=== PATIENT | male | born 1980 | race African-American/Black ===

== ENCOUNTER 2016-04-19 15:17 | Emergency (ER) | payer OTHER ==
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
[2016-04-19 16:36] VITALS: BP 141/92
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
== END 2016-04-19 16:38 | disposition home or self-care (01) ==
LOC: ER 15:17
DX: S49.92XA Unspecified injury of left shoulder and upper arm, initial encounter (principal); M25.512 Pain in left shoulder; X58.XXXA Exposure to other specified factors, initial encounter; F17.210 Nicotine dependence, cigarettes, uncomplicated
CPT/HCPCS: 99283

== ENCOUNTER 2016-05-05 12:08 | Emergency (ER) | payer OTHER ==
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
[2016-05-05] MEDS ORDERED: LIDOCAINE 5% (700 MG) TRANSDERMAL ADH..PATCH TP ONE (13:30)
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
[2016-05-05 13:52] VITALS: BP 120/81
== END 2016-05-05 13:52 | disposition home or self-care (01) ==
LOC: ER 12:08
DX: S49.92XA Unspecified injury of left shoulder and upper arm, initial encounter (principal); G62.9 Polyneuropathy, unspecified; F17.200 Nicotine dependence, unspecified, uncomplicated; V09.3XXA Pedestrian injured in unspecified traffic accident, initial encounter; E10.9 Type 1 diabetes mellitus without complications
CPT/HCPCS: 99283

== ENCOUNTER 2016-06-26 16:16 | Inpatient (IN) | payer OTHER ==
[2016-06-26] MEDS ORDERED: PREDNISONE 20 MG TABLET PO ONE (17:45)
[2016-06-26] MEDS ORDERED: IPRATROPIUM/ALBUTEROL 0.5-2.5 MG/3 ML AMPUL NEB ONE (17:45)
[2016-06-26] MEDS ORDERED: NORMAL SALINE 1000 ML 1,000 ML IV ONE ×2 (17:50→17:52)
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
[2016-06-26 18:35] LABS: VENOUS BLOOD BASE EXCESS -5.5 mmol/L; VENOUS BLOOD HCO3 19.7 mmol/L (20-32); VENOUS BLOOD PCO2 37.6 mmHg (35-63); VENOUS BLOOD PH 7.34 (7.30-7.42)
[2016-06-26 18:37] LABS: ABSOLUTE LYMPHOCYTES (AUTO) 3.4 10^3/uL (0.5-4.7); ABSOLUTE MONOCYTES (AUTO) 0.4 10^3/uL (0.1-1.4); ABSOLUTE NEUT (AUTO) 4.7 10^3/uL (1.7-8.2); BASOPHILS % (AUTO) 0.2 % (0-2); EOSINOPHILS % (AUTO) 0.6 % (0-6); HEMATOCRIT 40.6 % (37.9-51.0); HEMOGLOBIN 13.1 g/dL (13.5-17.0); HGB HCT DIFFERENCE -1.3; LYMPHOCYTES % (AUTO) 39.9 % (13-45); MEAN CORPUSCULAR HEMOGLOBIN 31.1 pg (27.0-33.4); MEAN CORPUSCULAR HGB CONC 32.2 g/dL (32.0-36.0); MEAN CORPUSCULAR VOLUME 97 fl (80-97); MONOCYTES % (AUTO) 4.2 % (3-13); RED CELL DISTRIBUTION WIDTH 13.4 % (11.5-14.0); SEGMENTED NEUTROPHILS % (AUTO) 55.1 % (42-78); WHITE BLOOD COUNT 8.5 10^3/uL (4.0-10.5)
[2016-06-26 18:43] LABS: PROTHROMBIN TIME 11.7 SEC (11.4-15.4)
[2016-06-26 18:57] LABS: ALANINE AMINOTRANSFERASE 24 U/L (21-72); ALBUMIN 4.5 g/dL (3.5-5.0); ALKALINE PHOSPHATASE 125 U/L (38-126); ASPARTATE AMINO TRANSFERASE 29 U/L (17-59); BILIRUBIN,DIRECT 0.3 mg/dL (0.0-0.4); BLOOD UREA NITROGEN 22 mg/dL (7-20); CALCIUM 10.1 mg/dL (8.4-10.2); CREATININE RESULT 1.21 mg/dL (0.52-1.25); TOTAL PROTEIN 6.8 g/dL (6.3-8.2)
--- NOTE | 2016-06-26 18:57 | ER Document Report ---
ED General - General Chief Complaint: Asthma Exacerbation Stated Complaint: DIFFICULTY BREATHING Time seen by provider: 18:57 Mode of Arrival: Ambulatory Information source: Patient TRAVEL OUTSIDE OF THE [place] IN LAST 30 DAYS: No - HPI Patient complains to provider of: difficulty breathing Onset: Other - 2 weeks Onset/Duration: Gradual, Persistent, Worse Quality of pain: Achy Associated symptoms: Body/muscle aches, Nonproductive cough, Nausea, Shortness of breath Exacerbated by: Denies Relieved by: Denies Similar symptoms previously: Yes Recently seen / treated by doctor: No Notes: Patient is a 36-year-old male with history of asthma and diabetes, who presents to the emergency room complaining of difficulty breathing with nonproductive cough and chest tightness over the past 2 weeks, he denies any sick contacts, he does note his blood sugar was measured at high earlier today, he took Lantus 28 units in the morning and sliding scale NovoLog 12 units just prior to coming to the emergency room, he does admit to increased thirst and urination, denies nausea, vomiting or diarrhea - Related Data Allergies/Adverse Reactions: honey [Honey] Allergy (Verified 06/26/16 17:42) No Known Drug Allergies Allergy (Verified 06/26/16 17:42) Past Medical History - General Information source: Patient - Social History Smoking Status: Former Smoker Family History: CAD, CVA, DM, Hyperlipidemia, Hypertension, Malignancy Patient has suicidal ideation: No Patient has homicidal ideation: No - Past Medical History Cardiac Medical History: Denies: Hx Congestive Heart Failure, Hx Coronary Artery Disease, Hx DVT, Hx Heart Attack, Hx Hypercholesterolemia, Hx Hypertension, Hx Pulmonary Embolism Pulmonary Medical History: Reports: Hx Asthma Denies: Hx COPD Neurological Medical History: Denies: Hx Seizures Endocrine Medical History: Reports: Hx Diabetes Mellitus Type 1. Denies: Hx Diabetes Mellitus Type 2, Hx Hyperthyroidism, Hx Hypothyroidism Renal/ Medical History: Denies: Hx Peritoneal Dialysis GI Medical History: Denies: Hx Cirrhosis, Hx Gastroesophageal Reflux Disease, Hx Hepatitis Musculoskeltal Medical History: Denies Hx Arthritis, Reports Hx Musculoskeletal Trauma - Muscle strains and sprains Skin Medical History: Denies Hx Eczema, Denies Hx Psoriasis Psychiatric Medical History: Reports: Hx Anxiety, Hx Depression Infectious Medical History: Denies: Hx Hepatitis Past Surgical History: Reports: Hx Oral Surgery - Teeth, Hx Urinary Tract Surgery - fractured penis repair, Other - Surgery for fractured penis. Oral surgery. - Immunizations Immunizations up to date: Yes Hx Diphtheria, Pertussis, Tetanus Vaccination: Yes Review of Systems - Review of Systems Constitutional: No symptoms reported EENT: No symptoms reported Cardiovascular: No symptoms reported Respiratory: See HPI Gastrointestinal: No symptoms reported Genitourinary: No symptoms reported Male Genitourinary: No symptoms reported Musculoskeletal: No symptoms reported Skin: No symptoms reported Hematologic/Lymphatic: No symptoms reported Neurological/Psychological: No symptoms reported -: Yes All other systems reviewed and negative Physical Exam - Vital signs Vitals: Temp Pulse Resp BP Pulse Ox 97.8 F 102 H 20 106/63 99 06/26/16 16:21 06/26/16 16:21 06/26/16 16:21 06/26/16 16:21 06/26/16 16:21 Interpretation: Tachycardic - General General appearance: Alert In distress: Mild - HEENT Head: Normocephalic, Atraumatic Eyes: Normal Conjunctiva: Normal Extraocular movements intact: Yes Eyelashes: Normal Pupils: PERRL Mucous membranes: Dry Pharynx: Normal Neck: Normal - Respiratory Respiratory status: Tachypnea Chest status: Nontender Breath sounds: Normal Chest palpation: Normal - Cardiovascular Rhythm: Regular, Tachycardia Heart sounds: Normal auscultation Murmur: No - Abdominal Inspection: Normal Distension: No distension Bowel sounds: Normal Tenderness: Nontender Organomegaly: No organomegaly - Back Back: Normal, Nontender - Extremities General upper extremity: Normal inspection, Nontender, Normal color, Normal ROM , Normal temperature General lower extremity: Normal inspection, Nontender, Normal color, Normal ROM , Normal temperature, Normal weight bearing. No: Prabhu's sign - Neurological Neuro grossly intact: Yes Cognition: Normal Orientation: AAOx4 St[place]ker Coma Scale Eye Opening: Spontaneous Stryker Coma Scale Verbal: Oriented Stryker Coma Scale Motor: Obeys Commands Stryker Coma Scale Total: 15 Speech: Normal Motor strength normal: LUE, RUE, LLE, RLE Sensory: Normal - Psychological Associated symptoms: Normal affect, Normal mood - Skin Skin Temperature: Warm Skin Moisture: Dry Skin Color: Normal Course - Re-evaluation Re-evalutation: 06/26/16 23:57 Patient with signs and symptoms consistent with DKA, imaging also consistent with left lower lobe pneumonia, he was started on an insulin drip as well as antibiotics and will be admitted to the [facility] under the hospitalist service 06/27/16 02:37 Patient resting comfortably with stable vital signs, reports feeling much better , has been discussed with the hospitalist service for admission - Vital Signs Vital signs: Temp Pulse Resp BP Pulse Ox 98.5 F 102 H 18 117/80 97 06/27/16 02:00 06/26/16 16:21 06/27/16 01:30 06/27/16 01:30 06/27/16 01:30 - Laboratory Result Diagrams: 06/26/16 18:05 06/26/16 23:35 Laboratory results interpreted by me: 06/26/16 06/26/16 06/26/16 18:05 18:05 18:05 RBC 4.20 L Hgb 13.1 L VBG HCO3 19.7 L Sodium 125.8 L Potassium 6.6 H* Chloride 87 L Carbon Dioxide 19 L Anion Gap 20 H BUN 22 H Glucose 871 H* POC Glucose Urine Glucose (UA) Urine Ketones 06/26/16 06/26/16 06/26/16 18:20 21:40 23:35 RBC Hgb VBG HCO3 Sodium 135.1 L 136.1 L Potassium 5.2 H D Chloride Carbon Dioxide 16 L 14 L Anion Gap 21 H 22 H BUN 22 H Glucose 555 H* 401 H* POC Glucose Urine Glucose (UA) >=500 H Urine Ketones 20 H 06/27/16 06/27/16 00:35 01:23 RBC Hgb VBG HCO3 Sodium Potassium Chloride Carbon Dioxide Anion Gap BUN Glucose POC Glucose 256 H 209 H Urine Glucose (UA) Urine Ketones - Diagnostic Test Radiology reviewed: Image reviewed, Reports reviewed - EKG Interpretation by Me EKG shows normal: Sinus rhythm Rate: Normal Rhythm: NSR - Transfer of Care Care transferred to following provider: Dr. Emery Critical Care Note - Critical Care Note Total time excluding time spent on procedures (mins): 60 Comments: Patient with tachypnea, with signs and symptoms consistent with TKA, requiring admission to the IMCU Discharge - Discharge Clinical Impression: DKA (diabetic ketoacidoses) Qualifiers: Diabetes mellitus type: type 1 Diabetes mellitus complication detail: without coma Qualified Code(s): E10.10 - Type 1 diabetes mellitus with ketoacidosis without coma Pneumonia Qualifiers: Pneumonia type: due to unspecified organism Laterality: left Lung location: lower lobe of lung Qualified Code(s): J18.1 - Lobar pneumonia, unspecified organism Condition: Serious Disposition: ADMITTED INPATIENT Admitting Provider: Hospitalist Unit Admitted: [facility]
[2016-06-26 18:58] LABS: APPEARANCE,URINE CLEAR; BILIRUBIN,URINE NEGATIVE (NEGATIVE); GLUCOSE, URINE >=500 mg/dL (NEGATIVE); KETONES,URINE 20 mg/dL (NEGATIVE); LEUKOCYTE ESTERASE,URINE NEGATIVE (NEGATIVE); NITRITE,URINE NEGATIVE (NEGATIVE); PROTEIN,URINE NEGATIVE (NEGATIVE); URINE SPECIFIC GRAVITY 1.027; UROBILINOGEN,URINE NEGATIVE mg/dL (<2.0)
[2016-06-26 19:05] LABS: CARBON DIOXIDE 19 mmol/L (22-30); CHLORIDE 87 mmol/L (98-107); SODIUM 125.8 mmol/L (137-145)
[2016-06-26 19:37] LABS: ANION GAP 20 (5-19)
[2016-06-26 19:40] LABS: GLUCOSE 871 mg/dL (75-110); POTASSIUM 6.6 mmol/L (3.6-5.0)
[2016-06-26] MEDS ORDERED: DEXTROSE 50%-WATER 25 GM/50 ML DISP.SYRIN IV PRN ×2 (19:42)
[2016-06-26] MEDS ORDERED: NORMAL SALINE 100 ML with INSULIN REGULAR, HUMAN 100 UNIT IV PRN ×2 (19:42)
[2016-06-26] MEDS ORDERED: DEXTROSE 40% GEL 15 GM TUBE PO PRN ×2 (19:42)
[2016-06-26] MEDS ORDERED: GLUCAGON,HUMAN RECOMB 1 MG INJ IM PRN (19:42)
[2016-06-26] MEDS ORDERED: ONDANSETRON HCL INJ/PF 4 MG/2 ML SDV IV ONE (19:51)
[2016-06-26] MEDS ORDERED: INSULIN REG, HUMAN 100 UNIT/ML 3 ML VIAL (PYX) ONE (19:58)
[2016-06-26] MEDS ORDERED: METOCLOPRAMIDE HCL INJ/PF 10 MG/2 ML SDV IV ONE (20:55)
[2016-06-26 22:40] LABS: BLOOD UREA NITROGEN 22 mg/dL (7-20); CALCIUM 9.5 mg/dL (8.4-10.2); CREATININE RESULT 1.05 mg/dL (0.52-1.25)
[2016-06-26 22:50] LABS: CARBON DIOXIDE 16 mmol/L (22-30); CHLORIDE 98 mmol/L (98-107); SODIUM 135.1 mmol/L (137-145)
[2016-06-26 22:52] LABS: ANION GAP 21 (5-19); POTASSIUM 5.2 mmol/L (3.6-5.0)
[2016-06-26 22:54] LABS: GLUCOSE 555 mg/dL (75-110)
[2016-06-26] MEDS ORDERED: NORMAL SALINE 1000 ML 1,000 ML IV PRN (22:56)
[2016-06-27 00:12] LABS: BLOOD UREA NITROGEN 20 mg/dL (7-20); CALCIUM 9.6 mg/dL (8.4-10.2); CARBON DIOXIDE 14 mmol/L (22-30); CREATININE RESULT 1.01 mg/dL (0.52-1.25)
[2016-06-27 00:24] LABS: CHLORIDE 100 mmol/L (98-107); POTASSIUM 4.9 mmol/L (3.6-5.0); SODIUM 136.1 mmol/L (137-145)
[2016-06-27 00:28] LABS: ANION GAP 22 (5-19)
[2016-06-27 00:33] LABS: GLUCOSE 401 mg/dL (75-110)
[2016-06-27] MEDS ORDERED: LEVOFLOXACIN 750 MG/D5W RTU 150 ML IV ONE (01:51)
[2016-06-27] MEDS ORDERED: DEXTROSE 5%-NORMAL SALINE 1,000 ML IV PRN ×2 (02:08→03:44)
[2016-06-27 02:14] LABS: ADD ON TESTING BLD IN LAB ACKNOWLEDGE
[2016-06-27] MEDS ORDERED: DEXTROSE 50%-WATER 25 GM/50 ML DISP.SYRIN IV PRN ×2 (02:41)
[2016-06-27] MEDS ORDERED: NORMAL SALINE 100 ML with INSULIN REGULAR, HUMAN 100 UNIT IV PRN ×2 (02:41)
[2016-06-27] MEDS ORDERED: GLUCAGON,HUMAN RECOMB 1 MG INJ IM PRN ×2 (02:41→08:42)
[2016-06-27] MEDS ORDERED: DEXTROSE 40% GEL 15 GM TUBE PO PRN ×3 (02:41→08:42)
[2016-06-27] MEDS ORDERED: GUAIFENESIN SYRP 200 MG/10 ML UDC PO PRN (03:40)
[2016-06-27] MEDS ORDERED: IPRATROPIUM/ALBUTEROL 0.5-2.5 MG/3 ML AMPUL NEB PRN (03:40)
[2016-06-27] MEDS ORDERED: ACETAMINOPHEN 325 MG TABLET PO PRN (03:40)
[2016-06-27 03:46] LABS: ANION GAP 14 (5-19); BLOOD UREA NITROGEN 17 mg/dL (7-20); CALCIUM 9.1 mg/dL (8.4-10.2); CARBON DIOXIDE 22 mmol/L (22-30); CHLORIDE 105 mmol/L (98-107); CREATINE KINASE 292 U/L (55-170); CREATININE RESULT 0.87 mg/dL (0.52-1.25); GLUCOSE 222 mg/dL (75-110); POTASSIUM 4.5 mmol/L (3.6-5.0); SODIUM 141.1 mmol/L (137-145)
--- NOTE | 2016-06-27 03:57 | PDOC H&P ---
History of Present Illness Admission Date/PCP: 06/27/16 02:18 [place] Patient complains of: DIFFICULTY BREATHING, HIGH BLOOD SUGAR History of Present Illness: JOSE DANIEL CLINTON is a 36 year old -Eritre[place] male with underlying type I diabetes mellitus, asthma, tobacco dependency, although no smoking for the past who presents to the emergency room for evaluation of a 2 week history of difficulty breathing with an associated dry cough and chest tightness when his shortness of breath is at its worst. Dates he's been coughing so much his chest wall is sore. When he doesn't cough, he is having no chest pain. He's had no nausea vomiting, diarrhea or dysuria, fever or chills. No sick contacts. No hospital stay since early February of last year and no antibiotics since then. Hospitalized on our service basically overnight with discharge diagnoses including diabetic ketoacidosis, acute asthmatic bronchitis. History and physical and discharge summary have been reviewed. Blood sugar reading was noted to be "high" the morning of the fourth. Increased thirst and urine output. Denies any "sore spots" anywhere on his body. States he's been compliant with his medications. Patient has been discussed with emergency room physician who evaluated the patient. . Laboratory results are listed in [facility] [place] and are reviewed. X-ray summary results are listed below, with full report(s) reviewed. . EKG reviewed. And compared to a tracing from February 24 of last year. Social history/personal habits: . 4 children. Works at a local [employer] center. No tobacco use for one week. No alcohol or illicit drug use. Allergies/adverse reactions allergic only to honey. NKDA. Home medications Home medications initially autopopulated into [email or web address] may not accurately reflect patient's true medications, dosages, and/or frequencies. REVIEW OF SYSTEMS: Constitutional: No fever or chills. Eyes: No current vision complaints. ENT: No swallowing problems or complaints. No hearing problems or complaints. Pulmonary: See history and present illness. Cardiovascular: No current complaints, including chest pain. Gastrointestinal: No current complaints, including nausea or vomiting. Skin: No current complaints, including rashes. Hematologic: No unusual easy bruising or bleeding. Neurologic: No current complaints, including numbness or tingling. Musculoskeletal: No current complaints, including painful joints. Psychiatric: Mild Anxiety Endocrine: Polyuria and polydipsia Genitourinary: No current complaints, including dysuria. PHYSICAL EXAMINATION: 6 feet tall. 78.6 kg. BMI 23.5 kg/m. Blood pressure 110/85. Pulse 110 and regular. 100% saturation on room air. Respirations are 24 and unlabored. Temperature 98.5. Thin otherwise well-developed -Erit[place] male appearing approximate stated age. Pleasant awake alert and cooperative. Perhaps slightly fatigued. Appears to feel a bit under the weather, so to speak also. Mildly anxious, but no agitation. is present at his side; patient approves. Skin is warm and dry. No grossly obvious evidence of rash in areas of skin examined. No subcutaneous nodules palpated. ENT: Hearing grossly normal to normal conversation. Tongue midline on protrusion pink and slightly tacky. Eyes: No scleral icterus. Pupils equal and reactive to light at 4 mm. [place] conjunctivae. Neck is supple and nontender to gentle active range of motion and palpation. Midline trachea. No palpable thyroid nodule mass enlargement or tenderness. Lymphatic: No palpable cervical or clavicular nodes. Neck and lymphatic exams limited by patient body habitus. Psychiatric: Reasonable insight into acute and chronic medical issues. Oriented to time location and why here. Lungs: Auscultation reveals clear and equal breath sounds bilaterally. No use of accessory respiratory muscles. Occasional dry cough. Cardiovascular: Heart regular rate and rhythm, without gallop murmur or rub. No carotid or abdominal aortic bruits. No ankle or pedal edema. Faintly palpable dorsalis pedis pulses. Abdomen: soft, slightly, distended nontender with positive bowel sounds. Unable to adequately evaluate abdomen for masses or organomegaly due to distention. Extremities: Feet are warm and dry. No calf tenderness to compression. No grossly obvious visual evidence of calf swelling. Gentle manipulation of lower extremities fails to reveal any obvious evidence of injury or instability to knees hips or ankles. Neurologic: Moves upper extremities grossly normally. Patellar reflexes absent. Absent Babinski. Light touch is intact at feet. Dorsiflexion and plantarflexion of feet 5 / 5 and symmetric. Past Medical History Cardiac Medical History: Denies: Congestive Heart Failure, Coronary Artery Disease, DVT, Myocardial Infarction, Hyperlipidema, Hypertension, Pulmonary Embolism Pulmonary Medical History: Reports: Asthma Denies: Chronic Obstructive Pulmonary Disease (COPD), Sleep Apnea Neurological Medical History: Denies: Seizures Endocrine Medical History: Reports: Diabetes Mellitus Type 1 Denies: Diabetes Mellitus Type 2, Hyperthyroidism, Hypothyroidism GI Medical History: Denies: Cirrhosis, Gastroesophageal Reflux Disease, Hepatitis Musculoskeltal Medical History: Denies: Arthritis Skin Medical History: Denies: Eczema, Psoriasis Psychiatric Medical History: Reports: Depression Infectious Medical History: Denies: Clostridium Difficile, Hepatitis B, Hepatitis C, Methicillin- Resistant Staph Aureus Past Surgical History Past Surgical History: Reports: Other - Surgery for fractured penis. Oral surgery. Social History Information Source: Patient, Emergency Med Personnel, [facility] Records Lives with: Spouse/Significant other Smoking Status: Former Smoker Frequency of Alcohol Use: None Hx Recreational Drug Use: No Drugs: None Hx Prescription Drug Abuse: No - Advance Directive Resuscitation Status: Full Code Surrogate healthcare decision maker:: Family History Family History: CAD, CVA, DM, Hyperlipidemia, Hypertension, Malignancy Parental Family History Reviewed: Yes Children Family History Reviewed: Yes Sibling(s) Family History Reviewed.: Yes Medication/Allergy Home Medications: Insulin Glargine,Hum.rec.anlog [Lantus Insulin 100 Unit/mL] 28 units SUBCUT QAM 01/28/13 Hydrocodone Bit/Acetaminophen [Hydrocodon-Acetaminophen 5-325] 1 each PO ASDIR PRN #15 tablet 01/04/14 Penicillin V Potassium [Penicillin Vk 500 mg Tablet] 500 mg PO QID #40 tablet Insulin Aspart [Novolog Insulin (Aspart) 100 unit/mL] 0 unit SUBCUT AC 01/16/14 Clindamycin HCl [Cleocin HCl] 300 mg PO TID 7 Days 07/05/14 Oxycodone HCl/Acetaminophen [Percocet 5-325 mg Tablet] 1 - 2 tab PO Q4H PRN #25 tablet 10/24/14 Ondansetron [Zofran Odt 4 mg Tablet] 1 tab PO Q4H PRN #15 tab.rapdis 12/05/14 Prednisone [Deltasone 20 mg Tablet] 3 tab PO DAILY 3 Days 01/14/15 Albuterol Sulfate [Proair HFA Inhalation Aerosol 8.5 gm MDI] 1 puff IH Q4 PRN # 1 mdi 06/09/15 Budesonide/Formoterol Fumarate [Symbicort Hfa 80-4.5 Mcg Inhaler 6.9 gm] 2 puff IH QAM 06/27/16 Allergies/Adverse Reactions: honey [Honey] Allergy (Verified 06/27/16 08:49) No Known Drug Allergies Allergy (Verified 06/27/16 08:49) Physical Exam Vital Signs: Temp Pulse Resp BP Pulse Ox 98.5 F 102 H 14 122/70 99 06/27/16 02:00 06/26/16 16:21 06/27/16 02:30 06/27/16 02:30 06/27/16 02:30 Results Impressions: Chest X-Ray 06/26/16 00:00 IMPRESSION: PATCHY LEFT LOWER LOBE AIRSPACE DISEASE SUGGESTIVE OF EARLY PNEUMONIA. Assessment & Plan - Diagnosis (1) DKA, type 1 Qualifiers: Diabetes mellitus complication detail: without coma Qualified Code(s ): E10.10 - Type 1 diabetes mellitus with ketoacidosis without coma Is this a current diagnosis for this admission?: YesPlan: Patient will be admitted under DKA protocol. Insulin drip. Vigorous fluid hydration. Strict intake and output. Q 4 hours chemistry 7. Hourly Accu- Cheks. Addition of dextrose to intravenous fluid once serum glucose and/or Accu- Cheks 275 or less. Patient is full code. I have strongly encouraged patient to be careful getting out of bed , to avoid a fall with injury. Knee high SCDs for DVT prophylaxis, along with subcutaneous Lovenox. Impression and plans were discussed with patient and , who concur. Time spent in evaluation and management of patient: 63 minutes (2) LLL pneumonia Qualifiers: Pneumonia type: due to unspecified organism Qualified Code(s): J18.1 - Lobar pneumonia, unspecified organism Is this a current diagnosis for this admission?: YesPlan: Patient will be admitted under [pneumonia] protocol. Incentive spirometry twice a day. [PRN] DuoNeb's. Antibiotics will consist of Rocephin and intravenous Zithromax.. (3) Tobacco dependency Is this a current diagnosis for this admission?: YesPlan: . When necessary Nicotine patch. - Inpatient Certification Based on my medical assessment, after consideration of the patient's comorbidities, presenting symptoms, or acuity I expect that the services needed warrant INPATIENT care.: Yes I certify that my determination is in accordance with my understanding of Medicare's requirements for reasonable and necessary INPATIENT services [42 CFR 412.3e].: Yes Medical Necessity: Need Close Monitoring Due to Risk of Patient Decompensation, Need For Continuous Telemetry Monitoring, Need for Nebulizer Therapy and Monitoring of Response, Need for IV Antibiotics, Risk of Complication if Not Cared For in Hospital, Risk of Diagnosis Which Will Require Inpatient Eval/Care/ Monitoring Post Hospital Care: D/C or Transfer Summary
[2016-06-27 03:59] LABS: TROPONIN I < 0.012 ng/mL
[2016-06-27 07:43] LABS: ABSOLUTE BASOPHILS # (AUTO) 0.1 10^3/uL (0.0-0.2); ABSOLUTE LYMPHOCYTES (AUTO) 3.4 10^3/uL (0.5-4.7); ABSOLUTE MONOCYTES (AUTO) 0.5 10^3/uL (0.1-1.4); ABSOLUTE NEUT (AUTO) 7.1 10^3/uL (1.7-8.2); BASOPHILS % (AUTO) 0.5 % (0-2); EOSINOPHILS % (AUTO) 0.2 % (0-6); HEMATOCRIT 34.5 % (37.9-51.0); HEMOGLOBIN 11.8 g/dL (13.5-17.0); HGB HCT DIFFERENCE 0.9; LYMPHOCYTES % (AUTO) 30.6 % (13-45); MEAN CORPUSCULAR HEMOGLOBIN 31.1 pg (27.0-33.4); MONOCYTES % (AUTO) 4.4 % (3-13); RED BLOOD COUNT 3.78 10^6/uL (4.35-5.55); RED CELL DISTRIBUTION WIDTH 12.8 % (11.5-14.0); SEGMENTED NEUTROPHILS % (AUTO) 64.3 % (42-78); WHITE BLOOD COUNT 11.1 10^3/uL (4.0-10.5)
[2016-06-27 07:55] LABS: ANION GAP 8 (5-19); BLOOD UREA NITROGEN 15 mg/dL (7-20); CALCIUM 8.7 mg/dL (8.4-10.2); CARBON DIOXIDE 25 mmol/L (22-30); CHLORIDE 108 mmol/L (98-107); GLUCOSE 99 mg/dL (75-110); POTASSIUM 3.8 mmol/L (3.6-5.0); SODIUM 140.8 mmol/L (137-145)
[2016-06-27 08:01] LABS: MEAN CORPUSCULAR VOLUME 91 fl (80-97)
[2016-06-27] MEDS ORDERED: INSULIN REG, HUMAN 100 UNIT/ML 3 ML VIAL (PYX) SUBCUT PRN (08:19)
[2016-06-27] MEDS ORDERED: DEXTROSE 40% GEL 15 GM TUBE X 2 PO PRN (08:42)
[2016-06-27] MEDS ORDERED: DEXTROSE 50%-WATER SYRINGE 12.5 GM/25 ML DOSE IV PRN (08:42)
[2016-06-27] MEDS ORDERED: DEXTROSE 50%-WATER SYRINGE 25 GM/50 ML DOSE IV PRN (08:42)
[2016-06-27] MEDS: CEFTRIAXONE 1 GM/D5W RTU 50 ML IV SCH (09:22)
[2016-06-27] MEDS: ENOXAPARIN SODIUM INJ 40 MG/0.4 ML DISP.SYRIN SUBCUT SCH (09:23)
[2016-06-27] MEDS ORDERED: INSULIN GLARGINE,HUM.REC.ANLOG 300 UNIT/3 ML INSULN.PEN SUBCUT SCH (10:00)
[2016-06-27] MEDS: AZITHROMYCIN 500 MG in DEXTROSE 5%-WATER 250 ML IV SCH (10:46)
[2016-06-27] MEDS ORDERED: INSULIN LISPRO 100 UNIT/ML 3 ML VIAL ONE (13:35)
[2016-06-27] MEDS ORDERED: INSULIN LISPRO 100 UNIT/ML 3 ML VIAL SUBCUT PRN (13:44)
[2016-06-27] MEDS ORDERED: INSULIN LISPRO 100 UNIT/ML 3 ML VIAL SUBCUT ONE (14:00)
[2016-06-27] MEDS: NORMAL SALINE 1000 ML 1,000 ML IV PRN (20:36)
[2016-06-28 05:50] LABS: ANION GAP 12 (5-19); BLOOD UREA NITROGEN 13 mg/dL (7-20); CALCIUM 8.6 mg/dL (8.4-10.2); CARBON DIOXIDE 21 mmol/L (22-30); CHLORIDE 110 mmol/L (98-107); CREATININE RESULT 0.77 mg/dL (0.52-1.25); GLUCOSE 163 mg/dL (75-110); POTASSIUM 4.2 mmol/L (3.6-5.0)
[2016-06-28] MEDS: NORMAL SALINE 1000 ML 1,000 ML IV PRN (06:17)
[2016-06-28] MEDS: ENOXAPARIN SODIUM INJ 40 MG/0.4 ML DISP.SYRIN SUBCUT SCH (09:13)
[2016-06-28] MEDS ORDERED: INSULIN GLARGINE,HUM.REC.ANLOG 300 UNIT/3 ML INSULN.PEN SUBCUT SCH (10:00)
--- NOTE | 2016-06-28 11:55 | PDOC DISCHARGE SUMMARY ---
General - Admit/Disc Date/PCP Admission Date/Primary Care Provider: 06/27/16 03:41 Discharge Date: 06/28/16 - Discharge Diagnosis (1) DKA, type 1 Is this a current diagnosis for this admission?: Yes (2) LLL pneumonia Is this a current diagnosis for this admission?: Yes (3) Hyponatremia Is this a current diagnosis for this admission?: Yes (4) Asthma Is this a current diagnosis for this admission?: Yes - Additional Information Resuscitation Status: Full Code Discharge Diet: Diabetic - no concentrated sweets Discharge Activity: Activity As Tolerated, Balance Activity w/Rest Home Medications: Hydrocodone Bit/Acetaminophen [Hydrocodon-Acetaminophen 5-325] 1 each PO ASDIR PRN #15 tablet 01/04/14 Penicillin V Potassium [Penicillin Vk 500 mg Tablet] 500 mg PO QID #40 tablet Insulin Aspart [Novolog Insulin (Aspart) 100 unit/mL] 0 unit SUBCUT AC 01/16/14 Clindamycin HCl [Cleocin HCl] 300 mg PO TID 7 Days 07/05/14 Oxycodone HCl/Acetaminophen [Percocet 5-325 mg Tablet] 1 - 2 tab PO Q4H PRN #25 tablet 10/24/14 Ondansetron [Zofran Odt 4 mg Tablet] 1 tab PO Q4H PRN #15 tab.rapdis 12/05/14 Prednisone [Deltasone 20 mg Tablet] 3 tab PO DAILY 3 Days 01/14/15 Albuterol Sulfate [Proair HFA Inhalation Aerosol 8.5 gm MDI] 1 puff IH Q4 PRN # 1 mdi 06/09/15 Budesonide/Formoterol Fumarate [Symbicort HFA 80-4.5 mcg Inhaler 6.9 gm] 2 puff IH QAM 06/27/16 Guaifenesin [Robitussin Syrup 200 mg/10 ml Ud Cup] 200 mg PO Q4HP PRN udc 06/28 Insulin Glargine,Hum.rec.anlog [Lantus Insulin 100 Unit/mL] 30 unit SUBCUT DAILY insuln.pen 06/28/16 Levofloxacin [Levaquin 750 mg Tablet] 750 mg PO DAILY #10 tab 06/28/16 Additional Information: Measure blood sugar 3 times a day and record. Bring to next physician visit. Follow up final report on blood culture as outpatient with primary care physician. History of Present Illness Patient complains of: Shortness of breath with high blood sugar History of Present Illness: JOSE DANIEL CLINTON is a 36 year old male, insulin-dependent diabetes mellitus and asthma presents to the hospital with 2 week history of shortness of breath, cough and pleuritic chest pain. The patient presented to the emergency room with elevated blood sugar elevated anion gap. Patient was given intravenous insulin and insulin drip as well as intravenous fluids. Chest x-ray revealed left lower lobe infiltrate. Intravenous antibiotic was given. The patient was then referred for admission. For details please refer to history and physical examination performed by the admitting physician. Hospital Course Hospital Course: The patient was admitted to [facility]. The patient was continued on intravenous insulin and IV fluids. Blood sugars were monitored hourly and eventually the patient's blood sugar trended down and dextrose containing IV fluid was started. Patient presents initially with hyperkalemia that resolved. Serum chemistries were performed and eventually the patient's anion gap normalized. Broad-spectrum antibiotic was continued. Patient's symptomatology improved significantly. Diet was advanced and he tolerated it well. Patient was therefore placed on subcutaneous basal insulin with sliding scale coverage, and the intravenous drip was discontinued. The following morning the patient wanted to go home as he significantly improved. He wants to continue treatment on an outpatient basis. The rest of the hospital stays unremarkable. Physical Exam Vital Signs: Temp Pulse Resp BP Pulse Ox 97.9 F 71 14 140/85 H 99 06/28/16 07:32 06/28/16 08:00 06/28/16 08:00 06/28/16 07:32 06/28/16 08:00 Intake & Output 06/27/16 06/28/16 06/29/16 06:59 06:59 06:59 Intake Total 2670 Output Total 0 Balance 2670 Weight 79.9 kg General appearance: PRESENT: no acute distress, cooperative Head exam: PRESENT: normocephalic Eye exam: PRESENT: EOMI Mouth exam: PRESENT: moist, neck supple Neck exam: ABSENT: JVD Respiratory exam: PRESENT: clear to auscultation selena. ABSENT: rhonchi, wheezes GI/Abdominal exam: PRESENT: normal bowel sounds, soft. ABSENT: distended, tenderness Extremities exam: ABSENT: pedal edema Neurological exam: PRESENT: alert, awake, oriented to person, oriented to place , oriented to time, oriented to situation Skin exam: PRESENT: dry, warm. ABSENT: cyanosis Results Laboratory Results: 06/27/16 07:35 06/28/16 04:25 06/28/16 04:25 Sodium 143.0 Potassium 4.2 Chloride 110 H Carbon Dioxide 21 L Anion Gap 12 BUN 13 Creatinine 0.77 Est GFR ( Amer) > 60 Est GFR (Non-Af Amer) > 60 Glucose 163 H Calcium 8.6 Impressions: Chest X-Ray 06/26/16 00:00 IMPRESSION: PATCHY LEFT LOWER LOBE AIRSPACE DISEASE SUGGESTIVE OF EARLY PNEUMONIA. Qualifiers PATEINT BEING DISCHARGED WITH ANY OF THE FOLLOWING DIAGNOSIS?: No Plan Discharge Plan: Follow-up with primary care physician in one week. Time Spent: Less than 30 Minutes
[2016-06-28] MEDS: AZITHROMYCIN 500 MG in DEXTROSE 5%-WATER 250 ML IV SCH (12:08)
[2016-06-28] MEDS: CEFTRIAXONE 1 GM/D5W RTU 50 ML IV SCH (12:08)
[2016-06-28 12:10] VITALS: BP 135/78
[2016-06-28] MEDS ORDERED: INSULIN LISPRO 100 UNIT/ML 3 ML VIAL SUBCUT ONE (12:45)
--- NOTE | 2016-06-28 15:44 | EKG REPORT ---
SEVERITY:- ABNORMAL ECG - SINUS RHYTHM CONSIDER LEFT VENTRICULAR HYPERTROPHY : Confirmed by: Tracee Churchill MD 28-Jun-2016 15:43:14
== END 2016-06-28 12:45 | disposition home or self-care (01) | DRG 637 ==
LOC: ER 16:16 → UNDOADMIN 06-27 02:18 → EH 06-27 02:18 → 3N 06-27 12:03
PROVIDERS: ADMIT Family Medicine; ATTEND Family Medicine
PROC: 3E0F73Z Introduction of Anti-inflammatory into Respiratory Tract, Via Natural or Artificial Opening (ICD-10-PCS; principal; 2016-06-27)
DX: E10.10 Type 1 diabetes mellitus with ketoacidosis without coma (principal); J18.1 Lobar pneumonia, unspecified organism; E87.1 Hypo-osmolality and hyponatremia; J45.909 Unspecified asthma, uncomplicated; E87.5 Hyperkalemia; F41.9 Anxiety disorder, unspecified; F32.9 Major depressive disorder, single episode, unspecified; Z79.4 Long term (current) use of insulin; Z91.018 Allergy to other foods; Z79.899 Other long term (current) drug therapy; Z87.891 Personal history of nicotine dependence; Z82.3 Family history of stroke; Z83.3 Family history of diabetes mellitus; Z80.9 Family history of malignant neoplasm, unspecified; Z82.49 Family history of ischemic heart disease and other diseases of the circulatory system
CPT/HCPCS: 36415; 71010; 80048; 80053; 81001; 82550; 82553; 82803; 82962; 83605; 83735; 84484; 85025; 85610; 87040; 87086; 87804; 93005; 93010; 94799; 96361; 96374; 96375; 99291; J0456; J0696; J1650; J1815; J1956; J2405; J2765; J3490; J7030; J7060; J7512; J7620

== ENCOUNTER 2016-09-09 18:45 | Emergency (ER) | payer OTHER ==
[2016-09-09 18:51] VITALS: BP 157/103
[2016-09-09] MEDS ORDERED: OXYCODONE HCL IR 5 MG TABLET PO ONE (19:25)
--- NOTE | 2016-09-09 19:27 | ER Document Report ---
HPI - HPI Patient complains to provider of: puncture wound Onset: Other - 3 days Onset/Duration: Persistent Quality of pain: Achy Pain Level: 5 Context: Patient states that he accidentally screwed a screw into his left thumb 3 days ago. Patient states that the fingernail was lifted up but he cleansed the wound and pushed the nail back in place and applied a skin glue adhesive over the top of the nail. Patient complains of continued left thumb pain. Patient denies any fever. Patient does complain of some swelling. Patient is diabetic , states his blood sugars have been running normally. Associated Symptoms: Other - Puncture wound to left thumb Exacerbated by: Movement Relieved by: Denies Similar symptoms previously: No Recently seen / treated by doctor: No - ROS ROS below otherwise negative: Yes Systems Reviewed and Negative: Yes All other systems reviewed and negative - CONSTITUTIONAL Constitutional: DENIES: Fever, Chills - REPRODUCTIVE Reproductive: DENIES: : - MUSCULOSKELETAL Musculoskeletal: REPORTS: Extremity pain, Swelling - DERM Skin Problems: Puncture Wound Past Medical History - General Information source: Patient - Social History Smoking Status: Current Every Day Smoker Frequency of alcohol use: None Drug Abuse: None Occupation: [employer] Lives with: Family Family History: CAD, CVA, DM, Hyperlipidemia, Hypertension, Malignancy - Past Medical History Cardiac Medical History: Denies: Hx Congestive Heart Failure, Hx Coronary Artery Disease, Hx DVT, Hx Heart Attack, Hx Hypercholesterolemia, Hx Hypertension, Hx Pulmonary Embolism Pulmonary Medical History: Reports: Hx Asthma Denies: Hx COPD, Hx Sleep Apnea Neurological Medical History: Denies: Hx Seizures Endocrine Medical History: Reports: Hx Diabetes Mellitus Type 1. Denies: Hx Diabetes Mellitus Type 2, Hx Hyperthyroidism, Hx Hypothyroidism Renal/ Medical History: Denies: Hx Peritoneal Dialysis GI Medical History: Denies: Hx Cirrhosis, Hx Gastroesophageal Reflux Disease, Hx Hepatitis Musculoskeltal Medical History: Denies Hx Arthritis, Reports Hx Musculoskeletal Trauma - Muscle strains and sprains Skin Medical History: Denies Hx Eczema, Denies Hx Psoriasis Psychiatric Medical History: Reports: Hx Anxiety, Hx Depression Infectious Medical History: Denies: Hx C-Diff, Hx Hepatitis, Hx MRSA Past Surgical History: Reports: Hx Oral Surgery - Teeth, Hx Urinary Tract Surgery - fractured penis repair, Other - Surgery for fractured penis. Oral surgery. - Immunizations Immunizations up to date: Yes Hx Diphtheria, Pertussis, Tetanus Vaccination: Yes Vertical Provider Document - CONSTITUTIONAL Agree With Documented VS: Yes Exam Limitations: No Limitations General Appearance: WD/WN, No Apparent Distress - INFECTION CONTROL TRAVEL OUTSIDE OF THE [place] IN LAST 30 DAYS: No - HEENT HEENT: Atraumatic, Normocephalic - NECK Neck: Normal Inspection - RESPIRATORY Respiratory: No Respiratory Distress O2 Sat by Pulse Oximetry: 100 - CARDIOVASCULAR Pulses: Normal: Radial - MUSCULOSKELETAL/EXTREMETIES Musculoskeletal/Extremeties: MAEW, Tender - left thumb tenderness along radial aspect of finger, mild swelling to distal thumb, no erythema - NEURO Level of Consciousness: Awake, Alert, Appropriate Motor/Sensory: No Motor Deficit - DERM Integumentary: Warm, Dry Notes: PW to left thumb involving nail Course - Re-evaluation Re-evalutation: 09/09/16 20:15 The patient has been informed that they may have pre-hypertension or hypertension based on a blood pressure reading in the emergency department. I recommend that patient call the primary care provider listed on their discharge instructions or a physician of their choice by this week to arrange follow-up for further evaluation of possible pre-hypertension her hypertension. Consulted with Dr. Jang regarding patient management, advises treating patient with Bactrim as well as Keflex and agrees with plan for orthopedic follow-up - Vital Signs Vital signs: Temp Pulse Resp BP Pulse Ox 98.3 F 100 22 H 157/103 H 100 09/09/16 18:48 09/09/16 18:48 09/09/16 18:48 09/09/16 18:48 09/09/16 18:48 - Diagnostic Test Radiology reviewed: Reports reviewed Discharge - Discharge Clinical Impression: Elevated blood pressure reading Puncture wound of thumb Qualifiers: Encounter type: initial encounter Laterality: left Qualified Code(s): S61.032A - Puncture wound without foreign body of left thumb without damage to nail, initial encounter Condition: Stable Disposition: HOME, SELF-CARE Instructions: Puncture Wound ([facility]), Trimethoprim-Sulfa ([facility]), Cephalexin ([facility]) , Oral Narcotic Medication ([facility]) Additional Instructions: Return immediately for any new or worsening symptoms Followup with your primary care provider, call tomorrow to make a followup appointment Follow-up with orthopedic hand specialist, call tomorrow for an appointment Your blood pressure was elevated today, recheck with your primary doctor to have this reevaluated this week. Prescriptions: Cephalexin Monohydrate [Keflex 500 mg Capsule] 500 mg PO Q6H 5 Days Oxycodone HCl/Acetaminophen [Percocet 5-325 mg Tablet] 1 tab PO ASDIR PRN #15 tablet PRN Reason: Sulfamethoxazole/Trimethoprim [Bactrim Ds Tablet] 1 each PO BID #20 tablet Forms: Elevated Blood Pressure, Return to Work Referrals: ZHAO RICHMOND DO [ACTIVE STAFF] - Follow up tomorrow
--- NOTE | 2016-09-09 20:01 | RADIOLOGY REPORT (SQ) ---
EXAM DESCRIPTION: FINGER LEFT COMPLETED DATE/TIME: 09/09/2016 7:53 pm REASON FOR STUDY: screw thru nail 3 days ago, pain/swelling COMPARISON: None. NUMBER OF VIEWS: Three views. TECHNIQUE: AP, lateral, and oblique images acquired of the left thumb LIMITATIONS: None. FINDINGS: MINERALIZATION: Normal. BONES: No acute fracture or dislocation. No worrisome bone lesions. SOFT TISSUES: Left thumb soft tissue swelling along the palmar aspect at the level of the distal phal anx. No soft tissue gas. No radiopaque foreign body. OTHER: No other significant finding. IMPRESSION: Soft tissue swelling without retained radiopaque foreign body or soft tissue gas. No ag gressive bony demineralization at the thumb distal phalanx worrisome for osteomyelitis COMMENT: SITE OF TRAUMA/COMPLAINT MARKED/STAMP COMPLETED: Yes TECHNICAL DOCUMENTATION: JOB ID: [id number] [employer]- All Rights Reserved
[2016-09-09] MEDS ORDERED: CEPHALEXIN 500 MG CAPSULE PO ONE (20:14)
[2016-09-09] MEDS ORDERED: SULFAMETHOXAZOLE/TRIMETHOPRIM 800-160 MG TABLET PO ONE (20:14)
== END 2016-09-09 21:02 | disposition home or self-care (01) ==
LOC: ER 18:45
DX: S61.132A Puncture wound without foreign body of left thumb with damage to nail, initial encounter (principal); W20.8XXA Other cause of strike by thrown, projected or falling object, initial encounter; R03.0 Elevated blood-pressure reading, without diagnosis of hypertension; J45.909 Unspecified asthma, uncomplicated; E10.9 Type 1 diabetes mellitus without complications; F17.200 Nicotine dependence, unspecified, uncomplicated
CPT/HCPCS: 99283

== ENCOUNTER 2016-09-12 11:23 | Emergency (ER) | payer OTHER ==
[2016-09-12] MEDS ORDERED: PIPERACILLIN/TAZOBACTAM 4.5 GM VIAL IV ONE (12:24)
[2016-09-12] MEDS ORDERED: OXYCODONE-ACETAMINOPHEN 5-325 MG TABLET PO ONE (12:25)
--- NOTE | 2016-09-12 12:27 | ER Document Report ---
ED Hand/Wrist Injury <KELLEY ALVARENGA - Last Filed: 09/12/16 13:49> - General TRAVEL OUTSIDE OF THE [place] IN LAST 30 DAYS: No <RACHEL MATTA - Last Filed: 09/12/16 21:19> - General Chief Complaint: Thumb Injury Stated Complaint: FINGER INJURY Time Seen by Provider: 09/12/16 12:00 Notes: 36-year-old male who returns emergency department complaining of left thumb pain and worsening swelling. Patient had injured his left thumb with a screw puncture wound on September 06. Patient was evaluated in the emergency department on September 09, initiated on Keflex and Bactrim. Patient states that his pain and swelling has increased in severity and location. Patient states initially was around his nail bed that he had pain and swelling but now has pain on the fat pad of the flexor part of his thumb and has pain radiating down the extensor tendon of the left thumb. Patient admits to chills and subjective fevers. States he has been taking his antibiotics as prescribed, using ice as instructed with minimal relief in his swelling. Patient had followed up with his primary care provider since [facility] he states that he is to wait for referral and he has not had a designated appointment yet. (RACHEL MATTA) - Related Data Allergies/Adverse Reactions: honey [Honey] Allergy (Verified 09/12/16 11:30) No Known Drug Allergies Allergy (Verified 09/12/16 11:30) Past Medical History - Social History Smoking Status: Unknown if Ever Smoked Family History: CAD, CVA, DM, Hyperlipidemia, Hypertension, Malignancy Patient has suicidal ideation: No Patient has homicidal ideation: No - Past Medical History Cardiac Medical History: Denies: Hx Congestive Heart Failure, Hx Coronary Artery Disease, Hx DVT, Hx Heart Attack, Hx Hypercholesterolemia, Hx Hypertension, Hx Pulmonary Embolism Pulmonary Medical History: Reports: Hx Asthma Denies: Hx COPD, Hx Sleep Apnea Neurological Medical History: Denies: Hx Seizures Endocrine Medical History: Reports: Hx Diabetes Mellitus Type 1. Denies: Hx Diabetes Mellitus Type 2, Hx Hyperthyroidism, Hx Hypothyroidism Renal/ Medical History: Denies: Hx Peritoneal Dialysis GI Medical History: Denies: Hx Cirrhosis, Hx Gastroesophageal Reflux Disease, Hx Hepatitis Musculoskeltal Medical History: Denies Hx Arthritis, Reports Hx Musculoskeletal Trauma - Muscle strains and sprains Skin Medical History: Denies Hx Eczema, Denies Hx Psoriasis Psychiatric Medical History: Reports: Hx Anxiety, Hx Depression Infectious Medical History: Denies: Hx C-Diff, Hx Hepatitis, Hx MRSA Past Surgical History: Reports: Hx Oral Surgery - Teeth, Hx Urinary Tract Surgery - fractured penis repair, Other - Surgery for fractured penis. Oral surgery. - Immunizations Immunizations up to date: Yes Hx Diphtheria, Pertussis, Tetanus Vaccination: Yes <RACHEL MATTA - Last Filed: 09/12/16 21:19> Review of Systems - Review of Systems Constitutional: See HPI Cardiovascular: No symptoms reported Respiratory: No symptoms reported Musculoskeletal: See HPI Skin: See HPI -: Yes All other systems reviewed and negative <RACHEL MATTA - Last Filed: 09/12/16 21:19> Physical Exam - General General appearance: Appears well, Alert In distress: None - Respiratory Respiratory status: No respiratory distress Chest status: Nontender Breath sounds: Normal Chest palpation: Normal - Cardiovascular Rhythm: Regular Heart sounds: Normal auscultation Murmur: No Pulses: Normal: Radial Normal capillary refill: Yes - Extremities Wrist: Normal, Nontender. No: Deformity, Limited ROM Hand: Tender, Nail injury - site of previous puncture wound that has been sealed by glue, Swelling - around the nail with white discoloration, swelling of the fat pad of the flexor surface of the thumb. tense and tender to touch, Other - erythema, tenderness and pain with motion along the extensor tendon of the left thumb. No: Dislocation, Laceration, Tendon deficit - Neurological Neuro grossly intact: Yes Cognition: Normal Orientation: AAOx4 Pam Coma Scale Eye Opening: Spontaneous Pam Coma Scale Verbal: Oriented Pam Coma Scale Motor: Obeys Commands Tyro Coma Scale Total: 15 - Skin Skin irregularity: Tender indurated area Location of irregularity: Extremities - left thumb Irregularity with: Swelling, Tenderness, Warmth, Induration <RACHEL MATTA - Last Filed: 09/12/16 21:19> - Vital signs Vitals: Temp Pulse Resp BP Pulse Ox 98.0 F 130 H 18 147/100 H 99 09/12/16 11:31 09/12/16 11:31 09/12/16 11:31 09/12/16 11:31 09/12/16 11:31 Course - Laboratory Result Diagrams: 09/12/16 12:44 09/12/16 12:44 <KELLEY ALVARENGA - Last Filed: 09/12/16 13:49> - Laboratory Result Diagrams: 09/12/16 12:44 09/12/16 12:44 - Diagnostic Test Radiology reviewed: Image reviewed, Reports reviewed - Consults Dr. Reddy Time consulted: 12:26 <RACHEL MATTA - Last Filed: 09/12/16 21:19> - Re-evaluation Re-evalutation: 09/12/16 13:49 I have seen and examined the patient. This is a 36-year-old man that had a puncture to the left thumbnail 2 days prior and he applied to the puncture wound at that time. He did come in to the ER for evaluation and was placed on prophylactic antibiotics. His tetanus is up-to-date. He presents with increased pain and swelling of the left thumb. On exam, he does have significant swelling of the distal end of the thumb both around the nail as well as on the flexor surface of the distal thumb. He has erythema extending up the extensor surface of the THUMB with tenderness over the extensor tendons. The revealed poorly controlled diabetes. The concern for this patient is both in extensor synovitis as well as a [place]. I have recommended IV antibiotics and orthopedic consultation. (KELLEY ALVARENGA) 09/12/16 12:26 patient is a 36 year old male is hemodynamic stable, no acute distress and afebrile. Patient is previously been evaluated in this emergency department but failing outpatient p.o. antibiotic management alone. History and physical exam concerning for extensor tenosynovitis as well as felon/paronychia. Based on patient's return visit, I have consulted Dr. Rodas. He has recommended IV antibiotics and referral to [facility] for evaluation for tenosynovitis for possible hospital admission. IV access has been established and Zosyn initiated. 09/12/16 14:[address] Maureen frank director of retail operations has recommended the patient can be discharged and to follow up with him in his office upon discharge. I have sent him images of the left thumb and he feels that it is a paronychia. Patient was kept in the department due to his elevated blood glucose. He states he usually responds well to 15 units of insulin. 09/12/16 15:40 Patients sugar came down to 450's. Patient to receive another 15 units. Will d/ c so he can follow up with Dr. Reddy 09/12/16 18:59 Called patient at home. He was able to follow up with Dr. Reddy. He states he drained the paronychia and was able to send him home. Patient with home abx, pain meds and to follow up with PCP this week or next. (RACHEL MATTA) - Vital Signs Vital signs: Temp Pulse Resp BP Pulse Ox 98.1 F 135 H 18 129/72 H 100 09/12/16 15:47 09/12/16 15:47 09/12/16 14:39 09/12/16 15:47 09/12/16 15:47 - Laboratory Laboratory results interpreted by me: 09/12/16 09/12/16 12:44 12:44 WBC 11.2 H RBC 4.19 L Hgb 13.0 L Sodium 130.9 L Potassium 5.7 H Chloride 95 L Carbon Dioxide 21 L Glucose 565 H* Direct Bilirubin 0.6 H ALT 14 L Alkaline Phosphatase 142 H - Consults Dr. Reddy Reason for consultation: 09/12/16 12:26 evaluation for possible tenosynovitis, trey possible admission (RACHEL MATTA) Discharge <KELLEY ALVARENGA - Last Filed: 09/12/16 13:49> <RACHEL MATTA - Last Filed: 09/12/16 21:19> - Discharge Clinical Impression: Trey, Robertochia Puncture wound of thumb Qualifiers: Encounter type: initial encounter Laterality: left Qualified Code(s): S61.032A - Puncture wound without foreign body of left thumb without damage to nail, initial encounter Condition: Good Disposition: HOME, SELF-CARE Instructions: Trey (Fingertip Abscess) ([facility]), Paronychia ([facility]) Additional Instructions: Please follow up with Dr. Reddy at his office after leaving the ER Forms: Elevated Blood Pressure Referrals: HEMAL HANEY NP [Primary Care Provider] - Follow up as needed WONG HERRING MD [ACTIVE STAFF] - 09/12/16 (Please go to their office once you are discharged)
--- NOTE | 2016-09-12 13:13 | RADIOLOGY REPORT (SQ) ---
EXAM DESCRIPTION: FINGER LEFT COMPLETED DATE/TIME: 09/12/2016 12:55 pm REASON FOR STUDY: left thumb puncture wound 09/06 with pain, swelling COMPARISON: 09/09/2016 NUMBER OF VIEWS: Three views. TECHNIQUE: AP, lateral, and oblique images acquired of the left thumb. LIMITATIONS: None. FINDINGS: MINERALIZATION: Normal. BONES: No acute fracture or dislocation. No worrisome bone lesions. SOFT TISSUES: There is soft tissue swelling. No foreign body. OTHER: No other significant finding. IMPRESSION: Soft tissue swelling with no identifiable foreign body and no osseous abnormality. COMMENT: SITE OF TRAUMA/COMPLAINT MARKED/STAMP COMPLETED: Yes TECHNICAL DOCUMENTATION: JOB ID: [id number] [employer]- All Rights Reserved
[2016-09-12 13:16] LABS: ABSOLUTE EOSINOPHILS # (AUTO) 0.1 10^3/uL (0.0-0.6); ABSOLUTE LYMPHOCYTES (AUTO) 2.1 10^3/uL (0.5-4.7); ABSOLUTE MONOCYTES (AUTO) 0.8 10^3/uL (0.1-1.4); ABSOLUTE NEUT (AUTO) 8.2 10^3/uL (1.7-8.2); BASOPHILS % (AUTO) 0.4 % (0-2); EOSINOPHILS % (AUTO) 0.7 % (0-6); HEMATOCRIT 40.5 % (37.9-51.0); HGB HCT DIFFERENCE -1.5; LYMPHOCYTES % (AUTO) 18.6 % (13-45); MEAN CORPUSCULAR HGB CONC 32.1 g/dL (32.0-36.0); MEAN CORPUSCULAR VOLUME 97 fl (80-97); MONOCYTES % (AUTO) 6.9 % (3-13); RED BLOOD COUNT 4.19 10^6/uL (4.35-5.55); SEGMENTED NEUTROPHILS % (AUTO) 73.4 % (42-78); WHITE BLOOD COUNT 11.2 10^3/uL (4.0-10.5)
[2016-09-12 13:30] LABS: ALANINE AMINOTRANSFERASE 14 U/L (21-72); ALBUMIN 3.8 g/dL (3.5-5.0); ALKALINE PHOSPHATASE 142 U/L (38-126); ANION GAP 15 (5-19); ASPARTATE AMINO TRANSFERASE 20 U/L (17-59); BILIRUBIN,DIRECT 0.6 mg/dL (0.0-0.4); BILIRUBIN,TOTAL 1.1 mg/dL (0.2-1.3); BLOOD UREA NITROGEN 16 mg/dL (7-20); CARBON DIOXIDE 21 mmol/L (22-30); CHLORIDE 95 mmol/L (98-107); CREATININE RESULT 0.93 mg/dL (0.52-1.25); POTASSIUM 5.7 mmol/L (3.6-5.0); SODIUM 130.9 mmol/L (137-145); TOTAL PROTEIN 6.8 g/dL (6.3-8.2)
[2016-09-12 13:46] LABS: GLUCOSE 565 mg/dL (75-110)
[2016-09-12] MEDS ORDERED: INSULIN REG, HUMAN 100 UNIT/ML 3 ML VIAL (PYX) SUBCUT ONE ×2 (14:09→15:36)
[2016-09-12 15:55] VITALS: BP 129/72
== END 2016-09-12 15:54 | disposition home or self-care (01) ==
LOC: ER 11:23
DX: S61.032A Puncture wound without foreign body of left thumb without damage to nail, initial encounter (principal); L03.012 Cellulitis of left finger; X58.XXXA Exposure to other specified factors, initial encounter
CPT/HCPCS: 99283; 96365; 36415; 87040; 82962; 85025; 87077; 80053; 87186; 73140; J1815; J2543

== ENCOUNTER 2016-09-18 15:36 | Emergency (ER) | payer OTHER ==
[2016-09-18] MEDS ORDERED: OXYCODONE-ACETAMINOPHEN 5-325 MG TABLET PO ONE ×2 (16:55→18:28)
--- NOTE | 2016-09-18 16:58 | ER Document Report ---
ED Medical Screen (RME) - General Chief Complaint: Thumb Injury Stated Complaint: THUMB PAIN Time Seen by Provider: 09/18/16 16:29 Notes: Patient is a 36-year-old male, past medical history diabetes, presents with 2 days of increasing left thumb injury and swelling. He had surgery by Dr. Brambila 2 weeks ago after a metal mail injury with improvement of his symptoms and was placed on an antibiotic, which may have been in the nasal lid after he received IV vancomycin. The symptoms initially improved, but returned over the past 2 days. No new injuries. PE: swelling and of left distal thumb with purulent discharge from surgical wound I have greeted and performed a rapid initial assessment of this patient. A comprehensive ED assessment and evaluation of the patient, analysis of test results and completion of the medical decision making process will be conducted by additional ED providers. TRAVEL OUTSIDE OF THE [place] IN LAST 30 DAYS: No - Related Data Allergies/Adverse Reactions: honey [Honey] Allergy (Verified 09/18/16 16:13) No Known Drug Allergies Allergy (Verified 09/18/16 16:13) Past Medical History - Past Medical History Cardiac Medical History: Denies: Hx Congestive Heart Failure, Hx Coronary Artery Disease, Hx DVT, Hx Heart Attack, Hx Hypercholesterolemia, Hx Hypertension, Hx Pulmonary Embolism Pulmonary Medical History: Reports: Hx Asthma Denies: Hx COPD, Hx Sleep Apnea Neurological Medical History: Denies: Hx Seizures Endocrine Medical History: Reports: Hx Diabetes Mellitus Type 1. Denies: Hx Diabetes Mellitus Type 2, Hx Hyperthyroidism, Hx Hypothyroidism Renal/ Medical History: Denies: Hx Peritoneal Dialysis GI Medical History: Denies: Hx Cirrhosis, Hx Gastroesophageal Reflux Disease, Hx Hepatitis Musculoskeltal Medical History: Denies Hx Arthritis, Reports Hx Musculoskeletal Trauma - Muscle strains and sprains Skin Medical History: Denies Hx Eczema, Denies Hx Psoriasis Psychiatric Medical History: Reports: Hx Anxiety, Hx Depression Infectious Medical History: Denies: Hx C-Diff, Hx Hepatitis, Hx MRSA Past Surgical History: Reports: Hx Oral Surgery - Teeth, Hx Urinary Tract Surgery - fractured penis repair, Other - Surgery for fractured penis. Oral surgery. - Immunizations Immunizations up to date: Yes Hx Diphtheria, Pertussis, Tetanus Vaccination: Yes
--- NOTE | 2016-09-18 18:01 | RADIOLOGY REPORT (SQ) ---
EXAM DESCRIPTION: FINGER LEFT COMPLETED DATE/TIME: 09/18/2016 5:49 pm REASON FOR STUDY: left thumb finger COMPARISON: None. NUMBER OF VIEWS: Three views. TECHNIQUE: AP, lateral, and oblique images acquired of the left thumb. LIMITATIONS: None. FINDINGS: MINERALIZATION: Normal. BONES: On the straight AP view of the thumb there is a faintly defined lucent line crosses the distal phalanx there is marked. This is suggestive of a nondisplaced fracture. However, this is not seen on the other 2 images. SOFT TISSUES: There appears to be a laceration. There is soft tissue swelling. OTHER: No other significant finding. IMPRESSION: Soft tissue swelling. A nondisplaced transverse fracture of the distal phalanx cannot e ntirely be ruled out. See discussion above. COMMENT: SITE OF TRAUMA/COMPLAINT MARKED/STAMP COMPLETED: Yes TECHNICAL DOCUMENTATION: JOB ID: [id number] [employer]- All Rights Reserved
[2016-09-18] MEDS ORDERED: MORPHINE SULFATE 10 MG/ML INJ IM ONE (18:29)
[2016-09-18] MEDS ORDERED: CLINDAMYCIN HCL 150 MG CAPSULE PO ONE ×2 (18:33→18:36)
--- NOTE | 2016-09-18 18:40 | ER Document Report ---
ED General - General Chief Complaint: Thumb Injury Stated Complaint: THUMB PAIN Time Seen by Provider: 09/18/16 16:29 Mode of Arrival: Ambulatory Information source: Patient TRAVEL OUTSIDE OF THE [place] IN LAST 30 DAYS: No - HPI Patient complains to provider of: left thumb swelling with drainage Onset: Just prior to arrival Onset/Duration: Waxing and waning Quality of pain: Achy, Fullness, Pressure Severity: Moderate Pain Level: 3 Similar symptoms previously: Yes Recently seen / treated by doctor: Yes Notes: Is a 36-year-old male who presents to the emergency room complaining of pain with swelling and drainage to the left thumb, he was seen in this emergency room approximately 2 weeks ago when he had an injury to the thumb, he accidentally drove a screw through it, he was further seen by orthopedics shortly thereafter and he developed an infection, he was placed on antibiotics, which include Bactrim and Keflex, he states his thumb was actually getting better and then this evening he noticed some purulent drainage from it, he denies any fevers, he denies any new injury, states he has a follow-up with orthopedics later this week - Related Data Allergies/Adverse Reactions: honey [Honey] Allergy (Verified 09/18/16 16:13) No Known Drug Allergies Allergy (Verified 09/18/16 16:13) Past Medical History - General Information source: Patient - Social History Smoking Status: Unknown if Ever Smoked Family History: CAD, CVA, DM, Hyperlipidemia, Hypertension, Malignancy Patient has suicidal ideation: No Patient has homicidal ideation: No - Past Medical History Cardiac Medical History: Denies: Hx Congestive Heart Failure, Hx Coronary Artery Disease, Hx DVT, Hx Heart Attack, Hx Hypercholesterolemia, Hx Hypertension, Hx Pulmonary Embolism Pulmonary Medical History: Reports: Hx Asthma Denies: Hx COPD, Hx Sleep Apnea Neurological Medical History: Denies: Hx Seizures Endocrine Medical History: Reports: Hx Diabetes Mellitus Type 1. Denies: Hx Diabetes Mellitus Type 2, Hx Hyperthyroidism, Hx Hypothyroidism Renal/ Medical History: Denies: Hx Peritoneal Dialysis GI Medical History: Denies: Hx Cirrhosis, Hx Gastroesophageal Reflux Disease, Hx Hepatitis Musculoskeltal Medical History: Denies Hx Arthritis, Reports Hx Musculoskeletal Trauma - Muscle strains and sprains Skin Medical History: Denies Hx Eczema, Denies Hx Psoriasis Psychiatric Medical History: Reports: Hx Anxiety, Hx Depression Infectious Medical History: Denies: Hx C-Diff, Hx Hepatitis, Hx MRSA Past Surgical History: Reports: Hx Oral Surgery - Teeth, Hx Urinary Tract Surgery - fractured penis repair, Other - Surgery for fractured penis. Oral surgery. - Immunizations Immunizations up to date: Yes Hx Diphtheria, Pertussis, Tetanus Vaccination: Yes Review of Systems - Review of Systems Constitutional: No symptoms reported EENT: No symptoms reported Cardiovascular: No symptoms reported Respiratory: No symptoms reported Gastrointestinal: No symptoms reported Genitourinary: No symptoms reported Male Genitourinary: No symptoms reported Musculoskeletal: See HPI Skin: See HPI Hematologic/Lymphatic: No symptoms reported Neurological/Psychological: No symptoms reported -: Yes All other systems reviewed and negative Physical Exam - Vital signs Vitals: Temp Pulse Resp BP Pulse Ox 98 F 61 12 152/99 H 97 09/18/16 19:49 09/18/16 19:49 09/18/16 19:49 09/18/16 19:49 09/18/16 19:49 - Notes Notes: - General General appearance: Appears well, Alert In distress: None - HEENT Head: Normocephalic, Atraumatic Eyes: Normal Conjunctiva: Normal Extraocular movements intact: Yes Eyelashes: Normal Pupils: PERRL - Respiratory Respiratory status: No respiratory distress - Cardiovascular Rhythm: Regular - Abdominal Inspection: Normal - Back Back: Normal - Extremities General upper extremity: Patient's left thumb is swollen, with slight erythema, open wound on the lateral surface, with serous drainage, it is tender to palpate General lower extremity: Normal inspection - Neurological Neuro grossly intact: Yes Orientation: AAOx4 [place] Coma Scale Eye Opening: Spontaneous Pam Coma Scale Verbal: Oriented Holden Coma Scale Motor: Obeys Commands Pam Coma Scale Total: 15 - Psychological Associated symptoms: Normal affect, Normal mood - Skin Skin Temperature: Warm Skin Moisture: Dry Skin Color: Normal Course - Re-evaluation Re-evalutation: 09/18/16 21:57 Patient with open wound to the left thumb, this is been an ongoing issue for the past 2 weeks, he was previously on Bactrim and Keflex, he will be started on clindamycin today, states he has been of pain medication at home and a follow -up with orthopedics later this week, patient was advised to keep that appointment or return if any additional concerns, patient was afebrile with stable vital signs, no signs of sepsis, patient acknowledges understanding and agreement with this plan - Vital Signs Vital signs: Temp Pulse Resp BP Pulse Ox 98 F 61 12 152/99 H 97 09/18/16 19:49 09/18/16 19:49 09/18/16 19:49 09/18/16 19:49 09/18/16 19:49 - Diagnostic Test Radiology reviewed: Image reviewed, Reports reviewed Discharge - Discharge Clinical Impression: Wound infection, posttraumatic Condition: Stable Disposition: HOME, SELF-CARE Instructions: Wound Infection ([facility]), Dressing Instructions for Open Wounds ([facility] ) Additional Instructions: Follow up with your primary care provider and orthopedic surgeon in one to 2 days. Return to the emergency room immediately if symptoms worsen or any additional concerns. Prescriptions: Clindamycin HCl [Cleocin 150 mg Capsule] 450 mg PO Q6 10 Days
[2016-09-18 19:51] VITALS: BP 152/99
== END 2016-09-18 19:52 | disposition home or self-care (01) ==
LOC: ER 15:36
DX: S61.032D Puncture wound without foreign body of left thumb without damage to nail, subsequent encounter (principal); L08.9 Local infection of the skin and subcutaneous tissue, unspecified; W22.8XXD Striking against or struck by other objects, subsequent encounter
CPT/HCPCS: 99283; 96372; 73140; J2270

== ENCOUNTER 2016-10-02 19:09 | Emergency (ER) | payer OTHER ==
[2016-10-02] MEDS ORDERED: CEFAZOLIN INJ 1 GM VIAL IV ONE (19:55)
[2016-10-02] MEDS ORDERED: MORPHINE SULFATE 10 MG/ML INJ IV ONE (19:55)
--- NOTE | 2016-10-02 20:01 | ER Document Report ---
ED Medical Screen (RME) - General Chief Complaint: Thumb Injury Stated Complaint: THUMB PAIN Time Seen by Provider: 10/02/16 19:55 Mode of Arrival: Ambulatory Information source: Patient, [facility] Records TRAVEL OUTSIDE OF THE [place] IN LAST 30 DAYS: No - HPI Onset: Other Onset/Duration: Gradual, Worse Associated Symptoms: None Exacerbated by: Denies Relieved by: Denies Notes: 10/02/16 19:58 Patient is a 36-year-old male who was seen here approximately 1 month ago for a left thumb injury which occurred after driving a screw through the nail of his left thumb. Patient has had several emergency department visits for this and is also been seen by orthopedics. Patient was initially started on Bactrim and then switched to clindamycin. Patient reported that he did have an I&D done by orthopedics last week. Patient thought he was doing better until yesterday when he developed increased left thumb pain. Patient states that he is still taking clindamycin. Patient denies any new injury. Patient states it was too late in the day to follow-up with orthopedics. - Related Data Allergies/Adverse Reactions: honey [Honey] Allergy (Verified 10/02/16 19:27) No Known Drug Allergies Allergy (Verified 10/02/16 19:27) Past Medical History - General Information source: Patient, [facility] Records - Past Medical History Cardiac Medical History: Denies: Hx Congestive Heart Failure, Hx Coronary Artery Disease, Hx DVT, Hx Heart Attack, Hx Hypercholesterolemia, Hx Hypertension, Hx Pulmonary Embolism Pulmonary Medical History: Reports: Hx Asthma Denies: Hx COPD, Hx Sleep Apnea Neurological Medical History: Denies: Hx Seizures Endocrine Medical History: Reports: Hx Diabetes Mellitus Type 1. Denies: Hx Diabetes Mellitus Type 2, Hx Hyperthyroidism, Hx Hypothyroidism Renal/ Medical History: Denies: Hx Peritoneal Dialysis GI Medical History: Denies: Hx Cirrhosis, Hx Gastroesophageal Reflux Disease, Hx Hepatitis Musculoskeltal Medical History: Denies Hx Arthritis, Reports Hx Musculoskeletal Trauma - Muscle strains and sprains Skin Medical History: Denies Hx Eczema, Denies Hx Psoriasis Psychiatric Medical History: Reports: Hx Anxiety, Hx Depression Infectious Medical History: Denies: Hx C-Diff, Hx Hepatitis, Hx MRSA Past Surgical History: Reports: Hx Oral Surgery - Teeth, Hx Urinary Tract Surgery - fractured penis repair, Other - Surgery for fractured penis. Oral surgery. - Immunizations Immunizations up to date: Yes Hx Diphtheria, Pertussis, Tetanus Vaccination: Yes Review of Systems - Review of Systems Musculoskeletal: Other - Thumb pain -: Yes All other systems reviewed and negative Physical Exam - Vital signs Vitals: Temp Pulse Resp BP Pulse Ox 98.9 F 110 H 18 126/81 H 98 10/02/16 19:27 10/02/16 19:27 10/02/16 19:27 10/02/16 19:27 10/02/16 19:27 Interpretation: Normal - Respiratory Respiratory status: No respiratory distress Chest status: Nontender Breath sounds: Normal Chest palpation: Normal - Cardiovascular Rhythm: Regular Heart sounds: Normal auscultation Murmur: No - Extremities General upper extremity: Other - Left thumb with moderate erythema, there is drainage coming from the nail bed. There is no obvious felon. There is no evidence of lymphangitis. Course - Re-evaluation Re-evalutation: 10/02/16 20:01 Patient states he will be able to follow-up with Dr. Landeros of orthopedics tomorrow. Will cover him with a dose of IV Ancef tonight and add Keflex to his clindamycin regimen. - Vital Signs Vital signs: Temp Pulse Resp BP Pulse Ox 98.9 F 110 H 18 126/81 H 98 10/02/16 19:27 10/02/16 19:27 10/02/16 19:27 10/02/16 19:27 10/02/16 19:27 Doctor's Discharge - Discharge Clinical Impression: Paronychia Condition: Good Disposition: HOME, SELF-CARE Instructions: Paronychia ([facility]) Additional Instructions: Continue on your clindamycin. Keflex added. It is very important that you follow-up with orthopedics, Dr. Landeros, tomorrow morning. Return to the emergency department if worse or for any other problems. Prescriptions: Cephalexin Monohydrate [Keflex 500 mg Capsule] 1,000 mg PO BID #28 capsule Oxycodone HCl/Acetaminophen [Percocet 5-325 mg Tablet] 1 - 2 tab PO Q4H PRN #15 tablet PRN Reason: Referrals: ETHAN LANDEROS MD [ACTIVE STAFF] - Follow up as needed
[2016-10-02 23:30] VITALS: BP 144/97
== END 2016-10-02 23:30 | disposition home or self-care (01) ==
LOC: ER 19:09
DX: L03.012 Cellulitis of left finger (principal); E10.9 Type 1 diabetes mellitus without complications
CPT/HCPCS: 99283; 96374; 96375; J0690; J2270

== ENCOUNTER 2017-01-19 04:26 | Emergency (ER) | payer OTHER ==
[2017-01-19] MEDS ORDERED: DEXTROSE 5%-1/2 NORMAL SALINE 1,000 ML IV ONE (04:41)
[2017-01-19] MEDS ORDERED: DEXTROSE 50%-WATER 25 GM/50 ML DISP.SYRIN IV ONE (05:35)
[2017-01-19 05:43] LABS: ABSOLUTE EOSINOPHILS # (AUTO) 0.1 10^3/uL (0.0-0.6); ABSOLUTE MONOCYTES (AUTO) 0.5 10^3/uL (0.1-1.4); ABSOLUTE NEUT (AUTO) 4.1 10^3/uL (1.7-8.2); BASOPHILS % (AUTO) 0.3 % (0-2); HEMATOCRIT 36.9 % (37.9-51.0); HEMOGLOBIN 12.5 g/dL (13.5-17.0); HGB HCT DIFFERENCE 0.6; LYMPHOCYTES % (AUTO) 29.6 % (13-45); MEAN CORPUSCULAR HEMOGLOBIN 31.7 pg (27.0-33.4); MEAN CORPUSCULAR HGB CONC 33.8 g/dL (32.0-36.0); MEAN CORPUSCULAR VOLUME 94 fl (80-97); MONOCYTES % (AUTO) 6.8 % (3-13); RED BLOOD COUNT 3.93 10^6/uL (4.35-5.55); RED CELL DISTRIBUTION WIDTH 13.3 % (11.5-14.0); SEGMENTED NEUTROPHILS % (AUTO) 61.3 % (42-78); WHITE BLOOD COUNT 6.7 10^3/uL (4.0-10.5)
[2017-01-19 05:51] LABS: ANION GAP 14 (5-19); BLOOD UREA NITROGEN 6 mg/dL (7-20); CALCIUM 9.2 mg/dL (8.4-10.2); CARBON DIOXIDE 29 mmol/L (22-30); CHLORIDE 101 mmol/L (98-107); GLUCOSE 58 mg/dL (75-110); POTASSIUM 3.4 mmol/L (3.6-5.0); SODIUM 144.4 mmol/L (137-145)
--- NOTE | 2017-01-19 05:54 | ER Document Report ---
ED General - General Chief Complaint: Low Blood Sugar Stated Complaint: BLOOD SUGAR PROBLEMS Time Seen by Provider: 01/19/17 05:53 Mode of Arrival: Medic Information source: Patient, Friend, Emergency Med Personnel, [facility] Records TRAVEL OUTSIDE OF THE [place] IN LAST 30 DAYS: No - HPI Patient complains to provider of: hypoglycemia Onset: This morning Onset/Duration: Gradual Quality of pain: No pain Exacerbated by: Denies Relieved by: Denies Similar symptoms previously: Yes Recently seen / treated by doctor: Yes Notes: Patient is a 36-year-old female with history of type 1 diabetes with fairly appropriate glycemic control. Patient states yesterday his glucometer read high so he covered himself with the total amount of about 50 units of regular insulin because a glucometer Reading high after giving insulin. This morning, he woke up and was not surprisingly, hypoglycemic with a blood sugar of 13. EMS was called he was given IV D50 as well as p.o. intake. Now his blood sugars are normal. He reports feeling fatigued denies any other complaints or problems. He states he has not been recently ill and typically maintains fairly good glycemic control. - Related Data Allergies/Adverse Reactions: honey [Honey] Allergy (Verified 10/02/16 19:27) No Known Drug Allergies Allergy (Verified 10/02/16 19:27) Past Medical History - General Information source: Patient, Emergency Med Personnel, [facility] Records - Social History Smoking Status: Never Smoker Family History: CAD, CVA, DM, Hyperlipidemia, Hypertension, Malignancy - Past Medical History Cardiac Medical History: Denies: Hx Congestive Heart Failure, Hx Coronary Artery Disease, Hx DVT, Hx Heart Attack, Hx Hypercholesterolemia, Hx Hypertension, Hx Pulmonary Embolism Pulmonary Medical History: Reports: Hx Asthma Denies: Hx COPD, Hx Sleep Apnea Neurological Medical History: Denies: Hx Seizures Endocrine Medical History: Reports: Hx Diabetes Mellitus Type 1. Denies: Hx Diabetes Mellitus Type 2, Hx Hyperthyroidism, Hx Hypothyroidism Renal/ Medical History: Denies: Hx Peritoneal Dialysis GI Medical History: Denies: Hx Cirrhosis, Hx Gastroesophageal Reflux Disease, Hx Hepatitis Musculoskeltal Medical History: Denies Hx Arthritis, Reports Hx Musculoskeletal Trauma - Muscle strains and sprains Skin Medical History: Denies Hx Eczema, Denies Hx Psoriasis Psychiatric Medical History: Reports: Hx Anxiety, Hx Depression Infectious Medical History: Denies: Hx C-Diff, Hx Hepatitis, Hx MRSA Past Surgical History: Reports: Hx Oral Surgery - Teeth, Hx Urinary Tract Surgery - fractured penis repair, Other - Surgery for fractured penis. Oral surgery. - Immunizations Immunizations up to date: Yes Hx Diphtheria, Pertussis, Tetanus Vaccination: Yes Review of Systems - Review of Systems Constitutional: Other - Low blood sugars -: Yes All other systems reviewed and negative Physical Exam - Vital signs Vitals: Pulse Ox 100 01/19/17 04:33 Interpretation: Normal - General General appearance: Appears well, Alert - HEENT Head: Normocephalic, Atraumatic Eyes: Normal Pupils: PERRL - Respiratory Respiratory status: No respiratory distress Chest status: Nontender Breath sounds: Normal Chest palpation: Normal - Cardiovascular Rhythm: Regular Heart sounds: Normal auscultation Murmur: No - Abdominal Inspection: Normal Distension: No distension Bowel sounds: Normal Tenderness: Nontender Organomegaly: No organomegaly - Back Back: Normal, Nontender - Extremities General upper extremity: Normal inspection, Nontender, Normal color, Normal ROM , Normal temperature General lower extremity: Normal inspection, Nontender, Normal color, Normal ROM , Normal temperature, Normal weight bearing. No: Prabhu's sign - Neurological Neuro grossly intact: Yes Cognition: Normal Orientation: AAOx4 [place] Coma Scale Eye Opening: Spontaneous [place] Coma Scale Verbal: Oriented Pam Coma Scale Motor: Obeys Commands Pam Coma Scale Total: 15 Speech: Normal Motor strength normal: LUE, RUE, LLE, RLE Sensory: Normal - Psychological Associated symptoms: Normal affect, Normal mood - Skin Skin Temperature: Warm Skin Moisture: Dry Skin Color: Normal Course - Re-evaluation Re-evalutation: 01/19/17 07:28 Patient has tolerated p.o. intake without difficulty. Most recent fingerstick was 106. Will discharge patient home. I have cautioned him to not use excess insulin as it is better to be slightly hyperglycemic and hypoglycemic. He will follow-up with his primary care doctor next week. - Vital Signs Vital signs: Temp Pulse Resp BP Pulse Ox 20 134/82 H 99 01/19/17 07:01 01/19/17 07:01 01/19/17 07:01 - Laboratory Result Diagrams: 01/19/17 05:29 01/19/17 05:29 Laboratory results interpreted by me: 01/19/17 01/19/17 01/19/17 04:35 05:15 05:29 RBC 3.93 L Hgb 12.5 L Hct 36.9 L Potassium BUN Glucose POC Glucose 55 L 66 L 01/19/17 05:29 RBC Hgb Hct Potassium 3.4 L BUN 6 L Glucose 58 L POC Glucose Discharge - Discharge Clinical Impression: Diabetes mellitus type 1, uncomplicated Condition: Good Disposition: HOME, SELF-CARE Instructions: Control of Diabetes During Illness ([facility]), Diabetes ([facility]) Additional Instructions: Check your blood sugar frequently. Do not use excess insulin so as not to drop your blood sugar too low. Return to the emergency department if worse or for any other problems.
[2017-01-19 07:55] VITALS: BP 135/78
== END 2017-01-19 07:55 | disposition home or self-care (01) ==
LOC: ER 04:26
DX: E10.65 Type 1 diabetes mellitus with hyperglycemia (principal); Z79.4 Long term (current) use of insulin
CPT/HCPCS: 36415; 80048; 82962; 85025; 96360; 96361; 99285

== ENCOUNTER 2017-04-22 09:27 | Emergency (ER) | payer OTHER ==
--- NOTE | 2017-04-22 09:57 | ER Document Report ---
HPI - HPI Pain Level: 4 Notes: Patient is a 36-year-old male with a history of type 1 insulin-dependent diabetes who presents to the ED complaining of left ear pain that began this morning while he was at work. Patient states that he was using a pressure hose with a pressure hose broke and blew air towards his ear. Patient states that he has had pain since then as well as noticing scant blood. Patient states that he can still hear out of the ear otherwise. He denies any recent illness. He denies any drug allergies. Denies any smoking or IV drug use. Denies any headache, fever, neck pain, URI, tinnitus, sore throat, chest pain, palpitations , syncope, cough, shortness of breath, wheeze, dyspnea, abdominal pain, nausea/ vomiting/diarrhea, urinary retention, dysuria, hematuria, or rash. - ROS Systems Reviewed and Negative: Yes All other systems reviewed and negative - REPRODUCTIVE Reproductive: DENIES: : Past Medical History - Social History Smoking Status: Never Smoker Family History: CAD, CVA, DM, Hyperlipidemia, Hypertension, Malignancy - Past Medical History Cardiac Medical History: Denies: Hx Congestive Heart Failure, Hx Coronary Artery Disease, Hx DVT, Hx Heart Attack, Hx Hypercholesterolemia, Hx Hypertension, Hx Pulmonary Embolism Pulmonary Medical History: Reports: Hx Asthma Denies: Hx COPD, Hx Sleep Apnea Neurological Medical History: Denies: Hx Seizures Endocrine Medical History: Reports: Hx Diabetes Mellitus Type 1. Denies: Hx Diabetes Mellitus Type 2, Hx Hyperthyroidism, Hx Hypothyroidism Renal/ Medical History: Denies: Hx Peritoneal Dialysis GI Medical History: Denies: Hx Cirrhosis, Hx Gastroesophageal Reflux Disease, Hx Hepatitis Musculoskeltal Medical History: Denies Hx Arthritis, Reports Hx Musculoskeletal Trauma - Muscle strains and sprains Skin Medical History: Denies Hx Eczema, Denies Hx Psoriasis Psychiatric Medical History: Reports: Hx Anxiety, Hx Depression Infectious Medical History: Denies: Hx C-Diff, Hx Hepatitis, Hx MRSA Past Surgical History: Reports: Hx Oral Surgery - Teeth, Hx Urinary Tract Surgery - fractured penis repair, Other - Surgery for fractured penis. Oral surgery. - Immunizations Immunizations up to date: Yes Hx Diphtheria, Pertussis, Tetanus Vaccination: Yes Vertical Provider Document - CONSTITUTIONAL Agree With Documented VS: Yes Notes: PHYSICAL EXAMINATION: GENERAL: Well-appearing, well-nourished and in no acute distress. A&Ox4. HEAD: Atraumatic, normocephalic. EYES: Pupils equal round and reactive to light, extraocular movements intact, sclera anicteric, conjunctiva are normal. ENT: Lt EAC there is a small abrasin with scant bleeding noted. + mild swelling. TM's intact b/l without erythema, fluid, or perforation. Nares patent and without discharge. oropharynx clear without exudates. No tonsilar hypertrophy or erythema. Moist mucous membranes. No sinus tenderness. NECK: Normal range of motion, supple without lymphadenopathy. No rigidity/ meningismus. LUNGS: Breath sounds clear to auscultation bilaterally and equal. No wheezes rales or rhonchi. HEART: Regular rate and rhythm without murmurs, rubs, gallops. Extremities: No cyanosis, clubbing, or edema b/l. Peripheral pulses 2+. Capillary refill less than 3 seconds. NEUROLOGICAL: Cranial nerves grossly intact. Normal speech, normal gait. Normal sensory, motor exams PSYCH: Normal mood, normal affect. SKIN: Warm, Dry, normal turgor, no rashes or lesions noted. - INFECTION CONTROL TRAVEL OUTSIDE OF THE [place] IN LAST 30 DAYS: No - RESPIRATORY O2 Sat by Pulse Oximetry: 99 Course - Re-evaluation Re-evalutation: 04/22/17 10:01 Patient is an afebrile, well-hydrated, 36-year-old male who presents to the ED with an abrasion to his left EAC. Vitals are stable. PE is otherwise unremarkable. No labs or imaging warranted at this time based on H&P. Low suspicion for any perforation, mastoiditis, fracture, sepsis, meningitis, or other systemic emergent condition at this time. Patient to monitor symptoms closely and seek medical attention with any acute changes. I will send him home with a prescription for Ciprodex. Conservative measures otherwise for symptoms. Recheck with your PCM in 3-5 days. Consider consult with ENT. Return to the ED with any worsening/concerning symptoms otherwise as reviewed discharge. Patient is in agreement. - Vital Signs Vital signs: Temp Pulse Resp BP Pulse Ox 98.9 F 92 15 136/86 H 99 04/22/17 09:33 04/22/17 09:33 04/22/17 09:33 04/22/17 09:33 04/22/17 09:33 Discharge - Discharge Clinical Impression: Earache, left Condition: Stable Disposition: HOME, SELF-CARE Additional Instructions: Keep the skin clean Wash with soap and water Tylenol/ibuprofen if needed Take medication as directed Monitor for any worsening symptoms Recheck with your PCM in 3-5 days Consider consult with ENT for ongoing/worsening symptoms Return to the ED with any worsening symptoms and/or development of fever, headache, chest pain, palpitations, syncope, shortness of breath, trouble breathing, abdominal pain, n/v/d, abscess, purulent discharge, red streaks, worsening swelling, or other worsening symptoms that are concerning to you. Prescriptions: Ciprofloxacin HCl/Dexameth [Ciprodex Otic Suspension 7.5 ml Bottle] 4 drop OT BID #1 bottle Forms: Elevated Blood Pressure, Return to Work Referrals: LIZ FLOWER DO [ASSOCIATE] - Follow up as needed
[2017-04-22 10:35] VITALS: BP 126/88
== END 2017-04-22 10:32 | disposition home or self-care (01) ==
LOC: ER 09:27
DX: S00.412A Abrasion of left ear, initial encounter (principal); H92.02 Otalgia, left ear; X58.XXXA Exposure to other specified factors, initial encounter; Y93.89 Activity, other specified; Y99.0 Civilian activity done for income or pay; E10.9 Type 1 diabetes mellitus without complications; J45.909 Unspecified asthma, uncomplicated
CPT/HCPCS: 99282

== ENCOUNTER 2017-04-22 20:43 | Emergency (ER) | payer OTHER ==
[2017-04-22] MEDS ORDERED: LIDOCAINE 2% VISCOUS SOLN 20 ML UDCUP PO ONE (22:28)
--- NOTE | 2017-04-22 22:38 | ER Document Report ---
ED ENT - General Chief Complaint: L ear pain Stated Complaint: LEFT EAR PAIN Time Seen by Provider: 04/22/17 21:28 Mode of Arrival: Ambulatory Information source: Patient Notes: 36-year-old male presented to ED for complaint of left ear pain that began this morning while at work. Patient states she is also been off balance since his ear started hurting. He states he was seen in the emergency room this morning but his ear is continuing to hurt. TRAVEL OUTSIDE OF THE [place] IN LAST 30 DAYS: No - HPI Patient complains to provider of: Ear problem, Nose problem Onset: This morning Onset/Duration: Persistent Quality of pain: Achy, Other - Throbbing Severity: Severe Pain Level: 5 Context: Injury - States he was injured at work when a pressure hose broke and blue area into his ear Location of pain: Ears Associated symptoms: Ear pain Similar symptoms previously: Yes Recently seen / treated by doctor: Yes - Related Data Allergies/Adverse Reactions: honey [Honey] Allergy (Verified 04/22/17 09:30) No Known Drug Allergies Allergy (Verified 04/22/17 09:30) Past Medical History - General Information source: Patient - Social History Smoking Status: Current Every Day Smoker Cigarette use (# per day): Yes - Half pack a day Chew tobacco use (# tins/day): No Smoking Education Provided: Yes - 4 minutes Frequency of alcohol use: Occasional Drug Abuse: None 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 Lives with: Alone - Along with his children Family History: CAD, CVA, DM, Hyperlipidemia, Hypertension, Malignancy Patient has suicidal ideation: No Patient has homicidal ideation: No - Past Medical History Cardiac Medical History: Reports: None Pulmonary Medical History: Reports: Hx Asthma, Hx Pneumonia EENT Medical History: Reports: None Neurological Medical History: Reports: Hx Migraine Endocrine Medical History: Reports: Hx Diabetes Mellitus Type 1 Renal/ Medical History: Reports: Other - Fractured penis with surgery Malignancy Medical History: Reports None GI Medical History: Reports: None Musculoskeltal Medical History: Reports Hx Musculoskeletal Trauma - Muscle strains and sprains Skin Medical History: Reports None Psychiatric Medical History: Reports: Hx Anxiety, Hx Depression Traumatic Medical History: Reports: None Infectious Medical History: Reports: None Past Surgical History: Reports: Hx Oral Surgery - Teeth, Hx Urinary Tract Surgery - fractured penis repair, Other - Immunizations Immunizations up to date: Yes Hx Diphtheria, Pertussis, Tetanus Vaccination: Yes Review of Systems - Review of Systems Constitutional: No symptoms reported EENT: Ear pain, Nose congestion, Nose discharge, Sinus discharge Cardiovascular: No symptoms reported Respiratory: No symptoms reported Gastrointestinal: No symptoms reported Genitourinary: No symptoms reported Male Genitourinary: No symptoms reported Musculoskeletal: No symptoms reported Skin: No symptoms reported Hematologic/Lymphatic: No symptoms reported Neurological/Psychological: No symptoms reported -: Yes All other systems reviewed and negative Physical Exam - Vital signs Vitals: Temp Pulse Resp BP Pulse Ox 98.8 F 81 18 139/96 H 99 04/22/17 20:56 04/22/17 20:56 04/22/17 20:56 04/22/17 20:56 04/22/17 20:56 Interpretation: Normal - General General appearance: Appears well, Alert - HEENT Head: Normocephalic, Atraumatic Eyes: Normal Pupils: PERRL Ears: Normal External canal: Erythema, Swollen Tympanic membrane: Normal Sinus: Normal Nasal: Purulent discharge, Swelling Mouth/Lips: Normal Mucous membranes: Normal Pharynx: Post nasal drainage Neck: Normal - Respiratory Respiratory status: No respiratory distress Chest status: Nontender Breath sounds: Normal Chest palpation: Normal - Cardiovascular Rhythm: Regular Heart sounds: Normal auscultation Murmur: No - Abdominal Inspection: Normal Distension: No distension Bowel sounds: Normal Tenderness: Nontender Organomegaly: No organomegaly - Back Back: Normal, Nontender - Extremities General upper extremity: Normal inspection, Nontender, Normal color, Normal ROM , Normal temperature General lower extremity: Normal inspection, Nontender, Normal color, Normal ROM , Normal temperature, Normal weight bearing. No: Prabhu's sign - Neurological Neuro grossly intact: Yes Cognition: Normal Orientation: AAOx4 Pam Coma Scale Eye Opening: Spontaneous [place] Coma Scale Verbal: Oriented [place] Coma Scale Motor: Obeys Commands [place] Coma Scale Total: 15 Speech: Normal Motor strength normal: LUE, RUE, LLE, RLE Sensory: Normal - Psychological Associated symptoms: Normal affect, Normal mood - Skin Skin Temperature: Warm Skin Moisture: Dry Skin Color: Normal Course - Re-evaluation Re-evalutation: 04/23/17 02:14 Patient was treated with viscous lidocaine for his ear pain. He states the viscous lidocaine helped his pain which also helped with his feeling like he was off balance. Patient's assessment also consistent with an upper respiratory infection. Patient instructed to follow-up with his primary doctor if his ear does not improve over the next couple days and get a referral to ears nose and throat. - Vital Signs Vital signs: Temp Pulse Resp BP Pulse Ox 98.4 F 92 16 149/85 H 99 04/22/17 23:11 04/22/17 23:11 04/22/17 23:11 04/22/17 23:11 04/22/17 23:11 Discharge - Discharge Clinical Impression: Earache, left URI (upper respiratory infection) Qualifiers: URI type: unspecified URI Qualified Code(s): J06.9 - Acute upper respiratory infection, unspecified Condition: Stable Disposition: HOME, SELF-CARE Instructions: Family Physicians / Practices Additional Instructions: UPPER RESPIRATORY ILLNESS: You have a viral infection of the respiratory passages -- a "cold." This common infection causes nasal congestion, drainage, and often sore throat and cough. It is highly contagious. The disease usually lasts about 10 to 14 days. There is no "cure" for the viral infection -- it must run its course. If there is a complication, such as bacterial infection in the nose, sinuses, middle ear, or bronchial tubes, antibiotics may be required. The antibiotics won't affect the virus. Drink plenty of fluids. A humidifier may help. An expectorant medication or decongestant may make you more comfortable. Use acetaminophen or ibuprofen for fever or aches. See the doctor if fever persists over two days, if there is any significant worsening of your symptoms, or if you simply fail to improve as expected. DECONGESTANT MEDICATION: A decongestant medicine has been prescribed. Often this medicine is combined in the same tablet with an antihistamine or expectorant. This type of medicine is helpful in treating a bad cold or sinus condition, as well as in treatment of the nasal congestion of hay fever. It is not of much benefit for lung infections. Decongestant medicines are related to stimulants. They can cause an increase in blood pressure and heart rate. Persons with heart disease and high blood pressure should not take decongestants without discussing this with the physician. If you develop palpitations, chest pain, headache, or tremors, stop the medicine and consult your physician. You will treated this morning with eardrops for your ear pain. After you have instilled your ear drops each day you can put a small amount of viscous lidocaine in your ear for the pain. He will need to follow-up with your primary doctor concerning your ear pain if it continues. You can use Tylenol if you need p.o. medicine for your ear. USE OF ACETAMINOPHEN (Tylenol): Acetaminophen may be taken for pain relief or fever control. It's much safer than aspirin, offering a wider range of "safe" dosages. It is safe during . Some brand names are Tylenol, Panadol, Datril, Anacin 3, Tempra, and Liquiprin. Acetaminophen can be repeated every four hours. The following are maximum recommended dosages: >89 pounds or adults 650 mg to 900 mg Acetaminophen can be repeated every four hours. Maximum dose not to exceed 4000 mg a day. SMOKING: If you smoke, you should stop smoking. The tar and chemicals in cigarette smoke are harmful. Smoking has been shown to cause: emphysema chronic bronchitis lung cancer mouth and throat cancer stomach and pancreas cancer premature aging defects In addition, smoking increases ear and lung infections in children of smokers. FOLLOW-UP CARE: If you have been referred to a physician for follow-up care, call the physician s office for an appointment as you were instructed or within the next two days. If you experience worsening or a significant change in your symptoms, notify the physician immediately or return to the Emergency Department at any time for re-evaluation. Forms: Elevated Blood Pressure, Smoking Cessation Education, Return to Work
[2017-04-22 23:12] VITALS: BP 149/85
== END 2017-04-22 23:10 | disposition home or self-care (01) ==
LOC: ER 20:43
DX: J06.9 Acute upper respiratory infection, unspecified (principal); H92.02 Otalgia, left ear; X58.XXXA Exposure to other specified factors, initial encounter; F17.210 Nicotine dependence, cigarettes, uncomplicated
CPT/HCPCS: 99406; 99283; J3490

== ENCOUNTER 2017-09-23 12:52 | Emergency (ER) | payer OTHER ==
--- NOTE | 2017-09-23 13:50 | ER Document Report ---
ED Medical Screen (RME) - General Chief Complaint: Syncope Stated Complaint: FALL/HEAD INJURY Time Seen by Provider: 09/23/17 13:44 Mode of Arrival: Wheelchair Information source: Patient Notes: 37 yr old male diabetic presents with complaints of syncopal episode last night striking his head. Patient notes he was syncopized for approximately a few hours. When he awoke EMS had arrived and given him glucose, states since then he has been feeling off nauseous vomited 3 times I have greeted and performed a rapid initial assessment of this patient. A comprehensive ED assessment and evaluation of the patient, analysis of test results and completion of the medical decision making process will be conducted by additional ED providers. PHYSICAL EXAMINATION: GENERAL: Well-appearing, well-nourished and in no acute distress. HEAD: Atraumatic, normocephalic. EYES: Pupils equal round extraocular movements intact, conjunctiva are normal. ENT: Nares patent NECK: Normal range of motion LUNGS: No respiratory distress Musculoskeletal: Normal range of motion NEUROLOGICAL: Normal speech, normal gait. PSYCH: Normal mood, normal affect. SKIN: Warm, Dry, normal turgor, no rashes or lesions noted. TRAVEL OUTSIDE OF THE [place] IN LAST 30 DAYS: No - Related Data Allergies/Adverse Reactions: honey [Honey] Allergy (Verified 04/22/17 09:30) No Known Drug Allergies Allergy (Verified 04/22/17 09:30) Past Medical History - Past Medical History Cardiac Medical History: Denies: Hx Congestive Heart Failure, Hx Coronary Artery Disease, Hx DVT, Hx Heart Attack, Hx Hypercholesterolemia, Hx Hypertension, Hx Pulmonary Embolism Pulmonary Medical History: Reports: Hx Asthma, Hx Pneumonia Denies: Hx COPD, Hx Sleep Apnea Neurological Medical History: Reports: Hx Migraine. Denies: Hx Seizures Endocrine Medical History: Reports: Hx Diabetes Mellitus Type 1. Denies: Hx Diabetes Mellitus Type 2, Hx Hyperthyroidism, Hx Hypothyroidism Renal/ Medical History: Denies: Hx Peritoneal Dialysis GI Medical History: Denies: Hx Cirrhosis, Hx Gastroesophageal Reflux Disease, Hx Hepatitis Musculoskeltal Medical History: Denies Hx Arthritis, Reports Hx Musculoskeletal Trauma - Muscle strains and sprains Skin Medical History: Denies Hx Eczema, Denies Hx Psoriasis Psychiatric Medical History: Reports: Hx Anxiety, Hx Depression Infectious Medical History: Denies: Hx C-Diff, Hx Hepatitis, Hx MRSA Past Surgical History: Reports: Hx Oral Surgery - Teeth, Hx Urinary Tract Surgery - fractured penis repair, Other - Immunizations Immunizations up to date: Yes Hx Diphtheria, Pertussis, Tetanus Vaccination: Yes Physical Exam - Vital signs Vitals: Temp Pulse Resp BP Pulse Ox 99.0 F 108 H 22 H 126/81 H 99 09/23/17 13:01 09/23/17 13:01 09/23/17 13:01 09/23/17 13:01 09/23/17 13:01 Course - Vital Signs Vital signs: Temp Pulse Resp BP Pulse Ox 99.0 F 108 H 22 H 126/81 H 99 09/23/17 13:01 09/23/17 13:01 09/23/17 13:01 09/23/17 13:01 09/23/17 13:01
[2017-09-23 14:24] LABS: ABSOLUTE BASOPHILS # (AUTO) 0.1 10^3/uL (0.0-0.2); ABSOLUTE EOSINOPHILS # (AUTO) 0.1 10^3/uL (0.0-0.6); ABSOLUTE LYMPHOCYTES (AUTO) 2.9 10^3/uL (0.5-4.7); ABSOLUTE MONOCYTES (AUTO) 0.9 10^3/uL (0.1-1.4); ABSOLUTE NEUT (AUTO) 6.6 10^3/uL (1.7-8.2); BASOPHILS % (AUTO) 1.3 % (0-2); EOSINOPHILS % (AUTO) 0.8 % (0-6); HEMATOCRIT 40.4 % (37.9-51.0); HEMOGLOBIN 13.4 g/dL (13.5-17.0); LYMPHOCYTES % (AUTO) 27.2 % (13-45); MEAN CORPUSCULAR HEMOGLOBIN 31.4 pg (27.0-33.4); MEAN CORPUSCULAR HGB CONC 33.1 g/dL (32.0-36.0); MEAN CORPUSCULAR VOLUME 95 fl (80-97); MONOCYTES % (AUTO) 8.2 % (3-13); PLATELET COUNT 267 10^3/uL (150-450); RED BLOOD COUNT 4.26 10^6/uL (4.35-5.55); RED CELL DISTRIBUTION WIDTH 13.8 % (11.5-14.0); SEGMENTED NEUTROPHILS % (AUTO) 62.5 % (42-78); TOTAL CELLS COUNTED % (AUTO) 100 %; WHITE BLOOD COUNT 10.6 10^3/uL (4.0-10.5)
[2017-09-23] MEDS ORDERED: NORMAL SALINE 1000 ML 1,000 ML IV ONE (14:33)
[2017-09-23] MEDS ORDERED: METOCLOPRAMIDE HCL INJ/PF 10 MG/2 ML SDV IV ONE (14:33)
--- NOTE | 2017-09-23 14:35 | ER Document Report ---
ED General - General Mode of Arrival: Wheelchair Information source: Patient TRAVEL OUTSIDE OF THE [place] IN LAST 30 DAYS: No <MIRANDA RAND - Last Filed: 09/23/17 16:36> <LIZ RICHARDSON - Last Filed: 09/23/17 17:43> - General Chief Complaint: Syncope Stated Complaint: FALL/HEAD INJURY Time Seen by Provider: 09/23/17 13:44 Notes: 37-year-old male presenting today with complaints of a low BGL which began yesterday. Patient is a type 1 insulin-dependent diabetic. Patient states that he has been having nausea and vomiting so he has not been eating which likely has caused his blood sugar to drop. Patient complains of a slight headache. (MIRANDA RAND) - Related Data Allergies/Adverse Reactions: honey [Honey] Allergy (Verified 04/22/17 09:30) No Known Drug Allergies Allergy (Verified 04/22/17 09:30) Past Medical History - General Information source: Patient - Social History Smoking Status: Never Smoker Cigarette use (# per day): No Chew tobacco use (# tins/day): No Frequency of alcohol use: None Drug Abuse: None Lives with: Family Family History: Reviewed & Not Pertinent, CAD, CVA, DM, Hyperlipidemia, Hypertension, Malignancy Patient has suicidal ideation: No Patient has homicidal ideation: No Pulmonary Medical History: Reports: Hx Asthma, Hx Pneumonia Neurological Medical History: Reports: Hx Migraine Endocrine Medical History: Reports: Hx Diabetes Mellitus Type 1 Musculoskeltal Medical History: Reports Hx Musculoskeletal Trauma - Muscle strains and sprains Psychiatric Medical History: Reports: Hx Anxiety, Hx Depression Past Surgical History: Reports: Hx Oral Surgery - Teeth, Hx Urinary Tract Surgery - fractured penis repair, Other - Immunizations Immunizations up to date: Yes Hx Diphtheria, Pertussis, Tetanus Vaccination: Yes <MIRANDA RAND - Last Filed: 09/23/17 16:36> Review of Systems - Review of Systems Constitutional: No symptoms reported EENT: No symptoms reported Cardiovascular: No symptoms reported Respiratory: No symptoms reported Gastrointestinal: See HPI, Nausea, Vomiting Genitourinary: No symptoms reported Male Genitourinary: No symptoms reported Musculoskeletal: No symptoms reported Skin: No symptoms reported Hematologic/Lymphatic: No symptoms reported Neurological/Psychological: See HPI, Headaches -: Yes All other systems reviewed and negative <MIRANDA RAND - Last Filed: 09/23/17 16:36> Physical Exam <MIRANDA RAND - Last Filed: 09/23/17 16:36> <LIZ RICHARDSON Emre - Last Filed: 09/23/17 17:43> - Vital signs Vitals: Temp Pulse Resp BP Pulse Ox 99.0 F 108 H 22 H 126/81 H 99 09/23/17 13:01 09/23/17 13:01 09/23/17 13:01 09/23/17 13:01 09/23/17 13:01 - Notes Notes: Physical Exam: General: Alert, appears well. HEENT: Normocephalic. Atraumatic. PERRL. Extraocular movements intact. Oropharynx clear. Neck: Supple. Non-tender. Respiratory: No respiratory distress. Clear and equal breath sounds bilaterally. Cardiovascular: Regular rate and rhythm. Abdominal: Normal Inspection. Non-tender. No distension. Normal Bowel Sounds. Back: Non-tender. No deformity or step off. Extremities: Moves all four extremities. Upper extremities: Normal inspection. Normal ROM. Lower extremities: Normal inspection. No edema. Normal ROM. Neurological: Normal cognition. AAOx4. Normal speech. Psychological: Normal affect. Normal Mood. Skin: Warm. Dry. Normal color. (MIRANDA RAND) Course - Laboratory Result Diagrams: 09/23/17 14:00 09/23/17 14:00 <MIRANDA RAND - Last Filed: 09/23/17 16:36> - Laboratory Result Diagrams: 09/23/17 14:00 09/23/17 14:00 - EKG Interpretation by Nc EKG shows normal: Sinus rhythm Rate: Normal Rhythm: NSR - Nonspecific ST-T wave abnormalities <LIZ RICHARDSON Emre - Last Filed: 09/23/17 17:43> - Re-evaluation Re-evalutation: 09/23/17 17:38 Patient well-appearing no vomitus in the emergency permit labs within normal limits are nonsignificant. Patient states he is feeling better. Will provide antinausea medications and work excuse the patient can rest. No signs of DKA at this time. CT shows minor occipital scalp hematoma otherwise no acute findings. (LIZ RICHARDSON) - Vital Signs Vital signs: Temp Pulse Resp BP Pulse Ox 99.0 F 108 H 14 121/85 98 09/23/17 13:01 09/23/17 13:01 09/23/17 16:03 09/23/17 16:03 09/23/17 16:03 - Laboratory Laboratory results interpreted by me: 09/23/17 09/23/17 09/23/17 14:00 14:00 14:06 WBC 10.6 H RBC 4.26 L Hgb 13.4 L Glucose 186 H POC Glucose 191 H AST 61 H ALT 18 L Discharge <MIRANDA RAND - Last Filed: 09/23/17 16:36> <LIZ RICHARDSON - Last Filed: 09/23/17 17:43> - Discharge Clinical Impression: Syncope and collapse Scalp hematoma Qualifiers: Encounter type: initial encounter Qualified Code(s): S00.03XA - Contusion of scalp, initial encounter Condition: Good Disposition: HOME, SELF-CARE Instructions: Syncopal Episode ([facility]) Additional Instructions: Patient returned the emergency department if symptoms are worsening regular showing no signs of improvement. Prescriptions: Metoclopramide HCl [Reglan 10 mg Tablet] 1 tab PO ASDIR PRN #25 tablet PRN Reason: Forms: Return to Work Referrals: [facility] [NO LOCAL MD] - Follow up as needed Scribe Attestation: 09/23/17 16:36 I personally performed the services described in the documentation, reviewed and edited the documentation which was dictated to the scribe in my presence, and it accurately records my words and actions. (MIRANDA RAND) Scribe Documentation - Scribe Written by Lisae:: Gregoria Kaminski, 09/23/2017 [id number] acting as scribe for :: Gene <MIRANDA RAND - Last Filed: 09/23/17 16:36>
[2017-09-23 14:42] LABS: ALANINE AMINOTRANSFERASE 18 U/L (21-72); ALBUMIN 4.4 g/dL (3.5-5.0); ALKALINE PHOSPHATASE 86 U/L (38-126); ANION GAP 12 (5-19); ASPARTATE AMINO TRANSFERASE 61 U/L (17-59); BILIRUBIN,DIRECT 0.3 mg/dL (0.0-0.4); BILIRUBIN,TOTAL 0.7 mg/dL (0.2-1.3); BLOOD UREA NITROGEN 14 mg/dL (7-20); CALCIUM 9.6 mg/dL (8.4-10.2); CARBON DIOXIDE 25 mmol/L (22-30); CHLORIDE 106 mmol/L (98-107); GLUCOSE 186 mg/dL (75-110); POTASSIUM 4.4 mmol/L (3.6-5.0); SODIUM 142.8 mmol/L (137-145); TOTAL PROTEIN 7.2 g/dL (6.3-8.2)
--- NOTE | 2017-09-23 17:28 | RADIOLOGY REPORT (SQ) ---
EXAM DESCRIPTION: CT HEAD WITHOUT COMPLETED DATE/TIME: 09/23/2017 3:29 pm REASON FOR STUDY: head injury syncope COMPARISON: 12/04/2014 TECHNIQUE: Axial images acquired through the brain without intravenous contrast. Images reviewed wi th bone, brain and subdural windows. Additional sagittal and coronal reconstructions were generated. Images stored on PACS. All CT scanners at this facility use dose modulation, iterative reconstruction, and/or weight based d osing when appropriate to reduce radiation dose to as low as reasonably achievable (ALARA). [facility]: Dose Right [facility]: CareDose [facility]: Dose Right [facility]: Teradose 4D [facility]: Smart [employer] RADIATION DOSE: CT Rad equipment meets quality standard of care and radiation dose reduction techniq ues were employed. CTDIvol: 53.2 mGy. DLP: 991 mGy-cm. mGy. LIMITATIONS: None. FINDINGS: VENTRICLES: Normal size and contour. CEREBRUM: No masses. No hemorrhage. No midline shift. No evidence for acute infarction. Normal gra y/white matter differentiation. No areas of low density in the white matter. CEREBELLUM: No masses. No hemorrhage. No alteration of density. No evidence for acute infarction. EXTRAAXIAL SPACES: No fluid collections. No masses. ORBITS AND GLOBE: No intra- or extraconal masses. Normal contour of globe without masses. CALVARIUM: No fracture. PARANASAL SINUSES: Mild mucoperiosteal thickening in the right maxillary sinus. SOFT TISSUES: Occipital scalp hematoma. OTHER: No other significant finding. IMPRESSION: Occipital scalp hematoma with no acute intracranial imaging findings. Mild right maxill nicole sinus disease. EVIDENCE OF ACUTE STROKE: NO. COMMENT: Quality ID # [id number]: Final reports with documentation of one or more dose reduction techniques (e.g., Automated exposure control, adjustment of the mA and/or kV according to patient size, use of iterative reconstruction technique) TECHNICAL DOCUMENTATION: JOB ID: [id number] [employer]- All Rights Reserved Reading location - IP/workstation name: [email or web address]
[2017-09-23 18:09] VITALS: BP 121/76
--- NOTE | 2017-09-24 06:17 | EKG REPORT ---
SEVERITY:- BORDERLINE ECG - SINUS RHYTHM BORDERLINE T ABNORMALITIES, DIFFUSE LEADS : Confirmed by: Shamar Greene MD 24-Sep-2017 06:17:02
== END 2017-09-23 18:20 | disposition home or self-care (01) ==
LOC: ER 12:52
DX: R55 Syncope and collapse (principal); S00.03XA Contusion of scalp, initial encounter; R51 Headache; W19.XXXA Unspecified fall, initial encounter; Y93.89 Activity, other specified; Y92.009 Unspecified place in unspecified non-institutional (private) residence as the place of occurrence of the external cause; E10.9 Type 1 diabetes mellitus without complications; R11.2 Nausea with vomiting, unspecified; Z91.018 Allergy to other foods; J45.909 Unspecified asthma, uncomplicated
CPT/HCPCS: 93005; 99284; 96361; 96374; 36415; 82962; 83735; 85025; 80053; 84484; 70450; 93010; J2765; J7030

== ENCOUNTER 2017-10-03 12:28 | Emergency (ER) | payer OTHER ==
[2017-10-03] MEDS ORDERED: ONDANSETRON 4 MG TAB.RAPDIS PO ONE (13:27)
--- NOTE | 2017-10-03 13:30 | ER Document Report ---
ED Medical Screen (RME) - General Chief Complaint: High Blood Sugar Stated Complaint: POSSIBLE BLOOD SUGAR ISSUES Time Seen by Provider: 10/03/17 13:22 Mode of Arrival: Ambulatory Information source: Patient TRAVEL OUTSIDE OF THE [place] IN LAST 30 DAYS: No - HPI Notes: 10/03/17 13:28 I have greeted and performed a rapid initial assessment of this patient. A comprehensive ED assessment and evaluation of the patient, analysis of test results and completion of the medical decision making process will be conducted by additional ED providers. 37-year-old male presents to the emergency department with complaints of hyperglycemia. Patient states that he is a diabetic. He takes insulin. Patient states that he checked his blood sugar this morning and found it to be elevated. His glucometer was reading high. Patient states that he took 20 units of insulin at 730 and then waited an hour. He repeated his blood sugar and the glucometer continue to rate high. He then took another 20 units of insulin at 830. Patient had associated nausea, vomiting, lightheadedness. Patient has had 4 episodes of emesis. Patient still not feeling well. PHYSICAL EXAMINATION: GENERAL: Well-appearing, well-nourished and in no acute distress. HEAD: Atraumatic, normocephalic. EYES: Pupils equal round extraocular movements intact, conjunctiva are normal. ENT: Nares patent NECK: Normal range of motion LUNGS: No respiratory distress Musculoskeletal: Normal range of motion NEUROLOGICAL: Normal speech, normal gait. PSYCH: Normal mood, normal affect. SKIN: Warm, Dry, normal turgor, no rashes or lesions noted. - Related Data Allergies/Adverse Reactions: honey [Honey] Allergy (Verified 04/22/17 09:30) No Known Drug Allergies Allergy (Verified 04/22/17 09:30) Past Medical History - Social History Chew tobacco use (# tins/day): No Frequency of alcohol use: None Drug Abuse: None - Past Medical History Cardiac Medical History: Denies: Hx Congestive Heart Failure, Hx Coronary Artery Disease, Hx DVT, Hx Heart Attack, Hx Hypercholesterolemia, Hx Hypertension, Hx Pulmonary Embolism Pulmonary Medical History: Reports: Hx Asthma, Hx Pneumonia Denies: Hx COPD, Hx Sleep Apnea Neurological Medical History: Reports: Hx Migraine. Denies: Hx Seizures Endocrine Medical History: Reports: Hx Diabetes Mellitus Type 1. Denies: Hx Diabetes Mellitus Type 2, Hx Hyperthyroidism, Hx Hypothyroidism Renal/ Medical History: Denies: Hx Peritoneal Dialysis GI Medical History: Denies: Hx Cirrhosis, Hx Gastroesophageal Reflux Disease, Hx Hepatitis Musculoskeltal Medical History: Denies Hx Arthritis, Reports Hx Musculoskeletal Trauma - Muscle strains and sprains Skin Medical History: Denies Hx Eczema, Denies Hx Psoriasis Psychiatric Medical History: Reports: Hx Anxiety, Hx Depression Infectious Medical History: Denies: Hx C-Diff, Hx Hepatitis, Hx MRSA Past Surgical History: Reports: Hx Oral Surgery - Teeth, Hx Urinary Tract Surgery - fractured penis repair, Other - Immunizations Immunizations up to date: Yes Hx Diphtheria, Pertussis, Tetanus Vaccination: Yes Physical Exam - Vital signs Vitals: Temp Pulse Resp BP Pulse Ox 97.9 F 88 16 131/88 H 97 10/03/17 12:36 10/03/17 12:36 10/03/17 12:36 10/03/17 12:36 10/03/17 12:36 Course - Vital Signs Vital signs: Temp Pulse Resp BP Pulse Ox 97.9 F 88 16 131/88 H 97 10/03/17 12:36 10/03/17 12:36 10/03/17 12:36 10/03/17 12:36 10/03/17 12:36 - Laboratory Laboratory results interpreted by me: 10/03/17 12:34 POC Glucose 59 L
--- NOTE | 2017-10-03 13:59 | RADIOLOGY REPORT (SQ) ---
EXAM DESCRIPTION: ACUTE ABDOMEN SERIES COMPLETED DATE/TIME: 10/03/2017 1:46 pm REASON FOR STUDY: abdominal pain COMPARISON: None. NUMBER OF VIEWS: Three views. TECHNIQUE: Frontal chest, supine abdomen and upright/decubitus abdomen radiographic images acquired. LIMITATIONS: None. FINDINGS: CHEST: Lungs clear of infiltrates. FREE AIR: None. No abnormal gas collections. BOWEL GAS PATTERN: Nonobstructive pattern. No dilated loops or air fluid levels. CALCIFICATIONS: Calcific densities are identified in the pelvis which have the appearance of seminal vesicle calcifications. Focal calcific density in the right pelvis is most consistent with phlebolit hs. HARDWARE: None in the abdomen. SOFT TISSUES: No gross mass or suggestion of organomegaly. BONES: No acute fracture. No worrisome bone lesions. OTHER: No other significant finding. IMPRESSION: NO RADIOGRAPHIC EVIDENCE FOR ACUTE ABDOMINAL DISEASE. TECHNICAL DOCUMENTATION: JOB ID: [id number] [employer]- All Rights Reserved Reading location - IP/workstation name: [email or web address]
[2017-10-03 14:29] LABS: ABSOLUTE LYMPHOCYTES (AUTO) 2.2 10^3/uL (0.5-4.7); ABSOLUTE MONOCYTES (AUTO) 0.3 10^3/uL (0.1-1.4); ABSOLUTE NEUT (AUTO) 5.6 10^3/uL (1.7-8.2); BASOPHILS % (AUTO) 0.3 % (0-2); EOSINOPHILS % (AUTO) 0.2 % (0-6); HEMATOCRIT 41.2 % (37.9-51.0); HEMOGLOBIN 13.8 g/dL (13.5-17.0); LYMPHOCYTES % (AUTO) 27.4 % (13-45); MEAN CORPUSCULAR HEMOGLOBIN 31.3 pg (27.0-33.4); MEAN CORPUSCULAR HGB CONC 33.5 g/dL (32.0-36.0); MEAN CORPUSCULAR VOLUME 93 fl (80-97); MONOCYTES % (AUTO) 3.4 % (3-13); PLATELET COUNT 306 10^3/uL (150-450); RED BLOOD COUNT 4.43 10^6/uL (4.35-5.55); RED CELL DISTRIBUTION WIDTH 13.4 % (11.5-14.0); SEGMENTED NEUTROPHILS % (AUTO) 68.7 % (42-78); TOTAL CELLS COUNTED % (AUTO) 100 %; WHITE BLOOD COUNT 8.1 10^3/uL (4.0-10.5)
[2017-10-03 14:38] LABS: APPEARANCE,URINE CLEAR; BILIRUBIN,URINE NEGATIVE (NEGATIVE); COLOR,URINE YELLOW; GLUCOSE, URINE NEGATIVE (NEGATIVE); KETONES,URINE NEGATIVE (NEGATIVE); LEUKOCYTE ESTERASE,URINE NEGATIVE (NEGATIVE); NITRITE,URINE NEGATIVE (NEGATIVE); PROTEIN,URINE NEGATIVE (NEGATIVE); URINE SPECIFIC GRAVITY 1.016; UROBILINOGEN,URINE NEGATIVE mg/dL (<2.0)
[2017-10-03 14:50] LABS: ALANINE AMINOTRANSFERASE 23 U/L (21-72); ALBUMIN 4.6 g/dL (3.5-5.0); ALKALINE PHOSPHATASE 95 U/L (38-126); ANION GAP 12 (5-19); ASPARTATE AMINO TRANSFERASE 51 U/L (17-59); BILIRUBIN,DIRECT 0.3 mg/dL (0.0-0.4); BILIRUBIN,TOTAL 0.6 mg/dL (0.2-1.3); BLOOD UREA NITROGEN 12 mg/dL (7-20); CALCIUM 9.9 mg/dL (8.4-10.2); CARBON DIOXIDE 31 mmol/L (22-30); CHLORIDE 102 mmol/L (98-107); GLUCOSE 46 mg/dL (75-110); LIPASE 32.6 U/L (23-300); POTASSIUM 4.7 mmol/L (3.6-5.0)
--- NOTE | 2017-10-03 16:42 | ER Document Report ---
ED General - General Chief Complaint: High Blood Sugar Stated Complaint: POSSIBLE BLOOD SUGAR ISSUES Time Seen by Provider: 10/03/17 13:22 Mode of Arrival: Ambulatory TRAVEL OUTSIDE OF THE [place] IN LAST 30 DAYS: No - HPI Patient complains to provider of: Elevated blood sugars Notes: Patient presents tonight with elevated blood sugars nausea vomiting abdominal pain and elevated blood pressure. Patient is woke up this morning check his sugar stayed read high. Patient states he took 20 units of Humalog at 730 tonight 20 units at 830. Patient later decided come to the ER for further evaluation. Does have a history of DKA in the past. Patient otherwise states compliance with medications. Upon my evaluation patient Accu-Chek actually showed hypoglycemia. Patient was given a small meal supplement drink. Patient resting comfortably no signs of any obvious distress. Denies any changes to his medications. Patient denies fever chills nausea vomiting diarrhea - Related Data Allergies/Adverse Reactions: honey [Honey] Allergy (Verified 04/22/17 09:30) No Known Drug Allergies Allergy (Verified 04/22/17 09:30) Past Medical History - General Information source: Patient - Social History Smoking Status: Never Smoker Chew tobacco use (# tins/day): No Frequency of alcohol use: None Drug Abuse: None Family History: Reviewed & Not Pertinent, CAD, CVA, DM, Hyperlipidemia, Hypertension, Malignancy Patient has suicidal ideation: No Patient has homicidal ideation: No - Past Medical History Cardiac Medical History: Denies: Hx Congestive Heart Failure, Hx Coronary Artery Disease, Hx DVT, Hx Heart Attack, Hx Hypercholesterolemia, Hx Hypertension, Hx Pulmonary Embolism Pulmonary Medical History: Reports: Hx Asthma, Hx Pneumonia Denies: Hx COPD, Hx Sleep Apnea Neurological Medical History: Reports: Hx Migraine. Denies: Hx Seizures Endocrine Medical History: Reports: Hx Diabetes Mellitus Type 1. Denies: Hx Diabetes Mellitus Type 2, Hx Hyperthyroidism, Hx Hypothyroidism Renal/ Medical History: Denies: Hx Peritoneal Dialysis GI Medical History: Denies: Hx Cirrhosis, Hx Gastroesophageal Reflux Disease, Hx Hepatitis Musculoskeletal Medical History: Denies Hx Arthritis, Reports Hx Musculoskeletal Trauma - Muscle strains and sprains Skin Medical History: Denies Hx Eczema, Denies Hx Psoriasis Psychiatric Medical History: Reports: Hx Anxiety, Hx Depression Infectious Medical History: Denies: Hx C-Diff, Hx Hepatitis, Hx MRSA Past Surgical History: Reports: Hx Oral Surgery - Teeth, Hx Urinary Tract Surgery - fractured penis repair, Other - Immunizations Immunizations up to date: Yes Hx Diphtheria, Pertussis, Tetanus Vaccination: Yes Review of Systems - Review of Systems Constitutional: Other - Elevated blood sugars EENT: No symptoms reported Cardiovascular: No symptoms reported Respiratory: No symptoms reported Gastrointestinal: Diarrhea, Nausea, Vomiting Genitourinary: No symptoms reported Male Genitourinary: No symptoms reported Musculoskeletal: No symptoms reported Skin: No symptoms reported Hematologic/Lymphatic: No symptoms reported Neurological/Psychological: No symptoms reported -: Yes All other systems reviewed and negative Physical Exam - Vital signs Vitals: Temp Pulse Resp BP Pulse Ox 97.9 F 88 16 131/88 H 97 10/03/17 12:36 10/03/17 12:36 10/03/17 12:36 10/03/17 12:36 10/03/17 12:36 Interpretation: Normal - General General appearance: Appears well, Alert - HEENT Head: Normocephalic, Atraumatic Eyes: Normal Pupils: PERRL - Respiratory Respiratory status: No respiratory distress Chest status: Nontender Breath sounds: Normal Chest palpation: Normal - Cardiovascular Rhythm: Regular Heart sounds: Normal auscultation Murmur: No - Abdominal Inspection: Normal Distension: No distension Bowel sounds: Normal Tenderness: Nontender Organomegaly: No organomegaly - Back Back: Normal, Nontender - Extremities General upper extremity: Normal inspection, Nontender, Normal color, Normal ROM , Normal temperature General lower extremity: Normal inspection, Nontender, Normal color, Normal ROM , Normal temperature, Normal weight bearing. No: Prabhu's sign - Neurological Neuro grossly intact: Yes Cognition: Normal Orientation: AAOx4 Pam Coma Scale Eye Opening: Spontaneous Pam Coma Scale Verbal: Oriented Rowan Coma Scale Motor: Obeys Commands Pam Coma Scale Total: 15 Speech: Normal Motor strength normal: LUE, RUE, LLE, RLE Sensory: Normal - Psychological Associated symptoms: Normal affect, Normal mood - Skin Skin Temperature: Warm Skin Moisture: Dry Skin Color: Normal Course - Re-evaluation Re-evalutation: 10/03/17 23:06 Laboratory studies showed hyperglycemia patient was given a small meal multiple checks showed normal blood sugar. Patient otherwise has normal laboratory values and showing no signs of DKA or other worrisome etiologies. Patient able tolerate p.o. Patient will be discharged home follow-up primary care physician. - Vital Signs Vital signs: Temp Pulse Resp BP Pulse Ox 98.3 F 85 16 128/82 H 98 10/03/17 16:56 10/03/17 16:56 10/03/17 16:56 10/03/17 16:56 10/03/17 16:56 - Laboratory Result Diagrams: 10/03/17 13:45 10/03/17 13:45 Laboratory results interpreted by me: 10/03/17 10/03/17 10/03/17 12:34 13:45 15:32 Carbon Dioxide 31 H Glucose 46 L POC Glucose 59 L 127 H 10/03/17 16:48 Carbon Dioxide Glucose POC Glucose 189 H Discharge - Discharge Clinical Impression: Abnormal blood sugar Condition: Good Disposition: HOME, SELF-CARE Instructions: Diabetes ([facility]) Additional Instructions: At this time your blood glucose is normal your laboratory studies shows no signs of DKA or any other skin pathology. Would recommend using the Zofran provided for any nausea that she may have. Continue your medications as prescribed at home. Follow-up with your primary care physician next 3-5 days return to ER for any concerns. Prescriptions: Ondansetron [Zofran Odt] 4 mg PO Q6 PRN #30 tab.rapdis PRN Reason: For Nausea/Vomiting Forms: Return to Work
[2017-10-03 16:57] VITALS: BP 128/82
== END 2017-10-03 16:56 | disposition home or self-care (01) ==
LOC: ER 12:28
DX: E10.65 Type 1 diabetes mellitus with hyperglycemia (principal); R11.2 Nausea with vomiting, unspecified; R10.9 Unspecified abdominal pain
CPT/HCPCS: 99285; 36415; 82962; 83690; 85025; 80053; 81001; 74022; S0119

== ENCOUNTER 2018-02-05 15:09 | Observation (INO) | payer OTHER ==
[2018-02-05] MEDS ORDERED: ASPIRIN 81 MG TABLET, CHEWABLE PO ONE (15:20)
[2018-02-05] MEDS ORDERED: METOCLOPRAMIDE HCL ORAL SOLN 10 MG/10 ML UDCUP PO ONE ×2 (15:37→15:40)
[2018-02-05] MEDS ORDERED: MAG HYDROX/AL HYDROX/SIMETH SUSP 30 ML UDCUP PO ONE ×2 (15:37→15:40)
[2018-02-05] MEDS ORDERED: LIDOCAINE 2% VISCOUS SOLN 20 ML UDCUP PO ONE ×2 (15:37→15:40)
[2018-02-05] MEDS ORDERED: FAMOTIDINE INJ/PF 20 MG/2 ML SDV IV ONE (15:41)
--- NOTE | 2018-02-05 15:42 | ER Document Report ---
ED General - General Chief Complaint: Chest Pain Stated Complaint: CHEST PAIN Time Seen by Provider: 02/05/18 15:31 Mode of Arrival: Ambulatory Information source: Patient Notes: 37-year-old male with a history of type 1 diabetes presents emergency department with complaints of epigastric abdominal pain that is been present since Saturday. Patient states that every time he goes to eat he begins having pain in the epigastric area. He denies any radiation of the pain. He states that food worsens the pain. Today he ate a [place] sahu and the pain began. He says he's been unable to consume foods since Saturday. Has been able to drink fluids. Tylenol has been helping with the pain up until today. Patient states that he has had episodes of pancreatitis in the past. He states that this was a result of alcohol. Denies recent alcohol usage. He denies a history of gallstones. Denies having a cholecystectomy. Denies nausea, vomiting, diarrhea , constipation. TRAVEL OUTSIDE OF THE [place] IN LAST 30 DAYS: No - HPI Onset: Other - 3 days Quality of pain: Achy, Stabbing, Throbbing Severity: Mild Associated symptoms: None, Nausea Exacerbated by: Food Relieved by: Other - tyelnol Similar symptoms previously: No Recently seen / treated by doctor: No - Related Data Allergies/Adverse Reactions: honey [Honey] Allergy (Verified 02/05/18 15:10) No Known Drug Allergies Allergy (Verified 02/05/18 15:10) Past Medical History - General Information source: Patient - Social History Smoking Status: Never Smoker Family History: Reviewed & Not Pertinent, CAD, CVA, DM, Hyperlipidemia, Hypertension, Malignancy - Past Medical History Cardiac Medical History: Denies: Hx Congestive Heart Failure, Hx Coronary Artery Disease, Hx DVT, Hx Heart Attack, Hx Hypercholesterolemia, Hx Hypertension, Hx Pulmonary Embolism Pulmonary Medical History: Reports: Hx Asthma, Hx Pneumonia Denies: Hx COPD, Hx Sleep Apnea Neurological Medical History: Reports: Hx Migraine. Denies: Hx Seizures Endocrine Medical History: Reports: Hx Diabetes Mellitus Type 1. Denies: Hx Diabetes Mellitus Type 2, Hx Hyperthyroidism, Hx Hypothyroidism Renal/ Medical History: Denies: Hx Peritoneal Dialysis GI Medical History: Denies: Hx Cirrhosis, Hx Gastroesophageal Reflux Disease, Hx Hepatitis Musculoskeletal Medical History: Denies Hx Arthritis, Reports Hx Musculoskeletal Trauma - Muscle strains and sprains Skin Medical History: Denies Hx Eczema, Denies Hx Psoriasis Psychiatric Medical History: Reports: Hx Anxiety, Hx Depression Infectious Medical History: Denies: Hx C-Diff, Hx Hepatitis, Hx MRSA Past Surgical History: Reports: Hx Oral Surgery - Teeth, Hx Urinary Tract Surgery - fractured penis repair, Other - Immunizations Immunizations up to date: Yes Hx Diphtheria, Pertussis, Tetanus Vaccination: Yes Review of Systems - Review of Systems Constitutional: No symptoms reported EENT: No symptoms reported Cardiovascular: No symptoms reported Respiratory: No symptoms reported Gastrointestinal: Abdominal pain Genitourinary: No symptoms reported Male Genitourinary: No symptoms reported Musculoskeletal: No symptoms reported Skin: No symptoms reported Hematologic/Lymphatic: No symptoms reported Neurological/Psychological: No symptoms reported -: Yes All other systems reviewed and negative Physical Exam - Vital signs Vitals: Temp Pulse Resp BP Pulse Ox 98.7 F 93 21 H 130/99 H 100 02/05/18 15:25 02/05/18 15:25 02/05/18 15:25 02/05/18 15:25 02/05/18 15:25 - Notes Notes: PHYSICAL EXAMINATION: GENERAL: Well-appearing, well-nourished and in no acute distress. HEAD: Atraumatic, normocephalic. EYES: Pupils equal round and reactive to light, extraocular movements intact, sclera anicteric, conjunctiva are normal. ENT: Nares patent, oropharynx clear without exudates. Moist mucous membranes. NECK: Normal range of motion, supple without lymphadenopathy LUNGS: Breath sounds clear to auscultation bilaterally and equal. No wheezes rales or rhonchi. HEART: Regular rate and rhythm without murmurs ABDOMEN: Soft, tenderness to palpation in the epigastric area. No rebound or guarding. No right upper quadrant tenderness to palpation. Normal active bowel sounds. Musculoskeletal: Normal range of motion, no pitting or edema. No cyanosis. NEUROLOGICAL: Cranial nerves grossly intact. Normal speech, normal gait. Normal sensory, motor exams PSYCH: Normal mood, normal affect. SKIN: Warm, Dry, normal turgor, no rashes or lesions noted. Course - Re-evaluation Re-evalutation: 02/05/18 20:00 Patient given pepcid and GI cocktail as his epigastric abdominal pain was reproducible with palpation and the history was suggestive for gastritis. GI cocktail, pepcid and aspirin given in the ED. Patient says the GI cocktail relieved his pain. Glucose elevated. Given fluids and insulin. CKMB, CK are elevated. Troponin is normal. No STEMI on EKG. T wave inversion and ST depression noted. This is a change from prior EKG. CXR does not show an acute process. I contacted the hospitalist for admission. 02/05/18 20:04 EKG: Ventricular rate 99, OR interval 132, QRS duration 70, QTc 411, T wave inversion in leads V4, V5, V6. ST depression in the inferior leads. No ST segment elevation. 02/05/18 23:43 - Vital Signs Vital signs: Temp Pulse Resp BP Pulse Ox 98.7 F 93 12 116/76 100 02/05/18 15:25 02/05/18 15:25 02/05/18 22:01 02/05/18 22:01 02/05/18 22:01 - Laboratory Result Diagrams: 02/05/18 15:35 02/05/18 15:35 Laboratory results interpreted by me: 02/05/18 02/05/18 02/05/18 15:35 15:35 18:39 Sodium 136.7 L Chloride 97 L Creatinine 1.30 H Glucose 390 H POC Glucose 324 H Calcium 11.7 H AST 82 H Alkaline Phosphatase 137 H Creatine Kinase 878 H CK-MB (CK-2) 6.24 H Urine Glucose (UA) Urine Ketones Ur Leukocyte Esterase 02/05/18 19:37 Sodium Chloride Creatinine Glucose POC Glucose Calcium AST Alkaline Phosphatase Creatine Kinase CK-MB (CK-2) Urine Glucose (UA) >=500 H Urine Ketones 20 H Ur Leukocyte Esterase TRACE H Discharge - Discharge Clinical Impression: Epigastric pain, Elevated CK-MB level Condition: Stable Disposition: ADMITTED OBSERVATION Admitting Provider: Hospitalist Unit Admitted: Telemetry
[2018-02-05 15:48] LABS: ABSOLUTE BASOPHILS # (AUTO) 0.1 10^3/uL (0.0-0.2); ABSOLUTE LYMPHOCYTES (AUTO) 4.1 10^3/uL (0.5-4.7); ABSOLUTE MONOCYTES (AUTO) 0.7 10^3/uL (0.1-1.4); ABSOLUTE NEUT (AUTO) 4.7 10^3/uL (1.7-8.2); BASOPHILS % (AUTO) 0.6 % (0-2); EOSINOPHILS % (AUTO) 0.3 % (0-6); HEMATOCRIT 42.7 % (37.9-51.0); HEMOGLOBIN 14.5 g/dL (13.5-17.0); LYMPHOCYTES % (AUTO) 42.6 % (13-45); MEAN CORPUSCULAR HEMOGLOBIN 31.3 pg (27.0-33.4); MEAN CORPUSCULAR VOLUME 92 fl (80-97); MONOCYTES % (AUTO) 7.6 % (3-13); PLATELET COUNT 282 10^3/uL (150-450); RED BLOOD COUNT 4.62 10^6/uL (4.35-5.55); RED CELL DISTRIBUTION WIDTH 13.3 % (11.5-14.0); SEGMENTED NEUTROPHILS % (AUTO) 48.9 % (42-78); TOTAL CELLS COUNTED % (AUTO) 100 %; WHITE BLOOD COUNT 9.7 10^3/uL (4.0-10.5)
[2018-02-05 16:11] LABS: ALANINE AMINOTRANSFERASE 22 U/L (21-72); ALBUMIN 4.3 g/dL (3.5-5.0); ALKALINE PHOSPHATASE 137 U/L (38-126); ANION GAP 17 (5-19); ASPARTATE AMINO TRANSFERASE 82 U/L (17-59); BILIRUBIN,DIRECT 0.1 mg/dL (0.0-0.4); BLOOD UREA NITROGEN 19 mg/dL (7-20); CALCIUM 11.7 mg/dL (8.4-10.2); CARBON DIOXIDE 23 mmol/L (22-30); CHLORIDE 97 mmol/L (98-107); CREATINE KINASE 878 U/L (55-170); GLUCOSE 390 mg/dL (75-110); LIPASE 41.7 U/L (23-300); POTASSIUM 4.3 mmol/L (3.6-5.0); SODIUM 136.7 mmol/L (137-145); TOTAL PROTEIN 7.6 g/dL (6.3-8.2)
--- NOTE | 2018-02-05 16:12 | RADIOLOGY REPORT (SQ) ---
EXAM DESCRIPTION: CHEST SINGLE VIEW COMPLETED DATE/TIME: 02/05/2018 3:56 pm REASON FOR STUDY: cp COMPARISON: 06/26/2016 EXAM PARAMETERS: NUMBER OF VIEWS: One view. TECHNIQUE: Single frontal radiographic view of the chest acquired. RADIATION DOSE: NA LIMITATIONS: None. FINDINGS: LUNGS AND PLEURA: No opacities, masses or pneumothorax. No pleural effusion. MEDIASTINUM AND HILAR STRUCTURES: No masses. Contour normal. HEART AND VASCULAR STRUCTURES: Heart normal in size. Normal vasculature. BONES: No acute findings. HARDWARE: None in the chest. OTHER: No other significant finding. IMPRESSION: NO ACUTE RADIOGRAPHIC FINDING IN THE CHEST. TECHNICAL DOCUMENTATION: JOB ID: [id number] [employer]- All Rights Reserved Reading location - IP/workstation name: [email or web address]
[2018-02-05 16:25] LABS: CREATINE KINASE MB 6.24 ng/mL (<4.55)
[2018-02-05 16:27] LABS: TROPONIN I < 0.012 ng/mL
[2018-02-05] MEDS ORDERED: NORMAL SALINE 1000 ML 1,000 ML IV ONE ×2 (17:55→19:39)
[2018-02-05] MEDS ORDERED: INSULIN REG, HUMAN 100 UNIT/ML 3 ML VIAL (PYX) IV ONE ×2 (18:01→18:42)
[2018-02-05] MEDS ORDERED: HYDROMORPHONE HCL INJ/PF 2 MG/ML AMPULE IV ONE (20:14)
[2018-02-05] MEDS ORDERED: DEXTROSE 50%-WATER 25 GM/50 ML DISP.SYRIN IV PRN ×4 (20:51→23:23)
[2018-02-05] MEDS ORDERED: PROMETHAZINE HCL INJ 25 MG/1 ML VIAL IV PRN (20:51)
[2018-02-05] MEDS ORDERED: NORMAL SALINE 1000 ML 1,000 ML IV PRN (20:51)
[2018-02-05] MEDS ORDERED: MAG HYDROX/AL HYDROX/SIMETH SUSP 30 ML UDCUP PO PRN (20:51)
[2018-02-05] MEDS ORDERED: DEXTROSE 40% GEL 15 GM TUBE PO PRN ×4 (20:51→23:23)
[2018-02-05] MEDS ORDERED: GLUCAGON,HUMAN RECOMB 1 MG INJ SUBCUT PRN (20:51)
[2018-02-05] MEDS ORDERED: ACETAMINOPHEN 325 MG TABLET PO PRN (20:51)
[2018-02-05] MEDS ORDERED: PROMETHAZINE HCL 25 MG TABLET PO PRN (20:51)
[2018-02-05] MEDS ORDERED: TEMAZEPAM 7.5 MG CAPSULE PO PRN (20:51)
[2018-02-05] MEDS ORDERED: NITROGLYCERIN 0.4 MG/TAB 25 TAB/BOTTLE SL PRN (21:01)
--- NOTE | 2018-02-05 21:14 | RADIOLOGY REPORT (SQ) ---
EXAM DESCRIPTION: US ABDOMEN LIMITED COMPLETED DATE/TME: 02/05/2018 00:00 CLINICAL HISTORY: 37 years, Male, r/o cholecystitis Findings: Liver is mildly diffusely echogenic and enlarged consistent with fatty infiltration. Right kidney measures 11.6 cm. No significant biliary dilatation with CBD measuring 3 mm. Gallbladder demonstrates mild sludge without small bowel calculi. No significant wall thickening or pericholecystic fluid. No significant right hydronephrosis. No right upper quadrant ascites. Pancreas is unremarkable in visualized portions. IMPRESSION: Mild gallbladder sludge. No significant gallbladder calculi or evidence for cholecystitis. No significant biliary dilatation. Fatty liver.
[2018-02-05] MEDS ORDERED: PANTOPRAZOLE SODIUM 40 MG VIAL IV ONE (21:30)
[2018-02-05 22:46] LABS: APPEARANCE,URINE CLEAR; BILIRUBIN,URINE NEGATIVE (NEGATIVE); COLOR,URINE YELLOW; GLUCOSE, URINE >=500 mg/dL (NEGATIVE); KETONES,URINE 20 mg/dL (NEGATIVE); LEUKOCYTE ESTERASE,URINE TRACE (NEGATIVE); NITRITE,URINE NEGATIVE (NEGATIVE); PROTEIN,URINE NEGATIVE (NEGATIVE); UROBILINOGEN,URINE NEGATIVE mg/dL (<2.0)
[2018-02-05] MEDS ORDERED: GLUCAGON,HUMAN RECOMB 1 MG INJ IM PRN (23:23)
[2018-02-05] MEDS ORDERED: INSULIN LISPRO 100 UNIT/ML 3 ML VIAL SUBCUT PRN (23:23)
--- NOTE | 2018-02-05 23:23 | PDOC H&P ---
History of Present Illness Admission Date/PCP: 02/05/18 20:05 DC Patient complains of: Epigastric pain History of Present Illness: JOSE DANIEL CLINTON is a 37 year old male with medical history remarkable for diabetes mellitus type 1 comes to the emergency department is feeling sick since last Saturday. Tells me on Saturday he woke up in the morning and his blood sugar was reading high, by lunch he was feeling that he is stomach was hurting so he stopped eating and he started drinking Powerade. On Saturday he had blood sugar was 45 mg/dL and again he was just drinking powerade, he took Tylenol and the pain improved. Today the pain was severe that he decided to come to the emergency department. He describes the pain as epigastric pressure and sharp in nature, no radiated, worsening after he swallows, pain was going up to 10/10 in intensity after he swallowed Yakut fries today. Even just getting up from the bed triggers the pain. Has had episodes of nausea and nonbloody vomiting. Symptoms are associated with mild shortness of breath. Denies dizziness, lightheadedness, sweating, diarrhea, his urine has been darker. In the emergency department given aspirin, 2 L of normal saline, IV famotidine, Maalox, Reglan, total of 50 units of insulin regular. Pain partially improved with all this medication, when I went to see him he was a still with severe tenderness to palpation and with pain 6-7/10 intensity. As per his CK-MB was elevated at 6.24, EKG with diffuse T wave inversions and mild ST depressions in inferior leads, different from prior EKG on September this year, was a concern that this can be cardiac in nature and emergency ED requested admission. Chest x-ray negative. Lipase normal. Past Medical History Cardiac Medical History: Reports: Other - Heart murmur Pulmonary Medical History: Reports: Asthma, Pneumonia Neurological Medical History: Reports: Migraine Endocrine Medical History: Reports: Diabetes Mellitus Type 1 GI Medical History: Reports: Other - History of pancreatitis Psychiatric Medical History: Reports: Depression Past Surgical History Past Surgical History: Reports: None, Other Social History Smoking Status: Current Every Day Smoker - Half pack per day Last Time Smoked: Last Saturday Frequency of Alcohol Use: None Hx Recreational Drug Use: No Drugs: None Hx Prescription Drug Abuse: No Past Social History Note: Lives with his father Family History Family History: Reviewed & Not Pertinent, CAD, CVA, DM, Hyperlipidemia, Hypertension, Malignancy Family History: Mother alive 62 years old with diabetes mellitus type 2, father alive 63 years old with no medical condition Parental Family History Reviewed: Yes - As above Children Family History Reviewed: NA Sibling(s) Family History Reviewed.: NA Medication/Allergy Home Medications: Insulin Aspart [Novolog Insulin (Aspart) 100 unit/mL] 0 unit SUBCUT AC 01/16/14 Insulin Glargine,Hum.rec.anlog [Lantus Insulin 100 Unit/mL] 30 unit SUBCUT DAILY insuln.pen 06/28/16 Allergies/Adverse Reactions: honey [Honey] Allergy (Verified 02/05/18 15:10) No Known Drug Allergies Allergy (Verified 02/05/18 15:10) Review of Systems Review of Systems: As outlined in the HPI, all others negative Physical Exam Vital Signs: Temp Pulse Resp BP Pulse Ox 98.7 F 93 12 116/76 100 02/05/18 15:25 02/05/18 15:25 02/05/18 22:01 02/05/18 22:01 02/05/18 22:01 Additional comments: General appearance: Well-developed, well-nourished, alert and cooperative, and appears to be in acute distress secondary to epigastric pain Head: Normocephalic Eyes: PEERL, EOMI, vision is grossly intact. Ears: External auditory canal and tympanic membranes clear, hearing grossly intact. Nose: No nasal discharge. Throat: Oral cavity and pharynx normal. No inflammation, swelling, exudate or lesions. Neck: Neck supple, nontender without lymphadenopathy, masses or thyromegaly. Cardiac: Normal S1 and S2. No S3, S4 or murmurs. Rhythm is regular. There is no peripheral edema, cyanosis or pallor. Extremities are warm and well perfused. Capillary refill is less than 2 seconds. No carotid bruits. Lungs: Clear to auscultation and percussion without rales, rhonchi, wheezing or diminished breath sounds. Not using accessory muscles. Abdomen: Positive bowel sounds. Soft. Nondistended. Diffused tenderness to palpation more intense in the epigastric area with guarding in the epigastric area, no hepatosplenomegaly Extremities: No significant deformity or joint abnormality. No edema. Peripheral pulses intact. No varicosities. Neurological: Cranial nerves II through XII grossly intact. Strength and sensation symmetric and intact throughout. Reflexes 2+ throughout. Skin: Skin normal color, texture and turgor with no lesions or eruptions, warm and dry. Psychiatric: The mental examination revealed the patient was oriented to person , place, and time. The patient was able to demonstrate good judgment on recent , without hallucinations, abnormal affect or abnormal behaviors. Results Laboratory Results: 02/05/18 02/05/18 02/05/18 15:35 15:35 15:35 WBC 9.7 RBC 4.62 Hgb 14.5 Hct 42.7 MCV 92 MCH 31.3 RDW 13.3 Plt Count 282 Seg Neutrophils % 48.9 Lymphocytes % 42.6 Monocytes % 7.6 Eosinophils % 0.3 Basophils % 0.6 Absolute Neutrophils 4.7 Absolute Lymphocytes 4.1 Absolute Monocytes 0.7 Absolute Eosinophils 0.0 Absolute Basophils 0.1 Sodium 136.7 L Potassium 4.3 Chloride 97 L Carbon Dioxide 23 Anion Gap 17 BUN 19 Creatinine 1.30 H Est GFR ( Amer) > 60 Est GFR (Non-Af Amer) > 60 Glucose 390 H POC Glucose Calcium 11.7 H Total Bilirubin 1.0 Direct Bilirubin 0.1 AST 82 H ALT 22 Creatine Kinase 878 H CK-MB (CK-2) 6.24 H Troponin I < 0.012 Total Protein 7.6 Albumin 4.3 Lipase 41.7 Urine Color Urine Appearance Urine pH Ur Specific Henderson Urine Protein Urine Glucose (UA) Urine Ketones Urine Blood Urine Nitrite Urine Bilirubin Urine Urobilinogen Ur Leukocyte Esterase Urine WBC (Auto) Urine RBC (Auto) U Hyaline Cast (Auto) Urine Mucus (Auto) Urine Ascorbic Acid 02/05/18 02/05/18 02/05/18 18:39 19:15 19:37 WBC RBC Hgb Hct MCV MCH RDW Plt Count Seg Neutrophils % Lymphocytes % Monocytes % Eosinophils % Basophils % Absolute Neutrophils Absolute Lymphocytes Absolute Monocytes Absolute Eosinophils Absolute Basophils Sodium Potassium Chloride Carbon Dioxide Anion Gap BUN Creatinine Est GFR ( Amer) Est GFR (Non-Af Amer) Glucose POC Glucose 324 H Calcium Total Bilirubin Direct Bilirubin AST ALT Creatine Kinase CK-MB (CK-2) Troponin I < 0.012 Total Protein Albumin Lipase Urine Color YELLOW Urine Appearance CLEAR Urine pH 5.0 Ur Specific Henderson 1.030 Urine Protein NEGATIVE Urine Glucose (UA) >=500 H Urine Ketones 20 H Urine Blood NEGATIVE Urine Nitrite NEGATIVE Urine Bilirubin NEGATIVE Urine Urobilinogen NEGATIVE Ur Leukocyte Esterase TRACE H Urine WBC (Auto) 17 Urine RBC (Auto) 5 U Hyaline Cast (Auto) 8 Urine Mucus (Auto) RARE Urine Ascorbic Acid NEGATIVE EKG Comments: Sinus rhythm with diffuse T wave inversions and mild ST depressions in inferior leads. Impressions: Abdomen Ultrasound 02/05/18 00:00 IMPRESSION: Mild gallbladder sludge. No significant gallbladder calculi or evidence for cholecystitis. No significant biliary dilatation. Fatty liver. Chest X-Ray 02/05/18 15:20 IMPRESSION: NO ACUTE RADIOGRAPHIC FINDING IN THE CHEST. Assessment & Plan - Diagnosis (1) Epigastric pain Is this a current diagnosis for this admission?: Yes Plan: Patient has 3 days of worsening epigastric pain, he relates this with swallowing. I asked for a stat right upper quadrant ultrasound in the emergency department which came back negative for acute cholecystitis, will rule out this possibility. We will do 3 cardiac enzymes, so far at the time of this dictation 2 came back negative, EKG with mild ST depressions in inferior leads, if the third 1- he probably will need a stress test as his last one was more than 5 years ago. Aspirin 324 mg given. Another differential could be just gastritis with severe reflux disease. IV famotidine with Maalox and Reglan given in the ED Lipase normal Chest x-ray negative (2) Diabetes mellitus type 1 Qualifiers: Diabetes mellitus complication status: without complication Qualified Code( s): E10.9 - Type 1 diabetes mellitus without complications Is this a current diagnosis for this admission?: Yes Plan: Accu-Cheks every 3 hours with resuming his insulin NovoLog sliding scale and Lantus 30 units in the morning. Hypoglycemia protocol. Initial glucose 390 in the ED. (3) Asthma Is this a current diagnosis for this admission?: Yes Plan: No current acute respiratory symptomatology, continue home inhalers. (4) Elevated CK Is this a current diagnosis for this admission?: Yes Plan: CK 878, patient has chronically elevated this value. (5) Hypercalcemia Is this a current diagnosis for this admission?: Yes Plan: Calcium 11.7, unclear etiology. We will repeat BMP in the morning after hydration otherwise we will have to request iPTH. - Time Time Spent: 50 to 70 Minutes
[2018-02-06] MEDS: ENOXAPARIN SODIUM INJ 40 MG/0.4 ML DISP.SYRIN SUBCUT SCH ×2 (00:20→09:09)
[2018-02-06] MEDS: MORPHINE SULFATE 10 MG/ML INJ IV PRN ×2 (00:38→08:38)
[2018-02-06 01:58] LABS: CREATINE KINASE MB 4.87 ng/mL (<4.55)
[2018-02-06 01:59] LABS: TROPONIN I < 0.012 ng/mL
[2018-02-06 08:05] LABS: ABSOLUTE EOSINOPHILS # (AUTO) 0.2 10^3/uL (0.0-0.6); ABSOLUTE MONOCYTES (AUTO) 0.5 10^3/uL (0.1-1.4); ABSOLUTE NEUT (AUTO) 2.4 10^3/uL (1.7-8.2); BASOPHILS % (AUTO) 0.4 % (0-2); EOSINOPHILS % (AUTO) 2.5 % (0-6); HEMATOCRIT 39.4 % (37.9-51.0); HEMOGLOBIN 12.9 g/dL (13.5-17.0); LYMPHOCYTES % (AUTO) 48.8 % (13-45); MEAN CORPUSCULAR HEMOGLOBIN 30.9 pg (27.0-33.4); MEAN CORPUSCULAR HGB CONC 32.8 g/dL (32.0-36.0); MEAN CORPUSCULAR VOLUME 94 fl (80-97); PLATELET COUNT 230 10^3/uL (150-450); RED BLOOD COUNT 4.19 10^6/uL (4.35-5.55); RED CELL DISTRIBUTION WIDTH 13.3 % (11.5-14.0); SEGMENTED NEUTROPHILS % (AUTO) 39.3 % (42-78); TOTAL CELLS COUNTED % (AUTO) 100 %; WHITE BLOOD COUNT 6.1 10^3/uL (4.0-10.5)
[2018-02-06 08:13] LABS: INTERNATIONAL RATION (INR) 0.97; PROTHROMBIN TIME 13.4 SEC (11.4-15.4)
[2018-02-06 08:14] LABS: PARTIAL THROMBOPLASTIN TIME 29.1 SEC (23.5-35.8)
[2018-02-06 08:23] LABS: ALANINE AMINOTRANSFERASE 21 U/L (21-72); ALBUMIN 3.2 g/dL (3.5-5.0); ALKALINE PHOSPHATASE 98 U/L (38-126); ANION GAP 15 (5-19); ASPARTATE AMINO TRANSFERASE 39 U/L (17-59); BILIRUBIN,DIRECT 0.1 mg/dL (0.0-0.4); BILIRUBIN,TOTAL 0.9 mg/dL (0.2-1.3); BLOOD UREA NITROGEN 17 mg/dL (7-20); CALCIUM 9.2 mg/dL (8.4-10.2); CARBON DIOXIDE 22 mmol/L (22-30); CHLORIDE 103 mmol/L (98-107); CREATINE KINASE 592 U/L (55-170); GLUCOSE 304 mg/dL (75-110); POTASSIUM 4.4 mmol/L (3.6-5.0); SODIUM 139.8 mmol/L (137-145); TOTAL PROTEIN 5.7 g/dL (6.3-8.2)
[2018-02-06 08:33] LABS: CREATINE KINASE MB 3.07 ng/mL (<4.55)
[2018-02-06 08:36] LABS: TROPONIN I < 0.012 ng/mL
[2018-02-06] MEDS ORDERED: INSULIN GLARGINE,HUM.REC.ANLOG 300 UNIT/3 ML INSULN.PEN SUBCUT SCH (10:00)
[2018-02-06 14:08] LABS: CREATINE KINASE MB 3.17 ng/mL (<4.55); TROPONIN I 0.029 ng/mL
[2018-02-06 17:39] VITALS: BP 113/74
--- NOTE | 2018-02-06 21:47 | PDOC DISCHARGE SUMMARY ---
General - Admit/Disc Date/PCP Admission Date/Primary Care Provider: 02/05/18 20:05 [facility] Discharge Date: 02/06/18 - Discharge Diagnosis (1) Epigastric pain Is this a current diagnosis for this admission?: Yes Summary: The patient was still complaining of mostly epigastric pain. Ultrasound study was unremarkable. His lipase was normal. At this point gastroesophageal reflux is the primary issue. I have placed him on Protonix and provided a prescription as an outpatient. He does need to follow-up with gastroenterology for further investigation. Serial troponins were negative and I do not believe this has any cardiac etiology. (2) Diabetes mellitus type 1 Is this a current diagnosis for this admission?: Yes Summary: The patient will discharge on his Levemir. I also provided a prescription for NovoLog and typed out a sliding scale for the patient to follow with meals and at bedtime. (3) Odynophagia Is this a current diagnosis for this admission?: Yes Summary: The patient was placed on Protonix 40 mg daily. He was also referred to gastroenterology as an outpatient and needs to follow-up with his primary care physician as well. - Additional Information Resuscitation Status: Full Code Discharge Diet: As Tolerated, Diabetic Discharge Activity: Activity As Tolerated Prescriptions: Insulin Aspart [Novolog Insulin (Aspart) 100 unit/mL] 2 - 12 unit SUBCUT ACHS # 3 ml Pantoprazole Sodium [Protonix] 40 mg PO DAILY #30 tablet. Home Medications: Insulin Glargine,Hum.rec.anlog [Lantus Insulin 100 Unit/mL] 30 unit SUBCUT DAILY insuln.pen 06/28/16 Insulin Aspart [Novolog Insulin (Aspart) 100 unit/mL] 2 - 12 unit SUBCUT ACHS # 3 ml 02/06/18 Pantoprazole Sodium [Protonix] 40 mg PO DAILY #30 tablet. 02/06/18 History of Present Illness Patient complains of: Epigastric pain History of Present Illness: JOSE DANIEL CLINTON is a 37 year old male who presented to the emergency department yesterday. He was feeling sick since Saturday. Of note his glucose was quite high. Unfortunately he stopped eating to compensate. He then suffered low blood glucose. He was drinking Powerade for hydration and electrolytes. He was having significant epigastric pain and presented to the emergency department for evaluation. He also reports that the pain is present when swallowing. Hospital Course Hospital Course: The patient had unremarkable hospital course. His cardiac workup was negative and this was a relief for the patient. His pain was somewhat improved. He understands that taking the Protonix should help. In addition I have discharged him on the combination of his long-acting insulin as well as a short acting sliding scale. I did type out a sliding scale for the patient. He needs to follow this at meals and at bedtime. Physical Exam Vital Signs: Temp Pulse Resp BP Pulse Ox 98.5 F 68 16 113/74 100 02/06/18 17:36 02/06/18 17:36 02/06/18 17:36 02/06/18 17:36 02/06/18 17:36 Intake & Output 02/05/18 02/06/18 02/07/18 06:59 06:59 06:59 Intake Total 1999 1266 Balance 1999 1266 Weight 78.2 kg General appearance: PRESENT: no acute distress, cooperative, thin, well- developed Eye exam: PRESENT: conjunctiva pink, EOMI. ABSENT: scleral icterus Ear exam: PRESENT: normal external ear exam Neck exam: PRESENT: full ROM. ABSENT: carotid bruit, JVD, lymphadenopathy Respiratory exam: PRESENT: clear to auscultation selena, symmetrical, unlabored. ABSENT: prolonged expiratory phas, rales, rhonchi, wheezes Cardiovascular exam: PRESENT: RRR, +S1, +S2 GI/Abdominal exam: PRESENT: normal bowel sounds, soft, tenderness - Still slightly tender in the epigastrium.. ABSENT: distended, firm, guarding Extremities exam: ABSENT: calf tenderness, pedal edema Musculoskeletal exam: PRESENT: ambulatory, normal inspection Neurological exam: PRESENT: alert, awake, oriented to person, oriented to place , oriented to time, oriented to situation, CN II-XII grossly intact Psychiatric exam: PRESENT: appropriate affect, normal mood. ABSENT: agitated, anxious Results Laboratory Results: 02/06/18 07:30 02/06/18 07:30 02/06/18 02/06/18 07:30 07:30 WBC 6.1 RBC 4.19 L Hgb 12.9 L Hct 39.4 MCV 94 MCH 30.9 MCHC 32.8 RDW 13.3 Plt Count 230 Seg Neutrophils % 39.3 L Lymphocytes % 48.8 H Monocytes % 9.0 Eosinophils % 2.5 Basophils % 0.4 Absolute Neutrophils 2.4 Absolute Lymphocytes 3.0 Absolute Monocytes 0.5 Absolute Eosinophils 0.2 Absolute Basophils 0.0 Sodium 139.8 Potassium 4.4 Chloride 103 Carbon Dioxide 22 Anion Gap 15 BUN 17 Creatinine 1.14 Est GFR ( Amer) > 60 Est GFR (Non-Af Amer) > 60 Glucose 304 H Calcium 9.2 Magnesium 1.3 L Total Bilirubin 0.9 AST 39 ALT 21 Alkaline Phosphatase 98 Total Protein 5.7 L Albumin 3.2 L 02/06/18 02/06/18 02/06/18 01:26 01:26 07:30 Creatine Kinase 699 H CK-MB (CK-2) 4.87 H 3.07 Troponin I < 0.012 < 0.012 02/06/18 02/06/18 02/06/18 07:30 13:11 13:11 Creatine Kinase 592 H 538 H CK-MB (CK-2) 3.17 Troponin I 0.029 Impressions: Abdomen Ultrasound 02/05/18 00:00 IMPRESSION: Mild gallbladder sludge. No significant gallbladder calculi or evidence for cholecystitis. No significant biliary dilatation. Fatty liver. Chest X-Ray 02/05/18 15:20 IMPRESSION: NO ACUTE RADIOGRAPHIC FINDING IN THE CHEST. Qualifiers - * PATIENT BEING DISCHARGED WITH ANY OF THE FOLLOWING DIAGNOSIS: No Plan Discharge Plan: As noted above the patient was discharged on Protonix as well as Levemir and Humalog. He will need to see gastroenterology as an outpatient. He will advance his diet as tolerated. Time Spent: Greater than 30 Minutes
--- NOTE | 2018-02-07 10:47 | EKG REPORT ---
SEVERITY:- ABNORMAL ECG - SINUS RHYTHM CONSIDER ANTEROSEPTAL INFARCT ABNORMAL T, CONSIDER ISCHEMIA, DIFFUSE LEADS : Confirmed by: Bart Cary 07-Feb-2018 10:46:05
== END 2018-02-06 19:39 | disposition home or self-care (01) ==
LOC: ER 15:09 → EH 20:05 → 5 23:23
PROVIDERS: ADMIT Internal Medicine; ATTEND Internal Medicine
DX: R10.13 Epigastric pain (principal); E10.9 Type 1 diabetes mellitus without complications; R13.10 Dysphagia, unspecified; J45.909 Unspecified asthma, uncomplicated; R06.02 Shortness of breath; E83.52 Hypercalcemia; R74.8 Abnormal levels of other serum enzymes; R11.0 Nausea; F17.210 Nicotine dependence, cigarettes, uncomplicated; Z87.19 Personal history of other diseases of the digestive system; Z82.49 Family history of ischemic heart disease and other diseases of the circulatory system
CPT/HCPCS: 93005; 99285; 96361; 96374; 96375; 36415 ×2; 82553 ×2; 82962 ×2; 82550 ×2; 83690; 83735; 85025 ×2; 85610; 85730; 80076; 80048; 80053; 81001; 84484 ×2; 83036; 71045; 76705; 93010; J3490; J2270; J1650; J1170; J1815; J7030 ×2; S0028; G0378

== ENCOUNTER 2018-02-07 09:35 | Inpatient (IN) | payer OTHER ==
--- NOTE | 2018-02-07 10:01 | ER Document Report ---
ED Medical Screen (RME) - General Chief Complaint: Nausea/Vomiting Stated Complaint: NAUSEA/VOMITING Time Seen by Provider: 02/07/18 09:49 Notes: 37-year-old female to the emergency department for evaluation of abdominal pain. Noticed the pain coming on yesterday. Mostly in the epigastric and right upper quadrant area. Some nausea but no vomiting. No fever. No other symptoms at this time. I have greeted and performed a rapid initial assessment of this patient. A comprehensive ED assessment and evaluation of the patient, analysis of test results and completion of the medical decision making process will be conducted by additional ED providers. TRAVEL OUTSIDE OF THE [place] IN LAST 30 DAYS: No - Related Data Allergies/Adverse Reactions: honey [Honey] Allergy (Verified 02/05/18 15:10) No Known Drug Allergies Allergy (Verified 02/05/18 15:10) Past Medical History - Past Medical History Cardiac Medical History: Denies: Hx Congestive Heart Failure, Hx Coronary Artery Disease, Hx DVT, Hx Heart Attack, Hx Hypercholesterolemia, Hx Hypertension, Hx Pulmonary Embolism Pulmonary Medical History: Reports: Hx Asthma, Hx Pneumonia Denies: Hx COPD, Hx Sleep Apnea Neurological Medical History: Reports: Hx Migraine. Denies: Hx Seizures Endocrine Medical History: Reports: Hx Diabetes Mellitus Type 1. Denies: Hx Diabetes Mellitus Type 2, Hx Hyperthyroidism, Hx Hypothyroidism Renal/ Medical History: Denies: Hx Peritoneal Dialysis GI Medical History: Denies: Hx Cirrhosis, Hx Gastroesophageal Reflux Disease, Hx Hepatitis Musculoskeltal Medical History: Denies Hx Arthritis, Reports Hx Musculoskeletal Trauma - Muscle strains and sprains Skin Medical History: Denies Hx Eczema, Denies Hx Psoriasis Psychiatric Medical History: Reports: Hx Anxiety, Hx Depression Infectious Medical History: Denies: Hx C-Diff, Hx Hepatitis, Hx MRSA Past Surgical History: Reports: Hx Oral Surgery - Teeth, Hx Urinary Tract Surgery - fractured penis repair, Other - Immunizations Immunizations up to date: Yes Hx Diphtheria, Pertussis, Tetanus Vaccination: Yes Review of Systems - Review of Systems Notes: Review of systems positive for the following: Abdominal pain, right upper quadrant pain, cough Physical Exam - Vital signs Vitals: Temp Pulse Resp BP Pulse Ox 98.5 F 108 H 20 124/64 100 02/07/18 09:52 02/07/18 09:52 02/07/18 09:52 02/07/18 09:52 02/07/18 09:52 Interpretation: Tachycardic. No: Hypoxic - Respiratory Respiratory status: No respiratory distress Chest status: Nontender Breath sounds: Normal Chest palpation: Normal - Cardiovascular Rhythm: Tachycardia Heart sounds: Normal auscultation Murmur: No - Abdominal Inspection: Normal Distension: No distension Bowel sounds: Normal Tenderness: Tender - Right upper quadrant tenderness Organomegaly: No organomegaly Course - Vital Signs Vital signs: Temp Pulse Resp BP Pulse Ox 98.5 F 108 H 20 124/64 100 02/07/18 09:52 02/07/18 09:52 02/07/18 09:52 02/07/18 09:52 02/07/18 09:52 Doctor's Discharge - Discharge Referrals: [facility] - Follow up as needed
--- NOTE | 2018-02-07 10:17 | ER Document Report ---
ED GI/ - General Chief Complaint: Nausea/Vomiting Stated Complaint: NAUSEA/VOMITING Time Seen by Provider: 02/07/18 09:49 Mode of Arrival: Medic Information source: Patient Notes: Patient is a 37-year-old male who presents with chief complaint of nausea and vomiting. Patient reports he was discharged from this hospital yesterday for same complaint. Patient reports that he was discharged last night, states he has not taken any insulin since he was discharged as he has not eaten. Patient reports continuous vomiting every time he sits up. Patient denies any diarrhea. Reports fevers through the night. Patient also reporting pain in the epigastrium and chest area. Patient reports this pain is nonradiating. TRAVEL OUTSIDE OF THE [place] IN LAST 30 DAYS: No - Related Data Allergies/Adverse Reactions: honey [Honey] Allergy (Verified 02/05/18 15:10) No Known Drug Allergies Allergy (Verified 02/05/18 15:10) Past Medical History - General Information source: Patient - Social History Smoking Status: Current Some Day Smoker Frequency of alcohol use: None Drug Abuse: None Family History: Reviewed & Not Pertinent, CAD, CVA, DM, Hyperlipidemia, Hypertension, Malignancy - Past Medical History Cardiac Medical History: Denies: Hx Congestive Heart Failure, Hx Coronary Artery Disease, Hx DVT, Hx Heart Attack, Hx Hypercholesterolemia, Hx Hypertension, Hx Pulmonary Embolism Pulmonary Medical History: Reports: Hx Asthma, Hx Pneumonia Denies: Hx COPD, Hx Sleep Apnea Neurological Medical History: Reports: Hx Migraine. Denies: Hx Seizures Endocrine Medical History: Reports: Hx Diabetes Mellitus Type 1. Denies: Hx Diabetes Mellitus Type 2, Hx Hyperthyroidism, Hx Hypothyroidism Renal/ Medical History: Denies: Hx Peritoneal Dialysis GI Medical History: Denies: Hx Cirrhosis, Hx Gastroesophageal Reflux Disease, Hx Hepatitis Musculoskeletal Medical History: Denies Hx Arthritis, Reports Hx Musculoskeletal Trauma - Muscle strains and sprains Skin Medical History: Denies Hx Eczema, Denies Hx Psoriasis Psychiatric Medical History: Reports: Hx Anxiety, Hx Depression Infectious Medical History: Denies: Hx C-Diff, Hx Hepatitis, Hx MRSA Past Surgical History: Reports: Hx Oral Surgery - Teeth, Hx Urinary Tract Surgery - fractured penis repair, Other - Immunizations Immunizations up to date: Yes Hx Diphtheria, Pertussis, Tetanus Vaccination: Yes Hx Pneumococcal Vaccination: 03/25/16 Review of Systems - Review of Systems Constitutional: Malaise Gastrointestinal: Abdominal pain, Nausea, Vomiting Physical Exam - Vital signs Vitals: Temp Pulse Resp BP Pulse Ox 98.5 F 108 H 20 124/64 100 02/07/18 09:52 02/07/18 09:52 02/07/18 09:52 02/07/18 09:52 02/07/18 09:52 - Notes Notes: PHYSICAL EXAMINATION: GENERAL: Ill-appearing, well-nourished and in no acute distress. HEAD: Atraumatic, normocephalic. EYES: Pupils equal round and reactive to light, extraocular movements intact, sclera anicteric, conjunctiva are normal. ENT: Nares patent, oropharynx clear without exudates. Moist mucous membranes. NECK: Normal range of motion, supple without lymphadenopathy LUNGS: Breath sounds clear to auscultation bilaterally and equal. No wheezes rales or rhonchi. HEART: Regular rate and rhythm without murmurs ABDOMEN: Soft, nondistended abdomen. No guarding, no rebound. No masses appreciated. Musculoskeletal: Normal range of motion, no pitting or edema. No cyanosis. NEUROLOGICAL: Cranial nerves grossly intact. Normal speech. Normal sensory, motor exams PSYCH: Uncooperative. SKIN: Warm, Dry, normal turgor, no rashes or lesions noted. Course - Re-evaluation Re-evalutation: Multiple attempts to obtain IV access and blood work by multiple staff members caused a delay in obtaining initial labs on this patient. Patient has been medicated several times for the epigastric pain. Ultimately Dilaudid worked better for him than morphine. Over the course of patient's stay in the emergency department he did develop a change in his rhythm to increased peaked T waves. Repeat EKG was done however no ischemic changes were noted. Once blood work was finally obtained it was evident the patient was in diabetic ketoacidosis. Additional IV fluids and IV insulin were ordered, see orders. Multiple re-evaluations were made on this patient due to patient's condition and electrolyte derangement. Hospitalist was consulted and patient was accepted for admission to the ICU. - Vital Signs Vital signs: Temp Pulse Resp BP Pulse Ox 98.1 F 134 H 25 H 138/78 H 100 02/07/18 16:55 02/07/18 16:55 02/07/18 16:55 02/07/18 16:55 02/07/18 16:55 - Laboratory Result Diagrams: 02/07/18 12:19 02/07/18 12:19 Laboratory results interpreted by me: 02/07/18 02/07/18 02/07/18 11:40 12:19 12:19 WBC 18.5 H D RBC 4.30 L Hgb 13.2 L MCV 98 H D MCHC 31.4 L Seg Neutrophils % 91.5 H Lymphocytes % 6.0 L Monocytes % 2.5 L Absolute Neutrophils 17.0 H VBG pH VBG pCO2 VBG HCO3 Potassium 7.1 H* Carbon Dioxide 7 L* Anion Gap 33 H BUN 24 H Creatinine 1.68 H Est GFR ( Amer) 55 L Est GFR (Non-Af Amer) 46 L Glucose 589 H* Lactic Acid Calcium 10.4 H Direct Bilirubin 0.5 H Alkaline Phosphatase 151 H Creatine Kinase 566 H Urine Glucose (UA) >=500 H Urine Ketones 80 H 02/07/18 02/07/18 13:18 13:18 WBC RBC Hgb MCV MCHC Seg Neutrophils % Lymphocytes % Monocytes % Absolute Neutrophils VBG pH 7.07 L* VBG pCO2 24.5 L VBG HCO3 6.9 L Potassium Carbon Dioxide Anion Gap BUN Creatinine Est GFR ( Amer) Est GFR (Non-Af Amer) Glucose Lactic Acid 3.0 H Calcium Direct Bilirubin Alkaline Phosphatase Creatine Kinase Urine Glucose (UA) Urine Ketones Critical Care Note - Critical Care Note Total time excluding time spent on procedures (mins): 40 Discharge - Discharge Clinical Impression: Hyperkalemia DKA (diabetic ketoacidoses) Qualifiers: Diabetes mellitus type: type 1 Diabetes mellitus complication detail: without coma Qualified Code(s): E10.10 - Type 1 diabetes mellitus with ketoacidosis without coma Vomiting Qualifiers: Vomiting type: unspecified Vomiting Intractability: unspecified Nausea presence : unspecified Qualified Code(s): R11.10 - Vomiting, unspecified Abdominal pain Qualifiers: Abdominal location: epigastric Qualified Code(s): R10.13 - Epigastric pain Leukocytosis Qualifiers: Leukocytosis type: unspecified Qualified Code(s): D72.829 - Elevated white blood cell count, unspecified Condition: Stable Disposition: ADMITTED INPATIENT Admitting Provider: Hospitalist Unit Admitted: ICU
[2018-02-07] MEDS ORDERED: MORPHINE SULFATE 10 MG/ML INJ IV ONE (10:19)
[2018-02-07] MEDS ORDERED: ONDANSETRON HCL INJ/PF 4 MG/2 ML SDV IV ONE (10:19)
--- NOTE | 2018-02-07 10:47 | EKG REPORT ---
SEVERITY:- ABNORMAL ECG - SINUS TACHYCARDIA PROBABLE LEFT ATRIAL ABNORMALITY CONSIDER ANTEROSEPTAL INFARCT : Confirmed by: Bart Cary 07-Feb-2018 10:45:59
[2018-02-07] MEDS ORDERED: NORMAL SALINE 1000 ML 1,000 ML IV ONE ×2 (11:14→13:36)
[2018-02-07 12:01] LABS: APPEARANCE,URINE CLEAR; BILIRUBIN,URINE NEGATIVE (NEGATIVE); COLOR,URINE COLORLESS; GLUCOSE, URINE >=500 mg/dL (NEGATIVE); KETONES,URINE 80 mg/dL (NEGATIVE); LEUKOCYTE ESTERASE,URINE NEGATIVE (NEGATIVE); NITRITE,URINE NEGATIVE (NEGATIVE); PROTEIN,URINE NEGATIVE (NEGATIVE); URINE SPECIFIC GRAVITY 1.017; UROBILINOGEN,URINE NEGATIVE mg/dL (<2.0)
--- NOTE | 2018-02-07 12:16 | RADIOLOGY REPORT (SQ) ---
EXAM DESCRIPTION: CHEST SINGLE VIEW COMPLETED DATE/TIME: 02/07/2018 12:06 pm REASON FOR STUDY: chest pain COMPARISON: 02/05/2018 EXAM PARAMETERS: NUMBER OF VIEWS: One view. TECHNIQUE: Single frontal radiographic view of the chest acquired. RADIATION DOSE: NA LIMITATIONS: None. FINDINGS: LUNGS AND PLEURA: No opacities, masses or pneumothorax. No pleural effusion. MEDIASTINUM AND HILAR STRUCTURES: No masses. Contour normal. HEART AND VASCULAR STRUCTURES: Heart normal in size. Normal vasculature. BONES: No acute findings. HARDWARE: None in the chest. OTHER: No other significant finding. IMPRESSION: NO ACUTE RADIOGRAPHIC FINDING IN THE CHEST. TECHNICAL DOCUMENTATION: JOB ID: [id number] [employer]- All Rights Reserved Reading location - IP/workstation name: [email or web address]
[2018-02-07] MEDS ORDERED: HYDROMORPHONE HCL INJ/PF 2 MG/ML AMPULE IV ONE (12:32)
[2018-02-07 12:45] LABS: ABSOLUTE LYMPHOCYTES (AUTO) 1.1 10^3/uL (0.5-4.7); ABSOLUTE MONOCYTES (AUTO) 0.5 10^3/uL (0.1-1.4); HEMATOCRIT 42.2 % (37.9-51.0); HEMOGLOBIN 13.2 g/dL (13.5-17.0); MEAN CORPUSCULAR HEMOGLOBIN 30.8 pg (27.0-33.4); MEAN CORPUSCULAR HGB CONC 31.4 g/dL (32.0-36.0); MONOCYTES % (AUTO) 2.5 % (3-13); PLATELET COUNT 266 10^3/uL (150-450); RED CELL DISTRIBUTION WIDTH 13.7 % (11.5-14.0); SEGMENTED NEUTROPHILS % (AUTO) 91.5 % (42-78); TOTAL CELLS COUNTED % (AUTO) 100 %
[2018-02-07 13:06] LABS: ALANINE AMINOTRANSFERASE 27 U/L (21-72); ALBUMIN 4.6 g/dL (3.5-5.0); ALKALINE PHOSPHATASE 151 U/L (38-126); ASPARTATE AMINO TRANSFERASE 45 U/L (17-59); BILIRUBIN,DIRECT 0.5 mg/dL (0.0-0.4); BILIRUBIN,TOTAL 0.7 mg/dL (0.2-1.3); BLOOD UREA NITROGEN 24 mg/dL (7-20); CALCIUM 10.4 mg/dL (8.4-10.2); CREATINE KINASE 566 U/L (55-170); TOTAL PROTEIN 7.6 g/dL (6.3-8.2)
[2018-02-07 13:07] LABS: WHITE BLOOD COUNT 18.5 10^3/uL (4.0-10.5)
[2018-02-07 13:09] LABS: MEAN CORPUSCULAR VOLUME 98 fl (80-97)
[2018-02-07 13:11] LABS: CHLORIDE 99 mmol/L (98-107); SODIUM 139.1 mmol/L (137-145)
[2018-02-07 13:14] LABS: CREATINE KINASE MB 3.81 ng/mL (<4.55)
[2018-02-07 13:17] LABS: GLUCOSE 589 mg/dL (75-110)
[2018-02-07 13:18] LABS: ANION GAP 33 (5-19); CARBON DIOXIDE 7 mmol/L (22-30); POTASSIUM 7.1 mmol/L (3.6-5.0); TROPONIN I < 0.012 ng/mL
[2018-02-07] MEDS ORDERED: INSULIN REG, HUMAN 100 UNIT/ML 3 ML VIAL (PYX) IV ONE ×2 (13:36→13:47)
[2018-02-07] MEDS ORDERED: CALCIUM GLUCONATE 1000 MG/10 ML INJ IV ONE (13:36)
[2018-02-07 13:44] LABS: VENOUS BLOOD BASE EXCESS -21.8 mmol/L; VENOUS BLOOD HCO3 6.9 mmol/L (20-32); VENOUS BLOOD PCO2 24.5 mmHg (35-63)
[2018-02-07 13:45] LABS: VENOUS BLOOD PH 7.07 (7.30-7.42)
[2018-02-07] MEDS ORDERED: DEXTROSE 40% GEL 15 GM TUBE PO PRN ×2 (13:47)
[2018-02-07] MEDS ORDERED: DEXTROSE 50%-WATER 25 GM/50 ML DISP.SYRIN IV PRN ×2 (13:47)
[2018-02-07] MEDS ORDERED: GLUCAGON,HUMAN RECOMB 1 MG INJ IM PRN (13:47)
[2018-02-07] MEDS ORDERED: NORMAL SALINE 1000 ML 1,000 ML IV PRN ×2 (15:54→19:15)
[2018-02-07] MEDS ORDERED: NORMAL SALINE 100 ML with INSULIN REGULAR, HUMAN 100 UNIT IV PRN ×2 (15:54)
[2018-02-07] MEDS ORDERED: ONDANSETRON HCL INJ/PF 4 MG/2 ML SDV IV PRN (16:00)
[2018-02-07] MEDS ORDERED: IPRATROPIUM/ALBUTEROL 0.5-2.5 MG/3 ML AMPUL NEB PRN (16:00)
[2018-02-07] MEDS ORDERED: ACETAMINOPHEN 325 MG SUPP.RECT PR PRN (16:14)
[2018-02-07] MEDS ORDERED: LORAZEPAM INJ 2 MG/1 ML VIAL IV PRN (16:14)
[2018-02-07] MEDS ORDERED: DEXTROSE 5%-WATER 1000 ML 1,000 ML with SODIUM BICARBONATE 50 MEQ IV PRN ×2 (16:22)
--- NOTE | 2018-02-07 16:37 | RADIOLOGY REPORT (SQ) ---
EXAM DESCRIPTION: CHEST SINGLE VIEW COMPLETED DATE/TIME: 02/07/2018 4:30 pm REASON FOR STUDY: central line placement COMPARISON: 02/07/2018 NUMBER OF VIEWS: One view. TECHNIQUE: Single frontal radiographic view of the chest acquired. LIMITATIONS: None. FINDINGS: Central venous access catheter placed via left subclavian approach. Catheter tip at cavo -atrial junction. No pneumothorax. Radiographic appearance of the chest otherwise stable. IMPRESSION: CENTRAL VENOUS ACCESS CATHETER IN APPROPRIATE LOCATION. NO PNEUMOTHORAX. NEW CENTRAL L INE. TECHNICAL DOCUMENTATION: JOB ID: [id number] [employer]- All Rights Reserved Reading location - IP/workstation name: [email or web address]
--- NOTE | 2018-02-07 18:25 | Progress Note ---
Provider Note Provider Note: Procedure note: Placement of non-tunneled central venous catheter The patient will require significant intravenous medications and fluid resuscitation. He has extremely poor peripheral vasculature. I explained to the patient that the most effective and efficient means of administering his treatment as well as drawing blood will be to place a central line. After explaining the risks and benefits and allowing the patient to ask any questions consent was obtained for the procedure. The left subclavian area was prepped with chlorhexidine. Then a sterile drape was placed over the patient. Using sterile technique I injected lidocaine into the skin and deeper tissues under this clavicle. After several minutes I used the long needle to access the subclavian vein. The wire was passed easily. I then used a #11 blade scalpel to make an incision in the skin and the dilator was placed over the wire. The patient did have some discomfort as the dilator passed under the clavicle. I then removed the dilator and placed the triple-lumen catheter over the guidewire. I advanced the catheter while maintaining a firm clinical science consultant on the guidewire. Once the catheter was fully inserted to remove the guidewire. All 3 of the lines kiara back blood easily and flushed without difficulty. I then sutured the catheter in place. Placed the bio disc over the skin and secured it with a and OpSite dressing. The patient did have some discomfort with the dilator. Less so when passing the catheter. He tolerated the procedure quite well. Post procedure chest x-ray shows appropriate position of the central line. Nursing has receded to use it without any difficulty.
--- NOTE | 2018-02-07 18:47 | PDOC H&P ---
History of Present Illness Admission Date/PCP: 02/07/18 13:53 Patient complains of: Significant weakness with altered mental status. History of Present Illness: JOSE DANIEL CLINTON is a 37 year old male The patient is a noncompliant 37-year-old who was just in the emergency department yesterday for hyperglycemia. Evidently he did not follow any of the direction provided by the emergency room physician. He was feeling very poorly again today and was brought to the emergency department. The patient was found to be in diabetic ketoacidosis with a pH of 7.1 and bicarb of 7. He had hyperkalemia, serum glucose over 500 as well as elevated lactic acid. The patient does have a history of noncompliant behavior. Past Medical History Past Medical History: Somewhat limited information due to the patient's altered mental state. Information also gathered from old records. Cardiac Medical History: Denies: Congestive Heart Failure, Coronary Artery Disease, DVT, Myocardial Infarction, Hyperlipidema, Hypertension, Pulmonary Embolism Pulmonary Medical History: Reports: Asthma, Pneumonia Denies: Chronic Obstructive Pulmonary Disease (COPD), Sleep Apnea Neurological Medical History: Reports: Migraine Denies: Seizures Endocrine Medical History: Reports: Diabetes Mellitus Type 1 Denies: Diabetes Mellitus Type 2, Hyperthyroidism, Hypothyroidism GI Medical History: Denies: Cirrhosis, Gastroesophageal Reflux Disease, Hepatitis Musculoskeltal Medical History: Denies: Arthritis Skin Medical History: Denies: Eczema, Psoriasis Psychiatric Medical History: Reports: Depression Infectious Medical History: Denies: Clostridium Difficile, Methicillin-Resistant Staph Aureus Past Surgical History Past Surgical History: Reports: Other - Oral surgery as well as urinary tract surgery (fractured penis repair) Social History Information Source: [facility] Records Lives with: Other - The patient is single with 2 children. Living status unable to be obtained. Smoking Status: Current Some Day Smoker Cigarettes Packs Per Day: 0.5 Frequency of Alcohol Use: Social Hx Recreational Drug Use: No Drugs: None Hx Prescription Drug Abuse: No - Advance Directive Resuscitation Status: Full Code Family History Family History: CAD, CVA, DM, Hyperlipidemia, Hypertension, Malignancy Parental Family History Reviewed: Yes - Mother has diabetes mellitus type 2. Father is well Children Family History Reviewed: Yes - Noncontributory Sibling(s) Family History Reviewed.: Unknown Medication/Allergy Home Medications: Insulin Aspart [Novolog Flexpen] 0 unit SUBCUT .SLIDING SCALE 11/16/18 Insulin Glargine,Hum.rec.anlog [Lantus Insulin Inj 300 Unit/3 ml Pen] 38 unit SUBCUT QHS 02/07/18 Propranolol HCl [Inderal 10 mg Tablet] 20 mg PO Q12HP PRN 02/07/18 Venlafaxine HCl [Effexor 75 mg Tablet] 150 mg PO DAILY 02/07/18 Allergies/Adverse Reactions: honey [Honey] Allergy (Verified 02/05/18 15:10) No Known Drug Allergies Allergy (Verified 02/05/18 15:10) Review of Systems ROS unobtainable: Due to mental status - Due to altered mental state from diabetic ketoacidosis a full review of systems was not able to be obtained. Information from the emergency department and general observation revealed the following Nose, Mouth, and Throat: PRESENT: other - Halitosis Cardiovascular: PRESENT: palpitations Respiratory: PRESENT: dyspnea Gastrointestinal: PRESENT: nausea, vomiting Neurological: PRESENT: abnormal speech Physical Exam Vital Signs: Temp Pulse Resp BP Pulse Ox 98.1 F 134 H 25 H 138/78 H 100 02/07/18 16:55 02/07/18 16:55 02/07/18 16:55 02/07/18 16:55 02/07/18 16:55 Intake & Output 02/06/18 02/07/18 02/08/18 06:59 06:59 06:59 Intake Total 1000 Balance 1000 Weight 76.2 kg General appearance: PRESENT: disheveled, severe distress, thin, well-developed Head exam: PRESENT: atraumatic, normocephalic Eye exam: PRESENT: conjunctiva pale. ABSENT: scleral icterus Ear exam: PRESENT: normal external ear exam Mouth exam: PRESENT: dry mucosa, tongue midline Neck exam: ABSENT: carotid bruit, JVD, lymphadenopathy Respiratory exam: PRESENT: tachypnea. ABSENT: crackles, rhonchi, wheezes Cardiovascular exam: PRESENT: tachycardia Pulses: PRESENT: normal radial pulses, normal dorsalis pedis pul GI/Abdominal exam: PRESENT: normal bowel sounds, soft. ABSENT: mass, tenderness Gentrourinary exam: PRESENT: indwelling catheter Extremities exam: ABSENT: calf tenderness, joint swelling, pedal edema Neurological exam: PRESENT: altered - Lethargic Psychiatric exam: ABSENT: agitated, anxious Skin exam: PRESENT: dry, intact, warm. ABSENT: cyanosis, rash Results Laboratory Results: 02/07/18 17:05 Phosphorus 6.6 H 02/07/18 17:05 Creatine Kinase 448 H Impressions: Chest X-Ray 02/07/18 15:41 IMPRESSION: CENTRAL VENOUS ACCESS CATHETER IN APPROPRIATE LOCATION. NO PNEUMOTHORAX. NEW CENTRAL LINE. Assessment & Plan - Diagnosis (1) DKA (diabetic ketoacidoses) Qualifiers: Diabetes mellitus type: type 1 Diabetes mellitus complication detail: without coma Qualified Code(s): E10.10 - Type 1 diabetes mellitus with ketoacidosis without coma Is this a current diagnosis for this admission?: Yes Plan: 02/07/2018-the patient was admitted to the intensive care unit. A central line was placed for appropriate access. He was given 2 L of fluid bolus and then normal saline at 200 mL/h. I ordered bicarbonate as well as the pH was 7.1 and his serum bicarb was 7.. 50 mEq in 1 L to run at 100 mL an hour (while infusing saline will be decreased to 100 mL an hour). The patient is on a continuous insulin infusion per the protocol. Aggressive use of Accu-Cheks and laboratory studies have also been ordered. In addition the patient has a Smith catheter. We will be monitoring his intake and output very closely. (2) Hyperkalemia Is this a current diagnosis for this admission?: Yes Plan: His serum potassium was markedly elevated. Aggressive fluid resuscitation should dilute the potassium out. We will follow closely. The ICU electrolyte replacement protocol is in place. (3) Leukocytosis Qualifiers: Leukocytosis type: unspecified Qualified Code(s): D72.829 - Elevated white blood cell count, unspecified Is this a current diagnosis for this admission?: Yes Plan: Patient has an elevated white blood cell count with left shift. I believe it is the stress of his acidosis. Blood cultures were obtained as well as a urine culture. No antibiotics at this time. (4) Depression Qualifiers: Depression Type: unspecified Qualified Code(s): F32.9 - Major depressive disorder, single episode, unspecified Is this a current diagnosis for this admission?: Yes Plan: Was unable to discover specifics about his depression. I am going to continue his venlafaxine 150 mg daily with sips of water to avoid serotonin syndrome. (5) Tachycardia Is this a current diagnosis for this admission?: Yes Plan: Volume resuscitation should ease his tachycardia. The patient also has history of being on propranolol. I have ordered 10 mg every 6 hours with parameters to hold for low systolic pressure and bradycardia. We will adjust his regimen based on his clinical findings. - Time Time Spent: Greater than 70 Minutes Medications reviewed and adjusted accordingly: Yes - Inpatient Certification Based on my medical assessment, after consideration of the patient's comorbidities, presenting symptoms, or acuity I expect that the services needed warrant INPATIENT care.: Yes I certify that my determination is in accordance with my understanding of Medicare's requirements for reasonable and necessary INPATIENT services [42 CFR 412.3e].: Yes Medical Necessity: Need Close Monitoring Due to Risk of Patient Decompensation, Need For IV Fluids, Need For Continuous Telemetry Monitoring, Need for Pain Control, Risk of Complication if Not Cared For in Hospital
[2018-02-07 18:50] LABS: ARTERIAL BLOOD BASE EXCESS -17.5 mmol/L; ARTERIAL BLOOD H2CO3 0.48 mmol/L (1.05-1.35); ARTERIAL BLOOD O2 SATURATION 97.9 % (94-98); ARTERIAL BLOOD PH 7.26 (7.35-7.45); ARTERIAL BLOOD PO2 118.7 mmHg (80-100); ARTERIAL BLOOD TOTAL CO2 7.5 mmol/L (23-27)
[2018-02-07 19:00] LABS: ARTERIAL BLOOD FIO2 ROOM AIR
[2018-02-07 19:12] LABS: BLOOD UREA NITROGEN 26 mg/dL (7-20); CALCIUM 9.6 mg/dL (8.4-10.2); GLUCOSE 331 mg/dL (75-110)
[2018-02-07 19:18] LABS: CHLORIDE 109 mmol/L (98-107); SODIUM 145.1 mmol/L (137-145)
[2018-02-07 19:33] LABS: APPEARANCE,URINE SLIGHTLY-CLOUDY; BILIRUBIN,URINE NEGATIVE (NEGATIVE); COLOR,URINE STRAW; GLUCOSE, URINE >=500 mg/dL (NEGATIVE); KETONES,URINE 80 mg/dL (NEGATIVE); LEUKOCYTE ESTERASE,URINE NEGATIVE (NEGATIVE); NITRITE,URINE NEGATIVE (NEGATIVE); PROTEIN,URINE NEGATIVE (NEGATIVE); URINE SPECIFIC GRAVITY 1.016; UROBILINOGEN,URINE NEGATIVE mg/dL (<2.0)
[2018-02-07 19:53] LABS: CARBON DIOXIDE 6 mmol/L (22-30); POTASSIUM 5.4 mmol/L (3.6-5.0)
[2018-02-07 21:16] LABS: ANION GAP 30 (5-19)
[2018-02-07] MEDS ORDERED: PANTOPRAZOLE SODIUM 40 MG VIAL IV SCH (22:00)
[2018-02-07] MEDS ORDERED: DEXTROSE 5%-1/2 NORMAL SALINE 1,000 ML IV PRN (22:29)
[2018-02-07] MEDS: HEPARIN SOD (PORCINE) 5,000 UNIT/ML 1 ML SYRINGE SUBCUT SCH (22:41)
[2018-02-07 22:49] LABS: ANION GAP 18 (5-19); BLOOD UREA NITROGEN 25 mg/dL (7-20); CALCIUM 9.4 mg/dL (8.4-10.2); CARBON DIOXIDE 15 mmol/L (22-30); CHLORIDE 113 mmol/L (98-107); CREATINE KINASE 420 U/L (55-170); GLUCOSE 162 mg/dL (75-110); POTASSIUM 4.5 mmol/L (3.6-5.0); SODIUM 145.8 mmol/L (137-145)
[2018-02-07 23:03] LABS: PHOSPHORUS 1.7 mg/dL (2.5-4.5)
--- NOTE | 2018-02-08 00:18 | EKG REPORT ---
SEVERITY:- ABNORMAL ECG - SINUS TACHYCARDIA PROBABLE LEFT ATRIAL ABNORMALITY PROBABLE LEFT VENTRICULAR HYPERTROPHY ANTERIOR Q WAVES, POSSIBLY DUE TO LVH : Confirmed by: Bart Cary 08-Feb-2018 00:18:07
[2018-02-08] MEDS: PROPRANOLOL HCL 10 MG TABLET PO SCH ×2 (00:31→06:32)
[2018-02-08 02:45] LABS: ANION GAP 10 (5-19); BLOOD UREA NITROGEN 24 mg/dL (7-20); CALCIUM 9.2 mg/dL (8.4-10.2); CARBON DIOXIDE 22 mmol/L (22-30); CHLORIDE 113 mmol/L (98-107); GLUCOSE 109 mg/dL (75-110); PHOSPHORUS 1.7 mg/dL (2.5-4.5); POTASSIUM 4.1 mmol/L (3.6-5.0); SODIUM 145.3 mmol/L (137-145)
[2018-02-08] MEDS ORDERED: INSULIN GLARGINE,HUM.REC.ANLOG 300 UNIT/3 ML INSULN.PEN SUBCUT ONE (03:30)
[2018-02-08] MEDS ORDERED: INSULIN GLARGINE,HUM.REC.ANLOG 1,000 UNIT/10 ML UNIT SUBCUT ONE (04:33)
[2018-02-08] MEDS: NORMAL SALINE 1000 ML 1,000 ML IV PRN ×2 (04:36→15:09)
[2018-02-08] MEDS: HYDROMORPHONE HCL INJ/PF 2 MG/ML AMPULE IV PRN ×3 (06:08→23:16)
[2018-02-08 06:11] LABS: ABSOLUTE LYMPHOCYTES (AUTO) 2.2 10^3/uL (0.5-4.7); BASOPHILS % (AUTO) 0.3 % (0-2); HEMATOCRIT 35.2 % (37.9-51.0); HEMOGLOBIN 11.6 g/dL (13.5-17.0); LYMPHOCYTES % (AUTO) 13.4 % (13-45); MEAN CORPUSCULAR HEMOGLOBIN 30.5 pg (27.0-33.4); MONOCYTES % (AUTO) 6.3 % (3-13); PLATELET COUNT 222 10^3/uL (150-450); RED BLOOD COUNT 3.81 10^6/uL (4.35-5.55); RED CELL DISTRIBUTION WIDTH 13.2 % (11.5-14.0); TOTAL CELLS COUNTED % (AUTO) 100 %; WHITE BLOOD COUNT 16.3 10^3/uL (4.0-10.5)
[2018-02-08 06:13] LABS: MEAN CORPUSCULAR VOLUME 93 fl (80-97)
--- NOTE | 2018-02-08 06:17 | RADIOLOGY REPORT (SQ) ---
EXAM DESCRIPTION: X-ray single view chest. CLINICAL HISTORY: 37 years Male, dyspnea COMPARISON: 02/07/2018 TECHNIQUE: Single portable view of the chest performed on 02/08/2018 at 6:02 AM FINDINGS: The lungs are well expanded and are clear. There is no evidence of a pneumothorax. The cardiac silhouette is normal in size and configuration. The mediastinal contours are normal. No acute osseous abnormality is identified. No focal soft tissue abnormalities are seen. Lines and tubes: The left subclavian central venous catheter is stable in position. There are overlying quality assurance monitor body leads. IMPRESSION: 1. No acute intrathoracic disease or significant change since the prior study. 2. Stable left subclavian central venous catheter.
[2018-02-08 06:25] LABS: ANION GAP 13 (5-19); BLOOD UREA NITROGEN 21 mg/dL (7-20); CARBON DIOXIDE 19 mmol/L (22-30); CHLORIDE 111 mmol/L (98-107); GLUCOSE 239 mg/dL (75-110); POTASSIUM 4.6 mmol/L (3.6-5.0); SODIUM 142.7 mmol/L (137-145)
[2018-02-08] MEDS: INSULIN LISPRO 100 UNIT/ML 3 ML VIAL SUBCUT PRN ×3 (06:30→18:54)
[2018-02-08 06:31] LABS: ARTERIAL BLOOD H2CO3 1.09 mmol/L (1.05-1.35); ARTERIAL BLOOD PCO2 36.2 mmHg (35-45); ARTERIAL BLOOD PH 7.34 (7.35-7.45)
[2018-02-08 06:32] LABS: ARTERIAL BLOOD BASE EXCESS -6.2 mmol/L; ARTERIAL BLOOD FIO2 ROOM AIR; ARTERIAL BLOOD HCO3 18.9 mmol/L (20-24); ARTERIAL BLOOD O2 SATURATION 96.1 % (94-98); ARTERIAL BLOOD PO2 86.5 mmHg (80-100)
[2018-02-08] MEDS: HEPARIN SOD (PORCINE) 5,000 UNIT/ML 1 ML SYRINGE SUBCUT SCH ×3 (06:32→21:03)
[2018-02-08] MEDS ORDERED: ONDANSETRON 4 MG TAB.RAPDIS PO PRN (08:26)
--- NOTE | 2018-02-08 08:43 | PDOC PROGRESS REPORT ---
Subjective Progress Note for:: 02/08/18 Subjective:: The patient presented yesterday in acute diabetic ketoacidosis with a pH of 7.1. He was lethargic. He was unable to fully communicate. After aggressive fluids and partial correction of his acidosis the patient is more alert and awake today. Patient is more alert this morning. He awakens easily. He was able to tell me that when he was discharged from the emergency department on he did not take his insulin because he did not eat and did not want to experience hypoglycemia. Reason For Visit: DKA Physical Exam Vital Signs: Temp Pulse Resp BP Pulse Ox 99.1 F 86 11 L 112/74 95 02/08/18 08:00 02/08/18 08:00 02/08/18 08:00 02/08/18 08:00 02/08/18 08:00 Intake & Output 02/07/18 02/08/18 02/09/18 06:59 06:59 06:59 Intake Total 1100 Output Total 1470 50 Balance -370 -50 Weight 72.7 kg General appearance: PRESENT: no acute distress, cooperative, thin, well- developed Head exam: PRESENT: atraumatic, normocephalic Eye exam: PRESENT: conjunctiva pink, EOMI. ABSENT: scleral icterus - Dirty sclera but not icteric Ear exam: PRESENT: normal external ear exam Mouth exam: PRESENT: dry mucosa, tongue midline Neck exam: PRESENT: full ROM, tenderness. ABSENT: carotid bruit, JVD, lymphadenopathy Respiratory exam: PRESENT: clear to auscultation selena, symmetrical, unlabored. ABSENT: crackles, rales, wheezes Cardiovascular exam: PRESENT: RRR, +S1, +S2 Pulses: PRESENT: normal radial pulses GI/Abdominal exam: PRESENT: normal bowel sounds, soft. ABSENT: ascites, guarding, rebound, tenderness Gentrourinary exam: PRESENT: indwelling catheter Extremities exam: ABSENT: calf tenderness, pedal edema Musculoskeletal exam: PRESENT: normal inspection Neurological exam: PRESENT: alert, awake, oriented to person, oriented to place , oriented to situation, CN II-XII grossly intact Psychiatric exam: PRESENT: flat affect Focused psych exam: ABSENT: restlessness Skin exam: PRESENT: normal color. ABSENT: abrasion, rash Results Laboratory Results: 02/08/18 05:50 02/08/18 05:50 02/07/18 02/07/18 02/07/18 16:00 17:05 18:00 WBC RBC Hgb Hct MCV MCH MCHC RDW Plt Count Seg Neutrophils % Lymphocytes % Monocytes % Eosinophils % Basophils % Absolute Neutrophils Absolute Lymphocytes Absolute Monocytes Absolute Eosinophils Absolute Basophils Carbonic Acid HCO3/H2CO3 Ratio ABG pH ABG pCO2 ABG pO2 ABG HCO3 ABG O2 Saturation ABG Base Excess FiO2 Sodium Potassium Chloride Carbon Dioxide Anion Gap BUN Creatinine Est GFR ( Amer) Est GFR (Non-Af Amer) Glucose Lactic Acid Cancelled Calcium Phosphorus 6.6 H Magnesium Urine Color STRAW Urine Appearance SLIGHTLY-CLOUDY Urine pH 5.0 Ur Specific [place] 1.016 Urine Protein NEGATIVE Urine Glucose (UA) >=500 H Urine Ketones 80 H Urine Blood MODERATE H Urine Nitrite NEGATIVE Ur Leukocyte Esterase NEGATIVE Urine WBC (Auto) 1 Urine RBC (Auto) 5 02/07/18 02/07/18 02/07/18 18:00 18:00 18:00 WBC RBC Hgb Hct MCV MCH MCHC RDW Plt Count Seg Neutrophils % Lymphocytes % Monocytes % Eosinophils % Basophils % Absolute Neutrophils Absolute Lymphocytes Absolute Monocytes Absolute Eosinophils Absolute Basophils Carbonic Acid 0.48 L HCO3/H2CO3 Ratio 14:1 ABG pH 7.26 L ABG pCO2 16.0 L* ABG pO2 118.7 H ABG HCO3 7.0 L ABG O2 Saturation 97.9 ABG Base Excess -17.5 FiO2 ROOM AIR Sodium 145.1 H Potassium 5.4 H D Chloride 109 H Carbon Dioxide 6 L* Anion Gap 30 H BUN 26 H Creatinine 1.45 H Est GFR ( Amer) > 60 Est GFR (Non-Af Amer) 54 L Glucose 331 H Lactic Acid 1.5 Calcium 9.6 Phosphorus Magnesium Urine Color Urine Appearance Urine pH Ur Specific [place] Urine Protein Urine Glucose (UA) Urine Ketones Urine Blood Urine Nitrite Ur Leukocyte Esterase Urine WBC (Auto) Urine RBC (Auto) 02/07/18 02/07/18 02/08/18 22:10 22:10 02:15 WBC RBC Hgb Hct MCV MCH MCHC RDW Plt Count Seg Neutrophils % Lymphocytes % Monocytes % Eosinophils % Basophils % Absolute Neutrophils Absolute Lymphocytes Absolute Monocytes Absolute Eosinophils Absolute Basophils Carbonic Acid HCO3/H2CO3 Ratio ABG pH ABG pCO2 ABG pO2 ABG HCO3 ABG O2 Saturation ABG Base Excess FiO2 Sodium 145.8 H 145.3 H Potassium 4.5 4.1 Chloride 113 H 113 H Carbon Dioxide 15 L 22 Anion Gap 18 10 BUN 25 H 24 H Creatinine 1.36 H 1.07 Est GFR ( Amer) > 60 > 60 Est GFR (Non-Af Amer) 58 L > 60 Glucose 162 H 109 Lactic Acid 0.8 Calcium 9.4 9.2 Phosphorus 1.7 L D 1.7 L Magnesium Urine Color Urine Appearance Urine pH Ur Specific [place] Urine Protein Urine Glucose (UA) Urine Ketones Urine Blood Urine Nitrite Ur Leukocyte Esterase Urine WBC (Auto) Urine RBC (Auto) 02/08/18 02/08/18 02/08/18 05:50 05:50 06:18 WBC 16.3 H RBC 3.81 L Hgb 11.6 L Hct 35.2 L MCV 93 D MCH 30.5 MCHC 33.0 RDW 13.2 Plt Count 222 Seg Neutrophils % 80.0 H Lymphocytes % 13.4 Monocytes % 6.3 Eosinophils % 0.0 Basophils % 0.3 Absolute Neutrophils 13.0 H Absolute Lymphocytes 2.2 Absolute Monocytes 1.0 Absolute Eosinophils 0.0 Absolute Basophils 0.0 Carbonic Acid 1.09 HCO3/H2CO3 Ratio 17:1 ABG pH 7.34 L ABG pCO2 36.2 ABG pO2 86.5 ABG HCO3 18.9 L ABG O2 Saturation 96.1 ABG Base Excess -6.2 FiO2 ROOM AIR Sodium 142.7 Potassium 4.6 Chloride 111 H Carbon Dioxide 19 L Anion Gap 13 BUN 21 H Creatinine 1.11 Est GFR ( Amer) > 60 Est GFR (Non-Af Amer) > 60 Glucose 239 H Lactic Acid Calcium 9.0 Phosphorus Magnesium 1.9 Urine Color Urine Appearance Urine pH Ur Specific [place] Urine Protein Urine Glucose (UA) Urine Ketones Urine Blood Urine Nitrite Ur Leukocyte Esterase Urine WBC (Auto) Urine RBC (Auto) 02/07/18 02/07/18 17:05 22:10 Creatine Kinase 448 H 420 H Impressions: Chest X-Ray 02/08/18 06:00 IMPRESSION: 1. No acute intrathoracic disease or significant change since the prior study. 2. Stable left subclavian central venous catheter. Assessment & Plan - Diagnosis (1) DKA (diabetic ketoacidoses) Qualifiers: Diabetes mellitus type: type 1 Diabetes mellitus complication detail: without coma Qualified Code(s): E10.10 - Type 1 diabetes mellitus with ketoacidosis without coma Is this a current diagnosis for this admission?: Yes Plan: 02/07/2018-the patient was admitted to the intensive care unit. A central line was placed for appropriate access. He was given 2 L of fluid bolus and then normal saline at 200 mL/h. I ordered bicarbonate as well as the pH was 7.1 and his serum bicarb was 7.. 50 mEq in 1 L to run at 100 mL an hour (while infusing saline will be decreased to 100 mL an hour). The patient is on a continuous insulin infusion per the protocol. Aggressive use of Accu-Cheks and laboratory studies have also been ordered. In addition the patient has a Smith catheter. We will be monitoring his intake and output very closely. 02/08/2018 the patient was on a continuous insulin infusion per protocol last night. The infusion has been discontinued. His last 5 fingersticks of all been under 200 with the exception of a single fingerstick of 226. We have started sliding scale with a daily Lantus dose. His pH is up to 7.36 with a PCO2 of 34 and his serum bicarb is 19. The bicarbonate infusion has been discontinued and he is starting a diabetic diet this morning. (2) Hyperkalemia Is this a current diagnosis for this admission?: Yes Plan: His serum potassium was markedly elevated. Aggressive fluid resuscitation should dilute the potassium out. We will follow closely. The ICU electrolyte replacement protocol is in place. 02/08/2018-with the aggressive hydration his potassium is now normal at 4.6. (3) Leukocytosis Qualifiers: Leukocytosis type: unspecified Qualified Code(s): D72.829 - Elevated white blood cell count, unspecified Is this a current diagnosis for this admission?: Yes Plan: Patient has an elevated white blood cell count with left shift. I believe it is the stress of his acidosis. Blood cultures were obtained as well as a urine culture. No antibiotics at this time. 02/08/2018-the white blood cell count is down to 16.3 from 18.5. This is likely a stress reaction as there is no evidence of infection. (4) Depression Qualifiers: Depression Type: unspecified Qualified Code(s): F32.9 - Major depressive disorder, single episode, unspecified Is this a current diagnosis for this admission?: Yes Plan: Was unable to discover specifics about his depression. I am going to continue his venlafaxine 150 mg daily with sips of water to avoid serotonin syndrome. 02/08/2018-I will switch his venlafaxine to the extended release 150 mg daily to give more continuous coverage throughout the day. (5) Tachycardia Is this a current diagnosis for this admission?: Yes Plan: Volume resuscitation should ease his tachycardia. The patient also has history of being on propranolol. I have ordered 10 mg every 6 hours with parameters to hold for low systolic pressure and bradycardia. We will adjust his regimen based on his clinical findings. 02/08/2018-his tachycardia has improved. I will change his propranolol from 10 mg every 6 hours to 20 mg every 12 hours. We will continue to monitor patient on telemetry. 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 Reviewing records from previous admissions this is consistent and likely related to his chronic disease since his MCV is normal at 93. His renal function is also normal with a GFR greater than 60. - Time Time Spent with patient: 35 or more minutes Medications reviewed and adjusted accordingly: Yes Anticipated discharge: Home Within: within 48 hours
[2018-02-08] MEDS ORDERED: VENLAFAXINE HCL 75 MG TABLET PO SCH (10:00)
[2018-02-08] MEDS: PROPRANOLOL HCL 20 MG TABLET PO SCH ×2 (11:32→21:01)
[2018-02-08] MEDS: LANSOPRAZOLE 15 MG TAB.RAP.DR PO SCH (11:32)
[2018-02-08] MEDS: VENLAFAXINE HCL 75 MG CAP.SR.24H PO SCH (11:32)
[2018-02-09] MEDS: NORMAL SALINE 1000 ML 1,000 ML IV PRN (03:28)
[2018-02-09] MEDS: HEPARIN SOD (PORCINE) 5,000 UNIT/ML 1 ML SYRINGE SUBCUT SCH (05:22)
[2018-02-09] MEDS: LANSOPRAZOLE 15 MG TAB.RAP.DR PO SCH (05:23)
[2018-02-09 06:34] LABS: ABSOLUTE BASOPHILS # (AUTO) 0.1 10^3/uL (0.0-0.2); ABSOLUTE EOSINOPHILS # (AUTO) 0.1 10^3/uL (0.0-0.6); ABSOLUTE LYMPHOCYTES (AUTO) 3.8 10^3/uL (0.5-4.7); ABSOLUTE MONOCYTES (AUTO) 0.7 10^3/uL (0.1-1.4); ABSOLUTE NEUT (AUTO) 4.7 10^3/uL (1.7-8.2); BASOPHILS % (AUTO) 0.6 % (0-2); EOSINOPHILS % (AUTO) 0.9 % (0-6); HEMATOCRIT 34.2 % (37.9-51.0); HEMOGLOBIN 11.5 g/dL (13.5-17.0); LYMPHOCYTES % (AUTO) 40.7 % (13-45); MEAN CORPUSCULAR HEMOGLOBIN 31.2 pg (27.0-33.4); MEAN CORPUSCULAR HGB CONC 33.6 g/dL (32.0-36.0); MEAN CORPUSCULAR VOLUME 93 fl (80-97); MONOCYTES % (AUTO) 7.3 % (3-13); PLATELET COUNT 204 10^3/uL (150-450); RED BLOOD COUNT 3.68 10^6/uL (4.35-5.55); RED CELL DISTRIBUTION WIDTH 13.4 % (11.5-14.0); SEGMENTED NEUTROPHILS % (AUTO) 50.5 % (42-78); TOTAL CELLS COUNTED % (AUTO) 100 %; WHITE BLOOD COUNT 9.3 10^3/uL (4.0-10.5)
[2018-02-09 07:08] LABS: ANION GAP 5 (5-19); BLOOD UREA NITROGEN 15 mg/dL (7-20); CALCIUM 8.9 mg/dL (8.4-10.2); CARBON DIOXIDE 28 mmol/L (22-30); CHLORIDE 110 mmol/L (98-107); GLUCOSE 197 mg/dL (75-110); POTASSIUM 4.4 mmol/L (3.6-5.0); SODIUM 142.9 mmol/L (137-145)
[2018-02-09] MEDS: HYDROMORPHONE HCL INJ/PF 2 MG/ML AMPULE IV PRN (07:50)
[2018-02-09] MEDS: INSULIN LISPRO 100 UNIT/ML 3 ML VIAL SUBCUT PRN (08:06)
[2018-02-09] MEDS: VENLAFAXINE HCL 75 MG CAP.SR.24H PO SCH ×2 (10:36→10:41)
[2018-02-09] MEDS: PROPRANOLOL HCL 20 MG TABLET PO SCH ×2 (10:36→10:42)
--- NOTE | 2018-02-09 10:43 | PDOC DISCHARGE SUMMARY ---
General - Admit/Disc Date/PCP Admission Date/Primary Care Provider: 02/07/18 13:53 Discharge Date: 02/09/18 - Discharge Diagnosis (1) DKA (diabetic ketoacidoses) Is this a current diagnosis for this admission?: Yes Summary: The patient was in the emergency department on the . He had been having nausea and vomiting. He discharged home but stated that he was nauseous , did not eat and so he did not take his Lantus insulin. By the next day he was feeling worse. He presented in severe diabetic ketoacidosis without coma. Because of poor peripheral veins placed a central line. He received aggressive fluid resuscitation as well as intravenous sodium bicarbonate. His hyperkalemia improved. His elevated white cell count normalized without antibiotics. He was tapered off of the continuous insulin infusion after about 12 hours. He was taking Lantus 38 units at night prior to this admission. With a controlled carbohydrate diet he did not require as much. He has been on 25-26 units of Lantus with sliding scale coverage. He still has some abdominal discomfort. I explained that this was likely from the nausea and vomiting. It should go away in several days. He has been tolerating his oral diet. He is going to go home after lunch. The patient stated that he had no short acting insulin however his home medication regimen included NovoLog. He states that his Lantus was in a vial but again review of his home medication list showed a Lantus pen. Clearly there is noncompliance. His hemoglobin A1c was 10.6. He will be discharged with new prescriptions for a Lantus pen. A suggested he take 28 units at bedtime. I also gave him a prescription for a Humalog Paul KwikPen as I expect his as needed doses to be fairly small since we are only utilizing sliding scale. In fact documented the sliding scale on his prescription. I also documented in the treatment plan. He follows up his primary care at the [facility] and I asked that he have a follow-up appointment within the next 2 weeks. I also directed him to write down all of his glucoses and bring that information to his primary care visit. (2) Hyperkalemia Is this a current diagnosis for this admission?: Yes Summary: With aggressive hydration his serum potassium normalized. (3) Leukocytosis Is this a current diagnosis for this admission?: Yes Summary: With hydration and correction of the acidosis his white blood cell count normalized. He did not require antibiotics. There was no evidence of infection. (4) Depression Is this a current diagnosis for this admission?: Yes Summary: I continued his venlafaxine 150 mg daily. I did give him a prescription for the extended release formulation to take once a day. His dose is 150 mg. (5) Tachycardia Is this a current diagnosis for this admission?: Yes Summary: The tachycardia was due to his acute illness with acidosis. He is on propranolol 20 mg twice daily. He has had a myocardial infarction in the past and is likely for coronary disease and hypertension. He will stay on the same dose as it seems to be controlling both. (6) Anemia, chronic disease Is this a current diagnosis for this admission?: Yes Summary: The patient hemoglobin was only 13 on admission. He was hemoconcentrated. With aggressive hydration he settled at approximately 11.5. This is likely his baseline. Will defer to his primary care provider for any further management. (7) Anemia associated with type 1 diabetes mellitus Is this a current diagnosis for this admission?: Yes - Additional Information Resuscitation Status: Full Code Discharge Diet: Diabetic Discharge Activity: Activity As Tolerated, Slowly Increase Activity Prescriptions: Insulin Glargine,Hum.rec.anlog [Lantus Insulin Inj 300 Unit/3 ml Pen] 28 unit SUBCUT QHS #1 pen Insulin Lispro [Humalog Insulin (Lispro) 100 unit/mL] 0 - 12 unit SUBCUT ACHS # 1 ml Propranolol HCl [Inderal 20 mg Tablet] 20 mg PO Q12 30 Days #60 tablet Venlafaxine HCl ER [Effexor Xr 75 mg Cap.sr] 150 mg PO DAILY 30 Days #30 cap.sr.24h Home Medications: Insulin Glargine,Hum.rec.anlog [Lantus Insulin Inj 300 Unit/3 ml Pen] 28 unit SUBCUT QHS #1 pen 02/09/18 Insulin Lispro [Humalog Insulin (Lispro) 100 unit/mL] 0 - 12 unit SUBCUT ACHS # 1 ml 02/09/18 Propranolol HCl [Inderal 20 mg Tablet] 20 mg PO Q12 30 Days #60 tablet 02/09/18 Venlafaxine HCl ER [Effexor Xr 75 mg Cap.sr] 150 mg PO DAILY 30 Days #30 cap.sr.24h 11/18/18 History of Present Illness Patient complains of: Significant nausea, vomiting and loss of appetite. He was extremely weak and deteriorated from his condition on the prior day when seen in the emergency department. History of Present Illness: JOSE DANIEL CLINTON is a 37 year old male The patient is a noncompliant 37-year-old who was just in the emergency department yesterday for hyperglycemia. Evidently he did not follow any of the direction provided by the emergency room physician. He was feeling very poorly again today and was brought to the emergency department. The patient was found to be in diabetic ketoacidosis with a pH of 7.1 and bicarb of 7. He had hyperkalemia, serum glucose over 500 as well as elevated lactic acid. The patient does have a history of noncompliant behavior. When I asked him why he did not take his insulin he reported that he was not eating due to poor appetite and he wanted to avoid hypoglycemia. He certainly does have some insight into his disease. Hospital Course Hospital Course: The patient was placed in the intensive care unit. I placed a central line and he was given aggressive fluid resuscitation. He required intravenous bicarbonate to help with his acidosis. Within 12 hours on the continuous insulin infusion his numbers were reasonably controlled. The infusion was discontinued and his Lantus as well as a sliding scale were instituted. By the second day his appetite had returned. He was certainly feeling much better. He was transitioned to the third floor. With Lantus 25 units and sliding scale his sugars remained under 200. His fluid requirements went down substantially after the first day. His anemia was stable. I continued his venlafaxine and propranolol as well. He has been tolerating his medications and he will be discharged with the prescriptions noted above as well as the sliding scale with specific direction. Physical Exam Vital Signs: Temp Pulse Resp BP Pulse Ox 98.6 F 77 16 126/87 H 100 02/09/18 09:36 02/09/18 09:36 02/09/18 09:36 02/09/18 09:36 02/09/18 09:36 Intake & Output 02/08/18 02/09/18 02/10/18 06:59 06:59 06:59 Intake Total 1100 2324 Output Total 1470 570 Balance -370 1754 Weight 72.7 kg 86.9 kg General appearance: PRESENT: no acute distress, cooperative, thin, well- developed Head exam: PRESENT: atraumatic, normocephalic Eye exam: PRESENT: conjunctiva pale, EOMI, other. ABSENT: scleral icterus - Dirty sclera but no renee icterus Ear exam: PRESENT: normal external ear exam Mouth exam: PRESENT: moist Neck exam: PRESENT: full ROM. ABSENT: carotid bruit, JVD, lymphadenopathy Respiratory exam: PRESENT: clear to auscultation selena, symmetrical, unlabored. ABSENT: accessory muscle use, prolonged expiratory phas, rales, rhonchi, wheezes Cardiovascular exam: PRESENT: RRR, +S1, +S2, systolic murmur GI/Abdominal exam: PRESENT: normal bowel sounds, soft. ABSENT: distended, guarding, mass, tenderness Musculoskeletal exam: PRESENT: normal inspection Neurological exam: PRESENT: alert, awake, oriented to person, oriented to place , oriented to situation, CN II-XII grossly intact Psychiatric exam: PRESENT: flat affect, normal mood. ABSENT: anxious Focused psych exam: ABSENT: restlessness Skin exam: PRESENT: other - Central line left upper chest Results Laboratory Results: 02/09/18 05:20 02/09/18 05:20 02/09/18 02/09/18 05:20 05:20 WBC 9.3 RBC 3.68 L Hgb 11.5 L Hct 34.2 L MCV 93 MCH 31.2 MCHC 33.6 RDW 13.4 Plt Count 204 Seg Neutrophils % 50.5 Lymphocytes % 40.7 Monocytes % 7.3 Eosinophils % 0.9 Basophils % 0.6 Absolute Neutrophils 4.7 Absolute Lymphocytes 3.8 Absolute Monocytes 0.7 Absolute Eosinophils 0.1 Absolute Basophils 0.1 Sodium 142.9 Potassium 4.4 Chloride 110 H Carbon Dioxide 28 Anion Gap 5 BUN 15 Creatinine 0.85 Est GFR ( Amer) > 60 Est GFR (Non-Af Amer) > 60 Glucose 197 H Calcium 8.9 Magnesium 2.0 02/07/18 02/07/18 02/08/18 17:05 22:10 05:50 Creatine Kinase 448 H 420 H 362 H Impressions: Chest X-Ray 02/08/18 06:00 IMPRESSION: 1. No acute intrathoracic disease or significant change since the prior study. 2. Stable left subclavian central venous catheter. Qualifiers - * PATIENT BEING DISCHARGED WITH ANY OF THE FOLLOWING DIAGNOSIS: No Plan Discharge Plan: The patient will discharge to home. Treatment plan as noted above. Follow-up with primary care within 2 weeks. Time Spent: Greater than 30 Minutes
[2018-02-09 11:22] VITALS: BP 119/83
== END 2018-02-09 11:45 | disposition home or self-care (01) | DRG 639 ==
LOC: ER 09:35 → UNDOADMIN 13:53 → EH 13:53 → ICU 15:07 → 3W 02-09 02:59
PROVIDERS: ADMIT Hospitalist; ATTEND Hospitalist
PROC: 02HV33Z Insertion of Infusion Device into Superior Vena Cava, Percutaneous Approach (ICD-10-PCS; principal; 2018-02-07)
DX: E10.10 Type 1 diabetes mellitus with ketoacidosis without coma (principal); E87.5 Hyperkalemia; D63.8 Anemia in other chronic diseases classified elsewhere; R00.0 Tachycardia, unspecified; D72.829 Elevated white blood cell count, unspecified; J45.909 Unspecified asthma, uncomplicated; F41.8 Other specified anxiety disorders; G43.909 Migraine, unspecified, not intractable, without status migrainosus; F17.210 Nicotine dependence, cigarettes, uncomplicated; Z79.4 Long term (current) use of insulin; Z91.14 Patient's other noncompliance with medication regimen
CPT/HCPCS: 36415; 71045; 80048; 80053; 81001; 82550; 82553; 82803; 82962; 83036; 83605; 83690; 83735; 84100; 84484; 85025; 93005; 93010; 96361; 96374; 96375; 99285; C1751; J0610; J1170; J1642; J1644; J1815; J2270; J2405; J3490; J7030; J7060; S0164

== ENCOUNTER 2018-03-26 13:33 | Inpatient (IN) | payer OTHER ==
[2018-03-26] MEDS ORDERED: NORMAL SALINE 1000 ML 1,000 ML IV ONE ×2 (14:40→16:59)
[2018-03-26] MEDS ORDERED: ONDANSETRON HCL INJ/PF 4 MG/2 ML SDV IV ONE (14:41)
--- NOTE | 2018-03-26 14:47 | ER Document Report ---
ED Blood Sugar Problem - General Chief Complaint: High Blood Sugar Stated Complaint: BLOOD SUGAR ISSUES Time Seen by Provider: 03/26/18 14:37 Mode of Arrival: Stretcher Information source: Patient TRAVEL OUTSIDE OF THE [place] IN LAST 30 DAYS: No - HPI Patient complains to provider of: High blood sugar Onset: This morning Onset/Duration: Gradual, Worse Quality of pain: Achy Severity: Moderate Pain Level: 3 Insulin taken: No Associated symptoms: Increased thirst, Frequent urination, Nausea, Vomiting Similar symptoms previously: Yes Recently seen / treated by doctor: No Notes: Patient is a 37-year-old male with a history of diabetes who is insulin- dependent, brought to the emergency room by [facility] department from halfway secondary to increased blood sugar with increased thirst, urination and nausea vomiting, patient has a history of diabetic ketoacidosis in the past, he states that he was taken into custody this morning prior to having the chance to take his insulin, he is generally on a sliding scale with no oral diabetes medications, he takes Lantus and Humalog, he reports some epigastric pain radiating up into his chest - Related Data Allergies/Adverse Reactions: honey [Honey] Allergy (Verified 02/05/18 15:10) No Known Drug Allergies Allergy (Verified 02/05/18 15:10) Past Medical History - General Information source: Patient - Social History Smoking Status: Unknown if Ever Smoked Family History: CAD, CVA, DM, Hyperlipidemia, Hypertension, Malignancy Patient has suicidal ideation: No Patient has homicidal ideation: No - Past Medical History Cardiac Medical History: Denies: Hx Congestive Heart Failure, Hx Coronary Artery Disease, Hx DVT, Hx Heart Attack, Hx Hypercholesterolemia, Hx Hypertension, Hx Pulmonary Embolism Pulmonary Medical History: Reports: Hx Asthma, Hx Pneumonia Denies: Hx COPD, Hx Sleep Apnea Neurological Medical History: Reports: Hx Migraine. Denies: Hx Seizures Endocrine Medical History: Reports: Hx Diabetes Mellitus Type 1. Denies: Hx Diabetes Mellitus Type 2, Hx Hyperthyroidism, Hx Hypothyroidism Renal/ Medical History: Denies: Hx Peritoneal Dialysis GI Medical History: Denies: Hx Cirrhosis, Hx Gastroesophageal Reflux Disease, Hx Hepatitis Musculoskeletal Medical History: Denies Hx Arthritis, Reports Hx Musculoskeletal Trauma - Muscle strains and sprains Skin Medical History: Denies Hx Eczema, Denies Hx Psoriasis Psychiatric Medical History: Reports: Hx Anxiety, Hx Depression Infectious Medical History: Denies: Hx C-Diff, Hx Hepatitis, Hx MRSA Past Surgical History: Reports: Hx Oral Surgery - Teeth, Hx Urinary Tract Surgery - fractured penis repair, Other - Oral surgery as well as urinary tract surgery (fractured penis repair) - Immunizations Immunizations up to date: Yes Hx Diphtheria, Pertussis, Tetanus Vaccination: Yes Hx Pneumococcal Vaccination: 03/25/16 Review of Systems - Review of Systems Constitutional: No symptoms reported EENT: No symptoms reported Cardiovascular: Chest pain Respiratory: No symptoms reported Gastrointestinal: See HPI Genitourinary: No symptoms reported Male Genitourinary: No symptoms reported Musculoskeletal: No symptoms reported Skin: No symptoms reported Hematologic/Lymphatic: No symptoms reported Neurological/Psychological: No symptoms reported -: Yes All other systems reviewed and negative Physical Exam - Vital signs Vitals: Temp Pulse Resp BP 98.4 F 114 H 24 H 149/85 H 03/26/18 13:42 03/26/18 13:42 03/26/18 13:42 03/26/18 13:42 Interpretation: Hypertensive, Tachycardic, Tachypneic - General General appearance: Alert In distress: None Notes: Appears older than stated age, actively vomiting - HEENT Head: Normocephalic, Atraumatic Eyes: Normal Pupils: PERRL Mucous membranes: Dry - Respiratory Respiratory status: Tachypnea Chest status: Nontender Breath sounds: Normal Chest palpation: Normal - Cardiovascular Rhythm: Regular, Tachycardia Heart sounds: Normal auscultation Murmur: No - Abdominal Inspection: Normal Distension: No distension Bowel sounds: Normal Tenderness: Tender - Epigastric Organomegaly: No organomegaly - Back Back: Normal, Nontender - Extremities General upper extremity: Normal inspection, Nontender, Normal color, Normal ROM, Normal temperature General lower extremity: Normal inspection, Nontender, Normal color, Normal ROM, Normal temperature, Normal weight bearing. No: Prabhu's sign - Neurological Neuro grossly intact: Yes Cognition: Normal Orientation: AAOx4 Pam Coma Scale Eye Opening: Spontaneous Pam Coma Scale Verbal: Oriented Pam Coma Scale Motor: Obeys Commands Comfort Coma Scale Total: 15 Speech: Normal Motor strength normal: LUE, RUE, LLE, RLE Sensory: Normal - Psychological Associated symptoms: Normal affect, Normal mood - Skin Skin Temperature: Warm Skin Moisture: Dry Skin Color: Normal Course - Re-evaluation Re-evalutation: 03/26/18 17:07 Laboratory findings consistent with diabetic ketoacidosis, patient will be provided with additional IV fluids, and insulin drip and admission to the ICU, discussed with hospitalist service, Dr. Gay who agrees to admit for further evaluation and treatment - Vital Signs Vital signs: Temp Pulse Resp BP Pulse Ox 98.4 F 114 H 19 144/88 H 99 03/26/18 13:42 03/26/18 13:42 03/26/18 20:01 03/26/18 20:00 03/26/18 20:00 - Laboratory Result Diagrams: 03/26/18 15:20 03/26/18 21:15 Laboratory results interpreted by me: 03/26/18 03/26/18 03/26/18 14:00 15:20 15:20 RBC 4.32 L Hgb 13.2 L MCV 98 H MCHC 31.4 L VBG pH 7.17 L* VBG pCO2 32.7 L VBG HCO3 11.7 L Potassium Carbon Dioxide Anion Gap Creatinine Glucose Lactic Acid Alkaline Phosphatase Urine Glucose (UA) >=500 H Urine Ketones 80 H 03/26/18 03/26/18 15:20 16:15 RBC Hgb MCV MCHC VBG pH VBG pCO2 VBG HCO3 Potassium 6.1 H* Carbon Dioxide 8 L* Anion Gap 29 H Creatinine 1.27 H Glucose 610 H* Lactic Acid 2.3 H Alkaline Phosphatase 137 H Urine Glucose (UA) Urine Ketones - EKG Interpretation by [facility] EKG shows normal: Sinus rhythm Rate: Tachycardia Critical Care Note - Critical Care Note Total time excluding time spent on procedures (mins): 60 Comments: Patient tachycardic, slightly tachypnea, actively vomiting, labs consistent with diabetic ketoacidosis, requiring IV insulin drip and on admission to the ICU Discharge - Discharge Clinical Impression: DKA (diabetic ketoacidoses) Qualifiers: Diabetes mellitus type: type 1 Diabetes mellitus complication detail: without coma Qualified Code(s): E10.10 - Type 1 diabetes mellitus with ketoacidosis without coma Vomiting Qualifiers: Vomiting type: unspecified Vomiting Intractability: non-intractable Nausea presence: with nausea Qualified Code(s): R11.2 - Nausea with vomiting, unspecified Condition: Serious Disposition: ADMITTED INPATIENT Admitting Provider: Hospitalist Unit Admitted: ICU
[2018-03-26 15:48] LABS: ABSOLUTE MONOCYTES (AUTO) 0.4 10^3/uL (0.1-1.4); ABSOLUTE NEUT (AUTO) 7.6 10^3/uL (1.7-8.2); BASOPHILS % (AUTO) 0.2 % (0-2); HEMATOCRIT 42.1 % (37.9-51.0); HEMOGLOBIN 13.2 g/dL (13.5-17.0); LYMPHOCYTES % (AUTO) 20.1 % (13-45); MEAN CORPUSCULAR HEMOGLOBIN 30.6 pg (27.0-33.4); MEAN CORPUSCULAR HGB CONC 31.4 g/dL (32.0-36.0); MEAN CORPUSCULAR VOLUME 98 fl (80-97); PLATELET COUNT 247 10^3/uL (150-450); RED BLOOD COUNT 4.32 10^6/uL (4.35-5.55); SEGMENTED NEUTROPHILS % (AUTO) 75.7 % (42-78); TOTAL CELLS COUNTED % (AUTO) 100 %; WHITE BLOOD COUNT 10.1 10^3/uL (4.0-10.5)
[2018-03-26 15:49] LABS: APPEARANCE,URINE CLEAR; BILIRUBIN,URINE NEGATIVE (NEGATIVE); COLOR,URINE COLORLESS; GLUCOSE, URINE >=500 mg/dL (NEGATIVE); KETONES,URINE 80 mg/dL (NEGATIVE); LEUKOCYTE ESTERASE,URINE NEGATIVE (NEGATIVE); NITRITE,URINE NEGATIVE (NEGATIVE); PROTEIN,URINE NEGATIVE (NEGATIVE); URINE SPECIFIC GRAVITY 1.022; UROBILINOGEN,URINE NEGATIVE mg/dL (<2.0)
[2018-03-26 16:53] LABS: ALANINE AMINOTRANSFERASE 23 U/L (21-72); ALBUMIN 4.7 g/dL (3.5-5.0); ALKALINE PHOSPHATASE 137 U/L (38-126); ASPARTATE AMINO TRANSFERASE 40 U/L (17-59); BILIRUBIN,DIRECT 0.4 mg/dL (0.0-0.4); BILIRUBIN,TOTAL 1.1 mg/dL (0.2-1.3); BLOOD UREA NITROGEN 17 mg/dL (7-20); CALCIUM 9.6 mg/dL (8.4-10.2); CHLORIDE 101 mmol/L (98-107); LIPASE 41.9 U/L (23-300); SODIUM 137.6 mmol/L (137-145); TOTAL PROTEIN 7.4 g/dL (6.3-8.2)
[2018-03-26] MEDS ORDERED: METOCLOPRAMIDE HCL INJ/PF 10 MG/2 ML SDV IV ONE (16:59)
[2018-03-26 17:01] LABS: ANION GAP 29 (5-19); GLUCOSE 610 mg/dL (75-110); POTASSIUM 6.1 mmol/L (3.6-5.0)
[2018-03-26] MEDS ORDERED: DEXTROSE 40% GEL 15 GM TUBE PO PRN ×2 (17:01)
[2018-03-26] MEDS ORDERED: NORMAL SALINE 100 ML with INSULIN REGULAR, HUMAN 100 UNIT IV PRN ×4 (17:01→22:44)
[2018-03-26] MEDS ORDERED: GLUCAGON,HUMAN RECOMB 1 MG INJ IM PRN (17:01)
[2018-03-26] MEDS ORDERED: DEXTROSE 50%-WATER 25 GM/50 ML DISP.SYRIN IV PRN ×2 (17:01)
[2018-03-26 17:02] LABS: CARBON DIOXIDE 8 mmol/L (22-30)
[2018-03-26 17:20] LABS: VENOUS BLOOD BASE EXCESS -15.7 mmol/L; VENOUS BLOOD HCO3 11.7 mmol/L (20-32); VENOUS BLOOD PCO2 32.7 mmHg (35-63)
[2018-03-26 17:22] LABS: VENOUS BLOOD PH 7.17 (7.30-7.42)
[2018-03-26] MEDS ORDERED: INSULIN REG, HUMAN 100 UNIT/ML 3 ML VIAL (PYX) ONE ×2 (17:22→17:29)
--- NOTE | 2018-03-26 17:25 | EKG REPORT ---
SEVERITY:- ABNORMAL ECG - SINUS TACHYCARDIA PROBABLE LEFT ATRIAL ABNORMALITY PROBABLE LEFT VENTRICULAR HYPERTROPHY ANTERIOR Q WAVES, POSSIBLY DUE TO LVH : Confirmed by: Tracee Churchill MD 26-Mar-2018 17:23:56
[2018-03-26] MEDS ORDERED: NORMAL SALINE 1000 ML 1,000 ML IV PRN (18:09)
[2018-03-26] MEDS ORDERED: ONDANSETRON HCL INJ/PF 4 MG/2 ML SDV IV PRN (18:13)
[2018-03-26] MEDS ORDERED: PROMETHAZINE HCL INJ 25 MG/1 ML VIAL IV PRN (18:13)
[2018-03-26] MEDS ORDERED: ACETAMINOPHEN 650 MG SUPP.RECT PR PRN (18:13)
[2018-03-26] MEDS ORDERED: ACETAMINOPHEN 325 MG TABLET PO PRN (18:13)
--- NOTE | 2018-03-26 18:36 | PDOC H&P ---
History of Present Illness Admission Date/PCP: 03/26/18 17:19 Patient complains of: Diabetic ketoacidosis History of Present Illness: JOSE DANIEL CLINTON is a 37 year old male was evidently arrested today and did not take his morning insulin. He was brought to the hospital for acute illness and was found to be in diabetic ketoacidosis. He was unable to give any history due to his altered mental state. Past Medical History Cardiac Medical History: Reports: Hypertension Denies: Congestive Heart Failure, Coronary Artery Disease, DVT, Myocardial Infarction, Hyperlipidema, Pulmonary Embolism Pulmonary Medical History: Reports: Asthma, Pneumonia Denies: Chronic Obstructive Pulmonary Disease (COPD), Sleep Apnea Neurological Medical History: Reports: Migraine Denies: Seizures Endocrine Medical History: Reports: Diabetes Mellitus Type 1 Denies: Diabetes Mellitus Type 2, Hyperthyroidism, Hypothyroidism GI Medical History: Denies: Cirrhosis, Gastroesophageal Reflux Disease, Hepatitis Musculoskeltal Medical History: Denies: Arthritis Skin Medical History: Denies: Eczema, Psoriasis Psychiatric Medical History: Reports: Depression Infectious Medical History: Denies: Clostridium Difficile, Methicillin-Resistant Staph Aureus Past Surgical History Past Surgical History: Reports: Other - Oral surgery as well as urinary tract surgery (fractured penis repair) Social History Information Source: [facility] Records Lives with: Other - Currently under arrest Smoking Status: Unknown if Ever Smoked Frequency of Alcohol Use: Social Hx Recreational Drug Use: No Drugs: None Hx Prescription Drug Abuse: No - Advance Directive Resuscitation Status: Full Code Surrogate healthcare decision maker:: Patient unable to answer questions. Consistent with his previous admission he will be a full code. Family History Family History: CAD, CVA, DM, Hyperlipidemia, Hypertension, Malignancy Parental Family History Reviewed: Yes Children Family History Reviewed: Yes Sibling(s) Family History Reviewed.: Yes Medication/Allergy Home Medications: Propranolol HCl [Inderal 20 mg Tablet] 20 mg PO Q12 30 Days #60 tablet 02/09/18 Insulin Glargine,Hum.rec.anlog [Lantus Insulin Inj 300 Unit/3 ml Pen] 28 unit SQ QHS 03/26/18 Insulin Lispro [Humalog Insulin (Lispro) 100 unit/mL] 0 unit SQ .SLIDING SCALE 03/26/18 Venlafaxine HCl [Venlafaxine HCl ER] 150 mg PO DAILY 03/26/18 Allergies/Adverse Reactions: honey [Honey] Allergy (Verified 02/05/18 15:10) No Known Drug Allergies Allergy (Verified 02/05/18 15:10) Review of Systems ROS unobtainable: Due to mental status Physical Exam Vital Signs: Temp Pulse Resp BP Pulse Ox 98.4 F 114 H 24 H 149/85 H 03/26/18 13:42 03/26/18 13:42 03/26/18 13:42 03/26/18 13:42 Intake & Output 03/25/18 03/26/18 03/27/18 06:59 06:59 06:59 Intake Total 1000 Balance 1000 Weight 70.307 kg General appearance: PRESENT: severe distress, thin, well-developed Head exam: PRESENT: normocephalic Eye exam: PRESENT: other - Unable to assess Ear exam: PRESENT: normal external ear exam Mouth exam: PRESENT: other - Unable to assess Teeth exam: PRESENT: other - Unable to assess Throat exam: PRESENT: other - Unable to assess Neck exam: ABSENT: carotid bruit, lymphadenopathy Respiratory exam: PRESENT: clear to auscultation selena, tachypnea. ABSENT: rales, rhonchi, wheezes Cardiovascular exam: PRESENT: tachycardia Pulses: PRESENT: normal radial pulses, normal dorsalis pedis pul GI/Abdominal exam: PRESENT: normal bowel sounds, soft. ABSENT: tenderness Rectal exam: PRESENT: deferred Extremities exam: ABSENT: joint swelling, pedal edema Musculoskeletal exam: PRESENT: normal inspection Neurological exam: PRESENT: altered - Unable to engage patient during this e ncounter Psychiatric exam: PRESENT: appropriate affect - Affect reflects his current critical illness Focused psych exam: ABSENT: restlessness Skin exam: PRESENT: dry, warm Results Laboratory Results: 03/26/18 15:20 03/26/18 16:15 03/26/18 03/26/18 03/26/18 14:00 15:20 15:20 WBC 10.1 RBC 4.32 L Hgb 13.2 L Hct 42.1 MCV 98 H MCH 30.6 MCHC 31.4 L RDW 14.0 Plt Count 247 Seg Neutrophils % 75.7 Lymphocytes % 20.1 Monocytes % 4.0 Eosinophils % 0.0 Basophils % 0.2 Absolute Neutrophils 7.6 Absolute Lymphocytes 2.0 Absolute Monocytes 0.4 Absolute Eosinophils 0.0 Absolute Basophils 0.0 VBG pH VBG pCO2 VBG HCO3 VBG Base Excess Sodium Cancelled Potassium Cancelled Chloride Cancelled Carbon Dioxide Cancelled Anion Gap Cancelled BUN Cancelled Creatinine Cancelled Est GFR ( Amer) Cancelled Est GFR (Non-Af Amer) Cancelled Glucose Cancelled Lactic Acid Calcium Cancelled Total Bilirubin Cancelled AST Cancelled ALT Cancelled Alkaline Phosphatase Cancelled Total Protein Cancelled Albumin Cancelled Lipase Cancelled Urine Color COLORLESS Urine Appearance CLEAR Urine pH 5.0 Ur Specific [place] 1.022 Urine Protein NEGATIVE Urine Glucose (UA) >=500 H Urine Ketones 80 H Urine Blood NEGATIVE Urine Nitrite NEGATIVE Ur Leukocyte Esterase NEGATIVE Urine WBC (Auto) 4 Urine RBC (Auto) 1 03/26/18 03/26/18 03/26/18 15:20 15:20 16:15 WBC RBC Hgb Hct MCV MCH MCHC RDW Plt Count Seg Neutrophils % Lymphocytes % Monocytes % Eosinophils % Basophils % Absolute Neutrophils Absolute Lymphocytes Absolute Monocytes Absolute Eosinophils Absolute Basophils VBG pH 7.17 L* VBG pCO2 32.7 L VBG HCO3 11.7 L VBG Base Excess -15.7 Sodium 137.6 Potassium 6.1 H* Chloride 101 Carbon Dioxide 8 L* Anion Gap 29 H BUN 17 Creatinine 1.27 H Est GFR ( Amer) > 60 Est GFR (Non-Af Amer) > 60 Glucose 610 H* Lactic Acid 2.3 H Calcium 9.6 Total Bilirubin 1.1 AST 40 ALT 23 Alkaline Phosphatase 137 H Total Protein 7.4 Albumin 4.7 Lipase 41.9 Urine Color Urine Appearance Urine pH Ur Specific [place] Urine Protein Urine Glucose (UA) Urine Ketones Urine Blood Urine Nitrite Ur Leukocyte Esterase Urine WBC (Auto) Urine RBC (Auto) Assessment & Plan - Diagnosis (1) DKA (diabetic ketoacidoses) Qualifiers: Diabetes mellitus type: type 1 Diabetes mellitus complication detail: without coma Qualified Code(s): E10.10 - Type 1 diabetes mellitus with ketoacidosis without coma Is this a current diagnosis for this admission?: Yes Plan: Interaction with the patient was very limited. I have started him on the continuous insulin infusion protocol. We will check laboratory studies every 4 hours. Insulin will be adjusted based on his hourly fingerstick checks. We will continue to correct his acidosis. - Time Time Spent: 30 to 50 Minutes Medications reviewed and adjusted accordingly: Yes - Inpatient Certification Based on my medical assessment, after consideration of the patient's comorbidities, presenting symptoms, or acuity I expect that the services needed warrant INPATIENT care.: Yes I certify that my determination is in accordance with my understanding of Medicare's requirements for reasonable and necessary INPATIENT services [42 CFR 412.3e].: Yes Medical Necessity: Need Close Monitoring Due to Risk of Patient Decompensation, Need For IV Fluids, Risk of Complication if Not Cared For in Hospital Post Hospital Care: D/C Tuber Operator Documentation - Plan Summary Plan Summary: There was meaningful interaction with the patient. Most of the information is gathered from old records. I did care for the patient during his last hospitalization. The patient will be on the continuous insulin infusion protocol. We will continue aggressive fluid hydration. More comprehensive examination once the patient improves and is able to participate in the encounter.
[2018-03-26 19:53] LABS: APPEARANCE,URINE CLEAR; BILIRUBIN,URINE NEGATIVE (NEGATIVE); COLOR,URINE COLORLESS; GLUCOSE, URINE >=500 mg/dL (NEGATIVE); KETONES,URINE 80 mg/dL (NEGATIVE); LEUKOCYTE ESTERASE,URINE NEGATIVE (NEGATIVE); NITRITE,URINE NEGATIVE (NEGATIVE); PROTEIN,URINE NEGATIVE (NEGATIVE); URINE SPECIFIC GRAVITY 1.018; UROBILINOGEN,URINE NEGATIVE mg/dL (<2.0)
[2018-03-26] MEDS ORDERED: LORAZEPAM INJ 2 MG/1 ML VIAL IV PRN (20:05)
[2018-03-26] MEDS ORDERED: MORPHINE SULFATE 10 MG/ML INJ IV PRN (20:05)
[2018-03-26 20:07] LABS: URINE AMPHETAMINES SCREEN UNCONFIRMED POSITIVE; URINE BARBITURATES SCREEN NEGATIVE; URINE BENZODIAZEPINES SCREEN NEGATIVE; URINE COCAINE SCREEN NEGATIVE; URINE MARIJUANA (THC) SCREEN NEGATIVE; URINE METHADONE SCREEN NEGATIVE; URINE PHENCYCLIDINE SCREEN NEGATIVE
[2018-03-26 21:35] LABS: BLOOD UREA NITROGEN 15 mg/dL (7-20); CALCIUM 9.4 mg/dL (8.4-10.2); GLUCOSE 355 mg/dL (75-110); POTASSIUM 5.8 mmol/L (3.6-5.0)
[2018-03-26 21:41] LABS: CHLORIDE 109 mmol/L (98-107); SODIUM 142.2 mmol/L (137-145)
[2018-03-26 21:42] LABS: ANION GAP 25 (5-19)
[2018-03-26 22:00] LABS: CARBON DIOXIDE 8 mmol/L (22-30)
[2018-03-26] MEDS: HEPARIN SOD (PORCINE) 5,000 UNIT/ML 1 ML SYRINGE SUBCUT SCH (22:37)
[2018-03-26] MEDS: PROPRANOLOL HCL 20 MG TABLET PO SCH (22:37)
[2018-03-26] MEDS: PANTOPRAZOLE SODIUM 40 MG VIAL IV SCH (22:37)
[2018-03-26] MEDS: DEXTROSE 5%-1/2 NORMAL SALINE 1,000 ML IV PRN (23:36)
[2018-03-27 00:40] LABS: ARTERIAL BLOOD BASE EXCESS -10.5 mmol/L; ARTERIAL BLOOD FIO2 ROOM AIR; ARTERIAL BLOOD H2CO3 0.88 mmol/L (1.05-1.35); ARTERIAL BLOOD HCO3 14.4 mmol/L (20-24); ARTERIAL BLOOD O2 SATURATION 96.8 % (94-98); ARTERIAL BLOOD PCO2 29.3 mmHg (35-45); ARTERIAL BLOOD PH 7.31 (7.35-7.45); ARTERIAL BLOOD PO2 95.2 mmHg (80-100); ARTERIAL BLOOD TOTAL CO2 15.3 mmol/L (23-27)
[2018-03-27 02:22] LABS: ABSOLUTE BASOPHILS # (AUTO) 0.1 10^3/uL (0.0-0.2); ABSOLUTE LYMPHOCYTES (AUTO) 2.8 10^3/uL (0.5-4.7); ABSOLUTE MONOCYTES (AUTO) 1.4 10^3/uL (0.1-1.4); ABSOLUTE NEUT (AUTO) 10.4 10^3/uL (1.7-8.2); BASOPHILS % (AUTO) 0.7 % (0-2); HEMATOCRIT 38.2 % (37.9-51.0); HEMOGLOBIN 12.6 g/dL (13.5-17.0); LYMPHOCYTES % (AUTO) 19.3 % (13-45); MEAN CORPUSCULAR HEMOGLOBIN 30.6 pg (27.0-33.4); MEAN CORPUSCULAR HGB CONC 33.1 g/dL (32.0-36.0); MONOCYTES % (AUTO) 9.4 % (3-13); PLATELET COUNT 257 10^3/uL (150-450); RED BLOOD COUNT 4.13 10^6/uL (4.35-5.55); RED CELL DISTRIBUTION WIDTH 13.5 % (11.5-14.0); SEGMENTED NEUTROPHILS % (AUTO) 70.6 % (42-78); TOTAL CELLS COUNTED % (AUTO) 100 %; WHITE BLOOD COUNT 14.7 10^3/uL (4.0-10.5)
[2018-03-27 02:25] LABS: MEAN CORPUSCULAR VOLUME 93 fl (80-97)
[2018-03-27 02:36] LABS: ANION GAP 13 (5-19); BLOOD UREA NITROGEN 19 mg/dL (7-20); CALCIUM 9.1 mg/dL (8.4-10.2); CARBON DIOXIDE 17 mmol/L (22-30); CHLORIDE 114 mmol/L (98-107); GLUCOSE 113 mg/dL (75-110); POTASSIUM 4.9 mmol/L (3.6-5.0); SODIUM 143.6 mmol/L (137-145)
[2018-03-27] MEDS: DEXTROSE 5%-1/2 NORMAL SALINE 1,000 ML IV PRN ×2 (04:35→21:51)
[2018-03-27] MEDS: HEPARIN SOD (PORCINE) 5,000 UNIT/ML 1 ML SYRINGE SUBCUT SCH ×3 (05:30→22:35)
[2018-03-27 07:57] LABS: ANION GAP 11 (5-19); BLOOD UREA NITROGEN 17 mg/dL (7-20); CALCIUM 8.4 mg/dL (8.4-10.2); CARBON DIOXIDE 16 mmol/L (22-30); CHLORIDE 111 mmol/L (98-107); GLUCOSE 238 mg/dL (75-110); POTASSIUM 4.8 mmol/L (3.6-5.0); SODIUM 138.2 mmol/L (137-145)
[2018-03-27] MEDS: MORPHINE SULFATE 10 MG/ML INJ IV PRN ×4 (09:51→19:07)
[2018-03-27] MEDS: PROPRANOLOL HCL 20 MG TABLET PO SCH ×2 (09:51→22:35)
[2018-03-27] MEDS: PANTOPRAZOLE SODIUM 40 MG VIAL IV SCH ×2 (09:51→22:35)
[2018-03-27] MEDS ORDERED: INSULIN LISPRO 100 UNIT/ML 3 ML VIAL SUBCUT ONE (10:30)
[2018-03-27] MEDS: INSULIN LISPRO 100 UNIT/ML 3 ML VIAL SUBCUT PRN ×3 (14:15→22:34)
[2018-03-27 14:54] LABS: ANION GAP 12 (5-19); BLOOD UREA NITROGEN 17 mg/dL (7-20); CALCIUM 8.9 mg/dL (8.4-10.2); CARBON DIOXIDE 16 mmol/L (22-30); CHLORIDE 106 mmol/L (98-107); GLUCOSE 327 mg/dL (75-110); POTASSIUM 4.8 mmol/L (3.6-5.0); SODIUM 133.6 mmol/L (137-145)
[2018-03-27] MEDS ORDERED: INSULIN REG, HUMAN 100 UNIT/ML 3 ML VIAL (PYX) SUBCUT ONE (16:00)
[2018-03-27] MEDS: INSULIN GLARGINE,HUM.REC.ANLOG 300 UNIT/3 ML INSULN.PEN SUBCUT SCH (19:08)
--- NOTE | 2018-03-27 19:28 | PDOC PROGRESS REPORT ---
Subjective Progress Note for:: 03/27/18 Subjective:: Still feeling poorly. Still with nausea. Somewhat better than yesterday. Reason For Visit: DKA (DIABETIC KETOACIDOSIS) VOMITING Physical Exam Vital Signs: Temp Pulse Resp BP Pulse Ox 98.4 F 96 18 119/74 100 03/27/18 15:51 03/27/18 15:51 03/27/18 15:51 03/27/18 15:51 03/27/18 15:51 Intake & Output 03/26/18 03/27/18 03/28/18 06:59 06:59 06:59 Intake Total 3304 991 Output Total 0 Balance 3304 991 Weight 69.3 kg General appearance: PRESENT: mild distress, thin Respiratory exam: PRESENT: clear to auscultation selena, symmetrical, unlabored. ABSENT: rales, rhonchi, wheezes Cardiovascular exam: PRESENT: RRR, +S1, +S2, systolic murmur - 2/6 GI/Abdominal exam: PRESENT: normal bowel sounds, soft. ABSENT: distended, tenderness Neurological exam: PRESENT: awake, oriented to person, oriented to place, oriented to time, oriented to situation, CN II-XII grossly intact Psychiatric exam: PRESENT: flat affect. ABSENT: agitated, anxious Results Laboratory Results: 03/27/18 02:06 03/27/18 13:50 03/26/18 03/26/18 03/26/18 19:34 21:15 21:15 WBC RBC Hgb Hct MCV MCH MCHC RDW Plt Count Seg Neutrophils % Lymphocytes % Monocytes % Eosinophils % Basophils % Absolute Neutrophils Absolute Lymphocytes Absolute Monocytes Absolute Eosinophils Absolute Basophils Carbonic Acid HCO3/H2CO3 Ratio ABG pH ABG pCO2 ABG pO2 ABG HCO3 ABG O2 Saturation ABG Base Excess FiO2 Sodium 142.2 Potassium 5.8 H Chloride 109 H Carbon Dioxide 8 L* Anion Gap 25 H BUN 15 Creatinine 1.39 H Est GFR ( Amer) > 60 Est GFR (Non-Af Amer) 57 L Glucose 355 H Lactic Acid 1.7 Calcium 9.4 Magnesium Urine Color COLORLESS Urine Appearance CLEAR Urine pH 5.0 Ur Specific [place] 1.018 Urine Protein NEGATIVE Urine Glucose (UA) >=500 H Urine Ketones 80 H Urine Blood NEGATIVE Urine Nitrite NEGATIVE Ur Leukocyte Esterase NEGATIVE Urine WBC (Auto) 3 Urine RBC (Auto) 1 03/27/18 03/27/1803/27/19 00:30 02:06 02:06 WBC 14.7 H RBC 4.13 L Hgb 12.6 L Hct 38.2 MCV 93 D MCH 30.6 MCHC 33.1 RDW 13.5 Plt Count 257 Seg Neutrophils % 70.6 Lymphocytes % 19.3 Monocytes % 9.4 Eosinophils % 0.0 Basophils % 0.7 Absolute Neutrophils 10.4 H Absolute Lymphocytes 2.8 Absolute Monocytes 1.4 Absolute Eosinophils 0.0 Absolute Basophils 0.1 Carbonic Acid 0.88 L HCO3/H2CO3 Ratio 16:1 ABG pH 7.31 L ABG pCO2 29.3 L ABG pO2 95.2 ABG HCO3 14.4 L ABG O2 Saturation 96.8 ABG Base Excess -10.5 FiO2 ROOM AIR Sodium 143.6 Potassium 4.9 Chloride 114 H Carbon Dioxide 17 L Anion Gap 13 BUN 19 Creatinine 1.28 H Est GFR ( Amer) > 60 Est GFR (Non-Af Amer) > 60 Glucose 113 H Lactic Acid Calcium 9.1 Magnesium 2.5 H Urine Color Urine Appearance Urine pH Ur Specific [place] Urine Protein Urine Glucose (UA) Urine Ketones Urine Blood Urine Nitrite Ur Leukocyte Esterase Urine WBC (Auto) Urine RBC (Auto) 03/27/18 03/27/18 07:29 13:50 WBC RBC Hgb Hct MCV MCH MCHC RDW Plt Count Seg Neutrophils % Lymphocytes % Monocytes % Eosinophils % Basophils % Absolute Neutrophils Absolute Lymphocytes Absolute Monocytes Absolute Eosinophils Absolute Basophils Carbonic Acid HCO3/H2CO3 Ratio ABG pH ABG pCO2 ABG pO2 ABG HCO3 ABG O2 Saturation ABG Base Excess FiO2 Sodium 138.2 133.6 L Potassium 4.8 4.8 Chloride 111 H 106 Carbon Dioxide 16 L 16 L Anion Gap 11 12 BUN 17 17 Creatinine 1.12 1.19 Est GFR ( Amer) > 60 > 60 Est GFR (Non-Af Amer) > 60 > 60 Glucose 238 H 327 H Lactic Acid Calcium 8.4 8.9 Magnesium Urine Color Urine Appearance Urine pH Ur Specific [place] Urine Protein Urine Glucose (UA) Urine Ketones Urine Blood Urine Nitrite Ur Leukocyte Esterase Urine WBC (Auto) Urine RBC (Auto) Assessment & Plan - Diagnosis (1) DKA (diabetic ketoacidoses) Qualifiers: Diabetes mellitus type: type 1 Diabetes mellitus complication detail: without coma Qualified Code(s): E10.10 - Type 1 diabetes mellitus with ketoacidosis without coma Is this a current diagnosis for this admission?: Yes Plan: Anion gap resolved. Glucoses under better control. I will be transitioning to his long-acting insulin. He will likely benefit from twice daily dosing. If a sugars are stable he will be released tomorrow. He is currently under guard as he is going to be incarcerated. - Time Time Spent with patient: Less than 15 minutes Medications reviewed and adjusted accordingly: Yes Anticipated discharge: Other
[2018-03-27] MEDS ORDERED: INSULIN GLARGINE,HUM.REC.ANLOG 300 UNIT/3 ML INSULN.PEN SUBCUT SCH (22:00)
[2018-03-28] MEDS: HEPARIN SOD (PORCINE) 5,000 UNIT/ML 1 ML SYRINGE SUBCUT SCH (05:23)
[2018-03-28] MEDS: DEXTROSE 5%-1/2 NORMAL SALINE 1,000 ML IV PRN (05:28)
[2018-03-28 06:10] LABS: HEMATOCRIT 35.4 % (37.9-51.0); MEAN CORPUSCULAR HEMOGLOBIN 31.3 pg (27.0-33.4); MEAN CORPUSCULAR HGB CONC 33.8 g/dL (32.0-36.0); MEAN CORPUSCULAR VOLUME 93 fl (80-97); PLATELET COUNT 223 10^3/uL (150-450); RED BLOOD COUNT 3.82 10^6/uL (4.35-5.55); RED CELL DISTRIBUTION WIDTH 13.5 % (11.5-14.0); WHITE BLOOD COUNT 8.1 10^3/uL (4.0-10.5)
[2018-03-28 06:33] LABS: ANION GAP 8 (5-19); BLOOD UREA NITROGEN 13 mg/dL (7-20); CALCIUM 8.8 mg/dL (8.4-10.2); CARBON DIOXIDE 20 mmol/L (22-30); CHLORIDE 106 mmol/L (98-107); GLUCOSE 242 mg/dL (75-110); SODIUM 134.2 mmol/L (137-145)
[2018-03-28] MEDS: INSULIN LISPRO 100 UNIT/ML 3 ML VIAL SUBCUT PRN ×2 (08:05→11:43)
[2018-03-28] MEDS: PANTOPRAZOLE SODIUM 40 MG VIAL IV SCH (11:43)
[2018-03-28] MEDS: PROPRANOLOL HCL 20 MG TABLET PO SCH (11:44)
[2018-03-28] MEDS: INSULIN GLARGINE,HUM.REC.ANLOG 300 UNIT/3 ML INSULN.PEN SUBCUT SCH (12:06)
[2018-03-28 12:36] VITALS: BP 116/78
== END 2018-03-28 13:08 | DRG 639 ==
LOC: ER 13:33 → EH 17:19 → 3S 21:28
PROVIDERS: ADMIT Hospitalist; ATTEND Hospitalist
DX: E10.10 Type 1 diabetes mellitus with ketoacidosis without coma (principal); T38.3X6A Underdosing of insulin and oral hypoglycemic [antidiabetic] drugs, initial encounter; I10 Essential (primary) hypertension; Z79.4 Long term (current) use of insulin; Z91.138 Patient's unintentional underdosing of medication regimen for other reason; Y92.143 Cell of prison as the place of occurrence of the external cause; Z82.49 Family history of ischemic heart disease and other diseases of the circulatory system; Z83.3 Family history of diabetes mellitus
CPT/HCPCS: 36415; 80048; 80053; 80307; 81001; 82803; 82962; 83605; 83690; 83735; 85025; 85027; 93005; 93010; 96361; 96374; 96375; 99291; J1644; J1815; J2060; J2270; J2405; J2765; J3490; J7030; S0164

== ENCOUNTER 2018-05-04 17:50 | Emergency (ER) | payer OTHER ==
[2018-05-04] MEDS ORDERED: NORMAL SALINE 1000 ML 1,000 ML IV ONE (18:54)
[2018-05-04] MEDS ORDERED: KETOROLAC TROMETHAMINE INJ/PF 30 MG/1 ML SDV IV ONE (18:54)
[2018-05-04 20:39] LABS: ABSOLUTE BASOPHILS # (AUTO) 0.1 10^3/uL (0.0-0.2); ABSOLUTE LYMPHOCYTES (AUTO) 2.2 10^3/uL (0.5-4.7); ABSOLUTE MONOCYTES (AUTO) 0.8 10^3/uL (0.1-1.4); ABSOLUTE NEUT (AUTO) 9.7 10^3/uL (1.7-8.2); BASOPHILS % (AUTO) 0.6 % (0-2); EOSINOPHILS % (AUTO) 0.2 % (0-6); HEMATOCRIT 33.8 % (37.9-51.0); HEMOGLOBIN 11.4 g/dL (13.5-17.0); LYMPHOCYTES % (AUTO) 17.3 % (13-45); MEAN CORPUSCULAR HEMOGLOBIN 31.4 pg (27.0-33.4); MEAN CORPUSCULAR HGB CONC 33.6 g/dL (32.0-36.0); MEAN CORPUSCULAR VOLUME 94 fl (80-97); MONOCYTES % (AUTO) 6.4 % (3-13); PLATELET COUNT 224 10^3/uL (150-450); RED BLOOD COUNT 3.61 10^6/uL (4.35-5.55); RED CELL DISTRIBUTION WIDTH 14.3 % (11.5-14.0); SEGMENTED NEUTROPHILS % (AUTO) 75.5 % (42-78); TOTAL CELLS COUNTED % (AUTO) 100 %; WHITE BLOOD COUNT 12.9 10^3/uL (4.0-10.5)
[2018-05-04 20:47] LABS: ANION GAP 12 (5-19); BLOOD UREA NITROGEN 12 mg/dL (7-20); CALCIUM 8.7 mg/dL (8.4-10.2); CARBON DIOXIDE 21 mmol/L (22-30); CHLORIDE 102 mmol/L (98-107); GLUCOSE 306 mg/dL (75-110); POTASSIUM 4.6 mmol/L (3.6-5.0); SODIUM 135.4 mmol/L (137-145)
[2018-05-04] MEDS ORDERED: PENICILLIN V POTASSIUM 500 MG TABLET PO ONE (20:49)
--- NOTE | 2018-05-04 20:49 | ER Document Report ---
ED General - General Chief Complaint: Sore Throat Stated Complaint: COUGH, THROAT PAIN Time Seen by Provider: 05/04/18 18:47 TRAVEL OUTSIDE OF THE [place] IN LAST 30 DAYS: No - HPI Notes: Patient presents to the emergency department for evaluation of sore throat. Onset was last night. He is having some pain and difficulty with swallowing. He has felt chilled but no renee fevers. He is concerned because he is a type I diabetic. He states because he did not eat today he did not take any of his insulin. He has not checked his blood sugar today. - Related Data Allergies/Adverse Reactions: honey [Honey] Allergy (Verified 02/05/18 15:10) No Known Drug Allergies Allergy (Verified 02/05/18 15:10) Past Medical History - General Information source: Patient - Social History Smoking Status: Current Every Day Smoker Family History: CAD, CVA, DM, Hyperlipidemia, Hypertension, Malignancy Patient has suicidal ideation: No Patient has homicidal ideation: No - Past Medical History Cardiac Medical History: Denies: Hx Congestive Heart Failure, Hx Coronary Artery Disease, Hx DVT, Hx Heart Attack, Hx Hypercholesterolemia, Hx Hypertension, Hx Pulmonary Embolism Pulmonary Medical History: Reports: Hx Asthma, Hx Pneumonia Denies: Hx COPD, Hx Sleep Apnea Neurological Medical History: Reports: Hx Migraine. Denies: Hx Seizures Endocrine Medical History: Reports: Hx Diabetes Mellitus Type 1. Denies: Hx Diabetes Mellitus Type 2, Hx Hyperthyroidism, Hx Hypothyroidism Renal/ Medical History: Denies: Hx Peritoneal Dialysis GI Medical History: Denies: Hx Cirrhosis, Hx Gastroesophageal Reflux Disease, Hx Hepatitis Musculoskeletal Medical History: Denies Hx Arthritis, Reports Hx Musculoskeletal Trauma - Muscle strains and sprains Skin Medical History: Denies Hx Eczema, Denies Hx Psoriasis Psychiatric Medical History: Reports: Hx Anxiety, Hx Depression Infectious Medical History: Denies: Hx C-Diff, Hx Hepatitis, Hx MRSA Past Surgical History: Reports: Hx Oral Surgery - Teeth, Hx Urinary Tract Surgery - fractured penis repair, Other - Oral surgery as well as urinary tract surgery (fractured penis repair) - Immunizations Immunizations up to date: Yes Hx Diphtheria, Pertussis, Tetanus Vaccination: Yes Hx Pneumococcal Vaccination: 03/25/16 Review of Systems - Review of Systems Constitutional: Chills EENT: See HPI Cardiovascular: No symptoms reported Respiratory: No symptoms reported Gastrointestinal: No symptoms reported Musculoskeletal: No symptoms reported Skin: No symptoms reported Hematologic/Lymphatic: Enlarged lymph nodes Neurological/Psychological: No symptoms reported Physical Exam - Vital signs Vitals: Temp Pulse Resp BP Pulse Ox 98.3 F 103 H 16 147/92 H 100 05/04/18 18:00 05/04/18 18:00 05/04/18 18:00 05/04/18 18:00 05/04/18 18:00 Notes: Mildly hypertensive and tachycardic, otherwise unremarkable - Notes Notes: Patient is awake and alert, no acute distress. Head is normocephalic and atraumatic. Pupils are equal round reactive to light. Posterior pharynx shows enlarged tonsils with exudate, erythema noted. Neck is supple. He does have anterior cervical adenopathy which is tender to palpation. Heart is regular rate and rhythm, lungs are clear to auscultation bilaterally. Abdomen soft nontender with normoactive bowel sounds. His skin is warm and dry. Course - Re-evaluation Re-evalutation: 05/04/18 20:52 Patient was reevaluated and is feeling slightly improved. He is markedly hyperglycemic. He was counseled on the fact that he should always at least take his baseline insulin. He does have test strips at home. I offered him insulin coverage here in the ED and he declined, states he will take his insulin at home. He was given his first dose of penicillin for his streptococcal pharyngitis. He is advised to take this until it is gone. Ibuprofen as needed at home for pain and fever. He should follow-up with his primary care physician next week, return to the ED with worsening or new concerning symptoms. - Vital Signs Vital signs: Temp Pulse Resp BP Pulse Ox 98.3 F 103 H 16 147/92 H 100 05/04/18 18:00 05/04/18 18:00 05/04/18 18:00 05/04/18 18:00 05/04/18 18:00 - Laboratory Result Diagrams: 05/04/18 20:24 05/04/18 20:24 Laboratory results interpreted by me: 05/04/18 05/04/18 20:24 20:24 WBC 12.9 H RBC 3.61 L Hgb 11.4 L Hct 33.8 L RDW 14.3 H Absolute Neutrophils 9.7 H Sodium 135.4 L Carbon Dioxide 21 L Glucose 306 H Discharge - Discharge Clinical Impression: Streptococcal pharyngitis, Hyperglycemia due to type 1 diabetes mellitus Condition: Good Disposition: HOME, SELF-CARE Instructions: Penicillin V K ([facility]), Strep Throat ([facility]) Additional Instructions: Take your insulin at home as discussed. Take all of the antibiotic as prescribed until gone. Follow-up with your doctor next week. Return to the emergency department with worsening or new concerning symptoms.
[2018-05-04 21:27] VITALS: BP 132/78
== END 2018-05-04 21:25 | disposition home or self-care (01) ==
LOC: ER 17:50
DX: J02.0 Streptococcal pharyngitis (principal); E10.65 Type 1 diabetes mellitus with hyperglycemia; R13.10 Dysphagia, unspecified; R68.83 Chills (without fever); J45.909 Unspecified asthma, uncomplicated; F17.200 Nicotine dependence, unspecified, uncomplicated; Z91.018 Allergy to other foods
CPT/HCPCS: 99283; 96374; 36415; 87880; 85025; 80048; J1885; J7030

== ENCOUNTER 2018-05-31 17:58 | Inpatient (IN) | payer OTHER ==
[2018-05-31] MEDS ORDERED: NORMAL SALINE 1000 ML 1,000 ML IV ONE (19:29)
--- NOTE | 2018-05-31 19:29 | ER Document Report ---
ED Medical Screen (RME) - General Chief Complaint: Leg Pain Stated Complaint: LEG CRAMPS Time Seen by Provider: 05/31/18 18:53 Mode of Arrival: Wheelchair Information source: Patient Notes: 38-year-old male with type 1 diabetes presents with complaint of leg cramping. Patient states this began today. He states he has been compliant with his Humalog and Lantus. Accu-Chek here is 347. I have greeted and performed a rapid initial assessment of this patient. A comprehensive ED assessment and evaluation of the patient, analysis of test results and completion of medical decision making process we will be contacted by additional ED providers. PHYSICAL EXAMINATION: Vital signs reviewed-hypotensive, afebrile GENERAL: Ill-appearing LUNGS: No respiratory distress Musculoskeletal: Normal range of motion NEUROLOGICAL: Normal speech, normal gait. PSYCH: Normal mood, normal affect. SKIN: Warm, Dry, normal turgor, no rashes or lesions noted. TRAVEL OUTSIDE OF THE [place] IN LAST 30 DAYS: No - HPI Onset: Just prior to arrival Onset/Duration: Gradual Quality of pain: Cramping Severity: Moderate Associated Symptoms: Nausea Exacerbated by: Denies Relieved by: Denies Similar symptoms previously: Yes Recently seen / treated by doctor: Yes - Related Data Smoking: Cigarettes Frequency of alcohol use: None Drug Abuse: None Allergies/Adverse Reactions: honey [Honey] Allergy (Verified 02/05/18 15:10) No Known Drug Allergies Allergy (Verified 02/05/18 15:10) Past Medical History - Social History Chew tobacco use (# tins/day): No Frequency of alcohol use: None Drug Abuse: None - Past Medical History Cardiac Medical History: Denies: Hx Congestive Heart Failure, Hx Coronary Artery Disease, Hx DVT, Hx Heart Attack, Hx Hypercholesterolemia, Hx Hypertension, Hx Pulmonary Embolism Pulmonary Medical History: Reports: Hx Asthma, Hx Pneumonia Denies: Hx COPD, Hx Sleep Apnea Neurological Medical History: Reports: Hx Migraine. Denies: Hx Seizures Endocrine Medical History: Reports: Hx Diabetes Mellitus Type 1. Denies: Hx Diabetes Mellitus Type 2, Hx Hyperthyroidism, Hx Hypothyroidism Renal/ Medical History: Denies: Hx Peritoneal Dialysis GI Medical History: Denies: Hx Cirrhosis, Hx Gastroesophageal Reflux Disease, Hx Hepatitis Musculoskeltal Medical History: Denies Hx Arthritis, Reports Hx Musculoskeletal Trauma - Muscle strains and sprains Skin Medical History: Denies Hx Eczema, Denies Hx Psoriasis Psychiatric Medical History: Reports: Hx Anxiety, Hx Depression Infectious Medical History: Denies: Hx C-Diff, Hx Hepatitis, Hx MRSA Past Surgical History: Reports: Hx Oral Surgery - Teeth, Hx Urinary Tract Surgery - fractured penis repair, Other - Oral surgery as well as urinary tract surgery (fractured penis repair) - Immunizations Immunizations up to date: Yes Hx Diphtheria, Pertussis, Tetanus Vaccination: Yes Physical Exam - Vital signs Vitals: Pulse Resp BP Pulse Ox 89 16 94/53 L 100 05/31/18 18:08 05/31/18 18:08 05/31/18 18:08 05/31/18 18:08 Course - Vital Signs Vital signs: Temp Pulse Resp BP Pulse Ox 89 16 94/53 L 100 05/31/18 18:08 05/31/18 18:08 05/31/18 18:08 05/31/18 18:08
[2018-05-31 20:32] LABS: ABSOLUTE BASOPHILS # (AUTO) 0.1 10^3/uL (0.0-0.2); ABSOLUTE LYMPHOCYTES (AUTO) 2.2 10^3/uL (0.5-4.7); ABSOLUTE MONOCYTES (AUTO) 0.3 10^3/uL (0.1-1.4); ABSOLUTE NEUT (AUTO) 4.6 10^3/uL (1.7-8.2); BASOPHILS % (AUTO) 0.8 % (0-2); EOSINOPHILS % (AUTO) 0.1 % (0-6); HEMATOCRIT 40.1 % (37.9-51.0); HEMOGLOBIN 13.5 g/dL (13.5-17.0); LYMPHOCYTES % (AUTO) 30.6 % (13-45); MEAN CORPUSCULAR HEMOGLOBIN 32.1 pg (27.0-33.4); MEAN CORPUSCULAR HGB CONC 33.7 g/dL (32.0-36.0); MEAN CORPUSCULAR VOLUME 96 fl (80-97); MONOCYTES % (AUTO) 4.3 % (3-13); PLATELET COUNT 331 10^3/uL (150-450); RED CELL DISTRIBUTION WIDTH 13.9 % (11.5-14.0); SEGMENTED NEUTROPHILS % (AUTO) 64.2 % (42-78); TOTAL CELLS COUNTED % (AUTO) 100 %; WHITE BLOOD COUNT 7.2 10^3/uL (4.0-10.5)
[2018-05-31 20:33] LABS: VENOUS BLOOD BASE EXCESS -13.4 mmol/L; VENOUS BLOOD PCO2 43.7 mmHg (35-63)
[2018-05-31 20:36] LABS: VENOUS BLOOD PH 7.15 (7.30-7.42)
[2018-05-31] MEDS ORDERED: RINGERS SOLUTION,LACTATED 1,000 ML IV ONE ×2 (20:40→20:57)
[2018-05-31 20:51] LABS: ALANINE AMINOTRANSFERASE 34 U/L (21-72); ALBUMIN 4.6 g/dL (3.5-5.0); ALKALINE PHOSPHATASE 166 U/L (38-126); ASPARTATE AMINO TRANSFERASE 60 U/L (17-59); BILIRUBIN,DIRECT 0.3 mg/dL (0.0-0.4); BILIRUBIN,TOTAL 0.6 mg/dL (0.2-1.3); BLOOD UREA NITROGEN 28 mg/dL (7-20); CALCIUM 9.5 mg/dL (8.4-10.2); CARBON DIOXIDE 13 mmol/L (22-30); CHLORIDE 97 mmol/L (98-107); SODIUM 130.9 mmol/L (137-145); TOTAL PROTEIN 7.5 g/dL (6.3-8.2)
[2018-05-31 20:53] LABS: POTASSIUM 6.1 mmol/L (3.6-5.0)
[2018-05-31] MEDS ORDERED: INSULIN REG, HUMAN 100 UNIT/ML 3 ML VIAL (PYX) IV ONE (20:56)
[2018-05-31] MEDS ORDERED: ONDANSETRON HCL INJ/PF 4 MG/2 ML SDV IV ONE (20:57)
[2018-05-31 20:58] LABS: ANION GAP 21 (5-19); GLUCOSE 421 mg/dL (75-110)
--- NOTE | 2018-05-31 20:58 | ER Document Report ---
ED General - General Chief Complaint: Leg Pain Stated Complaint: LEG CRAMPS Time Seen by Provider: 05/31/18 18:53 Mode of Arrival: Wheelchair Cannot obtain history due to: Altered mental status Notes: Patient is a 38-year-old male with a past medical history of insulin-dependent diabetes, frequent hospitalizations for medication noncompliance with diabetic ketoacidosis who presents today by EMS complaining of leg spasms and hyperglycemia. At the time of my evaluation history is somewhat limited as the patient is somewhat lethargic, states that his blood sugars been running high "for a while" and complains of diffuse, spasming pain to his bilateral legs particularly in the calves. Describes this is a severe, cramping, intermittent discomfort. Nothing improves or worsens that pain. States his symptoms feel similar to when he has had diabetic ketoacidosis in the past. States that he follows at the [facility] for his medical care. States that he is been continue to check his blood sugars at home and they have been North of 300. States he has been taking his insulin as prescribed. Denies fever, cough, headache, neck pain or abdominal pain. TRAVEL OUTSIDE OF THE [place] IN LAST 30 DAYS: No - Related Data Allergies/Adverse Reactions: honey [Honey] Allergy (Verified 02/05/18 15:10) No Known Drug Allergies Allergy (Verified 02/05/18 15:10) Past Medical History - General Information source: Patient - Social History Smoking Status: Current Every Day Smoker Chew tobacco use (# tins/day): No Frequency of alcohol use: None Drug Abuse: None Family History: CAD, CVA, DM, Hyperlipidemia, Hypertension, Malignancy Patient has suicidal ideation: No Patient has homicidal ideation: No - Past Medical History Cardiac Medical History: Denies: Hx Congestive Heart Failure, Hx Coronary Artery Disease, Hx DVT, Hx Heart Attack, Hx Hypercholesterolemia, Hx Hypertension, Hx Pulmonary Embolism Pulmonary Medical History: Reports: Hx Asthma, Hx Pneumonia Denies: Hx COPD, Hx Sleep Apnea Neurological Medical History: Reports: Hx Migraine. Denies: Hx Seizures Endocrine Medical History: Reports: Hx Diabetes Mellitus Type 1. Denies: Hx Diabetes Mellitus Type 2, Hx Hyperthyroidism, Hx Hypothyroidism Renal/ Medical History: Denies: Hx Peritoneal Dialysis GI Medical History: Denies: Hx Cirrhosis, Hx Gastroesophageal Reflux Disease, Hx Hepatitis Musculoskeletal Medical History: Denies Hx Arthritis, Reports Hx Musculoskeletal Trauma - Muscle strains and sprains Skin Medical History: Denies Hx Eczema, Denies Hx Psoriasis Psychiatric Medical History: Reports: Hx Anxiety, Hx Depression Infectious Medical History: Denies: Hx C-Diff, Hx Hepatitis, Hx MRSA Past Surgical History: Reports: Hx Oral Surgery - Teeth, Hx Urinary Tract Surgery - fractured penis repair, Other - Oral surgery as well as urinary tract surgery (fractured penis repair) - Immunizations Immunizations up to date: Yes Hx Diphtheria, Pertussis, Tetanus Vaccination: Yes Hx Pneumococcal Vaccination: 03/25/16 Review of Systems - Review of Systems Notes: Constitutional: Negative for fever. HENT: Negative for sore throat. Eyes: Negative for visual changes. Cardiovascular: Negative for chest pain. Respiratory: Negative for shortness of breath. Gastrointestinal: Positive for nausea Genitourinary: Negative for dysuria. Musculoskeletal: Positive for bilateral leg pain Skin: Negative for rash. Neurological: Negative for headaches, weakness or numbness. 10 point ROS negative except as marked above and in HPI. Physical Exam - Vital signs Vitals: Pulse Resp BP Pulse Ox 89 16 94/53 L 100 05/31/18 18:08 05/31/18 18:08 05/31/18 18:08 05/31/18 18:08 Interpretation: Hypotensive Notes: PHYSICAL EXAMINATION: GENERAL: Appears unwell, somewhat lethargic but in no acute distress HEAD: Atraumatic, normocephalic. EYES: Pupils equal round and reactive to light, extraocular movements intact, sclera anicteric, conjunctiva are normal. ENT: nares patent, oropharynx clear without exudates. Dry mucous membranes. NECK: Normal range of motion, supple without lymphadenopathy LUNGS: Breath sounds clear to auscultation bilaterally and equal. No wheezes rales or rhonchi. HEART: Regular tachycardia without murmurs ABDOMEN: Soft, nontender, normoactive bowel sounds. No guarding, no rebound. No masses appreciated. EXTREMITIES: Normal range of motion, no pitting or edema. No cyanosis. NEUROLOGICAL: No focal neurological deficits. Moves all extremities spontaneously and on command. PSYCH: Moderately lethargic otherwise oriented x3 SKIN: Warm, Dry, normal turgor, no rashes or lesions noted. Course - Re-evaluation Re-evalutation: 05/31/18 20:59 Documentation is delayed as I been at this patient's bedside continuously since I got the chart. The patient was initially brought in by EMS for leg cramps, found to be hypoglycemic and hypotensive. For unclear reasons the patient was initially placed on the psychiatric side of the emergency department, off monitor and this did delay the time in which it took me to get to see the patient. Immediately upon getting the chart I did go immediately evaluate the patient particular given that I have been reported the patient had a venous blood gas showing metabolic acidemia. Laboratories are consistent with acute diabetic ketoacidosis, hyperkalemia although likely false in the setting of acidosis with hyperglycemia. Patient is received 1 L of normal saline prior to my assessment. 2 L of lactated Ringer's has been ordered. The patient is also been started on insulin infusion at 0.14 units/kg/h non-titrated. No bolus. The patient is somewhat lethargic but does respond appropriate all questions. He is complaining of leg spasming. The remainder of his physical examination is notable only for Kussmaul's respirations, tachycardia and appearing very dehydrated. Patient has a history of noncompliance, frequently hospitalized for diabetic ketoacidosis multiple times in the past 12-month period. The patient is critically ill, will be reassessed at regular intervals. 05/31/18 21:25 Patient's hypotension has improved with fluid resuscitation. Most recent blood pressure 143 on 96. Remains with a heart rate in the upper 90s currently 96 bpm. The patient is mentating better than when I first assessed him as his blood pressure has improved. He has been transferred into the main side room of the emergency department. An insulin infusion has been started. Will continue to monitor closely. 05/31/18 21:49 Patient has been reassessed on multiple intervals. Continues to mentate well. Pressures remain within acceptable ranges, currently 135/82. I have discussed this case with Dr. Samaniego, has accepted the patient to the intensive care unit. - Vital Signs Vital signs: Temp Pulse Resp BP Pulse Ox 97.8 F 89 19 121/79 100 05/31/18 21:20 05/31/18 18:08 05/31/18 22:15 05/31/18 22:15 05/31/18 22:15 - Laboratory Result Diagrams: 05/31/18 20:20 05/31/18 20:20 Laboratory results interpreted by me: 05/31/18 05/31/18 05/31/18 19:16 19:22 20:20 RBC 4.20 L VBG pH VBG HCO3 Sodium Potassium Chloride Carbon Dioxide Anion Gap BUN Creatinine Est GFR ( Amer) Est GFR (Non-Af Amer) Glucose POC Glucose 347 H AST Alkaline Phosphatase Urine Glucose (UA) >=500 H Urine Ketones 80 H Urine Blood SMALL H 05/31/18 05/31/18 05/31/18 20:20 20:20 22:24 RBC VBG pH 7.15 L* VBG HCO3 15.0 L Sodium 130.9 L Potassium 6.1 H* Chloride 97 L Carbon Dioxide 13 L Anion Gap 21 H BUN 28 H Creatinine 1.60 H Est GFR ( Amer) 58 L Est GFR (Non-Af Amer) 48 L Glucose 421 H* POC Glucose 326 H AST 60 H Alkaline Phosphatase 166 H Urine Glucose (UA) Urine Ketones Urine Blood - EKG Interpretation by Me Additional EKG results interpreted by me: 05/31/18 21:50 Sinus rhythm, rate 98. No ST elevations or depressions. QTC is 430. Critical Care Note - Critical Care Note Total time excluding time spent on procedures (mins): 45 Comments: Critical care time spent obtaining history from patient or surrogate, discussions with consultants, development of treatment plan with patient or surrogate, evaluation of patient's response to treatment, examination of patient, ordering and performing treatments and interventions, ordering and review of laboratory studies, re-evaluation of patient's condition, and review of old charts Discharge - Discharge Clinical Impression: Hyperkalemia, Acute kidney injury DKA (diabetic ketoacidoses) Qualifiers: Diabetes mellitus type: type 1 Diabetes mellitus complication detail: without coma Qualified Code(s): E10.10 - Type 1 diabetes mellitus with ketoacidosis without coma DKA, type 1 Qualifiers: Diabetes mellitus complication detail: without coma Qualified Code(s): E10.10 - Type 1 diabetes mellitus with ketoacidosis without coma Leg muscle spasm Qualifiers: Laterality: bilateral Qualified Code(s): M62.838 - Other muscle spasm Hypotension Qualifiers: Hypotension type: unspecified hypotension type Qualified Code(s): I95.9 - Hypotension, unspecified Condition: Critical Disposition: ADMITTED INPATIENT Admitting Provider: Hospitalist Unit Admitted: ICU
[2018-05-31] MEDS ORDERED: INSULIN REG, HUMAN 100 UNIT/ML 3 ML VIAL (PYX) ONE (21:18)
[2018-05-31 21:31] LABS: APPEARANCE,URINE CLEAR; BILIRUBIN,URINE NEGATIVE (NEGATIVE); COLOR,URINE STRAW; GLUCOSE, URINE >=500 mg/dL (NEGATIVE); KETONES,URINE 80 mg/dL (NEGATIVE); LEUKOCYTE ESTERASE,URINE NEGATIVE (NEGATIVE); NITRITE,URINE NEGATIVE (NEGATIVE); PROTEIN,URINE NEGATIVE (NEGATIVE); URINE SPECIFIC GRAVITY 1.023; UROBILINOGEN,URINE NEGATIVE mg/dL (<2.0)
[2018-05-31] MEDS ORDERED: MAGNESIUM HYDROXIDE SUSP 30 ML UDCUP PO PRN (21:59)
[2018-05-31] MEDS ORDERED: ONDANSETRON 4 MG TAB.RAPDIS PO PRN (21:59)
[2018-05-31] MEDS ORDERED: ONDANSETRON HCL INJ/PF 4 MG/2 ML SDV IV PRN (21:59)
[2018-05-31] MEDS ORDERED: MAG HYDROX/AL HYDROX/SIMETH SUSP 30 ML UDCUP PO PRN (21:59)
[2018-05-31] MEDS ORDERED: NORMAL SALINE 100 ML with INSULIN REGULAR, HUMAN 100 UNIT IV PRN ×2 (22:11)
[2018-05-31] MEDS ORDERED: DEXTROSE 50%-WATER 25 GM/50 ML DISP.SYRIN IV PRN ×2 (22:11)
[2018-05-31] MEDS ORDERED: GLUCAGON,HUMAN RECOMB 1 MG INJ IM PRN (22:11)
[2018-05-31] MEDS ORDERED: DEXTROSE 40% GEL 15 GM TUBE PO PRN ×2 (22:11)
[2018-05-31] MEDS ORDERED: ACETAMINOPHEN 325 MG TABLET PO PRN (22:11)
[2018-05-31] MEDS ORDERED: DEXTROSE 5%-WATER 1000 ML 1,000 ML with SODIUM BICARBONATE 150 MEQ IV PRN ×2 (22:12)
--- NOTE | 2018-05-31 22:19 | EKG REPORT ---
SEVERITY:- NORMAL ECG - SINUS RHYTHM : Confirmed by: Tracee Churchill MD 31-May-2018 22:17:46
[2018-05-31] MEDS ORDERED: METOCLOPRAMIDE HCL 10 MG TABLET PO ONE (23:30)
[2018-05-31] MEDS ORDERED: FAMOTIDINE 20 MG TABLET PO ONE (23:30)
[2018-05-31] MEDS ORDERED: SUCRALFATE SUSP 1 GM/10 ML UDCUP PO ONE (23:30)
[2018-05-31] MEDS ORDERED: SUCRALFATE 1 GM TABLET ONE (23:43)
[2018-05-31] MEDS ORDERED: SODIUM BICARBONATE 8.4% INJ 50 MEQ/50 ML DISP.SYRIN ONE (23:44)
--- NOTE | 2018-05-31 23:48 | PDOC H&P ---
History of Present Illness Admission Date/PCP: 05/31/2018 Patient complains of: Leg cramps History of Present Illness: JOSE DANIEL CLINTON is a 38 year old male who presented to the emergency room with acute onset of leg cramps. He reports sudden onset of severe leg cramps beginning a few hours prior to his admission. The cramps involve the calves and feet of both lower extremities. The pain was severe cramping without radiation and was exacerbated by weightbearing and movement. The cramps are also associated with mild generalized malaise, weakness and fatigue as well as subjective chills without fever. He admits having had prior similar episodes on numerous occasions when his diabetes has been out of control. He had not identified any other aggravating or ameliorating factors for his leg cramps. In the emergency room he was found to have mild hypotension, mild tachycardia, hyp erkalemia, hyponatremia, hyperglycemia with ketosis and acidosis and was subsequently admitted to the hospital for treatment of his acute diabetic ketoacidosis. Past Medical History Cardiac Medical History: Denies: Congestive Heart Failure, Coronary Artery Disease, DVT, Myocardial Infarction, Hyperlipidema, Hypertension, Pulmonary Embolism Pulmonary Medical History: Reports: Asthma, Pneumonia Denies: Chronic Obstructive Pulmonary Disease (COPD), Sleep Apnea EENT Medical History: Denies: Cataracts, Eyes - Corrective lenses Neurological Medical History: Reports: Migraine Denies: Hemorrhagic CVA, Ischemic CVA, Seizures Endocrine Medical History: Reports: Diabetes Mellitus Type 1 Denies: Diabetes Mellitus Type 2, Hyperthyroidism, Hypothyroidism, Obesity Renal/ Medical History: Denies: Chronic Kidney Disease, Nephrolithiasis Malignancy Medical History: Reports: None GI Medical History: Denies: Cirrhosis, Gastroesophageal Reflux Disease, Hepatitis Musculoskeltal Medical History: Denies: Arthritis, Gout Skin Medical History: Denies: Eczema, Psoriasis Psychiatric Medical History: Reports: Depression, Tobacco Dependency Denies: Alcohol Dependency, Substance Abuse Traumatic Medical History: Reports: None Hematology: Denies: Anemia, Bleeding Tendencies Infectious Medical History: Reports: None Past Surgical History Past Surgical History: Reports: Other - Oral surgery as well as urinary tract surgery (fractured penis repair) Social History Information Source: Patient Lives with: Homeless Smoking Status: Current Every Day Smoker Frequency of Alcohol Use: Social Hx Recreational Drug Use: No Drugs: None Hx Prescription Drug Abuse: No - Advance Directive Resuscitation Status: Full Code Surrogate healthcare decision maker:: None declared Family History Family History: CAD, CVA, DM, Hyperlipidemia, Hypertension, Malignancy Parental Family History Reviewed: Yes Children Family History Reviewed: No Sibling(s) Family History Reviewed.: Yes Medication/Allergy Home Medications: Propranolol HCl [Inderal 20 mg Tablet] 20 mg PO Q12 30 Days #60 tablet 02/09/18 Venlafaxine HCl [Venlafaxine HCl ER] 150 mg PO DAILY 03/26/18 Insulin Glargine,Hum.rec.anlog [Lantus Insulin 100 Unit/mL] 20 unit SUBCUT BID 30 Days #1 insuln.pen 03/28/18 Insulin Lispro [Humalog Insulin (Lispro) 100 unit/mL] 0 - 12 unit SUBCUT ACHSP PRN 30 Days #1 unit 03/28/18 Penicillin V Potassium [Penicillin Vk 500 mg Tablet] 500 mg PO BID #20 tablet 05/04/18 Allergies/Adverse Reactions: honey [Honey] Allergy (Verified 02/05/18 15:10) No Known Drug Allergies Allergy (Verified 02/05/18 15:10) Review of Systems Constitutional: PRESENT: chills, fatigue, weakness, other - Malaise. ABSENT: anorexia, fever(s) Eyes: ABSENT: visual disturbances, other - Eye pain Ears: ABSENT: hearing changes, other - Ear pain Nose, Mouth, and Throat: ABSENT: mouth pain, sore throat Cardiovascular: ABSENT: chest pain, dyspnea on exertion, palpitations Respiratory: ABSENT: cough, dyspnea Gastrointestinal: ABSENT: abdominal pain, constipation, diarrhea, nausea, vomiti ng Genitourinary: ABSENT: dysuria, hematuria Musculoskeletal: PRESENT: as per HPI, other - Muscle cramping in the bilateral lower extremities. ABSENT: back pain, deformity, joint swelling, muscle weakness Integumentary: ABSENT: pruritus, rash Neurological: ABSENT: confusion, convulsions, focal weakness, memory loss Endocrine: ABSENT: cold intolerance, heat intolerance Hematologic/Lymphatic: ABSENT: easy bleeding, easy bruising Physical Exam Vital Signs: Temp Pulse Resp BP Pulse Ox 89 16 94/53 L 100 05/31/18 18:08 05/31/18 18:08 05/31/18 18:08 05/31/18 18:08 Intake & Output 05/29/18 05/30/18 05/31/18 23:59 23:59 23:59 Weight 77.111 kg General appearance: PRESENT: no acute distress, cooperative Head exam: PRESENT: atraumatic, normocephalic Eye exam: PRESENT: conjunctiva pink. ABSENT: scleral icterus Ear exam: PRESENT: normal external ear exam. ABSENT: bleeding, drainage Mouth exam: PRESENT: dry mucosa, neck supple Neck exam: ABSENT: thyromegaly, tracheal deviation Respiratory exam: PRESENT: clear to auscultation selena, symmetrical, unlabored Cardiovascular exam: PRESENT: RRR. ABSENT: clicks, gallop, rubs Pulses: PRESENT: normal radial pulses, normal dorsalis pedis pul Vascular exam: PRESENT: normal capillary refill. ABSENT: pallor GI/Abdominal exam: PRESENT: normal bowel sounds, soft. ABSENT: tenderness Rectal exam: PRESENT: deferred Extremities exam: PRESENT: tenderness - Bilateral feet and lower extremities mildly tender to palpation of muscular masses. ABSENT: joint swelling, pedal edema Musculoskeletal exam: ABSENT: deformity, dislocation Neurological exam: PRESENT: alert, oriented to person, oriented to place, oriented to time, oriented to situation, CN II-XII grossly intact. ABSENT: motor sensory deficit - [id number] Psychiatric exam: PRESENT: appropriate affect, normal mood Skin exam: PRESENT: dry, intact, warm. ABSENT: jaundice, rash, urticaria Results Laboratory Results: 05/31/18 20:20 05/31/18 20:20 05/31/18 05/31/18 05/31/18 19:16 20:20 20:20 WBC 7.2 RBC 4.20 L Hgb 13.5 Hct 40.1 MCV 96 MCH 32.1 MCHC 33.7 RDW 13.9 Plt Count 331 Seg Neutrophils % 64.2 Lymphocytes % 30.6 Monocytes % 4.3 Eosinophils % 0.1 Basophils % 0.8 Absolute Neutrophils 4.6 Absolute Lymphocytes 2.2 Absolute Monocytes 0.3 Absolute Eosinophils 0.0 Absolute Basophils 0.1 VBG pH VBG pCO2 VBG HCO3 VBG Base Excess Sodium 130.9 L Potassium 6.1 H* Chloride 97 L Carbon Dioxide 13 L Anion Gap 21 H BUN 28 H Creatinine 1.60 H Est GFR ( Amer) 58 L Est GFR (Non-Af Amer) 48 L Glucose 421 H* Calcium 9.5 Total Bilirubin 0.6 AST 60 H ALT 34 Alkaline Phosphatase 166 H Total Protein 7.5 Albumin 4.6 Urine Color STRAW Urine Appearance CLEAR Urine pH 5.0 Ur Specific [place] 1.023 Urine Protein NEGATIVE Urine Glucose (UA) >=500 H Urine Ketones 80 H Urine Blood SMALL H Urine Nitrite NEGATIVE Ur Leukocyte Esterase NEGATIVE Urine WBC (Auto) 2 Urine RBC (Auto) 1 05/31/18 20:20 WBC RBC Hgb Hct MCV MCH MCHC RDW Plt Count Seg Neutrophils % Lymphocytes % Monocytes % Eosinophils % Basophils % Absolute Neutrophils Absolute Lymphocytes Absolute Monocytes Absolute Eosinophils Absolute Basophils VBG pH 7.15 L* VBG pCO2 43.7 VBG HCO3 15.0 L VBG Base Excess -13.4 Sodium Potassium Chloride Carbon Dioxide Anion Gap BUN Creatinine Est GFR ( Amer) Est GFR (Non-Af Amer) Glucose Calcium Total Bilirubin AST ALT Alkaline Phosphatase Total Protein Albumin Urine Color Urine Appearance Urine pH Ur Specific [place] Urine Protein Urine Glucose (UA) Urine Ketones Urine Blood Urine Nitrite Ur Leukocyte Esterase Urine WBC (Auto) Urine RBC (Auto) Assessment & Plan - Diagnosis (1) DKA, type 1 Qualifiers: Diabetes mellitus complication detail: without coma Qualified Code(s): E10.10 - Type 1 diabetes mellitus with ketoacidosis without coma Is this a current diagnosis for this admission?: Yes Plan: Patient's DKA will be treated with an insulin infusion as well as a bicarbonate infusion with high volume IV fluids for hydration. His blood sugars will be followed on an hourly basis and his electrolytes will be followed every 4 hours until his anion gap is closed and his bicarbonate is back to the acceptable range. Venous blood gases will be obtained every 4 hours on a serial basis as an ongoing portion of patient's evaluation for acidosis. (2) Hyperkalemia Is this a current diagnosis for this admission?: Yes Plan: Patient's potassium will be monitored closely every 4 hours with adjustments made as required. Initially treatment with an insulin infusion is expected to result in a normal or slightly low potassium level. (3) Leg muscle spasm Qualifiers: Laterality: bilateral Qualified Code(s): M62.838 - Other muscle spasm Is this a current diagnosis for this admission?: Yes Plan: Patient's leg cramps will be treated with Nubain 10 mg IV every 3 hours as needed. (4) Tobacco dependency Is this a current diagnosis for this admission?: Yes Plan: Patient is advised to discontinue smoking smoking cessation is counseled briefly and a nicotine patch is available for his use if he desires. - Time Time Spent: 30 to 50 Minutes Critical Time spent with patient: Less than 15 minutes Smoking Cessation Education: 3 to 10 minutes Medications reviewed and adjusted accordingly: Yes Anticipated discharge: Home - Inpatient Certification Based on my medical assessment, after consideration of the patient's comorbidities, presenting symptoms, or acuity I expect that the services needed warrant INPATIENT care.: Yes I certify that my determination is in accordance with my understanding of Medicare's requirements for reasonable and necessary INPATIENT services [42 CFR 412.3e].: Yes Medical Necessity: Need Close Monitoring Due to Risk of Patient Decompensation, Need For IV Fluids, Need For Continuous Telemetry Monitoring, Need for Pain Control, Risk of Complication if Not Cared For in Hospital
[2018-05-31] MEDS ORDERED: NALBUPHINE HCL INJ 10 MG/1 ML AMPULE IV PRN (23:49)
[2018-05-31] MEDS ORDERED: NICOTINE 21 MG/24 HR PATCH.TD24 TD PRN (23:49)
[2018-06-01] MEDS: RINGERS SOLUTION,LACTATED 1,000 ML IV PRN ×4 (00:01→14:51)
[2018-06-01 03:24] LABS: VENOUS BLOOD BASE EXCESS -2.8 mmol/L; VENOUS BLOOD HCO3 22.9 mmol/L (20-32); VENOUS BLOOD PCO2 43.5 mmHg (35-63); VENOUS BLOOD PH 7.34 (7.30-7.42)
[2018-06-01 04:09] LABS: ANION GAP 10 (5-19); BLOOD UREA NITROGEN 20 mg/dL (7-20); CALCIUM 8.4 mg/dL (8.4-10.2); CARBON DIOXIDE 21 mmol/L (22-30); CHLORIDE 105 mmol/L (98-107); GLUCOSE 93 mg/dL (75-110); SODIUM 135.6 mmol/L (137-145)
[2018-06-01 04:17] LABS: POTASSIUM 3.7 mmol/L (3.6-5.0)
[2018-06-01 08:29] LABS: VENOUS BLOOD BASE EXCESS -4.1 mmol/L; VENOUS BLOOD HCO3 20.7 mmol/L (20-32); VENOUS BLOOD PCO2 37.1 mmHg (35-63); VENOUS BLOOD PH 7.37 (7.30-7.42)
[2018-06-01 08:32] LABS: ABSOLUTE EOSINOPHILS # (AUTO) 0.2 10^3/uL (0.0-0.6); ABSOLUTE LYMPHOCYTES (AUTO) 3.7 10^3/uL (0.5-4.7); ABSOLUTE MONOCYTES (AUTO) 0.4 10^3/uL (0.1-1.4); ABSOLUTE NEUT (AUTO) 3.1 10^3/uL (1.7-8.2); BASOPHILS % (AUTO) 0.3 % (0-2); EOSINOPHILS % (AUTO) 2.3 % (0-6); HEMATOCRIT 31.8 % (37.9-51.0); LYMPHOCYTES % (AUTO) 49.9 % (13-45); MEAN CORPUSCULAR HEMOGLOBIN 31.5 pg (27.0-33.4); MEAN CORPUSCULAR HGB CONC 34.4 g/dL (32.0-36.0); MONOCYTES % (AUTO) 5.3 % (3-13); PLATELET COUNT 274 10^3/uL (150-450); RED BLOOD COUNT 3.47 10^6/uL (4.35-5.55); RED CELL DISTRIBUTION WIDTH 14.2 % (11.5-14.0); SEGMENTED NEUTROPHILS % (AUTO) 42.2 % (42-78); TOTAL CELLS COUNTED % (AUTO) 100 %; WHITE BLOOD COUNT 7.5 10^3/uL (4.0-10.5)
[2018-06-01 08:33] LABS: HEMOGLOBIN 10.9 g/dL (13.5-17.0); MEAN CORPUSCULAR VOLUME 92 fl (80-97)
[2018-06-01 08:53] LABS: ALANINE AMINOTRANSFERASE 32 U/L (21-72); ALKALINE PHOSPHATASE 113 U/L (38-126); ANION GAP 11 (5-19); ASPARTATE AMINO TRANSFERASE 43 U/L (17-59); BILIRUBIN,DIRECT 0.1 mg/dL (0.0-0.4); BILIRUBIN,TOTAL 0.7 mg/dL (0.2-1.3); BLOOD UREA NITROGEN 17 mg/dL (7-20); CALCIUM 8.3 mg/dL (8.4-10.2); CARBON DIOXIDE 21 mmol/L (22-30); CHLORIDE 103 mmol/L (98-107); GLUCOSE 139 mg/dL (75-110); TOTAL PROTEIN 5.5 g/dL (6.3-8.2)
[2018-06-01] MEDS: SUCRALFATE SUSP 1 GM/10 ML UDCUP PO SCH ×2 (09:19→11:47)
[2018-06-01] MEDS: METOCLOPRAMIDE HCL 10 MG TABLET PO SCH ×4 (09:44→22:42)
[2018-06-01] MEDS: DOCUSATE SODIUM 100 MG CAPSULE PO SCH ×2 (09:44→17:55)
[2018-06-01] MEDS: ENOXAPARIN SODIUM INJ 40 MG/0.4 ML DISP.SYRIN SUBCUT SCH (09:45)
[2018-06-01] MEDS: INSULIN GLARGINE,HUM.REC.ANLOG 300 UNIT/3 ML INSULN.PEN SUBCUT SCH ×2 (09:45→17:57)
[2018-06-01] MEDS: FAMOTIDINE 20 MG TABLET PO SCH ×2 (09:45→22:42)
[2018-06-01] MEDS: INSULIN REG, HUMAN 100 UNIT/ML 3 ML VIAL (PYX) SUBCUT PRN (11:48)
--- NOTE | 2018-06-01 16:36 | PDOC PROGRESS REPORT ---
Subjective Progress Note for:: 06/01/18 Subjective:: The patient feels somewhat better today. He is known to this provider as I took care of him several weeks ago. Reason For Visit: DIABETIC KETOACIDOSIS Physical Exam Vital Signs: Temp Pulse Resp BP Pulse Ox 97.8 F 93 18 128/75 H 98 06/01/18 11:16 06/01/18 11:16 06/01/18 11:16 06/01/18 11:16 06/01/18 11:16 Intake & Output 05/31/18 06/01/18 06/02/18 05:59 06:59 06:59 Intake Total 1000 Balance 1000 Weight General appearance: PRESENT: no acute distress, cooperative, thin Head exam: PRESENT: normocephalic Ear exam: PRESENT: normal external ear exam Mouth exam: PRESENT: moist, tongue midline Respiratory exam: PRESENT: clear to auscultation selena, symmetrical, unlabored. ABSENT: accessory muscle use, rales, rhonchi, wheezes Cardiovascular exam: PRESENT: RRR, +S1, +S2 GI/Abdominal exam: PRESENT: normal bowel sounds, soft. ABSENT: distended, tenderness Rectal exam: PRESENT: deferred Gentrourinary exam: ABSENT: indwelling catheter Extremities exam: ABSENT: pedal edema Musculoskeletal exam: PRESENT: ambulatory Neurological exam: PRESENT: alert, awake, oriented to person, oriented to place, oriented to time, oriented to situation, CN II-XII grossly intact Psychiatric exam: PRESENT: flat affect. ABSENT: agitated, anxious Focused psych exam: ABSENT: delusional, restlessness Results Laboratory Results: 06/01/18 08:07 06/01/18 08:07 05/31/18 05/31/18 05/31/18 19:16 20:20 20:20 WBC 7.2 RBC 4.20 L Hgb 13.5 Hct 40.1 MCV 96 MCH 32.1 MCHC 33.7 RDW 13.9 Plt Count 331 Seg Neutrophils % 64.2 Lymphocytes % 30.6 Monocytes % 4.3 Eosinophils % 0.1 Basophils % 0.8 Absolute Neutrophils 4.6 Absolute Lymphocytes 2.2 Absolute Monocytes 0.3 Absolute Eosinophils 0.0 Absolute Basophils 0.1 VBG pH VBG pCO2 VBG HCO3 VBG Base Excess Sodium 130.9 L Potassium 6.1 H* Chloride 97 L Carbon Dioxide 13 L Anion Gap 21 H BUN 28 H Creatinine 1.60 H Est GFR ( Amer) 58 L Est GFR (Non-Af Amer) 48 L Glucose 421 H* Calcium 9.5 Magnesium Total Bilirubin 0.6 AST 60 H ALT 34 Alkaline Phosphatase 166 H Total Protein 7.5 Albumin 4.6 Urine Color STRAW Urine Appearance CLEAR Urine pH 5.0 Ur Specific [place] 1.023 Urine Protein NEGATIVE Urine Glucose (UA) >=500 H Urine Ketones 80 H Urine Blood SMALL H Urine Nitrite NEGATIVE Ur Leukocyte Esterase NEGATIVE Urine WBC (Auto) 2 Urine RBC (Auto) 1 05/31/18 06/01/18 06/01/18 20:20 03:10 03:10 WBC RBC Hgb Hct MCV MCH MCHC RDW Plt Count Seg Neutrophils % Lymphocytes % Monocytes % Eosinophils % Basophils % Absolute Neutrophils Absolute Lymphocytes Absolute Monocytes Absolute Eosinophils Absolute Basophils VBG pH 7.15 L* 7.34 VBG pCO2 43.7 43.5 VBG HCO3 15.0 L 22.9 VBG Base Excess -13.4 -2.8 Sodium Cancelled Potassium Cancelled Chloride Cancelled Carbon Dioxide Cancelled Anion Gap Cancelled BUN Cancelled Creatinine Cancelled Est GFR ( Amer) Cancelled Est GFR (Non-Af Amer) Cancelled Glucose Cancelled Calcium Cancelled Magnesium Total Bilirubin AST ALT Alkaline Phosphatase Total Protein Albumin Urine Color Urine Appearance Urine pH Ur Specific [place] Urine Protein Urine Glucose (UA) Urine Ketones Urine Blood Urine Nitrite Ur Leukocyte Esterase Urine WBC (Auto) Urine RBC (Auto) 06/01/18 06/01/18 06/01/18 03:51 08:07 08:07 WBC 7.5 RBC 3.47 L Hgb 10.9 L D Hct 31.8 L MCV 92 D MCH 31.5 MCHC 34.4 RDW 14.2 H Plt Count 274 Seg Neutrophils % 42.2 Lymphocytes % 49.9 H Monocytes % 5.3 Eosinophils % 2.3 Basophils % 0.3 Absolute Neutrophils 3.1 Absolute Lymphocytes 3.7 Absolute Monocytes 0.4 Absolute Eosinophils 0.2 Absolute Basophils 0.0 VBG pH VBG pCO2 VBG HCO3 VBG Base Excess Sodium 135.6 L 135.0 L Potassium 3.7 D 4.0 Chloride 105 103 Carbon Dioxide 21 L 21 L Anion Gap 10 11 BUN 20 17 Creatinine 0.95 0.87 Est GFR ( Amer) > 60 > 60 Est GFR (Non-Af Amer) > 60 > 60 Glucose 93 139 H Calcium 8.4 8.3 L Magnesium 2.0 Total Bilirubin 0.7 AST 43 ALT 32 Alkaline Phosphatase 113 Total Protein 5.5 L Albumin 3.0 L Urine Color Urine Appearance Urine pH Ur Specific [place] Urine Protein Urine Glucose (UA) Urine Ketones Urine Blood Urine Nitrite Ur Leukocyte Esterase Urine WBC (Auto) Urine RBC (Auto) 06/01/18 08:07 WBC RBC Hgb Hct MCV MCH MCHC RDW Plt Count Seg Neutrophils % Lymphocytes % Monocytes % Eosinophils % Basophils % Absolute Neutrophils Absolute Lymphocytes Absolute Monocytes Absolute Eosinophils Absolute Basophils VBG pH 7.37 VBG pCO2 37.1 VBG HCO3 20.7 VBG Base Excess -4.1 Sodium Potassium Chloride Carbon Dioxide Anion Gap BUN Creatinine Est GFR ( Amer) Est GFR (Non-Af Amer) Glucose Calcium Magnesium Total Bilirubin AST ALT Alkaline Phosphatase Total Protein Albumin Urine Color Urine Appearance Urine pH Ur Specific [place] Urine Protein Urine Glucose (UA) Urine Ketones Urine Blood Urine Nitrite Ur Leukocyte Esterase Urine WBC (Auto) Urine RBC (Auto) Assessment & Plan - Diagnosis (1) DKA (diabetic ketoacidoses) Qualifiers: Diabetes mellitus type: type 1 Diabetes mellitus complication detail: without coma Qualified Code(s): E10.10 - Type 1 diabetes mellitus with ketoacidosis without coma Is this a current diagnosis for this admission?: Yes Plan: The patient is off of the insulin drip. We will restart his Lantus and sliding scale. He will be started on a consistent carbohydrate diet as well. As per his usual hospital course he will likely be ready for discharge tomorrow. (2) Anemia, chronic disease Is this a current diagnosis for this admission?: Yes Plan: He was most likely hemoconcentrated on arrival and with aggressive fluid hydration his hemoglobin is 10. This is chronic for this patient. (3) Vomiting Qualifiers: Vomiting type: unspecified Vomiting Intractability: non-intractable Nausea presence: with nausea Qualified Code(s): R11.2 - Nausea with vomiting, unspecified Is this a current diagnosis for this admission?: Yes Plan: He has Carafate to help soothe the esophagus from the vomiting. At the last admission we also talked about possible reflux disease. - Time Time Spent with patient: 15-24 minutes Medications reviewed and adjusted accordingly: Yes Anticipated discharge: Home Within: within 48 hours - Plan Summary Plan Summary: Start diet. Likely home tomorrow.
[2018-06-01] MEDS: SUCRALFATE 1 GM TABLET PO SCH ×2 (17:55→22:42)
[2018-06-01] MEDS: NORMAL SALINE 1000 ML 1,000 ML IV PRN (19:08)
[2018-06-02 04:37] VITALS: BP 122/77
[2018-06-02] MEDS: NORMAL SALINE 1000 ML 1,000 ML IV PRN (04:45)
[2018-06-02 04:58] LABS: HEMATOCRIT 33.1 % (37.9-51.0); HEMOGLOBIN 11.2 g/dL (13.5-17.0); MEAN CORPUSCULAR HEMOGLOBIN 31.2 pg (27.0-33.4); MEAN CORPUSCULAR HGB CONC 33.9 g/dL (32.0-36.0); MEAN CORPUSCULAR VOLUME 92 fl (80-97); PLATELET COUNT 243 10^3/uL (150-450); RED BLOOD COUNT 3.59 10^6/uL (4.35-5.55); RED CELL DISTRIBUTION WIDTH 14.3 % (11.5-14.0); WHITE BLOOD COUNT 6.1 10^3/uL (4.0-10.5)
[2018-06-02 05:56] LABS: ALBUMIN 2.7 g/dL (3.5-5.0); ANION GAP 7 (5-19); BLOOD UREA NITROGEN 12 mg/dL (7-20); CALCIUM 8.5 mg/dL (8.4-10.2); CARBON DIOXIDE 25 mmol/L (22-30); CHLORIDE 107 mmol/L (98-107); GLUCOSE 74 mg/dL (75-110); POTASSIUM 3.3 mmol/L (3.6-5.0)
[2018-06-02] MEDS: SUCRALFATE 1 GM TABLET PO SCH ×2 (09:34→12:32)
[2018-06-02] MEDS: METOCLOPRAMIDE HCL 10 MG TABLET PO SCH ×2 (09:34→12:32)
[2018-06-02] MEDS: FAMOTIDINE 20 MG TABLET PO SCH (09:34)
[2018-06-02] MEDS: ENOXAPARIN SODIUM INJ 40 MG/0.4 ML DISP.SYRIN SUBCUT SCH (09:35)
[2018-06-02] MEDS: DOCUSATE SODIUM 100 MG CAPSULE PO SCH (09:35)
[2018-06-02] MEDS: INSULIN GLARGINE,HUM.REC.ANLOG 300 UNIT/3 ML INSULN.PEN SUBCUT SCH (09:35)
[2018-06-02] MEDS: INSULIN REG, HUMAN 100 UNIT/ML 3 ML VIAL (PYX) SUBCUT PRN (12:32)
[2018-06-02] MEDS ORDERED: POTASSIUM CHLORIDE 10 MEQ CAPSULE.ER PO ONE ×2 (13:28→13:30)
--- NOTE | 2018-06-02 14:47 | PDOC DISCHARGE SUMMARY ---
General - Admit/Disc Date/PCP Admission Date/Primary Care Provider: 05/31/18 22:27 Discharge Date: 06/02/18 - Discharge Diagnosis (1) DKA (diabetic ketoacidoses) Is this a current diagnosis for this admission?: Yes Summary: The patient presented with bilateral lower extremity muscle cramps and was found to be in DKA with an anion gap 21, Bicarb 13, glucose 421. ABG demonstrated pH 7.15, pCO2 43.7, HCO3 15 The patient was admitted on continuous cardiac telemetry and provided standard care with aggressive IV fluid resuscitation, insulin drip, electrolyte replacement as indicated, and initially n.p.o. status. His anion gap acidosis subsequently improved and he was transitioned off the insulin drip to subcutaneous insulin and a consistent carb diet. His glucoses remained a dequately controlled with Lantus 20 units twice daily and Humalog for sliding scale coverage. The patient is discharged home in stable condition, tolerating a consistent carb diet, with acceptable blood sugars. He is advised to eat a consistent carb diet, drink plenty of water, and avoid EtOH/high sugar and carb foods. He is instructed to follow-up with his primary care provider within 1 week and to return to the emergency department as needed for concerning symptoms. (2) Hyperkalemia Is this a current diagnosis for this admission?: Yes Summary: Resolved; secondary to DKA. (3) Leg muscle spasm Is this a current diagnosis for this admission?: Yes Summary: Resolved; secondary to DKA, dehydration, electrolyte derangements. (4) Anemia, chronic disease Is this a current diagnosis for this admission?: Yes Summary: Anemia of chronic disease. Hemoglobin on admission was 13.5; trended down to 11.2 with adequate rehydration. No indications of active bleeding. (5) Vomiting Is this a current diagnosis for this admission?: Yes Summary: Resolved; secondary to DKA. Patient is now tolerating consistent carb diet without antiemetics. (6) Tobacco dependency Is this a current diagnosis for this admission?: Yes Summary: Smoking cessation strongly encouraged. A prescription for NicoDerm patches was provided. (7) Acute kidney injury Is this a current diagnosis for this admission?: Yes Summary: Resolved. Secondary to DKA and dehydration. Patient was admitted with creatinine of 1.60; has now returned to baseline of 0.95. - Additional Information Resuscitation Status: Full Code Discharge Diet: Cardiac, Diabetic Discharge Activity: Activity As Tolerated, Balance Activity w/Rest Prescriptions: Famotidine [Pepcid 20 mg Tablet] 20 mg PO Q12 #60 tablet Insulin Glargine,Hum.rec.anlog [Lantus Insulin 100 Unit/mL] 20 unit SUBCUT BID #1 insuln.pen Insulin Regular, Human [Humulin R (Reg) Insulin 100 unit/mL] 0 - 15 unit SUBCUT ACHSP PRN #3 vial PRN Reason: Nicotine [Nicoderm 21 mg/24 Hr Transderm Patch] 1 each TD DAILYP PRN #30 patch.td24 PRN Reason: Sucralfate [Carafate 1 gm Tablet] 1 gm PO ACHS #120 tablet Home Medications: Propranolol HCl [Inderal 20 mg Tablet] 20 mg PO Q12 06/01/18 Venlafaxine HCl [Effexor Xr] 150 mg PO DAILY 06/01/18 Acetaminophen [Tylenol 325 mg Tablet] 650 mg PO Q4HP PRN tablet 06/02/18 Famotidine [Pepcid 20 mg Tablet] 20 mg PO Q12 #60 tablet 06/02/18 Insulin Glargine,Hum.rec.anlog [Lantus Insulin 100 Unit/mL] 20 unit SUBCUT BID #1 insuln.pen 06/02/18 Insulin Regular, Human [Humulin R (Reg) Insulin 100 unit/mL] 0 - 15 unit SUBCUT ACHSP PRN #3 vial 06/02/18 Nicotine [Nicoderm 21 mg/24 Hr Transderm Patch] 1 each TD DAILYP PRN #30 patch.[email or web address] 06/02/18 Sucralfate [Carafate 1 gm Tablet] 1 gm PO ACHS #120 tablet 06/02/18 History of Present Illness History of Present Illness: Per H&P by Dr. Samaniego: JOSE DANIEL CLINTON is a 38 year old male who presented to the emergency room with acute onset of leg cramps. He reports sudden onset of severe leg cramps beginning a few hours prior to his admission. The cramps involve the calves and feet of both lower extremities. The pain was severe cramping without radiation and was exacerbated by weightbearing and movement. The cramps are also associated with mild generalized malaise, weakness and fatigue as well as subjective chills without fever. He admits having had prior similar episodes on numerous occasions when his diabetes has been out of control. He had not identified any other aggravating or ameliorating factors for his leg cramps. In the emergency room he was found to have mild hypotensio n, mild tachycardia, hyperkalemia, hyponatremia, hyperglycemia with ketosis and acidosis and was subsequently admitted to the hospital for treatment of his acute diabetic ketoacidosis. Physical Exam Vital Signs: Temp Pulse Resp BP Pulse Ox 97.9 F 78 20 122/77 96 06/02/18 04:08 06/02/18 04:08 06/02/18 04:08 06/02/18 04:08 06/02/18 04:08 Intake & Output 06/01/18 06/02/18 06/03/18 06:59 06:59 06:59 Intake Total 3962 Balance 3962 Weight 71.7 kg General appearance: PRESENT: no acute distress, cooperative, thin, well- developed, well-nourished Head exam: PRESENT: atraumatic, normocephalic Eye exam: PRESENT: conjunctiva pink, EOMI, PERRLA. ABSENT: scleral icterus Ear exam: PRESENT: normal external ear exam Mouth exam: PRESENT: moist, tongue midline Neck exam: ABSENT: carotid bruit, JVD, lymphadenopathy, thyromegaly Respiratory exam: PRESENT: clear to auscultation selena, symmetrical, unlabored. ABSENT: rales, rhonchi, wheezes Cardiovascular exam: PRESENT: RRR. ABSENT: diastolic murmur, rubs, systolic murmur Pulses: PRESENT: normal dorsalis pedis pul Vascular exam: PRESENT: normal capillary refill GI/Abdominal exam: PRESENT: normal bowel sounds, soft. ABSENT: distended, guarding, mass, organolmegaly, rebound, tenderness Rectal exam: PRESENT: deferred Extremities exam: PRESENT: full ROM. ABSENT: calf tenderness, clubbing, pedal edema Neurological exam: PRESENT: alert, awake, oriented to person, oriented to place, oriented to time, oriented to situation, CN II-XII grossly intact. ABSENT: motor sensory deficit Psychiatric exam: PRESENT: appropriate affect, normal mood. ABSENT: homicidal ideation, suicidal ideation Skin exam: PRESENT: dry, intact, warm. ABSENT: cyanosis, rash Results Laboratory Results: 06/02/18 04:11 06/02/18 04:11 06/02/18 06/02/18 04:11 04:11 WBC 6.1 RBC 3.59 L Hgb 11.2 L Hct 33.1 L MCV 92 MCH 31.2 MCHC 33.9 RDW 14.3 H Plt Count 243 Sodium 139.0 Potassium 3.3 L Chloride 107 Carbon Dioxide 25 Anion Gap 7 BUN 12 Creatinine 0.82 Est GFR ( Amer) > 60 Est GFR (Non-Af Amer) > 60 Glucose 74 L Calcium 8.5 Magnesium 2.0 Albumin 2.7 L Qualifiers - * PATIENT BEING DISCHARGED WITH ANY OF THE FOLLOWING DIAGNOSIS: No Plan Discharge Plan: Discharged home with self-care. Follow-up with primary care provider within 1 week. Monitor glucose before meals and at bedtime, keep log, and prevent to primary care provider at follow-up. Take insulin as prescribed. Eat a low-carb diet. Drink plenty of water. Stop smoking. Avoid alcohol, sugary drinks. Return to the emergency department as needed for concerning symptoms. Time Spent: Greater than 30 Minutes
== END 2018-06-02 13:39 | disposition home or self-care (01) | DRG 638 ==
LOC: ER 17:58 → EH 22:27 → 3N 06-01 05:33
PROVIDERS: ADMIT Emergency Medicine; ATTEND Emergency Medicine
DX: E10.10 Type 1 diabetes mellitus with ketoacidosis without coma (principal); E87.1 Hypo-osmolality and hyponatremia; N17.9 Acute kidney failure, unspecified; Z79.4 Long term (current) use of insulin; I95.9 Hypotension, unspecified; E87.5 Hyperkalemia; F17.200 Nicotine dependence, unspecified, uncomplicated; Z82.49 Family history of ischemic heart disease and other diseases of the circulatory system; Z82.3 Family history of stroke; Z83.3 Family history of diabetes mellitus; Z91.018 Allergy to other foods; M62.838 Other muscle spasm; D64.9 Anemia, unspecified; E86.0 Dehydration
CPT/HCPCS: 36415; 80048; 80053; 81001; 82040; 82803; 82962; 83735; 85025; 85027; 93005; 93010; 96361; 96374; 99291; J1650; J1815; J2405; J3490; J7030; J7060; J7120

== ENCOUNTER 2018-09-01 22:39 | Emergency (ER) | payer OTHER ==
[2018-09-01 22:59] VITALS: BP 127/77
== END 2018-09-01 23:59 | disposition left against medical advice (07) ==
LOC: ER 22:39
DX: Z53.21 Procedure and treatment not carried out due to patient leaving prior to being seen by health care provider (principal); R25.2 Cramp and spasm

== ENCOUNTER 2018-09-10 11:55 | Emergency (ER) | payer OTHER ==
[2018-09-10] MEDS ORDERED: NORMAL SALINE 1000 ML 2,000 ML IV ONE (12:33)
[2018-09-10] MEDS ORDERED: ONDANSETRON HCL INJ/PF 4 MG/2 ML SDV IV ONE (12:33)
--- NOTE | 2018-09-10 12:34 | ER Document Report ---
ED Medical Screen (RME) - General Chief Complaint: High Blood Sugar Stated Complaint: WEAKNESS,DIZZINESS Time Seen by Provider: 09/10/18 12:24 Mode of Arrival: Ambulatory Information source: Patient Notes: Patient is a 38-year-old male with history of diabetes who presents to the emergency department with chief complaint of hyperglycemia and vomiting. Patient reports blood sugars at work today were reading high on his meter. He does report he took 20 units of the short acting insulin waited approximately 1 hour in the meter continue to read high. Initial [id number] glucose at our f acility is 573. Patient also reports vomiting that began yesterday. He reports generalized fatigue, weakness and malaise. He does report he has a history of DKA, states this feels similar. Exam: Patient alert, oriented and answering all questions appropriately. Lung sounds clear and equal bilaterally. I have greeted and performed a rapid initial assessment of this patient. A comprehensive ED assessment and evaluation of the patient, analysis of test results and completion of the medical decision making process will be conducted by additional ED providers. Dictation of this chart was performed using voice recognition software; therefore, there may be some unintended grammatical errors. TRAVEL OUTSIDE OF THE [place] IN LAST 30 DAYS: No - Related Data Allergies/Adverse Reactions: honey [Honey] Allergy (Verified 09/10/18 11:57) No Known Drug Allergies Allergy (Verified 09/10/18 11:57) Past Medical History - Social History Chew tobacco use (# tins/day): No Frequency of alcohol use: None Drug Abuse: None - Past Medical History Cardiac Medical History: Denies: Hx Congestive Heart Failure, Hx Coronary Artery Disease, Hx DVT, Hx Heart Attack, Hx Hypercholesterolemia, Hx Hypertension, Hx Pulmonary Embolism Pulmonary Medical History: Reports: Hx Asthma, Hx Pneumonia Denies: Hx COPD, Hx Sleep Apnea Neurological Medical History: Reports: Hx Migraine. Denies: Hx Seizures Endocrine Medical History: Reports: Hx Diabetes Mellitus Type 1. Denies: Hx Diabetes Mellitus Type 2, Hx Hyperthyroidism, Hx Hypothyroidism Renal/ Medical History: Denies: Hx Peritoneal Dialysis GI Medical History: Denies: Hx Cirrhosis, Hx Gastroesophageal Reflux Disease, Hx Hepatitis Musculoskeltal Medical History: Denies Hx Arthritis, Denies Hx Gout, Reports Hx Musculoskeletal Trauma - Muscle strains and sprains Skin Medical History: Denies Hx Eczema, Denies Hx Psoriasis Psychiatric Medical History: Reports: Hx Anxiety, Hx Depression Infectious Medical History: Denies: Hx C-Diff, Hx Hepatitis, Hx MRSA Past Surgical History: Reports: Hx Oral Surgery - Teeth, Hx Urinary Tract Surgery - fractured penis repair, Other - Oral surgery as well as urinary tract surgery (fractured penis repair) - Immunizations Immunizations up to date: Yes Hx Diphtheria, Pertussis, Tetanus Vaccination: Yes Physical Exam - Vital signs Vitals: Temp Pulse Resp BP Pulse Ox 97.9 F 90 18 100/62 98 09/10/18 11:57 09/10/18 11:57 09/10/18 11:57 09/10/18 11:57 09/10/18 11:57 Course - Vital Signs Vital signs: Temp Pulse Resp BP Pulse Ox 97.9 F 90 18 100/62 98 09/10/18 11:57 09/10/18 11:57 09/10/18 11:57 09/10/18 11:57 09/10/18 11:57
[2018-09-10 13:04] LABS: ABSOLUTE BASOPHILS # (AUTO) 0.1 10^3/uL (0.0-0.2); ABSOLUTE EOSINOPHILS # (AUTO) 0.1 10^3/uL (0.0-0.6); ABSOLUTE LYMPHOCYTES (AUTO) 2.4 10^3/uL (0.5-4.7); ABSOLUTE MONOCYTES (AUTO) 0.3 10^3/uL (0.1-1.4); ABSOLUTE NEUT (AUTO) 2.5 10^3/uL (1.7-8.2); BASOPHILS % (AUTO) 1.3 % (0-2); EOSINOPHILS % (AUTO) 1.8 % (0-6); HEMATOCRIT 39.3 % (37.9-51.0); LYMPHOCYTES % (AUTO) 44.6 % (13-45); MEAN CORPUSCULAR HEMOGLOBIN 30.5 pg (27.0-33.4); MEAN CORPUSCULAR VOLUME 92 fl (80-97); MONOCYTES % (AUTO) 5.9 % (3-13); PLATELET COUNT 267 10^3/uL (150-450); RED BLOOD COUNT 4.26 10^6/uL (4.35-5.55); RED CELL DISTRIBUTION WIDTH 12.8 % (11.5-14.0); SEGMENTED NEUTROPHILS % (AUTO) 46.4 % (42-78); TOTAL CELLS COUNTED % (AUTO) 100 %; WHITE BLOOD COUNT 5.3 10^3/uL (4.0-10.5)
[2018-09-10 13:05] LABS: VENOUS BLOOD BASE EXCESS -3.4 mmol/L; VENOUS BLOOD HCO3 23.7 mmol/L (20-32); VENOUS BLOOD PCO2 50.8 mmHg (35-63); VENOUS BLOOD PH 7.29 (7.30-7.42)
[2018-09-10] MEDS ORDERED: INSULIN REG, HUMAN 100 UNIT/ML 3 ML VIAL (PYX) IV ONE ×2 (13:28→14:26)
[2018-09-10 13:31] LABS: ALANINE AMINOTRANSFERASE 25 U/L (21-72); ALBUMIN 4.5 g/dL (3.5-5.0); ALKALINE PHOSPHATASE 104 U/L (38-126); ANION GAP 14 (5-19); ASPARTATE AMINO TRANSFERASE 33 U/L (17-59); BILIRUBIN,DIRECT 0.3 mg/dL (0.0-0.4); BILIRUBIN,TOTAL 1.2 mg/dL (0.2-1.3); BLOOD UREA NITROGEN 17 mg/dL (7-20); CALCIUM 9.8 mg/dL (8.4-10.2); CARBON DIOXIDE 24 mmol/L (22-30); CHLORIDE 95 mmol/L (98-107); POTASSIUM 4.4 mmol/L (3.6-5.0); SODIUM 132.8 mmol/L (137-145); TOTAL PROTEIN 7.3 g/dL (6.3-8.2)
[2018-09-10 13:38] LABS: GLUCOSE 545 mg/dL (75-110)
--- NOTE | 2018-09-10 13:39 | RADIOLOGY REPORT (SQ) ---
EXAM DESCRIPTION: CHEST SINGLE VIEW COMPLETED DATE/TIME: 09/10/2018 1:25 pm REASON FOR STUDY: weakness, hyperglycemia COMPARISON: 02/08/2018 EXAM PARAMETERS: NUMBER OF VIEWS: One view. TECHNIQUE: Single frontal radiographic view of the chest acquired. RADIATION DOSE: NA LIMITATIONS: None. FINDINGS: LUNGS AND PLEURA: No opacities, masses or pneumothorax. No pleural effusion. MEDIASTINUM AND HILAR STRUCTURES: No masses. Contour normal. HEART AND VASCULAR STRUCTURES: Heart normal in size. Normal vasculature. BONES: No acute findings. HARDWARE: None in the chest. OTHER: No other significant finding. IMPRESSION: NO ACUTE RADIOGRAPHIC FINDING IN THE CHEST. TECHNICAL DOCUMENTATION: JOB ID: [id number] [employer]- All Rights Reserved Reading location - IP/workstation name: [email or web address]
[2018-09-10 15:50] LABS: APPEARANCE,URINE CLEAR; BILIRUBIN,URINE NEGATIVE (NEGATIVE); COLOR,URINE STRAW; GLUCOSE, URINE >=500 mg/dL (NEGATIVE); KETONES,URINE 20 mg/dL (NEGATIVE); LEUKOCYTE ESTERASE,URINE NEGATIVE (NEGATIVE); NITRITE,URINE NEGATIVE (NEGATIVE); PROTEIN,URINE NEGATIVE (NEGATIVE); URINE SPECIFIC GRAVITY 1.021; UROBILINOGEN,URINE NEGATIVE mg/dL (<2.0)
--- NOTE | 2018-09-10 16:04 | ER Document Report ---
ED General - General Chief Complaint: High Blood Sugar Stated Complaint: WEAKNESS,DIZZINESS Time Seen by Provider: 09/10/18 12:24 Primary Care Provider: CESARIO,MELODY [Primary Care Provider] - Follow up as needed Mode of Arrival: Ambulatory Notes: Patient with a history of insulin-dependent diabetes who says that since about 3 AM, he is been dizzy and lethargic and dry mouth. He is also been vomiting. His glucometer is reading high this morning and he gave himself 20 units of insulin, but the glucometer has continued to register high. He has had nausea and vomiting, mostly vomiting yesterday, just nausea today. Has not had any fevers. No other medical problems. TRAVEL OUTSIDE OF THE [place] IN LAST 30 DAYS: No - Related Data Allergies/Adverse Reactions: honey [Honey] Allergy (Verified 09/10/18 11:57) No Known Drug Allergies Allergy (Verified 09/10/18 11:57) Past Medical History - General Information source: Patient - Social History Smoking Status: Current Every Day Smoker Chew tobacco use (# tins/day): No Frequency of alcohol use: None Drug Abuse: None Family History: Reviewed & Not Pertinent, CAD, CVA, DM, Hyperlipidemia, Hypertension, Malignancy Patient has suicidal ideation: No Patient has homicidal ideation: No Pulmonary Medical History: Reports: Hx Asthma, Hx Pneumonia Neurological Medical History: Reports: Hx Migraine Endocrine Medical History: Reports: Hx Diabetes Mellitus Type 1 Musculoskeletal Medical History: Reports Hx Musculoskeletal Trauma - Muscle strains and sprains Psychiatric Medical History: Reports: Hx Anxiety, Hx Depression Past Surgical History: Reports: Hx Oral Surgery - Teeth, Hx Urinary Tract Surgery - fractured penis repair, Other - Oral surgery as well as urinary tract surgery (fractured penis repair) - Immunizations Immunizations up to date: Yes Hx Diphtheria, Pertussis, Tetanus Vaccination: Yes Hx Pneumococcal Vaccination: 03/25/16 Review of Systems - Review of Systems Notes: REVIEW OF SYSTEMS: CONSTITUTIONAL : Denies fever. EENT: Denies eye, ear, nose or mouth or throat pain or other symptoms. CARDIOVASCULAR: Denies chest pain. RESPIRATORY: Denies cough, chest congestion, or shortness of breath. GASTROINTESTINAL: See HPI. GENITOURINARY: Denies difficulty or painful urinating, urinary frequency, blood in urine. MUSCULOSKELETAL: Denies back or neck pain. Denies joint pain or swelling. SKIN: Denies rash or skin lesions. NEUROLOGICAL: Denies LOC or altered mental status. Denies headache. Denies sensory loss or motor deficits. ALL OTHER SYSTEMS REVIEWED AND NEGATIVE. Physical Exam - Vital signs Vitals: Temp Pulse Resp BP Pulse Ox 97.9 F 90 18 100/62 98 09/10/18 11:57 09/10/18 11:57 09/10/18 11:57 09/10/18 11:57 09/10/18 11:57 Interpretation: Normal Notes: PHYSICAL EXAMINATION: GENERAL: In no acute distress. Vital signs are all normal. HEAD: Atraumatic, normocephalic. EYES: Pupils equal round and reactive to light, extraocular movements intact. ENT: oropharynx clear without exudates. Moist mucous membranes. NECK: Normal range of motion, supple. LUNGS: Breath sounds clear and equal bilaterally. HEART: Regular rate and rhythm without murmurs. ABDOMEN: Soft, nontender. No guarding or rebound. No masses. BACK: No tenderness throughout entire back. EXTREMITIES: Normal range of motion without pain. NEUROLOGICAL: Normal speech, normal gait. Normal sensory, motor, and reflex exams. Awake, alert, and oriented x3. Cranial nerves normal. PSYCH: Normal mood, normal affect. SKIN: Warm, dry, no rashes. Course - Re-evaluation Re-evalutation: 09/10/18 16:19 Patient was started on an insulin drip. 2 bags of saline were hung to run wide open. Patient received Zofran IV 4 mg. [place] better. Says his mouth is still dry. Glucose level came down from over 500 to about 250. I think the patient probably would benefit by an overnight with some more IV fluids and him stabilized before sending him home tomorrow. Spoke with hospitalist who will assess the patient and determine if he can needs admission. Patient's blood sugar is now down into the 150 area. Is taking p.o. fluids without any problems. Feel like he can be discharged home. Prescription for Zofran. - Vital Signs Vital signs: Temp Pulse Resp BP Pulse Ox 97.9 F 83 13 117/66 100 09/10/18 11:57 09/10/18 17:42 09/10/18 17:00 09/10/18 17:01 09/10/18 17:01 - Laboratory Result Diagrams: 09/10/18 12:53 09/10/18 12:53 Laboratory results interpreted by me: 09/10/18 09/10/18 09/10/18 12:17 12:53 12:53 RBC 4.26 L Hgb 13.0 L VBG pH Sodium 132.8 L Chloride 95 L Glucose 545 H* POC Glucose 518 H* Urine Glucose (UA) Urine Ketones 09/10/18 09/10/18 09/10/18 12:53 15:39 16:03 RBC Hgb VBG pH 7.29 L Sodium Chloride Glucose POC Glucose 237 H Urine Glucose (UA) >=500 H Urine Ketones 20 H 09/10/18 16:55 RBC Hgb VBG pH Sodium Chloride Glucose POC Glucose 187 H Urine Glucose (UA) Urine Ketones Discharge - Discharge Clinical Impression: IDDM (insulin dependent diabetes mellitus), Vomiting, Hyperglycemia Condition: Stable Disposition: HOME, SELF-CARE Additional Instructions: HYPERGLYCEMIA (HIGH BLOOD SUGAR): You have an abnormally high blood sugar. Not all high blood sugar requires long-term treatment. High blood sugar can be due to medications, , or the stress of illness. (These cases are "borderline diabetes.") If the doctor feels your high blood sugar might resolve with time, you may not require treatment now. It's very important that you follow through, to see if the blood sugar returns to normal levels. Uncontrolled high blood sugar leads to early heart disease, strokes, nerve damage, eye damage, and kidney damage. Call the physician if there is faintness, excess sleepiness, or very rapid breathing. DIABETES: You have an abnormally high blood sugar, suspicious for diabetes. Not all h igh blood sugar requires long-term treatment. High blood sugar can be due to medications, , or the stress of illness. (These cases are "borderline diabetes.") If the doctor feels your high blood sugar might get better with time, you may not require treatment now. It's very important that you follow through. Uncontrolled high blood sugar leads to early heart disease, strokes, nerve damage, eye damage, and kidney damage. All diabetics should follow a diet designed to control the blood sugar. Overweight diabetics should exercise regularly and lose weight. If this is not sufficient to control the blood sugar, pills or insulin shots are necessary. Younger people who develop diabetes almost always require insulin daily. Home testing of blood sugars or urine sugar is required. Diabetic teaching is available to help you figure insulin doses and monitor the blood sugar. Call the physician if there is faintness, excess sleepiness, or very rapid breathing. If hypoglycemia (LOW blood sugar) develops, symptoms are shakiness, weakness, sweating, and confusion. In this case, you should eat or drink something with sugar at once. INSULIN: Insulin is a natural hormone that lowers blood sugar. Normal blood sugar prevents complications of diabetes. For most diabetics, insulin is the best way to treat the illness. Be sure you know how to measure the insulin correctly. Insulin is measured in "units." There are three types of insulin: N (NPH or long acting), R (regular or short acting), and L (Lente or very long acting). Be sure you are using the right amount of each type. Insulin must be injected into the fat. You can use the abdomen, upper arms, and thighs. Select a different injection site every time. Wipe the site with alcohol before injecting. When first starting insulin, some adjusting of the insulin dose is necessary. Keep a record of each insulin dose and time of injection, and of the blood sugar and the time you test it. Sometimes insulin can make the blood sugar too low. If you become dizzy, sweaty, shaky, or confused, you may be having a hypoglycemic episode. Immediately use juice or some other sweet food. Call the doctor if the symptoms don't go away. VOMITING: Vomiting (or nausea without vomiting) can be caused by many other different problems. It can mean that something's wrong with the stomach, such as ulcers or inflammation or the intestinal tract, such as appendicitis. But it can also be a symptom of a problem that has nothing to do with the stomach or intestines. Vomiting is common with severe headaches, earaches, tonsillitis, and kidney infections, etc. We see it with pneumonia or heart attacks. Drugs can cause nausea and vomiting. Many abdominal problems cause vomiting; for example, gallstones, kidney stones, pancreatitis, and intestinal obstruction (blocked bowels). In most cases, curing the vomiting depends on fixing the problem that caused it. For temporary relief, we may use an anti-nausea medicine. For home use, we can prescribe suppositories, chewable pills, pills that dissolve in the mouth, or liquid anti-nausea drugs. If the vomiting seems to be caused by a problem in the stomach, acid-suppressing drugs may be prescribed as well. It's important to avoid dehydration. Sip small amounts of clear liquids (soft drinks, tea, broth, etc) . Try to take fluids frequently even if you are vomiting to prevent dehydration. Take increasing amounts of fluid and when liquids are being consumed successfully, advance to small amounts of bland food (toast, soups, mashed potatoes, etc.) until you are able to resume a regular diet. Avoid aspirin, tobacco, and alcohol. If the vomiting worsens, if the problem that's making you vomit worsens, or if there's evidence of bleeding in the stomach (such as black, tarry stool, or bloody or black vomit), you should return immediately. Also, return if abdominal pain worsens or becomes localized to one area or you develop high fever. Call your doctor if you aren't improved in 24 hours. INTRAVENOUS (I V) FLUIDS: As part of your care today, you received intravenous (IV) fluids. IV fluids are administered to patients who are dehydrated or to those who have certain chemical (electrolyte) abnormalities that need correcting. ANTINAUSEA MEDICATION: You have been given a medication to suppress nausea and vomiting. This type of medication can be given as a shot, pill, or suppository. It will usually last for many hours. Pills and shots usually last six to eight hours. For the typical illness, only one or two doses of the medication may be necessary. Mild lightheadedness may occur. This type of medicine can cause drowsiness. Do not drive or operate dangerous machinery while under its influence. Do not mix with alcohol. See your doctor at once if you have muscle spasms or tightness, or uncontrollable motions (particularly of the neck, mouth, or jaw). Persistent vomiting or severe lightheadedness should also be evaluated by the physician. FOLLOW-UP CARE: If you have been referred to a physician for follow-up care, call the physicians office for an appointment as you were instructed or within the next two days. If you experience worsening or a significant change in your symptoms, notify the physician immediately or return to the Emergency Department at any t [facility] for re-evaluation. Prescriptions: Ondansetron [Zofran Odt 4 mg Tablet] 1 - 2 tab PO Q4H PRN #10 tab.rapdis PRN Reason: For Nausea/Vomiting [facility]errals: [facility] [Primary [facility]] - Follow up as needed
[2018-09-10 18:12] VITALS: BP 131/86
== END 2018-09-10 18:13 | disposition home or self-care (01) ==
LOC: ER 11:55 → UNDOADMOB 16:52 → EH 16:52 → ER 18:13
DX: E11.65 Type 2 diabetes mellitus with hyperglycemia (principal); R11.2 Nausea with vomiting, unspecified; R53.1 Weakness; R42 Dizziness and giddiness; R53.83 Other fatigue; Z79.4 Long term (current) use of insulin; F17.200 Nicotine dependence, unspecified, uncomplicated
CPT/HCPCS: 99285; 96361; 96374; 36415; 82962; 83735; 85025; 80053; 81001; 82803; 71045; J1815; J2405; J7030

== ENCOUNTER 2018-10-07 14:26 | Inpatient (IN) | payer OTHER ==
[2018-10-07] MEDS ORDERED: NORMAL SALINE 1000 ML 1,000 ML IV ONE ×2 (15:59→18:00)
--- NOTE | 2018-10-07 16:01 | ER Document Report ---
ED Medical Screen (RME) - General Chief Complaint: Heat Exposure Stated Complaint: LEG CRAMPS,WEAKNESS Time Seen by Provider: 10/07/18 15:52 Primary Care Provider: [facility] [Primary [facility]] - Follow up as needed Mode of Arrival: Medic Information source: Patient Notes: This 38-year-old male with history of diabetes presents to the emergency department via EMS. Patient reports he was working on his car last night. He woke up this morning hypoglycemic. He ate some juice and food and took his insulin. 8 units Humulin. Patient reports he was having body cramps. Last time this happened to him his potassium was low. He denies fever vomiting or diarrhea. Reports he has a headache but declines pain medication. I have greeted and performed a rapid initial assessment of this patient. A comprehensive ED assessment and evaluation of the patient, analysis of test results and completion of the medical decision making process will be conducted by additional ED providers. Dictation of this chart was performed using voice recognition software; therefore, there may be some unintended grammatical errors. TRAVEL OUTSIDE OF THE [place] IN LAST 30 DAYS: No - Related Data Allergies/Adverse Reactions: honey [Honey] Allergy (Verified 10/07/18 14:27) No Known Drug Allergies Allergy (Verified 10/07/18 14:27) Past Medical History - Past Medical History Cardiac Medical History: Denies: Hx Congestive Heart Failure, Hx Coronary Artery Disease, Hx DVT, Hx Heart Attack, Hx Hypercholesterolemia, Hx Hypertension, Hx Pulmonary Embolism Pulmonary Medical History: Reports: Hx Asthma, Hx Pneumonia Denies: Hx COPD, Hx Sleep Apnea Neurological Medical History: Reports: Hx Migraine. Denies: Hx Seizures Endocrine Medical History: Reports: Hx Diabetes Mellitus Type 1. Denies: Hx Diabetes Mellitus Type 2, Hx Hyperthyroidism, Hx Hypothyroidism Renal/ Medical History: Denies: Hx Peritoneal Dialysis GI Medical History: Denies: Hx Cirrhosis, Hx Gastroesophageal Reflux Disease, Hx Hepatitis Musculoskeltal Medical History: Denies Hx Arthritis, Denies Hx Gout, Reports Hx Musculoskeletal Trauma - Muscle strains and sprains Skin Medical History: Denies Hx Eczema, Denies Hx Psoriasis Psychiatric Medical History: Reports: Hx Anxiety, Hx Depression Infectious Medical History: Denies: Hx C-Diff, Hx Hepatitis, Hx MRSA Past Surgical History: Reports: Hx Oral Surgery - Teeth, Hx Urinary Tract Surgery - fractured penis repair, Other - Oral surgery as well as urinary tract surgery (fractured penis repair) - Immunizations Immunizations up to date: Yes Hx Diphtheria, Pertussis, Tetanus Vaccination: Yes Physical Exam - Vital signs Vitals: Temp Pulse Resp BP Pulse Ox 97.4 F 87 16 110/66 100 10/07/18 14:40 10/07/18 14:40 10/07/18 14:40 10/07/18 14:40 10/07/18 14:40 Course - Vital Signs Vital signs: Temp Pulse Resp BP Pulse Ox 97.4 F 87 16 110/66 100 10/07/18 14:40 10/07/18 14:40 10/07/18 14:40 10/07/18 14:40 10/07/18 14:40 Doctor's Discharge - Discharge Referrals: [facility] [Primary [facility]] - Follow up as needed
[2018-10-07 17:00] LABS: ABSOLUTE BASOPHILS # (AUTO) 0.1 10^3/uL (0.0-0.2); ABSOLUTE LYMPHOCYTES (AUTO) 2.6 10^3/uL (0.5-4.7); ABSOLUTE MONOCYTES (AUTO) 0.3 10^3/uL (0.1-1.4); ABSOLUTE NEUT (AUTO) 4.1 10^3/uL (1.7-8.2); BASOPHILS % (AUTO) 0.8 % (0-2); EOSINOPHILS % (AUTO) 0.5 % (0-6); HEMATOCRIT 40.9 % (37.9-51.0); HEMOGLOBIN 13.3 g/dL (13.5-17.0); LYMPHOCYTES % (AUTO) 36.7 % (13-45); MEAN CORPUSCULAR HEMOGLOBIN 30.3 pg (27.0-33.4); MEAN CORPUSCULAR HGB CONC 32.6 g/dL (32.0-36.0); MEAN CORPUSCULAR VOLUME 93 fl (80-97); MONOCYTES % (AUTO) 4.4 % (3-13); PLATELET COUNT 284 10^3/uL (150-450); RED CELL DISTRIBUTION WIDTH 13.2 % (11.5-14.0); SEGMENTED NEUTROPHILS % (AUTO) 57.6 % (42-78); TOTAL CELLS COUNTED % (AUTO) 100 %; WHITE BLOOD COUNT 7.1 10^3/uL (4.0-10.5)
[2018-10-07 17:01] LABS: VENOUS BLOOD BASE EXCESS -10.9 mmol/L; VENOUS BLOOD HCO3 16.2 mmol/L (20-32); VENOUS BLOOD PCO2 40.5 mmHg (35-63); VENOUS BLOOD PH 7.22 (7.30-7.42)
[2018-10-07 17:09] LABS: APPEARANCE,URINE CLEAR; BILIRUBIN,URINE NEGATIVE (NEGATIVE); COLOR,URINE YELLOW; GLUCOSE, URINE >=500 mg/dL (NEGATIVE); KETONES,URINE 80 mg/dL (NEGATIVE); LEUKOCYTE ESTERASE,URINE NEGATIVE (NEGATIVE); NITRITE,URINE NEGATIVE (NEGATIVE); PROTEIN,URINE NEGATIVE (NEGATIVE); URINE SPECIFIC GRAVITY 1.026; UROBILINOGEN,URINE NEGATIVE mg/dL (<2.0)
[2018-10-07 17:22] LABS: ALANINE AMINOTRANSFERASE 29 U/L (21-72); ALBUMIN 4.3 g/dL (3.5-5.0); ALKALINE PHOSPHATASE 136 U/L (38-126); ANION GAP 16 (5-19); ASPARTATE AMINO TRANSFERASE 40 U/L (17-59); BILIRUBIN,DIRECT 0.3 mg/dL (0.0-0.4); BILIRUBIN,TOTAL 0.9 mg/dL (0.2-1.3); BLOOD UREA NITROGEN 20 mg/dL (7-20); CALCIUM 10.3 mg/dL (8.4-10.2); CARBON DIOXIDE 16 mmol/L (22-30); CHLORIDE 104 mmol/L (98-107); CREATINE KINASE 544 U/L (55-170); GLUCOSE 330 mg/dL (75-110); POTASSIUM 5.5 mmol/L (3.6-5.0); SODIUM 135.9 mmol/L (137-145); TOTAL PROTEIN 7.2 g/dL (6.3-8.2)
--- NOTE | 2018-10-07 17:29 | ER Document Report ---
ED Heat Exposure - General Chief Complaint: Heat Exposure Stated Complaint: LEG CRAMPS,WEAKNESS Time Seen by Provider: 10/07/18 15:52 Mode of Arrival: Medic Notes: Patient is a 38-year-old male with a history of type 1 diabetes and heart murmur presents to the emergency department with a chief complaint of abdominal c ramping and bilateral leg cramping. Patient states that yesterday he worked outside most of the day at work and then came home and was working on his car outside. Patient states he has been drinking a lot of water. Patient states he has had similar symptoms in the past and when she was dehydrated. Patient states he has had no vomiting. Patient reports 2 episodes of diarrhea. Patient states he has not had any blood in his stool. Patient states he has been a urinating without difficulty. Patient states he does take Humalog as a sliding scale with meals and Lantus 20 units twice daily. Patient states he did take Humalog 8 units today at 1030. TRAVEL OUTSIDE OF THE [place] IN LAST 30 DAYS: No - Related Data Allergies/Adverse Reactions: honey [Honey] Allergy (Verified 10/07/18 14:27) No Known Drug Allergies Allergy (Verified 10/07/18 14:27) Past Medical History - General Information source: Patient - Social History Smoking Status: Current Every Day Smoker Chew tobacco use (# tins/day): No Frequency of alcohol use: None Drug Abuse: None Lives with: Family Family History: Reviewed & Not Pertinent, CAD, CVA, DM, Hyperlipidemia, Hypertension, Malignancy Patient has suicidal ideation: No Patient has homicidal ideation: No - Past Medical History Cardiac Medical History: Reports: None Denies: Hx Congestive Heart Failure, Hx Coronary Artery Disease, Hx DVT, Hx Heart Attack, Hx Hypercholesterolemia, Hx Hypertension, Hx Pulmonary Embolism Pulmonary Medical History: Reports: Hx Asthma, Hx Pneumonia Denies: Hx COPD, Hx Sleep Apnea EENT Medical History: Reports: None Neurological Medical History: Reports: Hx Migraine - INTERMITTENT. Denies: Hx Seizures Endocrine Medical History: Reports: Hx Diabetes Mellitus Type 1. Denies: Hx Diabetes Mellitus Type 2, Hx Hyperthyroidism, Hx Hypothyroidism Renal/ Medical History: Reports: None. Denies: Hx Peritoneal Dialysis Malignancy Medical History: Reports None GI Medical History: Reports: None. Denies: Hx Cirrhosis, Hx Gastroesophageal Reflux Disease, Hx Hepatitis Musculoskeletal Medical History: Denies Hx Arthritis, Denies Hx Gout, Reports Hx Musculoskeletal Trauma - Muscle strains and sprains Skin Medical History: Reports None, Denies Hx Eczema, Denies Hx Psoriasis Psychiatric Medical History: Reports: Hx Anxiety, Hx Depression Traumatic Medical History: Reports: None Infectious Medical History: Reports: None. Denies: Hx C-Diff, Hx Hepatitis, Hx MRSA Past Surgical History: Reports: Hx Oral Surgery - Teeth, Hx Urinary Tract Surgery - fractured penis repair, Other - Oral surgery as well as urinary tract surgery (fractured penis repair) - Immunizations Immunizations up to date: Yes Hx Diphtheria, Pertussis, Tetanus Vaccination: Yes Hx Pneumococcal Vaccination: 03/25/16 Review of Systems - Review of Systems Constitutional: See HPI EENT: No symptoms reported Cardiovascular: No symptoms reported Respiratory: No symptoms reported Gastrointestinal: See HPI Genitourinary: No symptoms reported Male Genitourinary: No symptoms reported Musculoskeletal: See HPI Skin: No symptoms reported Hematologic/Lymphatic: No symptoms reported Neurological/Psychological: No symptoms reported Physical Exam - Vital signs Vitals: Temp Pulse Resp BP Pulse Ox 97.4 F 87 16 110/66 100 10/07/18 14:40 10/07/18 14:40 10/07/18 14:40 10/07/18 14:40 10/07/18 14:40 Interpretation: Normal - Notes Notes: GENERAL: Ill-appearing, curled up in position and rocking back and forth HEAD: Atraumatic, normocephalic. EYES: Pupils equal round and reactive to light, extraocular movements intact, sclera anicteric, conjunctiva are normal. ENT: Nares patent, oropharynx clear without exudates. Dry mucous membranes. NECK: Normal range of motion, supple without lymphadenopathy or JVD. LUNGS: Breath sounds clear to auscultation bilaterally and equal. No wheezes rales or rhonchi. HEART: Regular rate and rhythm without murmurs, rubs or gallops. ABDOMEN: Soft, minimally tender throughout, normoactive bowel sounds. No guarding, no rebound. No masses appreciated. BACK: No cervical, thoracic, lumbar midline tenderness. No saddle anesthesia, normal distal neurovascular exam. GENITOURINARY: Deferred. EXTREMITIES: Normal range of motion, no pitting or edema. No clubbing or cyanosis. NEUROLOGICAL: Cranial nerves II through XII grossly intact. Normal speech, normal gait. PSYCH: Normal mood, normal affect. SKIN: Warm, Dry, normal turgor, no rashes or lesions noted. Course - Re-evaluation Re-evalutation: 10/07/18 17:15 Upon initial assessment patient is in the position on the stretcher and rocking back and forth. Patient states he continues to have a large amount of muscle cramping to the abdomen and his upper legs. Patient does have 1 L of fluid infusing. Labs pending. 10/07/18 17:55 Patient has received a half a liter of saline and reports feeling slightly better but continues to have lower back cramps, abdominal cramps and leg cramps. Patient continues to rest in the position but is not rocking back and forth and appears to be in less distress. 10/07/18 19:15 Patient reports feeling much better after 2 L of IV fluid. Patient has been tolerating liquids without vomiting or diarrhea. We will repeat the lab work. 10/07/18 21:07 I did speak with Dr. Grecia Puente my attending physician regarding patient's case. She recommends giving 1 amp of bicarb and getting the patient admitted. Patient does have a metabolic acidosis, with a hyperkalemia and hyperglycemia. I did speak with Dr. Cruz who will admit, and is aware that I have ordered 1 amp of bicarb and states he will come and see the patient in the emergency department. Patient remains hemodynamically stable. There is been no diarrhea or vomiting since arriving to the emergency department. - Vital Signs Vital signs: Temp Pulse Resp BP Pulse Ox 98.7 F 92 16 126/77 H 100 10/07/18 19:44 10/07/18 19:44 10/07/18 14:40 10/07/18 19:44 10/07/18 19:44 - Laboratory Result Diagrams: 10/07/18 16:45 10/07/18 22:10 Laboratory results interpreted by me: 10/07/18 10/07/18 10/07/18 16:45 16:45 16:45 Hgb 13.3 L VBG pH 7.22 L VBG HCO3 16.2 L Sodium 135.9 L Potassium 5.5 H Chloride Carbon Dioxide 16 L Glucose 330 H Serum Osmolality Calcium 10.3 H Alkaline Phosphatase 136 H Creatine Kinase 544 H Urine Glucose (UA) Urine Ketones Urine Blood 0710/07/18 10/07/18 16:45 19:35 19:38 Hgb VBG pH VBG HCO3 Sodium 136.2 L Potassium 5.9 H Chloride 108 H Carbon Dioxide 14 L Glucose 332 H Serum Osmolality 309 H Calcium Alkaline Phosphatase Creatine Kinase 496 H Urine Glucose (UA) >=500 H Urine Ketones 80 H Urine Blood SMALL H 10/07/18 19:38 Hgb VBG pH 7.17 L* VBG HCO3 13.9 L Sodium Potassium Chloride Carbon Dioxide Glucose Serum Osmolality Calcium Alkaline Phosphatase Creatine Kinase Urine Glucose (UA) Urine Ketones Urine Blood 10/08/18 And has a metabolic acidosis with an elevated glucose of 332. Patient also has elevated CK at 496. Patient's repeat potassium went from 5.5-5.9. - EKG Interpretation by Me Additional EKG results interpreted by me: 10/08/18 01:05 Patient's EKG shows a sinus rhythm with a heart rate of 97, ND interval is 140, QT is 328 and QTc is 417. Patient has a normal axis deviation with borderline T wave abnormalities. There is no specific ST elevation. Discharge - Discharge Clinical Impression: Metabolic acidosis, Abdominal cramping, Leg cramps, Hyperkalemia Diarrhea Qualifiers: Diarrhea type: unspecified type Qualified Code(s): R19.7 - Diarrhea, unspecified Type 1 diabetes Qualifiers: Diabetes mellitus complication status: with other specified complication Qualified Code(s): E10.69 - Type 1 diabetes mellitus with other specified c omplication Condition: Stable Disposition: ADMITTED INPATIENT Admitting Provider: Anthony (Hospitalist) Unit Admitted: Telemetry
[2018-10-07] MEDS ORDERED: IBUPROFEN 600 MG TABLET PO ONE (18:00)
[2018-10-07 19:58] LABS: VENOUS BLOOD BASE EXCESS -13.9 mmol/L; VENOUS BLOOD HCO3 13.9 mmol/L (20-32)
[2018-10-07 20:07] LABS: VENOUS BLOOD PH 7.17 (7.30-7.42)
[2018-10-07 20:17] LABS: ALANINE AMINOTRANSFERASE 26 U/L (21-72); ALBUMIN 3.6 g/dL (3.5-5.0); ALKALINE PHOSPHATASE 119 U/L (38-126); ANION GAP 14 (5-19); ASPARTATE AMINO TRANSFERASE 31 U/L (17-59); BILIRUBIN,DIRECT 0.3 mg/dL (0.0-0.4); BILIRUBIN,TOTAL 0.7 mg/dL (0.2-1.3); BLOOD UREA NITROGEN 16 mg/dL (7-20); CARBON DIOXIDE 14 mmol/L (22-30); CHLORIDE 108 mmol/L (98-107); CREATINE KINASE 496 U/L (55-170); GLUCOSE 332 mg/dL (75-110); SODIUM 136.2 mmol/L (137-145); TOTAL PROTEIN 6.3 g/dL (6.3-8.2)
[2018-10-07 20:18] LABS: POTASSIUM 5.9 mmol/L (3.6-5.0)
[2018-10-07] MEDS ORDERED: SODIUM BICARBONATE 8.4% INJ 50 MEQ/50 ML DISP.SYRIN IV ONE (21:02)
[2018-10-07] MEDS ORDERED: GLUCAGON,HUMAN RECOMB 1 MG INJ IM PRN (21:08)
[2018-10-07] MEDS ORDERED: DEXTROSE 40% GEL 15 GM TUBE PO PRN ×2 (21:08)
[2018-10-07] MEDS ORDERED: DEXTROSE 50%-WATER 25 GM/50 ML DISP.SYRIN IV PRN ×2 (21:08)
[2018-10-07] MEDS ORDERED: NORMAL SALINE 100 ML with INSULIN REGULAR, HUMAN 100 UNIT IV PRN ×2 (21:11)
[2018-10-07] MEDS ORDERED: ACETAMINOPHEN 650 MG SUPP.RECT PR PRN (21:12)
[2018-10-07] MEDS ORDERED: ACETAMINOPHEN 325 MG TABLET PO PRN (21:12)
[2018-10-07] MEDS ORDERED: IPRATROPIUM/ALBUTEROL 0.5-2.5 MG/3 ML AMPUL NEB PRN (21:12)
[2018-10-07] MEDS ORDERED: MAG HYDROX/AL HYDROX/SIMETH SUSP 30 ML UDCUP PO PRN (21:12)
[2018-10-07] MEDS ORDERED: POTASSI CL 20 MEQ/D5-1/2NS 1L 1,000 ML IV SCH (21:15)
[2018-10-07] MEDS ORDERED: ACETAMINOPHEN 325 MG TABLET ONE (21:33)
[2018-10-07 22:46] LABS: URINE POTASSIUM 23.8 mmol/L (17-99)
[2018-10-07 22:48] LABS: BLOOD UREA NITROGEN 15 mg/dL (7-20); CALCIUM 9.1 mg/dL (8.4-10.2); POTASSIUM 5.4 mmol/L (3.6-5.0)
[2018-10-07 22:53] LABS: CHLORIDE 103 mmol/L (98-107); SODIUM 134.3 mmol/L (137-145)
[2018-10-07 23:01] LABS: URINE AMPHETAMINES SCREEN NEGATIVE; URINE BARBITURATES SCREEN NEGATIVE; URINE BENZODIAZEPINES SCREEN NEGATIVE; URINE COCAINE SCREEN NEGATIVE; URINE MARIJUANA (THC) SCREEN NEGATIVE; URINE METHADONE SCREEN NEGATIVE; URINE PHENCYCLIDINE SCREEN NEGATIVE
[2018-10-07 23:02] LABS: CARBON DIOXIDE 10 mmol/L (22-30); GLUCOSE 496 mg/dL (75-110)
[2018-10-07 23:03] LABS: ANION GAP 21 (5-19)
[2018-10-07] MEDS: DEXTROSE 5%-1/2 NORMAL SALINE 1,000 ML IV PRN (23:05)
[2018-10-07] MEDS: HEPARIN SOD (PORCINE) 5,000 UNIT/ML 1 ML SYRINGE SUBCUT SCH (23:08)
--- NOTE | 2018-10-07 23:21 | PDOC H&P ---
History of Present Illness Admission Date/PCP: 10/07/18 21:39 [facility] Patient complains of: Abdominal pain History of Present Illness: JOSE DANIEL CLINTON is a 38 year old male with a past medical history of hypertension, tobacco, poorly controlled insulin-dependent diabetes and recurrent DKA. He presents with 24 hours of polyuria, polydipsia, abdominal pain nausea without vomiting and uncontrolled blood sugar. Patient admits medication, lifestyle indiscretion. In the emergency room is found to have urinary ketones, severe acidosis and is referred to the hospitalist for admission. Patient indicates he is afraid the [place] is trying to kill him but denies depression, anxiety, homicidal or suicidal ideation. Past Medical History Cardiac Medical History: Reports: None Denies: Congestive Heart Failure, Coronary Artery Disease, DVT, Myocardial Infarction, Hyperlipidema, Hypertension, Pulmonary Embolism Pulmonary Medical History: Reports: Asthma, Pneumonia Denies: Chronic Obstructive Pulmonary Disease (COPD), Sleep Apnea EENT Medical History: Reports: None Neurological Medical History: Reports: Migraine - INTERMITTENT Denies: Seizures Endocrine Medical History: Reports: Diabetes Mellitus Type 1 Denies: Diabetes Mellitus Type 2, Hyperthyroidism, Hypothyroidism Renal/ Medical History: Reports: None Malignancy Medical History: Reports: None GI Medical History: Reports: None Denies: Cirrhosis, Gastroesophageal Reflux Disease, Hepatitis Musculoskeltal Medical History: Denies: Arthritis, Gout Skin Medical History: Reports: None Denies: Eczema, Psoriasis Psychiatric Medical History: Reports: Depression Traumatic Medical History: Reports: None Hematology: Denies: Anemia, Bleeding Tendencies Infectious Medical History: Reports: None Denies: Clostridium Difficile, Methicillin-Resistant Staph Aureus Past Surgical History Past Surgical History: Reports: Other - Oral surgery as well as urinary tract surgery (fractured penis repair) Social History Information Source: Patient Lives with: Family Smoking Status: Current Every Day Smoker Frequency of Alcohol Use: Social Hx Recreational Drug Use: No Drugs: None Hx Prescription Drug Abuse: No - Advance Directive Resuscitation Status: Full Code Family History Family History: Reviewed & Not Pertinent, CAD, CVA, DM, Hyperlipidemia, Hypertension, Malignancy Parental Family History Reviewed: Yes Children Family History Reviewed: Yes Sibling(s) Family History Reviewed.: Yes Medication/Allergy Home Medications: Insulin Glargine,Hum.rec.anlog [Lantus Insulin 100 Unit/1 ml 10 ml] 20 units SQ Q12 10/07/18 Insulin Lispro [Humalog Insulin (Lispro) 100 unit/mL] See Protocol SQ MEALS 10/07/18 Allergies/Adverse Reactions: honey [Honey] Allergy (Verified 10/07/18 14:27) No Known Drug Allergies Allergy (Verified 10/07/18 14:27) Review of Systems Constitutional: PRESENT: as per HPI, anorexia, fatigue, weakness, weight loss Eyes: ABSENT: visual disturbances Ears: ABSENT: hearing changes Cardiovascular: ABSENT: chest pain, dyspnea on exertion, edema, orthropnea, palpitations Respiratory: ABSENT: cough, hemoptysis Gastrointestinal: PRESENT: as per HPI, nausea. ABSENT: abdominal pain, constipation, diarrhea, hematemesis, hematochezia, vomiting Genitourinary: ABSENT: dysuria, hematuria Musculoskeletal: ABSENT: joint swelling Integumentary: ABSENT: rash, wounds Neurological: ABSENT: abnormal gait, abnormal speech, confusion, dizziness, focal weakness, syncope Psychiatric: ABSENT: anxiety, depression, homidical ideation, suicidal ideation Endocrine: ABSENT: cold intolerance, heat intolerance, polydipsia, polyuria Hematologic/Lymphatic: ABSENT: easy bleeding, easy bruising Physical Exam Vital Signs: Temp Pulse Resp BP Pulse Ox 98.7 F 92 16 126/77 H 100 10/07/18 19:44 10/07/18 19:44 10/07/18 14:40 10/07/18 19:44 10/07/18 19:44 Intake & Output 10/06/18 10/07/18 10/08/18 11:59 11:59 11:59 Intake Total 1999 Balance 1999 Weight 72.575 kg General appearance: PRESENT: cooperative, mild distress, thin, well-developed Head exam: PRESENT: atraumatic, normocephalic Eye exam: PRESENT: conjunctiva pink, EOMI, PERRLA. ABSENT: scleral icterus Ear exam: PRESENT: normal external ear exam Mouth exam: PRESENT: dry mucosa, tongue midline Neck exam: ABSENT: carotid bruit, JVD, lymphadenopathy, thyromegaly Respiratory exam: PRESENT: clear to auscultation selena, tachypnea. ABSENT: rales, rhonchi, wheezes Cardiovascular exam: PRESENT: RRR. ABSENT: diastolic murmur, rubs, systolic murmur Pulses: PRESENT: normal dorsalis pedis pul Vascular exam: PRESENT: normal capillary refill GI/Abdominal exam: PRESENT: normal bowel sounds, soft. ABSENT: distended, guarding, mass, organolmegaly, rebound, tenderness Rectal exam: PRESENT: deferred Extremities exam: PRESENT: full ROM. ABSENT: calf tenderness, clubbing, pedal edema Neurological exam: PRESENT: alert, awake, oriented to person, oriented to place, oriented to time, oriented to situation, CN II-XII grossly intact. ABSENT: motor sensory deficit Psychiatric exam: PRESENT: flat affect. ABSENT: agitated, anxious, appropriate affect, depressed, homicidal ideation, manic, normal mood, suicidal ideation, unusual affect, other Skin exam: PRESENT: dry, intact, warm. ABSENT: cyanosis, rash Results Laboratory Results: 10/07/18 16:45 10/07/18 22:10 10/07/18 10/07/18 10/07/18 16:45 16:45 16:45 WBC 7.1 RBC 4.40 Hgb 13.3 L Hct 40.9 MCV 93 MCH 30.3 MCHC 32.6 RDW 13.2 Plt Count 284 Seg Neutrophils % 57.6 Lymphocytes % 36.7 Monocytes % 4.4 Eosinophils % 0.5 Basophils % 0.8 Absolute Neutrophils 4.1 Absolute Lymphocytes 2.6 Absolute Monocytes 0.3 Absolute Eosinophils 0.0 Absolute Basophils 0.1 VBG pH 7.22 L VBG pCO2 40.5 VBG HCO3 16.2 L VBG Base Excess -10.9 Sodium 135.9 L Potassium 5.5 H Chloride 104 Carbon Dioxide 16 L Anion Gap 16 BUN 20 Creatinine 1.18 Est GFR ( Amer) > 60 Est GFR (Non-Af Amer) > 60 Glucose 330 H Serum Osmolality Calcium 10.3 H Magnesium Total Bilirubin 0.9 AST 40 ALT 29 Alkaline Phosphatase 136 H Total Protein 7.2 Albumin 4.3 Lipase Urine Color Urine Appearance Urine pH Ur Specific [place] Urine Protein Urine Glucose (UA) Urine Ketones Urine Blood Urine Nitrite Ur Leukocyte Esterase Urine WBC (Auto) Urine RBC (Auto) 10/07/18 10/07/18 10/07/18 16:45 19:35 19:38 WBC RBC Hgb Hct MCV MCH MCHC RDW Plt Count Seg Neutrophils % Lymphocytes % Monocytes % Eosinophils % Basophils % Absolute Neutrophils Absolute Lymphocytes Absolute Monocytes Absolute Eosinophils Absolute Basophils VBG pH VBG pCO2 VBG HCO3 VBG Base Excess Sodium 136.2 L Potassium 5.9 H Chloride 108 H Carbon Dioxide 14 L Anion Gap 14 BUN 16 Creatinine 1.02 Est GFR ( Amer) > 60 Est GFR (Non-Af Amer) > 60 Glucose 332 H Serum Osmolality 309 H Calcium 9.0 Magnesium Total Bilirubin 0.7 AST 31 ALT 26 Alkaline Phosphatase 119 Total Protein 6.3 Albumin 3.6 Lipase Urine Color YELLOW Urine Appearance CLEAR Urine pH 6.0 Ur Specific [place] 1.026 Urine Protein NEGATIVE Urine Glucose (UA) >=500 H Urine Ketones 80 H Urine Blood SMALL H Urine Nitrite NEGATIVE Ur Leukocyte Esterase NEGATIVE Urine WBC (Auto) 11 Urine RBC (Auto) 2 10/07/18 10/07/18 10/07/18 19:38 21:45 22:10 WBC RBC Hgb Hct MCV MCH MCHC RDW Plt Count Seg Neutrophils % Lymphocytes % Monocytes % Eosinophils % Basophils % Absolute Neutrophils Absolute Lymphocytes Absolute Monocytes Absolute Eosinophils Absolute Basophils VBG pH 7.17 L* VBG pCO2 39.0 VBG HCO3 13.9 L VBG Base Excess -13.9 Sodium 134.3 L Potassium 5.4 H Chloride 103 Carbon Dioxide 10 L* Anion Gap 21 H BUN 15 Creatinine 1.10 Est GFR ( Amer) > 60 Est GFR (Non-Af Amer) > 60 Glucose 496 H* Serum Osmolality Calcium 9.1 Magnesium Total Bilirubin AST ALT Alkaline Phosphatase Total Protein Albumin Lipase Urine Color Urine Appearance Urine pH Ur Specific [place] 1.025 Urine Protein Urine Glucose (UA) Urine Ketones Urine Blood Urine Nitrite Ur Leukocyte Esterase Urine WBC (Auto) Urine RBC (Auto) 10/07/18 10/07/18 22:10 22:10 WBC RBC Hgb Hct MCV MCH MCHC RDW Plt Count Seg Neutrophils % Lymphocytes % Monocytes % Eosinophils % Basophils % Absolute Neutrophils Absolute Lymphocytes Absolute Monocytes Absolute Eosinophils Absolute Basophils VBG pH VBG pCO2 VBG HCO3 VBG Base Excess Sodium Potassium Chloride Carbon Dioxide Anion Gap BUN Creatinine Est GFR ( Amer) Est GFR (Non-Af Amer) Glucose Serum Osmolality Calcium Magnesium 1.7 Total Bilirubin AST ALT Alkaline Phosphatase Total Protein Albumin Lipase 60.9 Urine Color Urine Appearance Urine pH Ur Specific [place] Urine Protein Urine Glucose (UA) Urine Ketones Urine Blood Urine Nitrite Ur Leukocyte Esterase Urine WBC (Auto) Urine RBC (Auto) 10/07/18 10/07/18 16:45 19:38 Creatine Kinase 544 H 496 H Assessment and Plan - Diagnosis (1) DKA (diabetic ketoacidoses) Is this a current diagnosis for this admission?: Yes Plan: Diabetic ketoacidosis patient has had some degree of polyuria polydipsia with nausea and uncontrolled hyperglycemia with supporting labs. Patient will receive IV fluids IV insulin serial chemistries every 6 hours for evaluation for electrolyte repletion. Continued evaluation for underlying cause if not found Patient will require diabetic education and consideration of mental health [place]. (2) Hyperkalemia Is this a current diagnosis for this admission?: Yes Plan: Some T wave changes on EKG, follow-up chemistry with anticipation of rapid reduction (3) DKA, type 1 Qualifiers: Is this a current diagnosis for this admission?: Yes Plan: Education (4) Depression Qualifiers: Is this a current diagnosis for this admission?: Yes Plan: Denies homicidal or suicidal ideation, consider mental health consult, trial trazodone - Time Time Spent with patient: 35 or more minutes - Inpatient Certification Medical Necessity: Need Close Monitoring Due to Risk of Patient Decompensation
[2018-10-07] MEDS ORDERED: TRAZODONE HCL 50 MG TABLET PO ONE (23:59)
[2018-10-08 02:49] LABS: BLOOD UREA NITROGEN 14 mg/dL (7-20); CARBON DIOXIDE 17 mmol/L (22-30); CHLORIDE 109 mmol/L (98-107); GLUCOSE 269 mg/dL (75-110)
[2018-10-08 03:06] LABS: ANION GAP 11 (5-19); SODIUM 137.4 mmol/L (137-145)
[2018-10-08 03:09] LABS: POTASSIUM 3.9 mmol/L (3.6-5.0)
[2018-10-08] MEDS: DEXTROSE 5%-1/2 NORMAL SALINE 1,000 ML IV PRN (03:31)
[2018-10-08] MEDS ORDERED: POTASSI CL 20 MEQ/D5NS 1L 20 MEQ/1,000 ML RTUINJ IV PRN (05:45)
[2018-10-08 06:29] LABS: ABSOLUTE BASOPHILS # (AUTO) 0.1 10^3/uL (0.0-0.2); ABSOLUTE EOSINOPHILS # (AUTO) 0.1 10^3/uL (0.0-0.6); ABSOLUTE LYMPHOCYTES (AUTO) 3.4 10^3/uL (0.5-4.7); ABSOLUTE MONOCYTES (AUTO) 0.3 10^3/uL (0.1-1.4); ABSOLUTE NEUT (AUTO) 3.5 10^3/uL (1.7-8.2); BASOPHILS % (AUTO) 0.7 % (0-2); EOSINOPHILS % (AUTO) 1.7 % (0-6); HEMATOCRIT 37.2 % (37.9-51.0); HEMOGLOBIN 12.5 g/dL (13.5-17.0); LYMPHOCYTES % (AUTO) 46.5 % (13-45); MEAN CORPUSCULAR HEMOGLOBIN 30.4 pg (27.0-33.4); MEAN CORPUSCULAR HGB CONC 33.6 g/dL (32.0-36.0); MEAN CORPUSCULAR VOLUME 90 fl (80-97); MONOCYTES % (AUTO) 4.2 % (3-13); PLATELET COUNT 264 10^3/uL (150-450); RED BLOOD COUNT 4.12 10^6/uL (4.35-5.55); RED CELL DISTRIBUTION WIDTH 13.2 % (11.5-14.0); SEGMENTED NEUTROPHILS % (AUTO) 46.9 % (42-78); TOTAL CELLS COUNTED % (AUTO) 100 %; WHITE BLOOD COUNT 7.4 10^3/uL (4.0-10.5)
[2018-10-08 06:47] LABS: CHOLESTEROL 163.26 mg/dL (0-200); TRIGLYCERIDES 151 mg/dL (<150)
[2018-10-08] MEDS: HEPARIN SOD (PORCINE) 5,000 UNIT/ML 1 ML SYRINGE SUBCUT SCH ×3 (06:53→21:48)
[2018-10-08 06:56] LABS: ANION GAP 6 (5-19); BLOOD UREA NITROGEN 13 mg/dL (7-20); CALCIUM 8.8 mg/dL (8.4-10.2); CARBON DIOXIDE 21 mmol/L (22-30); CHLORIDE 111 mmol/L (98-107); GLUCOSE 100 mg/dL (75-110); POTASSIUM 3.6 mmol/L (3.6-5.0); SODIUM 138.4 mmol/L (137-145)
[2018-10-08 06:58] LABS: DIRECT LDL 70 mg/dL (<100)
[2018-10-08 07:02] LABS: VLDL CHOLESTEROL 30.2 mg/dL (10-31)
--- NOTE | 2018-10-08 07:56 | EKG REPORT ---
SEVERITY:- BORDERLINE ECG - SINUS RHYTHM BORDERLINE T WAVE ABNORMALITIES : Confirmed by: Shamar Greene MD 08-Oct-2018 07:55:21
[2018-10-08] MEDS ORDERED: NORMAL SALINE 1000 ML 1,000 ML IV PRN (08:39)
[2018-10-08] MEDS: INSULIN GLARGINE,HUM.REC.ANLOG 1,000 UNIT/10 ML VIAL SUBCUT SCH ×2 (09:44→21:45)
[2018-10-08] MEDS ORDERED: INSULIN GLARGINE,HUM.REC.ANLOG 1,000 UNIT/10 ML VIAL SUBCUT SCH (10:00)
[2018-10-08 11:23] LABS: ANION GAP 8 (5-19); BLOOD UREA NITROGEN 12 mg/dL (7-20); CALCIUM 8.5 mg/dL (8.4-10.2); CARBON DIOXIDE 20 mmol/L (22-30); CHLORIDE 107 mmol/L (98-107); GLUCOSE 274 mg/dL (75-110); SODIUM 134.7 mmol/L (137-145)
[2018-10-08 11:30] LABS: POTASSIUM 4.5 mmol/L (3.6-5.0)
[2018-10-08] MEDS: INSULIN LISPRO 100 UNIT/ML 3 ML VIAL SUBCUT SCH ×3 (13:42→21:47)
[2018-10-08 15:41] LABS: ANION GAP 6 (5-19); BLOOD UREA NITROGEN 11 mg/dL (7-20); CALCIUM 8.3 mg/dL (8.4-10.2); CARBON DIOXIDE 20 mmol/L (22-30); CHLORIDE 107 mmol/L (98-107); GLUCOSE 262 mg/dL (75-110); POTASSIUM 4.2 mmol/L (3.6-5.0); SODIUM 133.4 mmol/L (137-145)
[2018-10-08] MEDS ORDERED: INSULIN LISPRO 100 UNIT/ML 3 ML VIAL SUBCUT ONE (18:04)
--- NOTE | 2018-10-08 19:54 | Progress Note Acknowledgement ---
Progress Note Acknowledgement Progess Note Acknowledgement: I, the undersigned member of the medical staff with appropriate privileges and with supervisory authority over Janiya Hussein, a [facility] allied health professional, acknowledge that I have reviewed the progress notes entered on this patient, and in my professional judgment believe that the assessment made and/or any care evidenced was appropriate
[2018-10-08] MEDS ORDERED: NICOTINE 14 MG/24 HR PATCH.TD24 TD PRN (20:03)
--- NOTE | 2018-10-08 20:04 | PDOC PROGRESS REPORT ---
Subjective Progress Note for:: 10/08/18 Subjective:: JOSE DANIEL CLINTON is a 38 year old male with a past medical history of hypertension, tobacco, poorly controlled insulin-dependent diabetes and recurrent DKA admitted 10/07/2018 for DKA. Patient was seen on afternoon rounds. He is found resting in bed comfortably on room air eating his lunch. He reports that he continues to have fatigue and buttocks discomfort from a fall from standing to hard floor. Otherwise he reports that he feels well. He denies fever, chills, body aches, chest pain, palpitations, dyspnea, orthopnea, abdominal pain, nausea vomiting and diarrhea. He has no other questions or concerns. No concerns per nursing. Reason For Visit: DKA Physical Exam Vital Signs: Temp Pulse Resp BP Pulse Ox 98.7 F 91 15 116/78 100 10/07/18 19:44 10/08/18 18:33 10/08/18 14:01 10/08/18 17:01 10/08/18 17:01 Intake & Output 10/07/18 10/08/18 10/09/18 06:59 06:59 06:59 Intake Total 3649 2026 Balance 3649 2026 Weight 72.575 kg General appearance: PRESENT: no acute distress, well-developed, well-nourished Head exam: PRESENT: atraumatic, normocephalic Eye exam: PRESENT: conjunctiva pink, EOMI, PERRLA. ABSENT: scleral icterus Ear exam: PRESENT: normal external ear exam Mouth exam: PRESENT: moist, tongue midline Neck exam: ABSENT: carotid bruit, JVD, lymphadenopathy, thyromegaly Respiratory exam: PRESENT: clear to auscultation selena. ABSENT: rales, rhonchi, wheezes Cardiovascular exam: PRESENT: RRR. ABSENT: diastolic murmur, rubs, systolic murmur Pulses: PRESENT: normal dorsalis pedis pul Vascular exam: PRESENT: normal capillary refill GI/Abdominal exam: PRESENT: normal bowel sounds, soft. ABSENT: distended, guarding, mass, organolmegaly, rebound, tenderness Rectal exam: PRESENT: deferred Extremities exam: PRESENT: full ROM. ABSENT: calf tenderness, clubbing, pedal edema Musculoskeletal exam: PRESENT: ambulatory Neurological exam: PRESENT: alert, awake, oriented to person, oriented to place, oriented to time, oriented to situation, CN II-XII grossly intact. ABSENT: motor sensory deficit Psychiatric exam: PRESENT: appropriate affect, normal mood. ABSENT: homicidal ideation, suicidal ideation Skin exam: PRESENT: dry, intact, warm. ABSENT: cyanosis, rash Results Laboratory Results: 10/08/18 06:16 10/08/18 14:19 10/07/18 10/07/18 10/07/18 19:35 19:38 19:38 WBC RBC Hgb Hct MCV MCH MCHC RDW Plt Count Seg Neutrophils % Lymphocytes % Monocytes % Eosinophils % Basophils % Absolute Neutrophils Absolute Lymphocytes Absolute Monocytes Absolute Eosinophils Absolute Basophils VBG pH 7.17 L* VBG pCO2 39.0 VBG HCO3 13.9 L VBG Base Excess -13.9 Sodium 136.2 L Potassium 5.9 H Chloride 108 H Carbon Dioxide 14 L Anion Gap 14 BUN 16 Creatinine 1.02 Est GFR ( Amer) > 60 Est GFR (Non-Af Amer) > 60 Glucose 332 H Serum Osmolality 309 H Calcium 9.0 Magnesium Total Bilirubin 0.7 AST 31 ALT 26 Alkaline Phosphatase 119 Total Protein 6.3 Albumin 3.6 Triglycerides Cholesterol LDL Cholesterol Direct VLDL Cholesterol HDL Cholesterol Lipase Ur Specific [place] 10/07/18 10/07/18 10/07/18 21:45 22:10 22:10 WBC RBC Hgb Hct MCV MCH MCHC RDW Plt Count Seg Neutrophils % Lymphocytes % Monocytes % Eosinophils % Basophils % Absolute Neutrophils Absolute Lymphocytes Absolute Monocytes Absolute Eosinophils Absolute Basophils VBG pH VBG pCO2 VBG HCO3 VBG Base Excess Sodium 134.3 L Potassium 5.4 H Chloride 103 Carbon Dioxide 10 L* Anion Gap 21 H BUN 15 Creatinine 1.10 Est GFR ( Amer) > 60 Est GFR (Non-Af Amer) > 60 Glucose 496 H* Serum Osmolality Calcium 9.1 Magnesium 1.7 Total Bilirubin AST ALT Alkaline Phosphatase Total Protein Albumin Triglycerides Cholesterol LDL Cholesterol Direct VLDL Cholesterol HDL Cholesterol Lipase Ur Specific [place] 1.025 10/07/18 10/08/18 10/08/18 22:10 02:15 06:16 WBC RBC Hgb Hct MCV MCH MCHC RDW Plt Count Seg Neutrophils % Lymphocytes % Monocytes % Eosinophils % Basophils % Absolute Neutrophils Absolute Lymphocytes Absolute Monocytes Absolute Eosinophils Absolute Basophils VBG pH VBG pCO2 VBG HCO3 VBG Base Excess Sodium 137.4 138.4 Potassium 3.9 D 3.6 Chloride 109 H 111 H Carbon Dioxide 17 L 21 L Anion Gap 11 6 BUN 14 13 Creatinine 1.05 0.88 Est GFR ( Amer) > 60 > 60 Est GFR (Non-Af Amer) > 60 > 60 Glucose 269 H 100 Serum Osmolality Calcium 9.0 8.8 Magnesium Total Bilirubin AST ALT Alkaline Phosphatase Total Protein Albumin Triglycerides Cholesterol LDL Cholesterol Direct VLDL Cholesterol HDL Cholesterol Lipase 60.9 Ur Specific [place] 10/08/18 10/08/18 10/08/18 06:16 06:16 10:47 WBC 7.4 RBC 4.12 L Hgb 12.5 L Hct 37.2 L MCV 90 MCH 30.4 MCHC 33.6 RDW 13.2 Plt Count 264 Seg Neutrophils % 46.9 Lymphocytes % 46.5 H Monocytes % 4.2 Eosinophils % 1.7 Basophils % 0.7 Absolute Neutrophils 3.5 Absolute Lymphocytes 3.4 Absolute Monocytes 0.3 Absolute Eosinophils 0.1 Absolute Basophils 0.1 VBG pH VBG pCO2 VBG HCO3 VBG Base Excess Sodium 134.7 L Potassium 4.5 Chloride 107 Carbon Dioxide 20 L Anion Gap 8 BUN 12 Creatinine 0.96 Est GFR ( Amer) > 60 Est GFR (Non-Af Amer) > 60 Glucose 274 H Serum Osmolality Calcium 8.5 Magnesium Total Bilirubin AST ALT Alkaline Phosphatase Total Protein Albumin Triglycerides 151 H Cholesterol 163.26 LDL Cholesterol Direct 70 VLDL Cholesterol 30.2 HDL Cholesterol 52 Lipase Ur Specific [place] 10/08/18 14:19 WBC RBC Hgb Hct MCV MCH MCHC RDW Plt Count Seg Neutrophils % Lymphocytes % Monocytes % Eosinophils % Basophils % Absolute Neutrophils Absolute Lymphocytes Absolute Monocytes Absolute Eosinophils Absolute Basophils VBG pH VBG pCO2 VBG HCO3 VBG Base Excess Sodium 133.4 L Potassium 4.2 Chloride 107 Carbon Dioxide 20 L Anion Gap 6 BUN 11 Creatinine 0.97 Est GFR ( Amer) > 60 Est GFR (Non-Af Amer) > 60 Glucose 262 H Serum Osmolality Calcium 8.3 L Magnesium Total Bilirubin AST ALT Alkaline Phosphatase Total Protein Albumin Triglycerides Cholesterol LDL Cholesterol Direct VLDL Cholesterol HDL Cholesterol Lipase Ur Specific [place] 10/07/18 10/07/18 16:45 19:38 Creatine Kinase 544 H 496 H Assessment and Plan - Diagnosis (1) DKA (diabetic ketoacidoses) Qualifiers: Diabetes mellitus type: type 1 Diabetes mellitus complication detail: without coma Qualified Code(s): E10.10 - Type 1 diabetes mellitus with ketoacidosis without coma Is this a current diagnosis for this admission?: Yes Plan: The patient is admitted on continuous cardiac telemetry. Standard care set for DKA has been instituted; has received aggressive IV fluid resuscitation. He was initially placed on an insulin drip. His anion gap is closed and bicarb is greater than 17. Therefore he has been transitioned to subcutaneous Lantus with sliding scale insulin. He was trialed on a clear liquid diet; tolerated well, and so was advanced to consistent carb. Continue to monitor Accu-Cheks before meals and at bedtime with sliding scale insulin. Registered dietitian, clinical educator, and discharge planning are consulted. (2) Hyperkalemia Is this a current diagnosis for this admission?: Yes Plan: Resolved. Initially had some T wave changes on EKG. We will continue monitor serial chemistries. (3) Depression Qualifiers: Is this a current diagnosis for this admission?: Yes Plan: Denies homicidal or suicidal ideation, consider mental health consult, trial trazodone (4) Tobacco dependency Is this a current diagnosis for this admission?: Yes Plan: Smoking cessation is encouraged, nicotine replacement therapies are provided. - Time Time Spent with patient: 25-34 minutes Medications reviewed and adjusted accordingly: Yes Anticipated discharge: Home Within: within 24 hours
[2018-10-08 20:26] LABS: ANION GAP 11 (5-19); BLOOD UREA NITROGEN 12 mg/dL (7-20); CALCIUM 8.4 mg/dL (8.4-10.2); CARBON DIOXIDE 17 mmol/L (22-30); CHLORIDE 106 mmol/L (98-107); GLUCOSE 381 mg/dL (75-110); POTASSIUM 4.4 mmol/L (3.6-5.0); SODIUM 134.1 mmol/L (137-145)
[2018-10-08] MEDS: TRAMADOL HCL 50 MG TABLET PO PRN (21:47)
[2018-10-08] MEDS ORDERED: TRAZODONE HCL 50 MG TABLET PO SCH (22:00)
[2018-10-09 05:05] LABS: ANION GAP 5 (5-19); BLOOD UREA NITROGEN 13 mg/dL (7-20); CALCIUM 8.4 mg/dL (8.4-10.2); CARBON DIOXIDE 23 mmol/L (22-30); CHLORIDE 112 mmol/L (98-107); SODIUM 140.1 mmol/L (137-145)
[2018-10-09] MEDS: HEPARIN SOD (PORCINE) 5,000 UNIT/ML 1 ML SYRINGE SUBCUT SCH (05:12)
[2018-10-09 05:14] VITALS: BP 102/60
[2018-10-09 05:17] LABS: POTASSIUM 3.3 mmol/L (3.6-5.0)
[2018-10-09 05:18] LABS: GLUCOSE 48 mg/dL (75-110)
[2018-10-09] MEDS: POTASSI CL 20 MEQ/50 ML RIDER 20 MEQ/50 ML RTUPB IV SCH ×2 (05:56→10:20)
[2018-10-09] MEDS ORDERED: POTASSIUM CHLORIDE 10 MEQ CAPSULE.ER PO ONE ×2 (06:00→09:59)
[2018-10-09] MEDS: TRAMADOL HCL 50 MG TABLET PO PRN ×2 (06:56→12:11)
--- NOTE | 2018-10-09 10:14 | PDOC DISCHARGE SUMMARY ---
General - Admit/Disc Date/PCP Admission Date/Primary Care Provider: 10/07/18 21:39 [facility] Discharge Date: 10/09/18 - Discharge Diagnosis (1) DKA (diabetic ketoacidoses) Is this a current diagnosis for this admission?: Yes Summary: The patient was admitted on continuous cardiac telemetry. Standard care set for DKA was instituted. He received aggressive IV fluid resuscitation and was initially placed on an insulin drip. His anion gap is closed and bicarb is greater than 17. He has been transitioned to subcutaneous Lantus with sliding scale insulin. His diet has been advanced, which he is tolerating well. He declines the need for refills of his insulin at home. He has been provided the opportunity to meet with the paraeducator prior to discharge. Patient is discharged to home. He is advised to follow-up with his primary care provider within 1 week. He is instructed to continue consistent carb diet and to take his medications as prescribed. He is encouraged to return to the emergency department as needed for concerning symptoms. (2) Hyperkalemia Is this a current diagnosis for this admission?: Yes Summary: Resolved. (3) Depression Is this a current diagnosis for this admission?: Yes Summary: Stable. Started on trazodone; have provided a prescription to continue post discharge. (4) Tobacco dependency Is this a current diagnosis for this admission?: Yes Summary: Smoking cessation strongly encouraged. Prescription for Nicoderm patches provided. - Additional Information Resuscitation Status: Full Code Discharge Diet: Diabetic Discharge Activity: Activity As Tolerated, Balance Activity w/Rest Prescriptions: Nicotine [Nicoderm 14 mg/24 Hr Transdermal Patch] 1 each TD DAILYP PRN #30 patch.td24 PRN Reason: Tramadol HCl [Ultram 50 mg Tablet] 50 mg PO Q4HP PRN #12 tablet PRN Reason: Trazodone HCl [Desyrel 50 mg Tablet] 100 mg PO QHS #30 tablet Home Medications: Insulin Glargine,Hum.rec.anlog [Lantus Insulin 100 Unit/1 ml 10 ml] 20 units SQ Q12 10/07/18 Insulin Lispro [Humalog Insulin (Lispro) 100 unit/mL] See Protocol SQ MEALS 10/07/18 Acetaminophen [Tylenol 325 mg Tablet] 650 mg PO Q4HP PRN tablet 10/09/18 Nicotine [Nicoderm 14 mg/24 Hr Transdermal Patch] 1 each TD DAILYP PRN #30 patc h.td24 10/09/18 Tramadol HCl [Ultram 50 mg Tablet] 50 mg PO Q4HP PRN #12 tablet 10/09/18 Trazodone HCl [Desyrel 50 mg Tablet] 100 mg PO QHS #30 tablet 10/09/18 History of Present Illness History of Present Illness: Per H&P by Dr. Clinton: JOSE DANIEL CLINTON is a 38 year old male with a past medical history of hypertension, tobacco, poorly controlled insulin-dependent diabetes and recurrent DKA. He presents with 24 hours of polyuria, polydipsia, abdominal pain nausea without vomiting and uncontrolled blood sugar. Patient admits medication, lifestyle indiscretion. In the emergency room is found to have urinary ketones, severe acidosis and is referred to the hospitalist for admission. Patient indicates [facility] is [facility] but denies depression, anxiety, homicidal or suicidal ideation. Physical Exam Vital Signs: Temp Pulse Resp BP Pulse Ox 97.5 F 82 10 L 102/60 96 10/09/18 04:11 10/09/18 04:11 10/09/18 04:11 10/09/18 04:11 10/09/18 04:11 Intake & Output 10/08/18 10/09/18 10/10/18 06:59 06:59 06:59 Intake Total 3649 2377 Output Total 0 Balance 3649 2377 Weight 72.575 kg 72.3 kg General appearance: PRESENT: no acute distress, thin, well-developed, well- nourished Head exam: PRESENT: atraumatic, normocephalic Eye exam: PRESENT: conjunctiva pink, EOMI, PERRLA. ABSENT: scleral icterus Ear exam: PRESENT: normal external ear exam Mouth exam: PRESENT: moist, tongue midline Neck exam: ABSENT: carotid bruit, JVD, lymphadenopathy, thyromegaly Respiratory exam: PRESENT: clear to auscultation selena. ABSENT: rales, rhonchi, wheezes Cardiovascular exam: PRESENT: RRR. ABSENT: diastolic murmur, rubs, systolic murmur Pulses: PRESENT: normal dorsalis pedis pul Vascular exam: PRESENT: normal capillary refill GI/Abdominal exam: PRESENT: normal bowel sounds, soft. ABSENT: distended, guarding, mass, organolmegaly, rebound, tenderness Rectal exam: PRESENT: deferred Extremities exam: PRESENT: full ROM. ABSENT: calf tenderness, clubbing, pedal edema Neurological exam: PRESENT: alert, awake, oriented to person, oriented to place, oriented to time, oriented to situation, CN II-XII grossly intact. ABSENT: motor sensory deficit Psychiatric exam: PRESENT: agitated, appropriate affect, normal mood. ABSENT: homicidal ideation, suicidal ideation Skin exam: PRESENT: dry, intact, warm. ABSENT: cyanosis, rash Results Laboratory Results: 10/08/18 06:16 10/09/18 04:21 10/08/18 10/08/18 10/08/18 10:47 14:19 19:44 Sodium 134.7 L 133.4 L 134.1 L Potassium 4.5 4.2 4.4 Chloride 107 107 106 Carbon Dioxide 20 L 20 L 17 L Anion Gap 8 6 11 BUN 12 11 12 Creatinine 0.96 0.97 1.00 Est GFR ( Amer) > 60 > 60 > 60 Est GFR (Non-Af Amer) > 60 > 60 > 60 Glucose 274 H 262 H 381 H Calcium 8.5 8.3 L 8.4 10/09/18 04:21 Sodium 140.1 Potassium 3.3 L D Chloride 112 H Carbon Dioxide 23 Anion Gap 5 BUN 13 Creatinine 0.84 Est GFR ( Amer) > 60 Est GFR (Non-Af Amer) > 60 Glucose 48 L Calcium 8.4 10/07/18 10/07/18 16:45 19:38 Creatine Kinase 544 H 496 H Qualifiers - * PATIENT BEING DISCHARGED WITH ANY OF THE FOLLOWING DIAGNOSIS: No Acute Heart Failure - Is this a Heart Failure Patient?: No Plan Discharge Plan: Follow up with your primary care provider within 1 week. Eat a consistent carb diet. Take your medications as prescribed. Return to the emergency department as needed for concerning symptoms. Time Spent: Greater than 30 Minutes
[2018-10-09] MEDS: INSULIN GLARGINE,HUM.REC.ANLOG 1,000 UNIT/10 ML VIAL SUBCUT SCH (10:23)
[2018-10-09] MEDS: INSULIN LISPRO 100 UNIT/ML 3 ML VIAL SUBCUT SCH ×2 (10:24→12:12)
== END 2018-10-09 16:45 | disposition home or self-care (01) | DRG 639 ==
LOC: ER 14:26 → EH 21:39 → 3N 10-08 18:27
PROVIDERS: ADMIT Internal Medicine; ATTEND Internal Medicine
DX: E10.10 Type 1 diabetes mellitus with ketoacidosis without coma (principal); I10 Essential (primary) hypertension; Z79.4 Long term (current) use of insulin; F17.200 Nicotine dependence, unspecified, uncomplicated; F32.9 Major depressive disorder, single episode, unspecified; G43.909 Migraine, unspecified, not intractable, without status migrainosus; Z82.49 Family history of ischemic heart disease and other diseases of the circulatory system; Z82.3 Family history of stroke; Z83.3 Family history of diabetes mellitus; E87.5 Hyperkalemia
CPT/HCPCS: 36415; 80048; 80053; 80061; 80307; 81001; 81002; 82550; 82570; 82803; 82962; 83036; 83690; 83735; 83930; 84133; 84300; 85025; 87070; 93005; 93010; 99285; J1644; J1815; J3480; J3490; J7030; J7050

== ENCOUNTER 2018-10-10 09:16 | Emergency (ER) | payer OTHER ==
--- NOTE | 2018-10-10 10:40 | ER Document Report ---
ED Medical Screen (RME) - General Chief Complaint: Leg Pain Stated Complaint: LEG CRAMPING Time Seen by Provider: 10/10/18 10:39 Primary Care Provider: MELODY NASSAR [Primary Care Provider] - Follow up as needed TRAVEL OUTSIDE OF THE [place] IN LAST 30 DAYS: No - HPI Notes: 10/10/18 10:39 Patient is a 38-year-old male with a history of hypertension, tobacco, poorly controlled insulin-dependent diabetes who presents to the emergency department complaining of leg cramping and abdominal cramping that began today. Patient is homeless and is outside walking constantly. He was admitted to the hospital on Saturday for DKA and discharged yesterday. Patient states that he did have an episode of nausea and vomiting. Patient states that he is not urinating as much. He has received some fluids and 0.5 mg of Ativan by EMS. Denies MUNOZ, fever, neck pain, URI, CP, SOB, dysuria, back pain, or rash. I have treated and performed a rapid initial assessment of this patient. A comprehensive ED assessment and evaluation of the patient, analysis of test results and completion of medical decision making process will be conducted by additional ED providers. PHYSICAL EXAMINATION: GENERAL: Well-appearing, well-nourished and in no acute distress. A&Ox4. Answers questions appropriately. LUNGS: Breath sounds clear to auscultation bilaterally and equal. No wheezes rales or rhonchi. HEART: Regular rate and rhythm without murmurs, rubs, gallops. NEUROLOGICAL: Normal speech, normal gait. Cranial nerves grossly intact - Related Data Allergies/Adverse Reactions: honey [Honey] Allergy (Verified 10/10/18 09:19) No Known Drug Allergies Allergy (Verified 10/10/18 09:19) Past Medical History - Past Medical History Cardiac Medical History: Denies: Hx Congestive Heart Failure, Hx Coronary Artery Disease, Hx DVT, Hx Heart Attack, Hx Hypercholesterolemia, Hx Hypertension, Hx Pulmonary Embolism Pulmonary Medical History: Reports: Hx Asthma, Hx Pneumonia Denies: Hx COPD, Hx Sleep Apnea Neurological Medical History: Reports: Hx Migraine - INTERMITTENT. Denies: Hx Seizures Endocrine Medical History: Reports: Hx Diabetes Mellitus Type 1. Denies: Hx Diabetes Mellitus Type 2, Hx Hyperthyroidism, Hx Hypothyroidism Renal/ Medical History: Denies: Hx Peritoneal Dialysis GI Medical History: Denies: Hx Cirrhosis, Hx Gastroesophageal Reflux Disease, Hx Hepatitis Musculoskeltal Medical History: Denies Hx Arthritis, Denies Hx Gout, Reports Hx Musculoskeletal Trauma - Muscle strains and sprains Skin Medical History: Denies Hx Eczema, Denies Hx Psoriasis Psychiatric Medical History: Reports: Hx Anxiety, Hx Depression Infectious Medical History: Denies: Hx C-Diff, Hx Hepatitis, Hx MRSA Past Surgical History: Reports: Hx Oral Surgery - Teeth, Hx Urinary Tract Surgery - fractured penis repair, Other - Oral surgery as well as urinary tract surgery (fractured penis repair) - Immunizations Immunizations up to date: Yes Hx Diphtheria, Pertussis, Tetanus Vaccination: Yes Physical Exam - Vital signs Vitals: Temp Pulse Resp BP Pulse Ox 98.5 F 108 H 18 155/99 H 100 10/10/18 09:23 10/10/18 09:23 10/10/18 09:23 10/10/18 09:23 10/10/18 09:23 Course - Vital Signs Vital signs: Temp Pulse Resp BP Pulse Ox 98.5 F 108 H 18 155/99 H 100 10/10/18 09:23 10/10/18 09:23 10/10/18 09:23 10/10/18 09:23 10/10/18 09:23 Doctor's Discharge - Discharge Referrals: [facility] [Primary Care [facility]] - Follow up as needed
[2018-10-10] MEDS ORDERED: ONDANSETRON HCL INJ/PF 4 MG/2 ML SDV IV ONE (10:41)
[2018-10-10] MEDS: NORMAL SALINE 1000 ML 1,000 ML IV PRN ×2 (10:57→12:03)
[2018-10-10 11:16] LABS: APPEARANCE,URINE SLIGHTLY-CLOUDY; BILIRUBIN,URINE NEGATIVE (NEGATIVE); COLOR,URINE YELLOW; GLUCOSE, URINE >=500 mg/dL (NEGATIVE); KETONES,URINE NEGATIVE (NEGATIVE); LEUKOCYTE ESTERASE,URINE SMALL (NEGATIVE); NITRITE,URINE NEGATIVE (NEGATIVE); PROTEIN,URINE NEGATIVE (NEGATIVE); URINE SPECIFIC GRAVITY 1.027; UROBILINOGEN,URINE NEGATIVE mg/dL (<2.0)
[2018-10-10 11:43] LABS: ABSOLUTE LYMPHOCYTES (AUTO) 2.7 10^3/uL (0.5-4.7); ABSOLUTE MONOCYTES (AUTO) 0.4 10^3/uL (0.1-1.4); ABSOLUTE NEUT (AUTO) 2.4 10^3/uL (1.7-8.2); BASOPHILS % (AUTO) 0.6 % (0-2); EOSINOPHILS % (AUTO) 0.4 % (0-6); HEMATOCRIT 34.6 % (37.9-51.0); HEMOGLOBIN 11.5 g/dL (13.5-17.0); LYMPHOCYTES % (AUTO) 48.9 % (13-45); MEAN CORPUSCULAR HEMOGLOBIN 30.5 pg (27.0-33.4); MEAN CORPUSCULAR HGB CONC 33.3 g/dL (32.0-36.0); MEAN CORPUSCULAR VOLUME 92 fl (80-97); MONOCYTES % (AUTO) 6.5 % (3-13); PLATELET COUNT 225 10^3/uL (150-450); RED BLOOD COUNT 3.78 10^6/uL (4.35-5.55); RED CELL DISTRIBUTION WIDTH 12.9 % (11.5-14.0); SEGMENTED NEUTROPHILS % (AUTO) 43.6 % (42-78); TOTAL CELLS COUNTED % (AUTO) 100 %; WHITE BLOOD COUNT 5.5 10^3/uL (4.0-10.5)
[2018-10-10 11:45] LABS: VENOUS BLOOD BASE EXCESS -1.1 mmol/L; VENOUS BLOOD HCO3 24.3 mmol/L (20-32); VENOUS BLOOD PCO2 43.6 mmHg (35-63); VENOUS BLOOD PH 7.36 (7.30-7.42)
[2018-10-10] MEDS ORDERED: NORMAL SALINE 1000 ML 1,000 ML IV ONE (12:02)
[2018-10-10 12:09] LABS: ALANINE AMINOTRANSFERASE 19 U/L (21-72); ALBUMIN 3.8 g/dL (3.5-5.0); ALKALINE PHOSPHATASE 88 U/L (38-126); ANION GAP 9 (5-19); ASPARTATE AMINO TRANSFERASE 32 U/L (17-59); BILIRUBIN,DIRECT 0.2 mg/dL (0.0-0.4); BILIRUBIN,TOTAL 0.6 mg/dL (0.2-1.3); BLOOD UREA NITROGEN 16 mg/dL (7-20); CALCIUM 9.1 mg/dL (8.4-10.2); CARBON DIOXIDE 25 mmol/L (22-30); CHLORIDE 107 mmol/L (98-107); GLUCOSE 103 mg/dL (75-110); LIPASE 33.8 U/L (23-300); POTASSIUM 3.6 mmol/L (3.6-5.0); SODIUM 140.5 mmol/L (137-145); TOTAL PROTEIN 6.5 g/dL (6.3-8.2)
--- NOTE | 2018-10-10 12:09 | ER Document Report ---
ED General - General Chief Complaint: Leg Pain Stated Complaint: LEG CRAMPING Time Seen by Provider: 10/10/18 10:39 Primary Care Provider: [facility] [Primary [facility]] - Follow up as needed Mode of Arrival: Medic Information source: Patient TRAVEL OUTSIDE OF THE [place] IN LAST 30 DAYS: No - HPI Patient complains to provider of: dehydration Onset: This morning - Pt. has been outside walking (he is homeless) and became weak and had cramps in both legs. He was in the ED here earlier this wk for hypokalemia - Related Data Allergies/Adverse Reactions: honey [Honey] Allergy (Verified 10/10/18 09:19) No Known Drug Allergies Allergy (Verified 10/10/18 09:19) Past Medical History - General Information source: Patient - Social History Smoking Status: Former Smoker Frequency of alcohol use: None Drug Abuse: None Family History: Reviewed & Not Pertinent, CAD, CVA, DM, Hyperlipidemia, Hypertension, Malignancy Patient has suicidal ideation: No Patient has homicidal ideation: No - Past Medical History Cardiac Medical History: Denies: Hx Congestive Heart Failure, Hx Coronary Artery Disease, Hx DVT, Hx Heart Attack, Hx Hypercholesterolemia, Hx Hypertension, Hx Pulmonary Embolism Pulmonary Medical History: Reports: Hx Asthma, Hx Pneumonia Denies: Hx COPD, Hx Sleep Apnea Neurological Medical History: Reports: Hx Migraine - INTERMITTENT. Denies: Hx Seizures Endocrine Medical History: Reports: Hx Diabetes Mellitus Type 1. Denies: Hx Diabetes Mellitus Type 2, Hx Hyperthyroidism, Hx Hypothyroidism Renal/ Medical History: Denies: Hx Peritoneal Dialysis GI Medical History: Denies: Hx Cirrhosis, Hx Gastroesophageal Reflux Disease, Hx Hepatitis Musculoskeletal Medical History: Denies Hx Arthritis, Denies Hx Gout, Reports Hx Musculoskeletal Trauma - Muscle strains and sprains Skin Medical History: Denies Hx Eczema, Denies Hx Psoriasis Psychiatric Medical History: Reports: Hx Anxiety, Hx Depression Infectious Medical History: Denies: Hx C-Diff, Hx Hepatitis, Hx MRSA Past Surgical History: Reports: Hx Oral Surgery - Teeth, Hx Urinary Tract Surgery - fractured penis repair, Other - Oral surgery as well as urinary tract surgery (fractured penis repair) - Immunizations Immunizations up to date: Yes Hx Diphtheria, Pertussis, Tetanus Vaccination: Yes Hx Pneumococcal Vaccination: 03/25/16 Review of Systems - Review of Systems Constitutional: See HPI, Weakness EENT: No symptoms reported Cardiovascular: No symptoms reported Respiratory: No symptoms reported Gastrointestinal: No symptoms reported Musculoskeletal: See HPI, Muscle pain -: Yes All other systems reviewed and negative Physical Exam - Vital signs Vitals: Temp Pulse Resp BP Pulse Ox 98.5 F 108 H 18 155/99 H 100 10/10/18 09:23 10/10/18 09:23 10/10/18 09:23 10/10/18 09:23 10/10/18 09:23 - General General appearance: Appears well In distress: None - HEENT Mouth/Lips: Normal Mucous membranes: Normal Pharynx: Normal Neck: Normal - Respiratory Respiratory status: No respiratory distress Chest status: Nontender Breath sounds: Normal - Cardiovascular Rhythm: Regular Heart sounds: Normal auscultation Murmur: No - Abdominal Inspection: Normal Bowel sounds: Normal Tenderness: Nontender - Extremities General upper extremity: Normal inspection General lower extremity: Normal inspection - Neurological Neuro grossly intact: Yes Cognition: Normal Orientation: AAOx4 Course - Re-evaluation Re-evalutation: 10/10/18 13:11 Pt. feels much better after IVF -- no c/o at d/c -- expressed desire to go home - Vital Signs Vital signs: Temp Pulse Resp BP Pulse Ox 98.5 F 108 H 18 155/99 H 100 10/10/18 09:23 10/10/18 09:23 10/10/18 09:23 10/10/18 09:23 10/10/18 09:23 - Laboratory Result Diagrams: 10/10/18 11:05 10/10/18 11:05 Laboratory results interpreted by me: 10/10/18 10/10/18 10/10/18 10:51 11:04 11:05 RBC 3.78 L Hgb 11.5 L Hct 34.6 L Lymphocytes % 48.9 H POC Glucose 118 H ALT Creatine Kinase Urine Glucose (UA) >=500 H Ur Leukocyte Esterase SMALL H 10/10/18 10/10/18 11:05 11:05 RBC Hgb Hct Lymphocytes % POC Glucose ALT 19 L Creatine Kinase 440 H Urine Glucose (UA) Ur Leukocyte Esterase Discharge - Discharge Clinical Impression: Weakness, Pyuria Condition: Stable Disposition: HOME, SELF-CARE Additional Instructions: rest, take meds as prescribed, return if worse Prescriptions: Sulfamethoxazole/Trimethoprim [Bactrim Ds Tablet] 1 each PO BID #10 tablet Referrals: [facility] [Primary Care [facility]] - Follow up as needed
[2018-10-10 12:37] LABS: CREATINE KINASE MB 2.04 ng/mL (<4.55)
[2018-10-10 12:40] LABS: TROPONIN I < 0.012 ng/mL
[2018-10-10 13:25] VITALS: BP 137/89
== END 2018-10-10 13:24 | disposition home or self-care (01) ==
LOC: ER 09:16
DX: R53.1 Weakness (principal); N39.0 Urinary tract infection, site not specified; E10.9 Type 1 diabetes mellitus without complications; Z59.0 Homelessness
CPT/HCPCS: 99283; 96361; 96374; 36415; 82553; 82962; 82550; 83690; 83735; 85025; 80053; 81001; 84484; 82803; J2405; J7030

== ENCOUNTER 2018-12-04 18:28 | Emergency (ER) | payer OTHER ==
[2018-12-04] MEDS ORDERED: OXYCODONE-ACETAMINOPHEN 5-325 MG TABLET PO ONE (19:20)
--- NOTE | 2018-12-04 19:24 | ER Document Report ---
ED Hand/Wrist Injury - General Chief Complaint: Finger Injury Stated Complaint: LEFT HAND INJURY Time Seen by Provider: 12/04/18 19:18 [facility] [[facility]] - Follow up as needed Mode of Arrival: Ambulatory Information source: Patient Notes: 38 given [id number] man presented to ED for amputation to the end of his left index finger. Injury was rinsed with water new dressing applied and Covan applied to stop the bleeding. Patient states he was cutting a pipe with a razor knife and it slipped and cut the end of his finger off. He had the end of his finger with him. Patient is alert oriented respirations regular and unlabored speaking in full sentences walks with a even steady gait. I have greeted and performed a rapid initial assessment of this patient. A comprehensive ED assessment and evaluation of the patient, analysis of test results and completion of medical decision making process will be conducted by an additional ED providers. TRAVEL OUTSIDE OF THE [place] IN LAST 30 DAYS: No - Related Data Allergies/Adverse Reactions: honey [Honey] Allergy (Verified 10/10/18 09:19) No Known Drug Allergies Allergy (Verified 10/10/18 09:19) Past Medical History - Social History Smoking Status: Current Every Day Smoker Chew tobacco use (# tins/day): No Drug Abuse: None Family History: Reviewed & Not Pertinent, CAD, CVA, DM, Hyperlipidemia, Hypertension, Malignancy Patient has suicidal ideation: No Patient has homicidal ideation: No - Past Medical History Cardiac Medical History: Denies: Hx Congestive Heart Failure, Hx Coronary Artery Disease, Hx DVT, Hx Heart Attack, Hx Hypercholesterolemia, Hx Hypertension, Hx Pulmonary Embolism Pulmonary Medical History: Reports: Hx Asthma, Hx Pneumonia Denies: Hx COPD, Hx Sleep Apnea Neurological Medical History: Reports: Hx Migraine - INTERMITTENT. Denies: Hx Seizures Endocrine Medical History: Reports: Hx Diabetes Mellitus Type 1. Denies: Hx Diabetes Mellitus Type 2, Hx Hyperthyroidism, Hx Hypothyroidism Renal/ Medical History: Denies: Hx Peritoneal Dialysis GI Medical History: Denies: Hx Cirrhosis, Hx Gastroesophageal Reflux Disease, Hx Hepatitis Musculoskeletal Medical History: Denies Hx Arthritis, Denies Hx Gout, Reports Hx Musculoskeletal Trauma - Muscle strains and sprains Skin Medical History: Denies Hx Eczema, Denies Hx Psoriasis Psychiatric Medical History: Reports: Hx Anxiety, Hx Depression Infectious Medical History: Denies: Hx C-Diff, Hx Hepatitis, Hx MRSA Past Surgical History: Reports: Hx Oral Surgery - Teeth, Hx Urinary Tract Surgery - fractured penis repair, Other - Oral surgery as well as urinary tract surgery (fractured penis repair) - Immunizations Immunizations up to date: Yes Hx Diphtheria, Pertussis, Tetanus Vaccination: Yes Hx Pneumococcal Vaccination: 03/25/16 Physical Exam - Vital signs Vitals: Temp Pulse Resp BP Pulse Ox 98.6 F 128 H 18 166/114 H 98 12/04/18 19:00 12/04/18 19:00 12/04/18 19:00 12/04/18 19:00 12/04/18 19:00 Course - Vital Signs Vital signs: Temp Pulse Resp BP Pulse Ox 98.6 F 128 H 18 166/114 H 98 12/04/18 19:00 12/04/18 19:00 12/04/18 19:00 12/04/18 19:00 12/04/18 19:00 Discharge - Discharge Referrals: [facility] [[facility]] - Follow up as needed
--- NOTE | 2018-12-04 19:25 | ER Document Report ---
ED Medical Screen (RME) - General Chief Complaint: Finger Injury Stated Complaint: LEFT HAND INJURY Time Seen by Provider: 12/04/18 19:18 Primary Care Provider: CESARIO,MELODY [Primary Care Provider] - Follow up as needed Mode of Arrival: Ambulatory Notes: 38 given [id number] man presented to ED for amputation to the end of his left index finger. Injury was rinsed with water new dressing applied and Covan applied to stop the bleeding. Patient states he was cutting a pipe with a razor knife and it slipped and cut the end of his finger off. He had the end of his finger with him. Patient is alert oriented respirations regular and unlabored speaking in full sentences walks with a even steady gait. I have greeted and performed a rapid initial assessment of this patient. A comprehensive ED assessment and evaluation of the patient, analysis of test results and completion of medical decision making process will be conducted by an additional ED providers. TRAVEL OUTSIDE OF THE [place] IN LAST 30 DAYS: No - Related Data Allergies/Adverse Reactions: honey [Honey] Allergy (Verified 10/10/18 09:19) No Known Drug Allergies Allergy (Verified 10/10/18 09:19) Past Medical History - Social History Chew tobacco use (# tins/day): No Drug Abuse: None - Past Medical History Cardiac Medical History: Denies: Hx Congestive Heart Failure, Hx Coronary Artery Disease, Hx DVT, Hx Heart Attack, Hx Hypercholesterolemia, Hx Hypertension, Hx Pulmonary Embolism Pulmonary Medical History: Reports: Hx Asthma, Hx Pneumonia Denies: Hx COPD, Hx Sleep Apnea Neurological Medical History: Reports: Hx Migraine - INTERMITTENT. Denies: Hx Seizures Endocrine Medical History: Reports: Hx Diabetes Mellitus Type 1. Denies: Hx Diabetes Mellitus Type 2, Hx Hyperthyroidism, Hx Hypothyroidism Renal/ Medical History: Denies: Hx Peritoneal Dialysis GI Medical History: Denies: Hx Cirrhosis, Hx Gastroesophageal Reflux Disease, Hx Hepatitis Musculoskeltal Medical History: Denies Hx Arthritis, Denies Hx Gout, Reports Hx Musculoskeletal Trauma - Muscle strains and sprains Skin Medical History: Denies Hx Eczema, Denies Hx Psoriasis Psychiatric Medical History: Reports: Hx Anxiety, Hx Depression Infectious Medical History: Denies: Hx C-Diff, Hx Hepatitis, Hx MRSA Past Surgical History: Reports: Hx Oral Surgery - Teeth, Hx Urinary Tract Surgery - fractured penis repair, Other - Oral surgery as well as urinary tract surgery (fractured penis repair) - Immunizations Immunizations up to date: Yes Hx Diphtheria, Pertussis, Tetanus Vaccination: Yes Physical Exam - Vital signs Vitals: Temp Pulse Resp BP Pulse Ox 98.6 F 128 H 18 166/114 H 98 12/04/18 19:00 12/04/18 19:00 12/04/18 19:00 12/04/18 19:00 12/04/18 19:00 Course - Vital Signs Vital signs: Temp Pulse Resp BP Pulse Ox 98.6 F 128 H 18 166/114 H 98 12/04/18 19:00 12/04/18 19:00 12/04/18 19:00 12/04/18 19:00 12/04/18 19:00 Doctor's Discharge - Discharge Referrals: [facility] [[facility]] - Follow up as needed
--- NOTE | 2018-12-04 20:34 | RADIOLOGY REPORT (SQ) ---
EXAM DESCRIPTION: XR LEFT INDEX FINGER, 3 VIEWS COMPLETED DATE/TME: 12/04/2018 19:19 CLINICAL HISTORY: 38 years, Male, index finger cut end off of finger COMPARISON: None. NUMBER OF VIEWS: TECHNIQUE: LIMITATIONS: None. FINDINGS: Somewhat limited examination due to the overlying bandage. No fracture or dislocation. No evidence of radiopaque foreign body within the soft tissues. Mineralization of bone appears normal. IMPRESSION: No fracture or radiopaque foreign body. copyright 2010 [employer] All Rights Reserved
[2018-12-04] MEDS ORDERED: LIDOCAINE 1% INJ (10 MG/ML) 10 ML MDV INJ ONE (20:37)
--- NOTE | 2018-12-04 20:38 | ER Document Report ---
ED General - General Chief Complaint: Finger Injury Stated Complaint: LEFT HAND INJURY Time Seen by Provider: 12/04/18 19:18 Primary Care Provider: MELODY NASSAR [Primary Care Provider] - Follow up in 3-5 days Mode of Arrival: Ambulatory Notes: Patient is a 38-year-old male that presents to the emergency department for chief complaint of left index finger injury. Patient states that she is prior to ED arrival around 6 PM, he was cutting some PVC pipe, with a razor knife, and his hand slipped any at the tip of his left index finger off. He is right- handed. He is up-to-date with his tetanus vaccinations. He is complaining of pain he describes as a burning constant sensation, the tip of his finger, he rates the pain currently as a 9 out of 10. He denies any other injuries. He states it did bleed quite a bit, he did have a dressing placed in triage, and it seems to have slowed down according to the patient. He denies any lightheadedness, dizziness, denies any other injuries. Past Medical History: Type 1 diabetes Past Surgical History: Penile surgery Social History: Admits to smoking, denies alcohol or illicit drug use. Family History: Reviewed and noncontributory for presenting illness Allergies: Reviewed, see documented allergy list. REVIEW OF SYSTEMS: Other than noted above, the 12 point review of systems was reviewed with the patient and were negative, all pertinent findings are included in the HPI. PHYSICAL EXAMINATION: Vital signs reviewed, nursing noted reviewed. GENERAL: Well-appearing, well-nourished and in no acute distress. HEAD: Atraumatic, normocephalic. EYES: Eyes appear normal, sclera anicteric, conjunctiva are normal. ENT: Moist mucous membranes. NECK: Normal range of motion, supple without lymphadenopathy LUNGS: Breath sounds clear to auscultation bilaterally and equal. No wheezes rales or rhonchi. HEART: Heart rate tachycardic, regular rhythm, no audible murmur EXTREMITIES: The distal tip of the left index finger is avulsed/amputated, there is slow oozing of blood, from the capillary bed, but has seemingly slowed down from his initial injury, part of the nail was taken, but the nailbed appears to be intact, there is no exposed bone. Tendon function is intact, the rest the patient's extremity exam is grossly unremarkable. NEUROLOGICAL: No focal neurological deficits. Moves all extremities spontaneously Motor and sensory grossly intact on exam. PSYCH: Normal mood, normal affect. SKIN: Warm, Dry, normal turgor TRAVEL OUTSIDE OF THE [place] IN LAST 30 DAYS: No - Related Data Allergies/Adverse Reactions: honey [Honey] Allergy (Verified 10/10/18 09:19) No Known Drug Allergies Allergy (Verified 10/10/18 09:19) Past Medical History - Social History Smoking Status: Current Every Day Smoker Chew tobacco use (# tins/day): No Drug Abuse: None Family History: Reviewed & Not Pertinent, CAD, CVA, DM, Hyperlipidemia, Hypertension, Malignancy Patient has suicidal ideation: No Patient has homicidal ideation: No - Past Medical History Cardiac Medical History: Denies: Hx Congestive Heart Failure, Hx Coronary Artery Disease, Hx DVT, Hx Heart Attack, Hx Hypercholesterolemia, Hx Hypertension, Hx Pulmonary Embolism Pulmonary Medical History: Reports: Hx Asthma, Hx Pneumonia Denies: Hx COPD, Hx Sleep Apnea Neurological Medical History: Reports: Hx Migraine - INTERMITTENT. Denies: Hx Seizures Endocrine Medical History: Reports: Hx Diabetes Mellitus Type 1. Denies: Hx Diabetes Mellitus Type 2, Hx Hyperthyroidism, Hx Hypothyroidism Renal/ Medical History: Denies: Hx Peritoneal Dialysis GI Medical History: Denies: Hx Cirrhosis, Hx Gastroesophageal Reflux Disease, Hx Hepatitis Musculoskeletal Medical History: Denies Hx Arthritis, Denies Hx Gout, Reports Hx Musculoskeletal Trauma - Muscle strains and sprains Skin Medical History: Denies Hx Eczema, Denies Hx Psoriasis Psychiatric Medical History: Reports: Hx Anxiety, Hx Depression Infectious Medical History: Denies: Hx C-Diff, Hx Hepatitis, Hx MRSA Past Surgical History: Reports: Hx Oral Surgery - Teeth, Hx Urinary Tract Surgery - fractured penis repair, Other - Oral surgery as well as urinary tract surgery (fractured penis repair) - Immunizations Immunizations up to date: Yes Hx Diphtheria, Pertussis, Tetanus Vaccination: Yes Hx Pneumococcal Vaccination: 03/25/16 Physical Exam - Vital signs Vitals: Temp Pulse Resp BP Pulse Ox 98.6 F 128 H 18 166/114 H 98 12/04/18 19:00 12/04/18 19:00 12/04/18 19:00 12/04/18 19:00 12/04/18 19:00 Course - Re-evaluation Re-evalutation: X-ray obtained of the patient's finger, demonstrate soft tissue injury without b ekaterina injury. Which is consistent with the patient's clinical exam, his wound was irrigated and cleaned extensively after digital block was performed, patient had Surgifoam dressing placed, and bulky Kerlix dressing afterwards, patient tolerated this procedure well, and was much improved. He was advised to follow- up with the [facility], and to take the prescribed antibiotics, and to monitor for signs of infection patient was agreeable with this plan of care and discharged home. - Vital Signs Vital signs: Temp Pulse Resp BP Pulse Ox 98.7 F 130 H 17 149/105 H 99 12/04/18 22:03 12/04/18 22:03 12/04/18 22:03 12/04/18 22:03 12/04/18 22:03 Discharge - Discharge Clinical Impression: Amputation of finger tip Qualifiers: Encounter type: initial encounter Qualified Code(s): S68.119A - Complete traumatic metacarpophalangeal amputation of unspecified finger, initial encounter Condition: Stable Disposition: HOME, SELF-CARE Instructions: Avulsion Injury ([facility]) Additional Instructions: Please change her dressing tomorrow evening, and you can check it at least twice a day, please follow-up with the [facility], please complete the entire course of antibiotics as prescribed. If your wound is appearing that it is infected, please return to the emergency department sooner, this would be pus drainage, or redness and swelling streaking up your finger. Prescriptions: Amox Tr/Potassium Clavulanate [Augmentin 875-125 Tablet] 1 tab PO BID 5 Days #10 tablet [facility]errals: [facility] [[facility]] - Follow up in 3-5 days
[2018-12-04 22:05] VITALS: BP 149/105
== END 2018-12-04 22:03 | disposition home or self-care (01) ==
LOC: ER 18:28
DX: S68.119A Complete traumatic metacarpophalangeal amputation of unspecified finger, initial encounter (principal); W26.0XXA Contact with knife, initial encounter; E10.9 Type 1 diabetes mellitus without complications; F17.200 Nicotine dependence, unspecified, uncomplicated
CPT/HCPCS: 99283

== ENCOUNTER 2018-12-16 19:14 | Inpatient (IN) | payer OTHER ==
--- NOTE | 2018-12-16 19:50 | ER Document Report ---
ED Medical Screen (RME) - General Chief Complaint: High Blood Sugar Stated Complaint: HIGH BLOOD SUGAR Time Seen by Provider: 12/16/18 19:44 Primary Care Provider: CESARIO,MELODY [Primary Care Provider] - Follow up as needed Mode of Arrival: Ambulatory Information source: Patient Notes: This 38-year-old male presents emergency department with complaints of nausea diarrhea for the past couple days. Also complains of on cutting his left index finger he now has pain worried about infection. He is a diabetic. Reports his sugars been in the 300. Denies fever vomiting. Patient has dark circles around his eyes looks like he does not feel well I have greeted and performed a rapid initial assessment of this patient. A comprehensive ED assessment and evaluation of the patient, analysis of test results and completion of the medical decision making process will be conducted by additional ED providers. Dictation of this chart was performed using voice recognition software; therefore, there may be some unintended grammatical errors. TRAVEL OUTSIDE OF THE [place] IN LAST 30 DAYS: No - Related Data Allergies/Adverse Reactions: honey [Honey] Allergy (Verified 10/10/18 09:19) No Known Drug Allergies Allergy (Verified 10/10/18 09:19) Past Medical History - Social History Chew tobacco use (# tins/day): No Frequency of alcohol use: None - Past Medical History Cardiac Medical History: Denies: Hx Congestive Heart Failure, Hx Coronary Artery Disease, Hx DVT, Hx Heart Attack, Hx Hypercholesterolemia, Hx Hypertension, Hx Pulmonary Embolism Pulmonary Medical History: Reports: Hx Asthma, Hx Pneumonia Denies: Hx COPD, Hx Sleep Apnea Neurological Medical History: Reports: Hx Migraine - INTERMITTENT. Denies: Hx Seizures Endocrine Medical History: Reports: Hx Diabetes Mellitus Type 1. Denies: Hx Diabetes Mellitus Type 2, Hx Hyperthyroidism, Hx Hypothyroidism Renal/ Medical History: Denies: Hx Peritoneal Dialysis GI Medical History: Denies: Hx Cirrhosis, Hx Gastroesophageal Reflux Disease, Hx Hepatitis Musculoskeltal Medical History: Denies Hx Arthritis, Denies Hx Gout, Reports Hx Musculoskeletal Trauma - Muscle strains and sprains Skin Medical History: Denies Hx Eczema, Denies Hx Psoriasis Psychiatric Medical History: Reports: Hx Anxiety, Hx Depression Infectious Medical History: Denies: Hx C-Diff, Hx Hepatitis, Hx MRSA Past Surgical History: Reports: Hx Oral Surgery - Teeth, Hx Urinary Tract Kari lacho - fractured penis repair, Other - Oral surgery as well as urinary tract surgery (fractured penis repair) - Immunizations Immunizations up to date: Yes Hx Diphtheria, Pertussis, Tetanus Vaccination: Yes Physical Exam - Vital signs Vitals: Temp Pulse Resp BP Pulse Ox 98.4 F 95 16 144/97 H 100 12/16/18 19:35 12/16/18 19:35 12/16/18 19:35 12/16/18 19:35 12/16/18 19:35 Course - Vital Signs Vital signs: Temp Pulse Resp BP Pulse Ox 98.4 F 95 16 144/97 H 100 12/16/18 19:35 12/16/18 19:35 12/16/18 19:35 12/16/18 19:35 12/16/18 19:35 - Laboratory Result Diagrams: 12/16/18 20:20 12/16/18 20:20 Laboratory results interpreted by me: 12/16/18 12/16/18 12/16/18 20:20 20:20 20:20 RBC 3.97 L Hgb 12.4 L Lymph % (Auto) 46.5 H VBG pH 7.26 L VBG HCO3 17.1 L Sodium 126.7 L Potassium 5.7 H Chloride 91 L Carbon Dioxide 16 L Anion Gap 20 H BUN 26 H Glucose 740 H* AST 81 H Alkaline Phosphatase 152 H Urine Glucose (UA) Urine Ketones 12/16/18 20:20 RBC Hgb Lymph % (Auto) VBG pH VBG HCO3 Sodium Potassium Chloride Carbon Dioxide Anion Gap BUN Glucose AST Alkaline Phosphatase Urine Glucose (UA) >=500 H Urine Ketones 80 H Doctor's Discharge - Discharge Referrals: [facility] [[facility]] - Follow up as needed
--- NOTE | 2018-12-16 20:22 | RADIOLOGY REPORT (SQ) ---
EXAM DESCRIPTION: XR FINGERS COMPLETED DATE/TME: 12/16/2018 19:47 CLINICAL HISTORY: 38 years, Male, laceration ? infection COMPARISON: Prior study from 12/04/2018 NUMBER OF VIEWS: Three TECHNIQUE: Frontal, oblique, and lateral radiograph of the left hand were obtained LIMITATIONS: None. FINDINGS: Visualized is mild diffuse soft tissue swelling about the second digit. No underlying acute fracture or dislocation is evident. Likewise, there is no evidence of periostitis or cortical resorption of bone. No retained radiopaque foreign body. IMPRESSION: Mild diffuse soft tissue swelling about the second digit without underlying acute osseous anomaly. copyright 2010 [employer]- All Rights Reserved
[2018-12-16 20:35] LABS: ABSOLUTE BASOPHILS # (AUTO) 0.1 10^3/uL (0.0-0.2); ABSOLUTE EOSINOPHILS # (AUTO) 0.1 10^3/uL (0.0-0.6); ABSOLUTE MONOCYTES (AUTO) 0.2 10^3/uL (0.1-1.4); ABSOLUTE NEUT (AUTO) 3.1 10^3/uL (1.7-8.2); BASOPHILS % (AUTO) 1.3 % (0-2); EOSINOPHILS % (AUTO) 0.9 % (0-6); HEMATOCRIT 38.3 % (37.9-51.0); HEMOGLOBIN 12.4 g/dL (13.5-17.0); LYMPHOCYTES % (AUTO) 46.5 % (13-45); MEAN CORPUSCULAR HEMOGLOBIN 31.1 pg (27.0-33.4); MEAN CORPUSCULAR HGB CONC 32.3 g/dL (32.0-36.0); MEAN CORPUSCULAR VOLUME 96 fl (80-97); MONOCYTES % (AUTO) 3.5 % (3-13); PLATELET COUNT 293 10^3/uL (150-450); RED BLOOD COUNT 3.97 10^6/uL (4.35-5.55); SEGMENTED NEUTROPHILS % (AUTO) 47.8 % (42-78); TOTAL CELLS COUNTED % (AUTO) 100 %; VENOUS BLOOD BASE EXCESS -9.3 mmol/L; VENOUS BLOOD HCO3 17.1 mmol/L (20-32); VENOUS BLOOD PCO2 38.7 mmHg (35-63); VENOUS BLOOD PH 7.26 (7.30-7.42); WHITE BLOOD COUNT 6.5 10^3/uL (4.0-10.5)
[2018-12-16 20:55] LABS: ALBUMIN 4.3 g/dL (3.5-5.0); ALKALINE PHOSPHATASE 152 U/L (38-126); ASPARTATE AMINO TRANSFERASE 81 U/L (17-59); BILIRUBIN,DIRECT 0.2 mg/dL (0.0-0.4); BILIRUBIN,TOTAL 0.7 mg/dL (0.2-1.3); BLOOD UREA NITROGEN 26 mg/dL (7-20); CALCIUM 9.7 mg/dL (8.4-10.2); CARBON DIOXIDE 16 mmol/L (22-30); POTASSIUM 5.7 mmol/L (3.6-5.0); TOTAL PROTEIN 7.1 g/dL (6.3-8.2)
[2018-12-16 21:00] LABS: CHLORIDE 91 mmol/L (98-107)
[2018-12-16 21:04] LABS: ANION GAP 20 (5-19)
[2018-12-16 21:05] LABS: GLUCOSE 740 mg/dL (75-110)
[2018-12-16] MEDS ORDERED: NORMAL SALINE 1000 ML 1,000 ML IV ONE ×2 (21:17→22:05)
[2018-12-16 21:58] LABS: APPEARANCE,URINE CLEAR; BILIRUBIN,URINE NEGATIVE (NEGATIVE); COLOR,URINE COLORLESS; GLUCOSE, URINE >=500 mg/dL (NEGATIVE); KETONES,URINE 80 mg/dL (NEGATIVE); LEUKOCYTE ESTERASE,URINE NEGATIVE (NEGATIVE); NITRITE,URINE NEGATIVE (NEGATIVE); PROTEIN,URINE NEGATIVE (NEGATIVE); URINE SPECIFIC GRAVITY 1.022; UROBILINOGEN,URINE NEGATIVE mg/dL (<2.0)
[2018-12-16] MEDS ORDERED: NORMAL SALINE 100 ML with INSULIN REGULAR, HUMAN 100 UNIT IV PRN ×4 (22:06→22:21)
[2018-12-16] MEDS ORDERED: MAG HYDROX/AL HYDROX/SIMETH SUSP 30 ML UDCUP PO PRN (22:21)
[2018-12-16] MEDS ORDERED: GLUCAGON,HUMAN RECOMB 1 MG INJ IM PRN (22:21)
[2018-12-16] MEDS ORDERED: ONDANSETRON HCL INJ/PF 4 MG/2 ML SDV IV PRN (22:21)
[2018-12-16] MEDS ORDERED: DEXTROSE 50%-WATER 25 GM/50 ML DISP.SYRIN IV PRN ×2 (22:21)
[2018-12-16] MEDS ORDERED: ACETAMINOPHEN 325 MG TABLET PO PRN (22:21)
[2018-12-16] MEDS ORDERED: INSULIN REG, HUMAN 100 UNIT/ML 3 ML VIAL (PYX) ONE (22:21)
[2018-12-16] MEDS ORDERED: DEXTROSE 40% GEL 15 GM TUBE PO PRN ×2 (22:21)
[2018-12-16] MEDS ORDERED: VANCOMYCIN HCL INJ 1000 MG VIAL IV ONE (22:21)
[2018-12-16] MEDS ORDERED: IPRATROPIUM/ALBUTEROL 0.5-2.5 MG/3 ML AMPUL NEB PRN (22:21)
--- NOTE | 2018-12-16 22:27 | ER Document Report ---
ED Blood Sugar Problem - General Chief Complaint: High Blood Sugar Stated Complaint: HIGH BLOOD SUGAR Time Seen by Provider: 12/16/18 19:44 [facility] [[facility]] - Follow up as needed Mode of Arrival: Ambulatory Information source: Patient TRAVEL OUTSIDE OF THE [place] IN LAST 30 DAYS: No - HPI Notes: Patient presents with feelings of weakness and malaise. Also has generalized abdominal cramping. Nothing makes it better or worse. Does not radiate. Moderate. Constant. No dysuria urgency or frequency. He has had some diarrhea. No vomiting. He also states he cut off the tip of his finger last week and has been changing the dressings. He feels this may be infected. He does have constant finger pain at the end of this finger. No fevers. He states he has been unable to control his blood sugars at home. He states that he has not missed any doses of his medications. - Related Data Allergies/Adverse Reactions: honey [Honey] Allergy (Verified 10/10/18 09:19) No Known Drug Allergies Allergy (Verified 10/10/18 09:19) Past Medical History - General Information source: Patient - Social History Smoking Status: Current Every Day Smoker Chew tobacco use (# tins/day): No Frequency of alcohol use: None Drug Abuse: None Family History: Reviewed & Not Pertinent, CAD, CVA, DM, Hyperlipidemia, Hypertension, Malignancy Patient has suicidal ideation: No Patient has homicidal ideation: No - Past Medical History Cardiac Medical History: Denies: Hx Congestive Heart Failure, Hx Coronary Artery Disease, Hx DVT, Hx Heart Attack, Hx Hypercholesterolemia, Hx Hypertension, Hx Pulmonary Embolism Pulmonary Medical History: Reports: Hx Asthma, Hx Pneumonia Denies: Hx COPD, Hx Sleep Apnea Neurological Medical History: Reports: Hx Migraine - INTERMITTENT. Denies: Hx Seizures Endocrine Medical History: Reports: Hx Diabetes Mellitus Type 1. Denies: Hx Diabetes Mellitus Type 2, Hx Hyperthyroidism, Hx Hypothyroidism Renal/ Medical History: Denies: Hx Peritoneal Dialysis GI Medical History: Denies: Hx Cirrhosis, Hx Gastroesophageal Reflux Disease, Hx Hepatitis Musculoskeletal Medical History: Denies Hx Arthritis, Denies Hx Gout, Reports Hx Musculoskeletal Trauma - Muscle strains and sprains Skin Medical History: Denies Hx Eczema, Denies Hx Psoriasis Psychiatric Medical History: Reports: Hx Anxiety, Hx Depression Infectious Medical History: Denies: Hx C-Diff, Hx Hepatitis, Hx MRSA Past Surgical History: Reports: Hx Oral Surgery - Teeth, Hx Urinary Tract Surgery - fractured penis repair, Other - Oral surgery as well as urinary tract surgery (fractured penis repair) - Immunizations Immunizations up to date: Yes Hx Diphtheria, Pertussis, Tetanus Vaccination: Yes Hx Pneumococcal Vaccination: 03/25/16 Review of Systems - Review of Systems Constitutional: Malaise, Weakness Cardiovascular: denies: Chest pain, Palpitations Respiratory: denies: Cough, Short of breath Gastrointestinal: Abdominal pain, Diarrhea Genitourinary: denies: Dysuria, Flank pain -: Yes All other systems reviewed and negative Physical Exam - Vital signs Vitals: Temp Pulse Resp BP Pulse Ox 98.4 F 95 16 144/97 H 100 12/16/18 19:35 12/16/18 19:35 12/16/18 19:35 12/16/18 19:35 12/16/18 19:35 Interpretation: Hypertensive - General General appearance: Appears well, Alert - HEENT Head: Normocephalic, Atraumatic Eyes: Normal Pupils: PERRL - Respiratory Respiratory status: No respiratory distress Chest status: Nontender Breath sounds: Normal Chest palpation: Normal - Cardiovascular Rhythm: Regular Heart sounds: Normal auscultation Murmur: No - Abdominal Inspection: Normal Distension: No distension Bowel sounds: Normal Tenderness: Tender - Mild diffuse tenderness. No rebound no guarding. I ordered that was ordered like for 5 hours ago Organomegaly: No organomegaly - Back Back: Normal, Nontender - Extremities General upper extremity: Normal inspection, Nontender, Normal color, Normal ROM, Normal temperature General lower extremity: Normal inspection, Nontender, Normal color, Normal ROM, Normal temperature, Normal weight bearing. No: Prabhu's sign - Neurological Neuro grossly intact: Yes Cognition: Normal Orientation: AAOx4 [place] Coma Scale Eye Opening: Spontaneous [place] Coma Scale Verbal: Oriented [place] Coma Scale Motor: Obeys Commands [place] Coma Scale Total: 15 Speech: Normal Motor strength normal: LUE, RUE, LLE, RLE Sensory: Normal - Psychological Associated symptoms: Normal affect, Normal mood - Skin Skin Temperature: Warm Skin Moisture: Dry Skin Color: Normal Course - Re-evaluation Re-evalutation: 12/16/18 22:26 Patient presents in obvious diabetic ketoacidosis. Blood sugar 700. pH is 7.26. Patient has some diffuse abdominal cramping but no surgical abdominal signs. Abdominal pain seems consistent with DKA. Patient also has an injury to the tip of his finger. He states last week he cut this with a knife. It he fears he may have some mild infection on the tip but it does not transverse up the finger. I doubt this is the cause of his DKA but I will cover with antibiotics. Patient is been started on fluids and an insulin drip. H ospitalist has been notified and is accepted the patient upstairs. - Vital Signs Vital signs: Temp Pulse Resp BP Pulse Ox 98.4 F 95 16 144/97 H 100 12/16/18 19:35 12/16/18 19:35 12/16/18 19:35 12/16/18 19:35 12/16/18 19:35 - Laboratory Result Diagrams: 12/16/18 20:20 12/16/18 20:20 Laboratory results interpreted by me: 12/16/18 12/16/18 12/16/18 20:20 20:20 20:20 RBC 3.97 L Hgb 12.4 L Lymph % (Auto) 46.5 H VBG pH 7.26 L VBG HCO3 17.1 L Sodium 126.7 L Potassium 5.7 H Chloride 91 L Carbon Dioxide 16 L Anion Gap 20 H BUN 26 H Glucose 740 H* AST 81 H Alkaline Phosphatase 152 H Urine Glucose (UA) Urine Ketones 12/16/18 20:20 RBC Hgb Lymph % (Auto) VBG pH VBG HCO3 Sodium Potassium Chloride Carbon Dioxide Anion Gap BUN Glucose AST Alkaline Phosphatase Urine Glucose (UA) >=500 H Urine Ketones 80 H - Diagnostic Test Radiology reviewed: Image reviewed, Reports reviewed Critical Care Note - Critical Care Note Total time excluding time spent on procedures (mins): 50 Comments: 50 minutes of critical care time were spent on this patient. This included multiple reassessments. It included discussions with patient and family. And included discussions with consultants. It included reviewing images and laboratories. Discharge - Discharge Clinical Impression: Diabetic ketoacidosis Qualifiers: Diabetes mellitus type: type 1 Diabetes mellitus complication detail: without coma Qualified Code(s): E10.10 - Type 1 diabetes mellitus with ketoacidosis without coma Condition: Fair Disposition: ADMITTED INPATIENT Admitting Provider: Anthony (Hospitalist) Unit Admitted: [facility] Referrals: [facility] [[facility]] - Follow up as needed
[2018-12-16] MEDS ORDERED: NORMAL SALINE 1000 ML 1,000 ML IV PRN (22:30)
[2018-12-16 23:01] LABS: PHOSPHORUS 5.3 mg/dL (2.5-4.5)
[2018-12-16] MEDS ORDERED: MORPHINE SULFATE 10 MG/ML INJ IV ONE (23:23)
[2018-12-16] MEDS ORDERED: ONDANSETRON 4 MG TAB.RAPDIS PO ONE (23:23)
[2018-12-17 01:13] LABS: ANION GAP 18 (5-19); BLOOD UREA NITROGEN 22 mg/dL (7-20); CARBON DIOXIDE 15 mmol/L (22-30); CHLORIDE 102 mmol/L (98-107); POTASSIUM 4.8 mmol/L (3.6-5.0)
[2018-12-17 01:26] LABS: GLUCOSE 411 mg/dL (75-110)
[2018-12-17 03:00] LABS: ANION GAP 15 (5-19); BLOOD UREA NITROGEN 20 mg/dL (7-20); CALCIUM 8.7 mg/dL (8.4-10.2); CARBON DIOXIDE 16 mmol/L (22-30); CHLORIDE 105 mmol/L (98-107); GLUCOSE 213 mg/dL (75-110); POTASSIUM 4.1 mmol/L (3.6-5.0)
[2018-12-17] MEDS ORDERED: NORMAL SALINE 100 ML with INSULIN REGULAR, HUMAN 100 UNIT IV PRN ×2 (03:24)
[2018-12-17] MEDS: POTASSI CL 20 MEQ/D5-1/2NS 1L 1,000 ML IV PRN ×2 (03:36→07:38)
[2018-12-17 04:55] LABS: ABSOLUTE EOSINOPHILS # (AUTO) 0.1 10^3/uL (0.0-0.6); ABSOLUTE MONOCYTES (AUTO) 0.3 10^3/uL (0.1-1.4); ABSOLUTE NEUT (AUTO) 2.5 10^3/uL (1.7-8.2); BASOPHILS % (AUTO) 0.6 % (0-2); EOSINOPHILS % (AUTO) 2.3 % (0-6); HEMATOCRIT 31.7 % (37.9-51.0); HEMOGLOBIN 10.8 g/dL (13.5-17.0); LYMPHOCYTES % (AUTO) 50.4 % (13-45); MEAN CORPUSCULAR HEMOGLOBIN 31.5 pg (27.0-33.4); MEAN CORPUSCULAR HGB CONC 34.1 g/dL (32.0-36.0); MONOCYTES % (AUTO) 5.2 % (3-13); PLATELET COUNT 254 10^3/uL (150-450); RED BLOOD COUNT 3.43 10^6/uL (4.35-5.55); RED CELL DISTRIBUTION WIDTH 13.6 % (11.5-14.0); SEGMENTED NEUTROPHILS % (AUTO) 41.5 % (42-78); TOTAL CELLS COUNTED % (AUTO) 100 %
[2018-12-17 05:01] LABS: MEAN CORPUSCULAR VOLUME 92 fl (80-97)
[2018-12-17 05:04] LABS: ANION GAP 11 (5-19); BLOOD UREA NITROGEN 18 mg/dL (7-20); CALCIUM 8.2 mg/dL (8.4-10.2); CARBON DIOXIDE 18 mmol/L (22-30); CHLORIDE 106 mmol/L (98-107); GLUCOSE 271 mg/dL (75-110)
[2018-12-17] MEDS: HEPARIN SOD (PORCINE) 5,000 UNIT/ML 1 ML VIAL SUBCUT SCH ×3 (05:37→21:37)
--- NOTE | 2018-12-17 05:49 | PDOC H&P ---
History of Present Illness Admission Date/PCP: 12/16/18 22:[facility] Patient complains of: Abdominal pain History of Present Illness: JOSE DANIEL CLINTON is a 38 year old male with a past medical history of hypertension, tobacco, poorly controlled insulin-dependent diabetes with recurrent DKA and noncompliance with A1c of 12.9 last month. He presents with 48 hours of uncontrolled blood sugar, polyuria polydipsia prompting evaluation emergency room where he is found to have a ketoacidosis with hyperkalemia without peak T waves. He receives IV fluids and insulin and then referred to the hospitalist for admission. Patient adamantly denies change in insulin regiment or diet. Patient accidental admits laceration of left second finger distal to the DIP joint. He has had mild pain and edema but no fever, fluctuance or spreading erythema. Past Medical History Cardiac Medical History: Denies: Congestive Heart Failure, Coronary Artery Disease, DVT, Myocardial Infarction, Hyperlipidema, Hypertension, Pulmonary Embolism Pulmonary Medical History: Reports: Asthma, Pneumonia Denies: Chronic Obstructive Pulmonary Disease (COPD), Sleep Apnea Neurological Medical History: Reports: Migraine - INTERMITTENT Denies: Seizures Endocrine Medical History: Reports: Diabetes Mellitus Type 1 Denies: Diabetes Mellitus Type 2, Hyperthyroidism, Hypothyroidism GI Medical History: Denies: Cirrhosis, Gastroesophageal Reflux Disease, Hepatitis Musculoskeltal Medical History: Denies: Arthritis, Gout Skin Medical History: Denies: Eczema, Psoriasis Psychiatric Medical History: Reports: Depression Hematology: Denies: Anemia, Bleeding Tendencies Infectious Medical History: Denies: Clostridium Difficile, Methicillin-Resistant Staph Aureus Past Surgical History Past Surgical History: Reports: Other - Oral surgery as well as urinary tract surgery (fractured penis repair) Social History Information Source: Patient, [facility] Records Smoking Status: Current Some Day Smoker Frequency of Alcohol Use: None Hx Recreational Drug Use: No Drugs: None Hx Prescription Drug Abuse: No - Advance Directive Resuscitation Status: Full Code Family History Family History: Reviewed & Not Pertinent, CAD, CVA, DM, Hyperlipidemia, Hypertension, Malignancy Parental Family History Reviewed: Yes Children Family History Reviewed: Yes Sibling(s) Family History Reviewed.: Yes Medication/Allergy Home Medications: Insulin Glargine,Hum.rec.anlog [Lantus Insulin 100 Unit/1 ml 10 ml] 20 units SQ Q12 10/07/18 Insulin Lispro [Humalog Insulin (Lispro) 100 unit/mL] See Protocol SQ MEALS 10/07/18 Acetaminophen [Tylenol 325 mg Tablet] 650 mg PO Q4HP PRN tablet 10/09/18 Nicotine [Nicoderm 14 mg/24 Hr Transdermal Patch] 1 each TD DAILYP PRN #30 patch.td24 10/09/18 Tramadol HCl [Ultram 50 mg Tablet] 50 mg PO Q4HP PRN #12 tablet 10/09/18 Trazodone HCl [Desyrel 50 mg Tablet] 100 mg PO QHS #30 tablet 10/09/18 Sulfamethoxazole/Trimethoprim [Bactrim Ds Tablet] 1 each PO BID #10 tablet 10/10/18 Amox Tr/Potassium Clavulanate [Augmentin 875-125 Tablet] 1 tab PO BID 5 Days #10 tablet 12/04/18 Allergies/Adverse Reactions: honey [Honey] Allergy (Verified 10/10/18 09:19) No Known Drug Allergies Allergy (Verified 10/10/18 09:19) Review of Systems Constitutional: PRESENT: as per HPI, anorexia, fatigue, weight loss. ABSENT: chills, fever(s), headache(s), night sweats Eyes: ABSENT: visual disturbances Ears: ABSENT: hearing changes Cardiovascular: ABSENT: chest pain, dyspnea on exertion, edema, orthropnea, palpitations Respiratory: ABSENT: cough, hemoptysis Gastrointestinal: PRESENT: as per HPI, abdominal pain, bloating, nausea Genitourinary: ABSENT: dysuria, hematuria Musculoskeletal: PRESENT: as per HPI. ABSENT: joint swelling Integumentary: PRESENT: as per HPI. ABSENT: rash, wounds Neurological: ABSENT: abnormal gait, abnormal speech, confusion, dizziness, focal weakness, syncope Psychiatric: ABSENT: anxiety, depression, homidical ideation, suicidal ideation Endocrine: PRESENT: as per HPI, polydipsia, polyphagia, polyuria Hematologic/Lymphatic: ABSENT: easy bleeding, easy bruising Physical Exam Vital Signs: Temp Pulse Resp BP Pulse Ox 98.5 F 86 14 132/85 H 97 12/17/18 01:00 12/17/18 02:26 12/17/18 01:00 12/17/18 01:00 12/17/18 01:00 Intake & Output 12/15/18 12/16/18 12/17/18 11:59 11:59 11:59 Intake Total 21 Balance 21 Weight 71.3 kg General appearance: PRESENT: cooperative, disheveled, mild distress, thin, well- developed. ABSENT: well-nourished Head exam: PRESENT: atraumatic, normocephalic Eye exam: PRESENT: conjunctiva pink, EOMI, PERRLA. ABSENT: scleral icterus Ear exam: PRESENT: normal external ear exam Mouth exam: PRESENT: dry mucosa, neck supple. ABSENT: laceration Neck exam: ABSENT: carotid bruit, JVD, lymphadenopathy, thyromegaly Respiratory exam: PRESENT: clear to auscultation selena. ABSENT: rales, rhonchi, wheezes Cardiovascular exam: PRESENT: RRR, tachycardia. ABSENT: diastolic murmur, rubs, systolic murmur Pulses: PRESENT: normal dorsalis pedis pul Vascular exam: PRESENT: normal capillary refill GI/Abdominal exam: PRESENT: hyperactive bowel sounds, normal bowel sounds, soft. ABSENT: distended, guarding, mass, organolmegaly, rebound, tenderness Rectal exam: PRESENT: deferred Extremities exam: PRESENT: full ROM, tenderness - Left second digit distal to DIP joint laceration without spreading erythema, fluctuance, other. ABSENT: calf tenderness, clubbing, joint swelling, pedal edema Neurological exam: PRESENT: alert, awake, oriented to person, oriented to place, oriented to time, oriented to situation, CN II-XII grossly intact. ABSENT: motor sensory deficit Psychiatric exam: PRESENT: appropriate affect, normal mood. ABSENT: homicidal ideation, suicidal ideation Skin exam: PRESENT: dry, warm, other - Left second digit distal to DIP joint laceration without spreading erythema, fluctuance. ABSENT: cyanosis, intact, rash Results Laboratory Results: 12/17/18 04:34 12/17/18 04:34 12/16/18 12/16/18 12/16/18 20:20 20:20 20:20 WBC 6.5 RBC 3.97 L Hgb 12.4 L Hct 38.3 MCV 96 MCH 31.1 MCHC 32.3 RDW 14.0 Plt Count 293 Seg Neutrophils % 47.8 VBG pH 7.26 L VBG pCO2 38.7 VBG HCO3 17.1 L VBG Base Excess -9.3 Sodium 126.7 L Potassium 5.7 H Chloride 91 L Carbon Dioxide 16 L Anion Gap 20 H BUN 26 H Creatinine 1.14 Est GFR ( Amer) > 60 Glucose 740 H* Calcium 9.7 Phosphorus Magnesium Total Bilirubin 0.7 AST 81 H Alkaline Phosphatase 152 H Total Protein 7.1 Albumin 4.3 Urine Color Urine Appearance Urine pH Ur Specific [place] Urine Protein Urine Glucose (UA) Urine Ketones Urine Blood Urine Nitrite Ur Leukocyte Esterase Urine WBC (Auto) Urine RBC (Auto) 12/16/18 12/16/18 12/17/18 20:20 20:20 00:41 WBC RBC Hgb Hct MCV MCH MCHC RDW Plt Count Seg Neutrophils % VBG pH VBG pCO2 VBG HCO3 VBG Base Excess Sodium 134.6 L Potassium 4.8 Chloride 102 Carbon Dioxide 15 L Anion Gap 18 BUN 22 H Creatinine 1.08 Est GFR ( Amer) > 60 Glucose 411 H* Calcium 9.0 Phosphorus 5.3 H Magnesium 2.2 Total Bilirubin AST Alkaline Phosphatase Total Protein Albumin Urine Color COLORLESS Urine Appearance CLEAR Urine pH 6.0 Ur Specific [place] 1.022 Urine Protein NEGATIVE Urine Glucose (UA) >=500 H Urine Ketones 80 H Urine Blood NEGATIVE Urine Nitrite NEGATIVE Ur Leukocyte Esterase NEGATIVE Urine WBC (Auto) 3 Urine RBC (Auto) 1 12/17/18 12/17/18 12/17/18 02:30 04:34 04:34 WBC 6.0 RBC 3.43 L Hgb 10.8 L Hct 31.7 L MCV 92 D MCH 31.5 MCHC 34.1 RDW 13.6 Plt Count 254 Seg Neutrophils % 41.5 L VBG pH VBG pCO2 VBG HCO3 VBG Base Excess Sodium 136.2 L 135.3 L Potassium 4.1 4.0 Chloride 105 106 Carbon Dioxide 16 L 18 L Anion Gap 15 11 BUN 20 18 Creatinine 0.96 0.83 Est GFR ( Amer) > 60 > 60 Glucose 213 H 271 H Calcium 8.7 8.2 L Phosphorus Magnesium Total Bilirubin AST Alkaline Phosphatase Total Protein Albumin Urine Color Urine Appearance Urine pH Ur Specific [place] Urine Protein Urine Glucose (UA) Urine Ketones Urine Blood Urine Nitrite Ur Leukocyte Esterase Urine WBC (Auto) Urine RBC (Auto) Impressions: Finger X-Ray 12/16/18 19:47 IMPRESSION: Mild diffuse soft tissue swelling about the second digit without underlying acute osseous anomaly. copyright 2011 [employer]- All Rights Reserved Assessment and Plan - Diagnosis (1) DKA (diabetic ketoacidoses) Qualifiers: Diabetes mellitus type: type 1 Diabetes mellitus complication detail: without coma Qualified Code(s): E10.10 - Type 1 diabetes mellitus with ketoacidosis without coma Is this a current diagnosis for this admission?: Yes Plan: Diabetic ketoacidosis patient has had some degree of polyuria polydipsia with nausea and uncontrolled hyperglycemia with supporting labs. Patient will receive IV fluids IV insulin serial chemistries every 6 hours for evaluation for electrolyte repletion. Continued evaluation for underlying cause if not found Patient will require diabetic education and consideration of mental health evaluation. (2) Finger laceration Is this a current diagnosis for this admission?: Yes Plan: No evidence for acute infection, cellulitis or osteomyelitis, symptomatic management, elevation, with a dry dressing. (3) Abdominal cramping Is this a current diagnosis for this admission?: Yes Plan: Secondary to #1 (4) Anemia, chronic disease Is this a current diagnosis for this admission?: Yes Plan: Follow-up anemia labs (5) Hyperkalemia Is this a current diagnosis for this admission?: Yes Plan: Secondary to #1, no peaked T waves. Follow-up chemistry - Time Time Spent with patient: 35 or more minutes - Inpatient Certification Medical Necessity: Need Close Monitoring Due to Risk of Patient Decompensation
[2018-12-17 08:58] LABS: ANION GAP 7 (5-19); BLOOD UREA NITROGEN 14 mg/dL (7-20); CALCIUM 8.2 mg/dL (8.4-10.2); CARBON DIOXIDE 25 mmol/L (22-30); CHLORIDE 106 mmol/L (98-107); GLUCOSE 75 mg/dL (75-110)
[2018-12-17] MEDS: NORMAL SALINE 1000 ML 1,000 ML IV PRN ×2 (09:54→21:36)
[2018-12-17] MEDS: INSULIN GLARGINE,HUM.REC.ANLOG 1,000 UNIT/10 ML VIAL SUBCUT SCH ×2 (11:22→21:36)
--- NOTE | 2018-12-17 11:32 | EKG REPORT ---
SEVERITY:- NORMAL ECG - SINUS RHYTHM : Confirmed by: Bart Cary 17-Dec-2018 11:31:34
[2018-12-17] MEDS ORDERED: INSULIN LISPRO 100 UNIT/ML 3 ML VIAL ONE (12:18)
[2018-12-17] MEDS ORDERED: ONDANSETRON HCL INJ/PF 4 MG/2 ML SDV IV PRN (13:00)
[2018-12-17 14:58] LABS: ANION GAP 13 (5-19); BLOOD UREA NITROGEN 12 mg/dL (7-20); CALCIUM 8.3 mg/dL (8.4-10.2); CARBON DIOXIDE 19 mmol/L (22-30); CHLORIDE 102 mmol/L (98-107); GLUCOSE 205 mg/dL (75-110); POTASSIUM 4.5 mmol/L (3.6-5.0)
--- NOTE | 2018-12-17 15:56 | PDOC PROGRESS REPORT ---
Subjective Progress Note for:: 12/17/18 Subjective:: This is a 38 year old male with a past medical history of hypertension, tobacco, poorly controlled insulin-dependent diabetes with recurrent DKA and noncompliance with A1c of 12.9 last month who presented with elevated blood sugars at home, polyuria and polydipsia. He was noted to be in DKA on presentation. He was started on IV fluids and insulin drip. No acute event overnight. Appears DKA has resolved. He denies chest pain or abdominal pain. He says he wants to eat. He does report that his sugars at home have been running in the 400s and he has been using a lot of sliding scale coverage in the past several weeks. He says he he uses 30 units of Lantus at night but his insulin has not been recently adjusted. Reason For Visit: DKA Physical Exam Vital Signs: Temp Pulse Resp BP Pulse Ox 98.2 F 89 16 103/65 100 12/17/18 08:28 12/17/18 08:28 12/17/18 02:01 12/17/18 08:28 12/17/18 08:28 Intake & Output 12/16/18 12/17/18 12/18/18 06:59 06:59 06:59 Intake Total 1021 1602 Output Total 875 Balance 146 1602 Weight 157 lb 10.088 oz General appearance: PRESENT: no acute distress, well-developed, well-nourished Head exam: PRESENT: atraumatic, normocephalic Eye exam: PRESENT: conjunctiva pink, EOMI, PERRLA. ABSENT: scleral icterus Ear exam: PRESENT: normal external ear exam Mouth exam: PRESENT: moist, tongue midline Neck exam: ABSENT: carotid bruit, JVD, lymphadenopathy, thyromegaly Respiratory exam: PRESENT: clear to auscultation selena. ABSENT: rales, rhonchi, wheezes Cardiovascular exam: PRESENT: RRR. ABSENT: diastolic murmur, rubs, systolic murmur Pulses: PRESENT: normal dorsalis pedis pul GI/Abdominal exam: PRESENT: normal bowel sounds, soft. ABSENT: distended, guarding, mass, organolmegaly, rebound, tenderness Rectal exam: PRESENT: deferred Extremities exam: PRESENT: full ROM. ABSENT: calf tenderness, clubbing, pedal edema Neurological exam: PRESENT: alert, awake, oriented to person, oriented to place, oriented to time, oriented to situation, CN II-XII grossly intact. ABSENT: motor sensory deficit Results Laboratory Results: 12/17/18 04:34 12/17/18 08:25 12/16/18 12/16/18 12/16/18 20:20 20:20 20:20 WBC 6.5 RBC 3.97 L Hgb 12.4 L Hct 38.3 MCV 96 MCH 31.1 MCHC 32.3 RDW 14.0 Plt Count 293 Seg Neutrophils % 47.8 VBG pH 7.26 L VBG pCO2 38.7 VBG HCO3 17.1 L VBG Base Excess -9.3 Sodium 126.7 L Potassium 5.7 H Chloride 91 L Carbon Dioxide 16 L Anion Gap 20 H BUN 26 H Creatinine 1.14 Est GFR ( Amer) > 60 Glucose 740 H* Calcium 9.7 Phosphorus Magnesium Total Bilirubin 0.7 AST 81 H Alkaline Phosphatase 152 H Total Protein 7.1 Albumin 4.3 Urine Color Urine Appearance Urine pH Ur Specific [place] Urine Protein Urine Glucose (UA) Urine Ketones Urine Blood Urine Nitrite Ur Leukocyte Esterase Urine WBC (Auto) Urine RBC (Auto) 12/16/18 12/16/18 12/17/18 20:20 20:20 00:41 WBC RBC Hgb Hct MCV MCH MCHC RDW Plt Count Seg Neutrophils % VBG pH VBG pCO2 VBG HCO3 VBG Base Excess Sodium 134.6 L Potassium 4.8 Chloride 102 Carbon Dioxide 15 L Anion Gap 18 BUN 22 H Creatinine 1.08 Est GFR ( Amer) > 60 Glucose 411 H* Calcium 9.0 Phosphorus 5.3 H Magnesium 2.2 Total Bilirubin AST Alkaline Phosphatase Total Protein Albumin Urine Color COLORLESS Urine Appearance CLEAR Urine pH 6.0 Ur Specific [place] 1.022 Urine Protein NEGATIVE Urine Glucose (UA) >=500 H Urine Ketones 80 H Urine Blood NEGATIVE Urine Nitrite NEGATIVE Ur Leukocyte Esterase NEGATIVE Urine WBC (Auto) 3 Urine RBC (Auto) 1 12/17/18 12/17/18 12/17/18 02:30 04:34 04:34 WBC 6.0 RBC 3.43 L Hgb 10.8 L Hct 31.7 L MCV 92 D MCH 31.5 MCHC 34.1 RDW 13.6 Plt Count 254 Seg Neutrophils % 41.5 L VBG pH VBG pCO2 VBG HCO3 VBG Base Excess Sodium 136.2 L 135.3 L Potassium 4.1 4.0 Chloride 105 106 Carbon Dioxide 16 L 18 L Anion Gap 15 11 BUN 20 18 Creatinine 0.96 0.83 Est GFR ( Amer) > 60 > 60 Glucose 213 H 271 H Calcium 8.7 8.2 L Phosphorus Magnesium Total Bilirubin AST Alkaline Phosphatase Total Protein Albumin Urine Color Urine Appearance Urine pH Ur Specific [place] Urine Protein Urine Glucose (UA) Urine Ketones Urine Blood Urine Nitrite Ur Leukocyte Esterase Urine WBC (Auto) Urine RBC (Auto) 12/17/18 08:25 WBC RBC Hgb Hct MCV MCH MCHC RDW Plt Count Seg Neutrophils % VBG pH VBG pCO2 VBG HCO3 VBG Base Excess Sodium 137.6 Potassium 4.0 Chloride 106 Carbon Dioxide 25 Anion Gap 7 BUN 14 Creatinine 0.84 Est GFR ( Amer) > 60 Glucose 75 Calcium 8.2 L Phosphorus Magnesium Total Bilirubin AST Alkaline Phosphatase Total Protein Albumin Urine Color Urine Appearance Urine pH Ur Specific [place] Urine Protein Urine Glucose (UA) Urine Ketones Urine Blood Urine Nitrite Ur Leukocyte Esterase Urine WBC (Auto) Urine RBC (Auto) Impressions: Finger X-Ray 12/16/18 19:47 IMPRESSION: Mild diffuse soft tissue swelling about the second digit without underlying acute osseous anomaly. copyright 2011 [employer]- All Rights Reserved Assessment and Plan - Diagnosis (1) DKA (diabetic ketoacidoses) Qualifiers: Diabetes mellitus type: type 1 Diabetes mellitus complication detail: without coma Qualified Code(s): E10.10 - Type 1 diabetes mellitus with ketoacidosis without coma Is this a current diagnosis for this admission?: Yes Plan: Resolved. Will transition patient and will restart Lantus at 15 units twice daily and will appropriately based on succeeding blood sugars. Start patient on diet. We will switch IV fluids normal saline. Hemoglobin A1c came back more t mendez 14 suggesting very poor glycemic control. (2) Tobacco abuse Is this a current diagnosis for this admission?: Yes Plan: Counseled on cessation. (3) Finger laceration Is this a current diagnosis for this admission?: Yes Plan: Does not appear infected. - Time Time Spent with patient: 15-24 minutes
[2018-12-17] MEDS: INSULIN LISPRO 100 UNIT/ML 3 ML VIAL SUBCUT SCH ×2 (16:26→21:35)
[2018-12-18] MEDS: NORMAL SALINE 1000 ML 1,000 ML IV PRN (05:21)
[2018-12-18] MEDS: HEPARIN SOD (PORCINE) 5,000 UNIT/ML 1 ML VIAL SUBCUT SCH (05:22)
[2018-12-18] MEDS: INSULIN GLARGINE,HUM.REC.ANLOG 1,000 UNIT/10 ML VIAL SUBCUT SCH (10:43)
[2018-12-18] MEDS: INSULIN LISPRO 100 UNIT/ML 3 ML VIAL SUBCUT SCH (10:47)
[2018-12-18 12:13] VITALS: BP 142/90
== END 2018-12-18 13:35 | disposition home or self-care (01) | DRG 639 ==
LOC: ER 19:14 → EH 22:46 → 3S 12-17 02:20
PROVIDERS: ADMIT Internal Medicine; ATTEND Internal Medicine
DX: E10.10 Type 1 diabetes mellitus with ketoacidosis without coma (principal); I10 Essential (primary) hypertension; D64.9 Anemia, unspecified; E87.5 Hyperkalemia; F17.210 Nicotine dependence, cigarettes, uncomplicated; S61.218A Laceration without foreign body of other finger without damage to nail, initial encounter; W45.8XXA Other foreign body or object entering through skin, initial encounter; Y93.89 Activity, other specified; Y92.89 Other specified places as the place of occurrence of the external cause; Z91.14 Patient's other noncompliance with medication regimen; Z79.4 Long term (current) use of insulin; Z79.899 Other long term (current) drug therapy
CPT/HCPCS: 36415; 80053; 81001; 82803; 82962; 83036; 83735; 84100; 85025; 93005; 93010; 99291; J1644; J1815; J2270; J3370; J3480; J7030; S0119

== ENCOUNTER 2019-04-19 01:51 | Emergency (ER) | payer OTHER ==
--- NOTE | 2019-04-19 06:27 | ER Document Report ---
HPI - HPI Time Seen by Provider: 04/19/19 06:04 Pain Level: 4 Context: Patient is a 38-year-old male who presents to the emergency department with a chief complaint of a sore throat. He has had a cough and has had a hoarse voice for the past week. Patient also has some congestion and sinus drainage. Denies any purulent drainage. He has not been taking any medications to help with his symptoms. Patient is a diabetic and is currently on insulin. - CONSTITUTIONAL Constitutional: DENIES: Fever, Chills - EENT EENT: REPORTS: Sore Throat, Ear Pain - Bilateral, Nasal Drainage-Clear, Jamel estion. DENIES: Nasal Drainage-Purulent, Eye problems - CARDIOVASCULAR Cardiovascular: DENIES: Chest pain - RESPIRATORY Respiratory: REPORTS: Coughing. DENIES: Trouble Breathing - GASTROINTESTINAL Gastrointestinal: DENIES: Abdominal Pain, Nausea, Patient vomiting - REPRODUCTIVE Reproductive: DENIES: : - DERM Skin Color: Normal Skin Problems: None Past Medical History - Social History Smoking Status: Former Smoker Chew tobacco use (# tins/day): No Frequency of alcohol use: None Drug Abuse: None Family History: Reviewed & Not Pertinent, CAD, CVA, DM, Hyperlipidemia, Hypertension, Malignancy Patient has suicidal ideation: No Patient has homicidal ideation: No - Past Medical History Cardiac Medical History: Denies: Hx Congestive Heart Failure, Hx Coronary Artery Disease, Hx DVT, Hx Heart Attack, Hx Hypercholesterolemia, Hx Hypertension, Hx Pulmonary Embolism Pulmonary Medical History: Reports: Hx Asthma, Hx Pneumonia Denies: Hx COPD, Hx Sleep Apnea Neurological Medical History: Reports: Hx Migraine - INTERMITTENT. Denies: Hx Seizures Endocrine Medical History: Reports: Hx Diabetes Mellitus Type 1. Denies: Hx Diabetes Mellitus Type 2, Hx Hyperthyroidism, Hx Hypothyroidism Renal/ Medical History: Denies: Hx Peritoneal Dialysis GI Medical History: Denies: Hx Cirrhosis, Hx Gastroesophageal Reflux Disease, Hx Hepatitis Musculoskeletal Medical History: Denies Hx Arthritis, Denies Hx Gout, Reports Hx Musculoskeletal Trauma - Muscle strains and sprains Skin Medical History: Denies Hx Eczema, Denies Hx Psoriasis Psychiatric Medical History: Reports: Hx Anxiety, Hx Depression Infectious Medical History: Denies: Hx C-Diff, Hx Hepatitis, Hx MRSA Past Surgical History: Reports: Hx Oral Surgery - Teeth, Hx Urinary Tract Surgery - fractured penis repair, Other - Oral surgery as well as urinary tract surgery (fractured penis repair) - Immunizations Immunizations up to date: Yes Hx Diphtheria, Pertussis, Tetanus Vaccination: Yes Hx Pneumococcal Vaccination: 03/25/16 Vertical Provider Document - CONSTITUTIONAL Agree With Documented VS: Yes Exam Limitations: No Limitations General Appearance: No Apparent Distress - INFECTION CONTROL TRAVEL OUTSIDE OF THE [place] IN LAST 30 DAYS: No - HEENT HEENT: Atraumatic, Normocephalic, PERRLA, Pharyngeal Tenderness, Pharyngeal Erythema. negative: Conjuctival Injection, Pharyngeal Exudate, Tympanic Membrane Red, Tympanic Membrane Bulging - NECK Neck: Normal Inspection - RESPIRATORY Respiratory: Breath Sounds Normal, No Respiratory Distress - CARDIOVASCULAR Cardiovascular: Regular Rate, Regular Rhythm Pulses: Normal: Radial - MUSCULOSKELETAL/EXTREMETIES Musculoskeletal/Extremeties: FROM - NEURO Level of Consciousness: Awake, Alert, Appropriate Motor/Sensory: No Motor Deficit - DERM Integumentary: Warm, Dry, No Rash Course - Vital Signs Vital signs: Temp Pulse Resp BP Pulse Ox 99.1 F 107 H 20 128/87 H 98 04/19/19 05:27 04/19/19 05:27 04/19/19 05:27 04/19/19 05:27 04/19/19 05:27 Discharge - Discharge Clinical Impression: Sore throat Condition: Stable Disposition: HOME, SELF-CARE Additional Instructions: You are seen today in the emergency department for sore throat. Your influenza and strep tests are negative. You are being sent home with a prescription for cetirizine and Flonase. Please use these to help with your symptoms. Please continue to take ibuprofen 600 mg and acetaminophen 1000 mg every 6 hours for your pain. Prescriptions: Cetirizine HCl [All Day Allergy] 10 mg PO DAILY #30 tablet Fluticasone Propionate [Flonase Nasal Scribner 50 Mcg/Scribner 16 gm] 2 sprays NASL DAILY #1 inhaler [facility] [[facility]] - Follow up in 1 week
[2019-04-19 07:03] VITALS: BP 130/77
== END 2019-04-19 07:02 | disposition home or self-care (01) ==
LOC: ER 01:51
DX: J02.9 Acute pharyngitis, unspecified (principal); R05 Cough; R49.0 Dysphonia; R09.81 Nasal congestion; H92.03 Otalgia, bilateral; J45.909 Unspecified asthma, uncomplicated; E10.9 Type 1 diabetes mellitus without complications; Z79.4 Long term (current) use of insulin; Z87.891 Personal history of nicotine dependence; Z87.01 Personal history of pneumonia (recurrent)
CPT/HCPCS: 87070; 87880; 99283

== ENCOUNTER 2019-05-02 17:59 | Emergency (ER) | payer OTHER ==
--- NOTE | 2019-05-02 18:56 | ER Document Report ---
ED Medical Screen (RME) - General Chief Complaint: Eye Problem Stated Complaint: SINUS CONGESTION/HEAD PRESSURE Time Seen by Provider: 05/02/19 18:46 Primary Care Provider: [facility] [[facility]] - Follow up as needed Mode of Arrival: Ambulatory Information source: Patient Notes: Patient presents complaining of pressure in the right eye. Patient denies any visual changes although complains of discomfort. Patient states he has had some crusting to the right eye. Patient was here recently and treated for sore throat symptoms and was given eyedrops. Patient denies any improvement of his symptoms with use of the medication. TRAVEL OUTSIDE OF THE [place] IN LAST 30 DAYS: No - Related Data Allergies/Adverse Reactions: honey [Honey] Allergy (Verified 05/02/19 18:45) No Known Drug Allergies Allergy (Verified 05/02/19 18:45) Home Medications: lantus, novolog, certrizine, flonase, phenylephrine, tylenol Past Medical History - Social History Chew tobacco use (# tins/day): No Frequency of alcohol use: None Drug Abuse: None - Past Medical History Cardiac Medical History: Denies: Hx Congestive Heart Failure, Hx Coronary Artery Disease, Hx DVT, Hx Heart Attack, Hx Hypercholesterolemia, Hx Hypertension, Hx Pulmonary Embolism Pulmonary Medical History: Reports: Hx Asthma, Hx Pneumonia Denies: Hx COPD, Hx Sleep Apnea Neurological Medical History: Reports: Hx Migraine - INTERMITTENT. Denies: Hx Seizures Endocrine Medical History: Reports: Hx Diabetes Mellitus Type 1. Denies: Hx Diabetes Mellitus Type 2, Hx Hyperthyroidism, Hx Hypothyroidism Renal/ Medical History: Denies: Hx Peritoneal Dialysis GI Medical History: Denies: Hx Cirrhosis, Hx Gastroesophageal Reflux Disease, Hx Hepatitis Musculoskeltal Medical History: Denies Hx Arthritis, Denies Hx Gout, Reports Hx Musculoskeletal Trauma - Muscle strains and sprains Skin Medical History: Denies Hx Eczema, Denies Hx Psoriasis Psychiatric Medical History: Reports: Hx Anxiety, Hx Depression Infectious Medical History: Denies: Hx C-Diff, Hx Hepatitis, Hx MRSA Past Surgical History: Reports: Hx Oral Surgery - Teeth, Hx Urinary Tract Surgery - fractured penis repair, Other - Oral surgery as well as urinary tract surgery (fractured penis repair) - Immunizations Immunizations up to date: Yes Hx Diphtheria, Pertussis, Tetanus Vaccination: Yes Physical Exam - Vital signs Vitals: Temp Pulse Resp BP Pulse Ox 98.5 F 95 16 139/88 H 99 05/02/19 18:16 05/02/19 18:16 05/02/19 18:16 05/02/19 18:16 05/02/19 18:16 - General General appearance: Alert Notes: crusted drainage to the left eye. Patient with periorbital tenderness, no obvious purulent drainage to the right eye Course - Vital Signs Vital signs: Temp Pulse Resp BP Pulse Ox 98.5 F 95 16 139/88 H 99 05/02/19 18:16 05/02/19 18:16 05/02/19 18:16 05/02/19 18:16 05/02/19 18:16 Doctor's Discharge - Discharge Referrals: [facility] [[facility]] - Follow up as needed
[2019-05-02] MEDS ORDERED: TETRACAINE HCL 0.5% OPH SOLN 4 ML ONE (19:08)
[2019-05-02] MEDS ORDERED: IBUPROFEN 800 MG TABLET PO ONE (19:13)
--- NOTE | 2019-05-02 19:24 | ER Document Report ---
HPI - HPI Patient complains to provider of: RIGHT PERIORBITAL PAIN Time Seen by Provider: 05/02/19 18:46 Onset: Other - 3 DAYS Onset/Duration: Sudden Quality of pain: Pressure Severity: Severe Pain Level: 4 Context: 39-year-old diabetic patient presents emergency to come department with complaints of pain around his right eye. He reports his eye itself does not hurt. Denies vision problems. Reports he might of had a little bit of drainage this morning when he woke up. Patient denies pain with movement of his eye. Reports vision is fine. Reports increased pain when he lays back or hold his head forward. Reports decreased appetite because it hurts when he chews. Denies fever vomiting diarrhea. Reports his glucose is been fine. She reports he was seen here couple weeks ago for sore throat but that is feeling better. Reports he has been taking Sudafed for the past week without relief of symptoms. Patient did not take anything for pain. He reports he does not like to take pain medication. Associated Symptoms: None Exacerbated by: Denies Relieved by: Denies Similar symptoms previously: No Recently seen / treated by doctor: Yes - EENT EENT: REPORTS: Eye problems - around right eye - REPRODUCTIVE Reproductive: DENIES: : Past Medical History - General Information source: Patient - Social History Smoking Status: Never Smoker Chew tobacco use (# tins/day): No Frequency of alcohol use: None Drug Abuse: None Family History: Reviewed & Not Pertinent, CAD, CVA, DM, Hyperlipidemia, Hypertension, Malignancy Patient has suicidal ideation: No Patient has homicidal ideation: No - Past Medical History Cardiac Medical History: Denies: Hx Congestive Heart Failure, Hx Coronary Artery Disease, Hx DVT, Hx Heart Attack, Hx Hypercholesterolemia, Hx Hypertension, Hx Pulmonary Embolism Pulmonary Medical History: Reports: Hx Asthma, Hx Pneumonia Denies: Hx COPD, Hx Sleep Apnea Neurological Medical History: Reports: Hx Migraine - INTERMITTENT. Denies: Hx Seizures Endocrine Medical History: Reports: Hx Diabetes Mellitus Type 1. Denies: Hx Diabetes Mellitus Type 2, Hx Hyperthyroidism, Hx Hypothyroidism Renal/ Medical History: Denies: Hx Peritoneal Dialysis GI Medical History: Denies: Hx Cirrhosis, Hx Gastroesophageal Reflux Disease, Hx Hepatitis Musculoskeletal Medical History: Denies Hx Arthritis, Denies Hx Gout, Reports Hx Musculoskeletal Trauma - Muscle strains and sprains Skin Medical History: Denies Hx Eczema, Denies Hx Psoriasis Psychiatric Medical History: Reports: Hx Anxiety, Hx Depression Infectious Medical History: Denies: Hx C-Diff, Hx Hepatitis, Hx MRSA Past Surgical History: Reports: Hx Oral Surgery - Teeth, Hx Urinary Tract Surgery - fractured penis repair, Other - Oral surgery as well as urinary tract surgery (fractured penis repair) - Immunizations Immunizations up to date: Yes Hx Diphtheria, Pertussis, Tetanus Vaccination: Yes Hx Pneumococcal Vaccination: 03/25/16 Vertical Provider Document - CONSTITUTIONAL Agree With Documented VS: Yes Exam Limitations: No Limitations General Appearance: WD/WN, No Apparent Distress - INFECTION CONTROL TRAVEL OUTSIDE OF THE [place] IN LAST 30 DAYS: No - HEENT HEENT: Atraumatic, Normocephalic, PERRLA. negative: Conjuctival Injection - No discharge, Pharyngeal Exudate, Pharyngeal Erythema Notes: Patient complains of pain to the ethmoid maxillary and frontal right sinuses, no erythema no swelling no warmth. - NECK Neck: Normal Inspection, Supple. negative: Lymphadenopathy-Left, Lymphadenopathy-Right - RESPIRATORY Respiratory: Breath Sounds Normal, No Respiratory Distress - CARDIOVASCULAR Cardiovascular: Regular Rate - MUSCULOSKELETAL/EXTREMETIES Musculoskeletal/Extremeties: MAEW, FROM - NEURO Level of Consciousness: Awake, Alert, Appropriate Motor/Sensory: No Motor Deficit - DERM Integumentary: Warm, Dry Course - Re-evaluation Re-evalutation: 05/02/19 20:18 [facility] X-Ray 05/02/19 19:13 IMPRESSION: Opacification of the right maxillary sinus with an air-fluid level at the right sphenoid sinus, may be secondary to acute sinusitis. Clinical correlation recommended. Evaluation with CT as clinically warranted. 05/02/19 20:24 Patient instructed on sinusitis and Augmentin. He reports he is feeling better after the Motrin. Reports pain is gone from 5/5 to 2/5 [facility] He was instructed to inform them of the sinusitis. He was also instructed if the pain gets worse he has trouble with his vision any concerns he is to follow-[facility] scheduled with the [facility] or return to the ED for recheck and possible CT. He verbalized understanding to all instructions. - Vital Signs Vital signs: Temp Pulse Resp BP Pulse Ox 98.5 F 95 16 139/88 H 99 05/02/19 18:16 05/02/19 18:16 05/02/19 18:16 05/02/19 18:16 05/02/19 18:16 - Diagnostic Test Radiology reviewed: Reports reviewed Discharge - Discharge Clinical Impression: Sinusitis Qualifiers: Sinusitis location: maxillary Chronicity: acute Recurrence: not specified as recurrent Qualified Code(s): J01.00 - Acute maxillary sinusitis, unspecified Condition: Stable Disposition: HOME, SELF-CARE Instructions: Augmentin ([facility]), Use of [id number] Ibuprofen ([facility]), Sinusit is ([facility]) Additional Instructions: *You have been evaluated for sinus pain, sinusitis *Take medications as prescribed *Take Ibuprofen as indicated for pain *[facility] *Return to ED for worsening condition, changes, needs, worsening pain concerns Monitor your blood pressure. Your blood pressure was elevated today. This may be because you were anxious, in pain or because you need medication. It is important to follow up with your primary care provider for full evaluation. Prescriptions: Amoxicillin/Potassium Clav [Augmentin 875-125 Tablet] 1 each PO BID #20 tablet Forms: Elevated Blood Pressure [facility]errals: [facility] [Primary Care Provider] - 05/06/19
--- NOTE | 2019-05-02 19:50 | RADIOLOGY REPORT (SQ) ---
EXAM DESCRIPTION: GANDHI VIEW SINUS COMPLETED DATE/TIME: 05/02/2019 7:32 pm REASON FOR STUDY: SINUS PAIN RIGHT COMPARISON: None. NUMBER OF VIEWS: One view. TECHNIQUE: 1 image of the paranasal sinuses acquired. LIMITATIONS: None. FINDINGS: There is opacification of the right maxillary sinus with an air-fluid level at the right s phenoid sinus. No significant air-fluid levels at the left maxillary sinus or left sphenoid sinus. IMPRESSION: Opacification of the right maxillary sinus with an air-fluid level at the right sphenoid sinus, may be secondary to acute sinusitis. Clinical correlation recommended. Evaluation with CT a s clinically warranted. TECHNICAL DOCUMENTATION: JOB ID: [id number] 2010 [employer]- All Rights Reserved Reading location - IP/workstation name: [email or web address]
[2019-05-02] MEDS ORDERED: AMOXICILLIN TR/POT CLAVULANATE 500-125 MG TAB PO ONE (20:19)
[2019-05-02 20:37] VITALS: BP 126/84
== END 2019-05-02 20:36 | disposition home or self-care (01) ==
LOC: ER 17:59
DX: J01.00 Acute maxillary sinusitis, unspecified (principal); H57.11 Ocular pain, right eye; R51 Headache; E10.9 Type 1 diabetes mellitus without complications; J45.909 Unspecified asthma, uncomplicated
CPT/HCPCS: 99283; 70210; J3490

== ENCOUNTER 2019-05-13 19:18 | Emergency (ER) | payer OTHER ==
[2019-05-13 19:31] VITALS: BP 137/81
[2019-05-13] MEDS ORDERED: TETRACAINE HCL 0.5% OPH SOLN 4 ML OD ONE (19:46)
--- NOTE | 2019-05-13 19:50 | ER Document Report ---
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 Pt states his 2 month old accidentally poked him in the eye. States it is painful. Denies wearing contacts or glasses. - EENT EENT: REPORTS: Eye problems - left eye - REPRODUCTIVE Reproductive: DENIES: : Past Medical History - General Information source: Patient - Social History Smoking Status: Former Smoker Frequency of alcohol use: None Drug Abuse: None Family History: Reviewed & Not Pertinent, CAD, CVA, DM, Hyperlipidemia, Hypertension, Malignancy Patient has suicidal ideation: No Patient has homicidal ideation: No - Past Medical History Cardiac Medical History: Denies: Hx Congestive Heart Failure, Hx Coronary Artery Disease, Hx DVT, Hx Heart Attack, Hx Hypercholesterolemia, Hx Hypertension, Hx Pulmonary Embolism Pulmonary Medical History: Reports: Hx Asthma, Hx Pneumonia Denies: Hx COPD, Hx Sleep Apnea Neurological Medical History: Reports: Hx Migraine - INTERMITTENT. Denies: Hx Seizures Endocrine Medical History: Reports: Hx Diabetes Mellitus Type 1. Denies: Hx Diabetes Mellitus Type 2, Hx Hyperthyroidism, Hx Hypothyroidism Renal/ Medical History: Denies: Hx Peritoneal Dialysis GI Medical History: Denies: Hx Cirrhosis, Hx Gastroesophageal Reflux Disease, Hx Hepatitis Musculoskeletal Medical History: Denies Hx Arthritis, Denies Hx Gout, Reports Hx Musculoskeletal Trauma - Muscle strains and sprains Skin Medical History: Denies Hx Eczema, Denies Hx Psoriasis Psychiatric Medical History: Reports: Hx Anxiety, Hx Depression Infectious Medical History: Denies: Hx C-Diff, Hx Hepatitis, Hx MRSA Past Surgical History: Reports: Hx Oral Surgery - Teeth, Hx Urinary Tract Surgery - fractured penis repair, Other - Oral surgery as well as urinary tract surgery (fractured penis repair) - Immunizations Immunizations up to date: Yes Hx Diphtheria, Pertussis, Tetanus Vaccination: Yes Hx Pneumococcal Vaccination: 03/25/16 Vertical Provider Document - CONSTITUTIONAL Agree With Documented VS: Yes Notes: GENERAL: Well-appearing, well-nourished and in no acute distress. HEAD: Atraumatic, normocephalic. EYES: Pupils equal round and reactive to light, extraocular movements intact, sclera anicteric, conjunctiva are normal. Fluorescein exam reveals no corneal abrasion or ulcer. No dendrites seen. Visual acuity: R 20/40; L 20/40; both 20/30 NECK: Normal range of motion, supple without lymphadenopathy or JVD. EXTREMITIES: Normal range of motion, no pitting or edema. No clubbing or cyanosis. NEUROLOGICAL: Cranial nerves II through XII grossly intact. Normal speech, normal gait. PSYCH: Normal mood, normal affect. SKIN: Warm, Dry, normal turgor, no rashes or lesions noted. - INFECTION CONTROL TRAVEL OUTSIDE OF THE [place] IN LAST 30 DAYS: No Course - Re-evaluation Re-evalutation: 05/13/19 39 y/o male presents with right eye injury. PERRLA. EOM intact. No erythema to conjunctiva. Fluorescein exam reveals no ulcers, abrasions, or dendrites. Patient does not wear contacts or glasses. Patient given follow-up with eye doctor if no improvement in symptoms and 3 to 5 days. Patient also giv en referral back to his PCP. Strict return precautions given. Patient voices understanding and agrees with plan of care. - Vital Signs Vital signs: Temp Pulse Resp BP Pulse Ox 99.0 F 92 16 137/81 H 97 05/13/19 19:30 05/13/19 19:30 05/13/19 19:30 05/13/19 19:30 05/13/19 19:30 Discharge - Discharge Clinical Impression: Right eye injury Qualifiers: Encounter type: initial encounter Qualified Code(s): S05.91XA - Unspecified injury of right eye and orbit, initial encounter Condition: Stable Disposition: HOME, SELF-CARE Additional Instructions: Your exam reveals no ulcer or abrasion. Please follow up with eye doctor listed if no improvement in 3-5 days. Return immediately to ER if you start having any worsening symptoms, including worsening vision, loss of vision, increasing pain, increasing redness, or any other symptoms that are concerning to you. Prescriptions: Ketorolac Tromethamine 0.45% [Acuvail 0.45% Oph Soln 0.4 ml/Dropperette] 1 drop OD Q6 #20 droperette [facility]errals: [facility] [Primary Care Provider] - Follow up in 3-5 days NORA PICKETT DO [ACTIVE STAFF] - Follow up in 3-5 days
== END 2019-05-13 20:40 | disposition home or self-care (01) ==
LOC: ER 19:18
DX: S05.91XA Unspecified injury of right eye and orbit, initial encounter (principal); W50.0XXA Accidental hit or strike by another person, initial encounter; J45.909 Unspecified asthma, uncomplicated; E10.9 Type 1 diabetes mellitus without complications; Z87.891 Personal history of nicotine dependence
CPT/HCPCS: 99283; J3490

== ENCOUNTER 2019-06-03 10:27 | Emergency (ER) | payer OTHER ==
[2019-06-03 10:51] VITALS: BP 130/95
--- NOTE | 2019-06-03 11:10 | ER Document Report ---
ED Burn/Smoke/Toxic Fumes - General Chief Complaint: Burn Stated Complaint: COOKING OIL BURN TO RIGHT ARM Time Seen by Provider: 06/03/19 11:01 Primary Care Provider: MELODY NASSAR [Primary Care Provider] - Follow up in 3-5 days Mode of Arrival: Ambulatory Information source: Patient Notes: 39-year-old male presented to ED for a second-degree burn to the right forearm. There is no signs or symptoms of infection. He states he burned it with grease at the [employer] yesterday. He is taking very good care of his burn so far and it looks very good. The diabetic. TRAVEL OUTSIDE OF THE [place] IN LAST 30 DAYS: No - HPI Patient complains to provider of: Burn - Second-degree burn 7 cm x 5 cm lateral aspect of right forearm Onset: Yesterday Where: Work Quality of pain: Burning Severity: Moderate Pain Level: 3 Associated Symptoms: None Other injuries: RUE - Related Data Allergies/Adverse Reactions: honey [Honey] Allergy (Verified 06/03/19 11:03) No Known Drug Allergies Allergy (Verified 06/03/19 11:03) Past Medical History - General Information source: Patient - Social History Smoking Status: Former Smoker Frequency of alcohol use: None Drug Abuse: None Occupation: [employer] Family History: Reviewed & Not Pertinent, CAD, CVA, DM, Hyperlipidemia, Hypertension, Malignancy - Past Medical History Cardiac Medical History: Reports: None Pulmonary Medical History: Reports: Hx Asthma, Hx Pneumonia EENT Medical History: Reports: None Endocrine Medical History: Reports: Hx Diabetes Mellitus Type 1 Renal/ Medical History: Reports: None Malignancy Medical History: Reports None GI Medical History: Reports: None Musculoskeletal Medical History: Reports Hx Musculoskeletal Trauma - Muscle strains and sprains Psychiatric Medical History: Reports: Hx Anxiety, Hx Depression Traumatic Medical History: Reports: None Infectious Medical History: Reports: None Past Surgical History: Reports: Hx Oral Surgery - Teeth, Hx Urinary Tract Surgery - fractured penis repair - Immunizations Immunizations up to date: Yes Hx Diphtheria, Pertussis, Tetanus Vaccination: Yes - 2019 Hx Pneumococcal Vaccination: 03/25/16 Review of Systems - Review of Systems Constitutional: No symptoms reported EENT: No symptoms reported Cardiovascular: No symptoms reported Respiratory: No symptoms reported Gastrointestinal: No symptoms reported Genitourinary: No symptoms reported Male Genitourinary: No symptoms reported Musculoskeletal: No symptoms reported Skin: Other - Second degree burn to the right forearm Hematologic/Lymphatic: No symptoms reported Neurological/Psychological: No symptoms reported Physical Exam - Vital signs Vitals: Temp Pulse Resp BP Pulse Ox 98.5 F 75 18 130/95 H 97 06/03/19 10:50 06/03/19 10:50 06/03/19 10:50 06/03/19 10:50 06/03/19 10:50 Interpretation: Normal - General General appearance: Appears well, Alert - HEENT Head: Normocephalic, Atraumatic Eyes: Normal Pupils: PERRL - Respiratory Respiratory status: No respiratory distress Chest status: Nontender Breath sounds: Normal Chest palpation: Normal - Cardiovascular Rhythm: Regular Heart sounds: Normal auscultation Murmur: No - Abdominal Inspection: Normal Distension: No distension Bowel sounds: Normal Tenderness: Nontender Organomegaly: No organomegaly - Back Back: Normal, Nontender - Extremities General upper extremity: Normal color, Normal ROM, Normal temperature General lower extremity: Normal inspection, Nontender, Normal color, Normal ROM, Normal temperature, Normal weight bearing. No: Prabhu's sign Forearm: Tender - 5 x 7 cm burn to the right forearm can degree - Neurological Neuro grossly intact: Yes Cognition: Normal Orientation: AAOx4 [place] Coma Scale Eye Opening: Spontaneous [place] Coma Scale Verbal: Oriented [place] Coma Scale Motor: Obeys Commands [place] Coma Scale Total: 15 Speech: Normal Motor strength normal: LUE, RUE, LLE, RLE Sensory: Normal - Psychological Associated symptoms: Normal affect, Normal mood - Skin Skin Temperature: Warm Skin Moisture: Dry Skin Color: Normal Course - Vital Signs Vital signs: Temp Pulse Resp BP Pulse Ox 98.5 F 75 18 130/95 H 97 06/03/19 10:50 06/03/19 10:50 06/03/19 10:50 06/03/19 10:50 06/03/19 10:50 Discharge - Discharge Clinical Impression: Burn of second degree of right forearm, initial encounter Condition: Stable Disposition: HOME, SELF-CARE Additional Instructions: Llanos The seriousness of a burn is not always obvious at first. Delayed tissue damage and secondary infection may occur despite proper treatment. Proper care is very important. A burn that is third-degree may need skin grafting. Most llanos, however, are simply protected with dressings until healed. Keep the burn clean. If the dressing gets wet, remove it and blot the wound dry, then apply a fresh dressing. Dressings should be changed at least once daily. Soaks to remove crusting are usually started in about two days. Llanos in certain areas require stretching to prevent disabling tightness. Your doctor will advise you about this. For pain control, you may frequently apply a hand towel that has been dipped in water with ice cubes. Do not apply ice directly to the burned areas. If any signs of infection occur (swelling, redness, increasing tenderness, red streaks, tender lumps in the armpit or groin above the burn, or fever), contact the doctor immediately. Clean the wound gently with soap and water apply bacitracin and Telfa pad wrapped loosely 2-3 times a day do not remove any blisters Acetaminophen Acetaminophen may be taken for pain relief or fever control. It's much safer than aspirin, offering a wider range of "safe" dosages. It is safe during . Some brand names are Tylenol, Panadol, Datril, Anacin 3, Tempra, and Liquiprin. Acetaminophen can be repeated every four hours. The following are maximum recommended dosages: WEIGHT Dose Drops Elixir Chewable(80mg) (LBS.) drprs=droppers tsp=teaspoon 6 40 mg .4 ml (1/2) 6-11 80 mg .8 ml (full) 1/2 tsp 1 tab 12-16 120 mg 1 1/2 drprs 3/4 tsp 1 1/2 tabs 17-23 160 mg 2 drprs 1 tsp 2 tabs 24-30 240 mg 3 drprs 1 1/2 tsp 3 tabs 30-35 320 mg 2 tsp 4 tabs 36-41 360 mg 2 1/4 tsp 4 1/2 tabs 42-47 400 mg 2 1/2 tsp 5 tabs 48-53 480 mg 3 tsp 6 tabs 54-59 520 mg 3 1/4 tsp 6 1/2 tabs 60-64 560 mg 3 1/2 tsp 7 tabs 65-70 600 mg 3 3/4 tsp 7 1/2 tabs 71-76 640 mg 4 tsp 8 tabs 77-82 720 mg 4 1/2 tsp 9 tabs 83-88 800 mg 5 tsp 10 tabs >89 pounds or adults 650 mg to 900 mg Acetaminophen can be repeated every four hours. Maximum daily dose not to exceed 4000 mg. These maximum recommended dosages are slightly higher than the dosages written on the product container, but these dosages are very safe and well below the toxic dosage for acetaminophen. Ibuprofen Ibuprofen is an excellent, safe drug for pain control. In addition, it has potent antiinflammatory effects which are beneficial, especially in the treatment of injuries, arthritis, or tendonitis. It's best to take ibuprofen with food. Persons with ulcer disease or allergy to aspirin should notify their physician of this before taking ibuprofen. Take the medication exactly as prescribed. Don't take additional doses unless instructed to do so by your doctor. If you develop wheezing, shortness of breath, hives, faintness, stomach pain, vomiting, or dark black stools, return for re-evaluation at once. FOLLOW-UP CARE: If you have been referred to a physician for follow-up care, call the physicians office for an appointment as you were instructed or within the next two days. If you experience worsening or a significant change in your symptoms, notify the physician immediately or return to the Emergency Department at any time for re-evaluation. Forms: Elevated Blood Pressure Referrals: [facility] [[facility]] - Follow up in 3-5 days
== END 2019-06-03 11:35 | disposition home or self-care (01) ==
LOC: ER 10:27
DX: T22.211A Burn of second degree of right forearm, initial encounter (principal); X10.2XXA Contact with fats and cooking oils, initial encounter; Y92.511 Restaurant or cafe as the place of occurrence of the external cause; Y99.0 Civilian activity done for income or pay; E10.9 Type 1 diabetes mellitus without complications
CPT/HCPCS: 99283

== ENCOUNTER 2019-09-15 09:48 | Emergency (ER) | payer OTHER ==
[2019-09-15 09:54] VITALS: BP 147/85
--- NOTE | 2019-09-15 10:30 | ER Document Report ---
HPI - HPI Patient complains to provider of: Tooth ache Time Seen by Provider: 09/15/19 10:28 Onset: This morning Pain Level: 4 Context: This a 39-year-old male who presented to the emergency room today stating that when he awoke this morning he checked his blood sugar he felt that it was low he drank some orange juice and ate some candy to rectify that. Which in fact he did he had an Accu-Chek here of about 260. He then started having some discomfort to his left lower jaw and presented to the emergency room. Similar symptoms previously: Yes Recently seen / treated by doctor: No - REPRODUCTIVE Reproductive: DENIES: : Past Medical History - General Information source: Patient - Social History Smoking Status: Current Every Day Smoker Frequency of alcohol use: None Drug Abuse: None Family History: Reviewed & Not Pertinent, CAD, CVA, DM, Hyperlipidemia, Hypertension, Malignancy - Medical History Medical History: Other Notes: Diabetes - Past Medical History Cardiac Medical History: Denies: Hx Congestive Heart Failure, Hx Heart Attack, Hx Hypercholesterolemia, Hx Hypertension Pulmonary Medical History: Reports: Hx Asthma, Hx Pneumonia Denies: Hx COPD Neurological Medical History: Reports: Hx Migraine - INTERMITTENT. Denies: Hx Seizures Endocrine Medical History: Reports: Hx Diabetes Mellitus Type 1. Denies: Hx Diabetes Mellitus Type 2 GI Medical History: Denies: Hx Gastroesophageal Reflux Disease Musculoskeletal Medical History: Denies Hx Arthritis, Reports Hx Musculoskeletal Trauma - Muscle strains and sprains Psychiatric Medical History: Reports: Hx Anxiety, Hx Depression Past Surgical History: Reports: Hx Oral Surgery - Teeth, Hx Urinary Tract Surgery - fractured penis repair - Immunizations Immunizations up to date: Yes Hx Diphtheria, Pertussis, Tetanus Vaccination: Yes - 2018 Hx Pneumococcal Vaccination: 03/25/16 Vertical Provider Document - CONSTITUTIONAL Agree With Documented VS: Yes - INFECTION CONTROL TRAVEL OUTSIDE OF THE [place] IN LAST 30 DAYS: No - HEENT HEENT: Atraumatic, Conjuctival Injection Notes: Severe dental decay to the molars and the premolars on the entire left side upper and lower. The lower is severely decayed to the gumline. He has no ashwin mus no oral floor induration no difficulty swallowing breathing or managing his own saliva. - RESPIRATORY Respiratory: Breath Sounds Normal - CARDIOVASCULAR Cardiovascular: Regular Rate, Regular Rhythm - GI/ABDOMEN Gastrointestinal: Abdomen Soft, Abdomen Non-Tender - BACK Back: Normal Inspection - MUSCULOSKELETAL/EXTREMETIES Musculoskeletal/Extremeties: MAEW - NEURO Level of Consciousness: Awake, Alert, Appropriate Motor/Sensory: No Motor Deficit Course - Vital Signs Vital signs: Temp Pulse Resp BP Pulse Ox 98.7 F 105 H 18 147/85 H 100 09/15/19 09:57 09/15/19 09:57 09/15/19 09:57 09/15/19 09:57 09/15/19 09:57 Discharge - Discharge Clinical Impression: Dentalgia Disposition: HOME, SELF-CARE Instructions: Toothache ([facility]), Clindamycin ([facility]), [facility] Additional Instructions: Dental Infection or Abscess You have an infection, perhaps an abscess (pus formation) of the gum around one of your teeth, which is probably decayed. If there is an abscess, it may drain on its own or it may need to be opened or lanced. Severe swelling or drainage around a tooth usually means a deep dental abscess which usually requires evaluation and treatment by a dentist or oral surgeon. Antibiotics may be prescribed while awaiting dental treatment. If you develop high fever with chills, worsening pain, or increasing swelling in the area, see a dentist or oral surgeon immediately or return to the Emergency Department immediately. Prescriptions: Clindamycin HCl [Cleocin HCl] 150 mg PO TID #30 capsule Ibuprofen 400 mg PO TID #20 tablet Referrals: [facility] [[facility]] - Follow up as needed
== END 2019-09-15 10:39 | disposition home or self-care (01) ==
LOC: ER 09:48
DX: K02.9 Dental caries, unspecified (principal); K08.89 Other specified disorders of teeth and supporting structures; E10.9 Type 1 diabetes mellitus without complications; F17.200 Nicotine dependence, unspecified, uncomplicated; J45.909 Unspecified asthma, uncomplicated
CPT/HCPCS: 82962; 99283

== ENCOUNTER 2019-10-02 15:43 | Emergency (ER) | payer OTHER ==
[2019-10-02] MEDS ORDERED: NORMAL SALINE 1000 ML 1,000 ML IV ONE ×2 (20:27→23:05)
[2019-10-02] MEDS ORDERED: ONDANSETRON HCL INJ/PF 4 MG/2 ML SDV IV ONE ×2 (20:28→23:04)
--- NOTE | 2019-10-02 20:33 | ER Document Report ---
ED General - General Chief Complaint: Abdominal Pain Stated Complaint: ABDOMINAL PAIN,VOMITING,DIARRHEA Primary Care Provider: [facility] [[facility]] - Follow up as needed Notes: Patient is a 39-year-old -[place] male with a history of type 1 diabetes on sliding scale insulin who presents the emergency department with a chief complaint of nausea, vomiting and diarrhea that began this morning. He states it was associated with some lower abdominal cramping. He states the cramping was transient in nature and has not returned, it is completely resolved now. He states he had about 3 bouts of vomiting earlier today and maybe 10 or so episodes of diarrhea that he describes as loose stool that was brown. He took 6 chewable Pepto-Bismol tablets and states that his symptoms have markedly improved. He denies this feeling anything like prior episodes of DKA. He denies any recent travel or known sick contacts. Denies any testicular pain or swelling. No trouble with urination, dysuria or hematuria. No prior abdominal surgeries reported. No fevers chills or night sweats. States no new foods, drinks or medicines. TRAVEL OUTSIDE OF THE [place] IN LAST 30 DAYS: No - Related Data Allergies/Adverse Reactions: honey [Honey] Allergy (Verified 06/03/19 11:03) No Known Drug Allergies Allergy (Verified 06/03/19 11:03) Home Medications: humalog. lantus. certizine Past Medical History - Social History Smoking Status: Current Every Day Smoker Chew tobacco use (# tins/day): No Frequency of alcohol use: None Drug Abuse: None Family History: Reviewed & Not Pertinent, CAD, CVA, DM, Hyperlipidemia, Hypertension, Malignancy - Past Medical History Cardiac Medical History: Denies: Hx Congestive Heart Failure, Hx Heart Attack, Hx Hypercholesterolemia, Hx Hypertension Pulmonary Medical History: Reports: Hx Asthma, Hx Pneumonia Denies: Hx COPD Neurological Medical History: Reports: Hx Migraine - INTERMITTENT. Denies: Hx Seizures Endocrine Medical History: Reports: Hx Diabetes Mellitus Type 1. Denies: Hx Diabetes Mellitus Type 2 GI Medical History: Denies: Hx Gastroesophageal Reflux Disease Musculoskeletal Medical History: Denies Hx Arthritis, Reports Hx Musculoskeletal Trauma - Muscle strains and sprains Psychiatric Medical History: Reports: Hx Anxiety, Hx Depression Past Surgical History: Reports: Hx Oral Surgery - Teeth, Hx Urinary Tract Surgery - fractured penis repair - Immunizations Immunizations up to date: Yes Hx Diphtheria, Pertussis, Tetanus Vaccination: Yes - 2018 Hx Pneumococcal Vaccination: 03/25/16 Review of Systems - Review of Systems Constitutional: denies: Diaphoresis, Fever EENT: denies: Blurred vision Cardiovascular: denies: Chest pain, Syncope Respiratory: denies: Cough, Short of breath Gastrointestinal: Abdominal pain, Diarrhea, Nausea, Vomiting Genitourinary: denies: Burning, Dysuria Male Genitourinary: denies: Testicular pain, Penile discharge Musculoskeletal: denies: Muscle pain, Muscle stiffness Skin: denies: Change in color Hematologic/Lymphatic: denies: Easy bleeding Neurological/Psychological: denies: Confusion, Lost consciousness Physical Exam - Vital signs Vitals: Temp Pulse Resp BP Pulse Ox 98.5 F 80 16 126/86 H 100 10/02/19 16:06 10/02/19 16:06 10/02/19 16:06 10/02/19 16:06 10/02/19 16:06 - General General appearance: Appears well, Alert In distress: None - HEENT Head: Normocephalic, Atraumatic Eyes: Normal Conjunctiva: Normal Extraocular movements intact: Yes Eyelashes: Normal Pupils: PERRL Mouth/Lips: Normal Mucous membranes: Moist Pharynx: Normal Neck: Supple - Respiratory Respiratory status: No respiratory distress Chest status: Nontender Breath sounds: Normal Chest palpation: Normal - Cardiovascular Rhythm: Regular Heart sounds: Normal auscultation - Abdominal Inspection: Normal Distension: No distension Bowel sounds: Normal Tenderness: Nontender Organomegaly: No organomegaly - Back Back: No: CVA tenderness - Extremities General upper extremity: Normal inspection, Nontender, Normal color, Normal ROM, Normal temperature General lower extremity: Normal inspection, Nontender, Normal color, Normal ROM, Normal temperature, Normal weight bearing. No: Prabhu's sign - Neurological Neuro grossly intact: Yes Cognition: Normal Orientation: AAOx4 - Psychological Associated symptoms: Normal affect, Normal mood - Skin Skin Temperature: Warm Skin Moisture: Dry Skin Color: Normal Course - Re-evaluation Re-evalutation: 10/02/19 23:07 Reevaluation at this time, patient is resting comfortably in the room. He has had no further episodes of abdominal pain here, no with no further nausea or vomiting. His lab work is largely unremarkable. Not in DKA. After feeding the patient his Accu-Chek came up to 108. He states that his sugar was low because he was scared to eat given what was going on so it is been a while since he had any intake. States that he feels fine and is agreeable with plan for discharge. Counseled him regarding the importance of outpatient follow-up and advised to return here any ER immediately with any new, persistent or worsening symptoms. He verbalized understood and agreed. 10/02/19 23:09 We also discussed dietary precautions including clear liquid diet for the next 24 hours followed by brat diet and then slow gradual return to normal. - Vital Signs Vital signs: Temp Pulse Resp BP Pulse Ox 98.5 F 80 16 126/86 H 100 10/02/19 19:47 10/02/19 16:06 10/02/19 16:06 10/02/19 16:06 10/02/19 16:06 - Laboratory Result Diagrams: 10/02/19 20:40 10/02/19 20:40 Laboratory results interpreted by me: 10/02/19 10/02/19 10/02/19 20:40 20:40 20:40 RBC 4.26 L Hgb 13.0 L Lymph % (Auto) 45.2 H Anion Gap 4 L Glucose 45 L Urine Glucose (UA) >=500 H Discharge - Discharge Clinical Impression: Abdominal cramping Nausea & vomiting Qualifiers: Vomiting type: unspecified Vomiting Intractability: unspecified Qualified Code(s): R11.2 - Nausea with vomiting, unspecified Diarrhea Qualifiers: Diarrhea type: unspecified type Qualified Code(s): R19.7 - Diarrhea, unspecified Condition: Stable Disposition: HOME, SELF-CARE Instructions: Vomiting ([facility]), Diarrhea, Nonspecific ([facility]) Additional Instructions: Follow-up with your regular doctor in 2 to 3 days for reevaluation. Return here or any ER immediately with any new, persistent or worsening symptoms. Referrals: [facility] [Primary [facility]] - Follow up as needed
[2019-10-02] MEDS ORDERED: ACETAMINOPHEN 325 MG TABLET PO ONE (20:43)
[2019-10-02 21:06] LABS: ABSOLUTE BASOPHILS # (AUTO) 0.1 10^3/uL (0.0-0.2); ABSOLUTE EOSINOPHILS # (AUTO) 0.1 10^3/uL (0.0-0.6); ABSOLUTE LYMPHOCYTES (AUTO) 2.9 10^3/uL (0.5-4.7); ABSOLUTE MONOCYTES (AUTO) 0.2 10^3/uL (0.1-1.4); ABSOLUTE NEUT (AUTO) 3.1 10^3/uL (1.7-8.2); BASOPHILS % (AUTO) 1.1 % (0-2); EOSINOPHILS % (AUTO) 1.8 % (0-6); HEMATOCRIT 38.6 % (37.9-51.0); LYMPHOCYTES % (AUTO) 45.2 % (13-45); MEAN CORPUSCULAR HEMOGLOBIN 30.4 pg (27.0-33.4); MEAN CORPUSCULAR HGB CONC 33.6 g/dL (32.0-36.0); MEAN CORPUSCULAR VOLUME 90 fl (80-97); MONOCYTES % (AUTO) 3.6 % (3-13); PLATELET COUNT 208 10^3/uL (150-450); RED BLOOD COUNT 4.26 10^6/uL (4.35-5.55); RED CELL DISTRIBUTION WIDTH 13.7 % (11.5-14.0); SEGMENTED NEUTROPHILS % (AUTO) 48.3 % (42-78); TOTAL CELLS COUNTED % (AUTO) 100 %; WHITE BLOOD COUNT 6.5 10^3/uL (4.0-10.5)
[2019-10-02 21:09] LABS: VENOUS BLOOD BASE EXCESS -2.7 mmol/L; VENOUS BLOOD PCO2 43.5 mmHg (35-63); VENOUS BLOOD PH 7.34 (7.30-7.42)
[2019-10-02 21:15] LABS: APPEARANCE,URINE CLEAR; BILIRUBIN,URINE NEGATIVE (NEGATIVE); COLOR,URINE STRAW; GLUCOSE, URINE >=500 mg/dL (NEGATIVE); KETONES,URINE NEGATIVE (NEGATIVE); PROTEIN,URINE NEGATIVE (NEGATIVE); URINE SPECIFIC GRAVITY 1.013; UROBILINOGEN,URINE NEGATIVE mg/dL (<2.0)
[2019-10-02 21:19] LABS: ALBUMIN 4.1 g/dL (3.5-5.0); ALKALINE PHOSPHATASE 77 U/L (38-126); ASPARTATE AMINO TRANSFERASE 29 U/L (17-59); BILIRUBIN,TOTAL 0.7 mg/dL (0.2-1.3); BLOOD UREA NITROGEN 11 mg/dL (7-20); CARBON DIOXIDE 29 mmol/L (22-30); CHLORIDE 104 mmol/L (98-107); POTASSIUM 4.2 mmol/L (3.6-5.0); TOTAL PROTEIN 7.1 g/dL (6.3-8.2)
[2019-10-02 21:21] LABS: GLUCOSE 45 mg/dL (75-110)
[2019-10-02 21:25] LABS: ANION GAP 4 (5-19)
[2019-10-02] MEDS ORDERED: HYDROMORPHONE HCL INJ/PF 2 MG/ML AMPULE IV ONE (23:05)
[2019-10-02 23:18] VITALS: BP 124/75
== END 2019-10-02 23:19 | disposition home or self-care (01) ==
LOC: ER 15:43
DX: R11.2 Nausea with vomiting, unspecified (principal); R19.7 Diarrhea, unspecified; R10.9 Unspecified abdominal pain; R10.30 Lower abdominal pain, unspecified; F17.200 Nicotine dependence, unspecified, uncomplicated; J45.909 Unspecified asthma, uncomplicated; E10.9 Type 1 diabetes mellitus without complications; Z79.4 Long term (current) use of insulin; Z79.899 Other long term (current) drug therapy
CPT/HCPCS: 99284; 96361; 96374; 36415; 82962; 83690; 85025; 80053; 81001; 82803; J2405; J7030

== ENCOUNTER 2019-10-23 16:10 | Emergency (ER) | payer OTHER ==
[2019-10-23 16:15] VITALS: BP 136/84
--- NOTE | 2019-10-23 16:58 | ER Document Report ---
ED Oral Problem - General Chief Complaint: Toothache Stated Complaint: MOUTH PAIN Time Seen by Provider: 10/23/19 16:34 Primary Care Provider: CESARIO,MELODY [Primary Care Provider] - Follow up as needed Mode of Arrival: Ambulatory Information source: Patient Notes: Patient is a 39-year-old male comes the emergency room complaining of dental pain in his right lower jaw. Patient did go to a dentist today was being prepped to have it pulled when they checked his blood pressure with a cuff that fits around the wrist. His blood pressure was 184/105 and they refused to do the sedation because it would raise his blood pressure more with using the epinephrine in the injectable. Patient states he told him he does not have a history of hypertension but they have canceled his procedure until he can get a note from his primary doctor that he does not have high blood pressure. Patient states he was in pain when all this was going on and that that is why his pressure was up. He comes to the ER here his blood pressure is 136/84. He was put on antibiotics and ibuprofen but states the pain is still present. TRAVEL OUTSIDE OF THE [place] IN LAST 30 DAYS: No - HPI Patient complains to provider of: Swelling of face Onset: Other - 3 days Onset: Gradual Quality of pain: Stabbing, Throbbing Severity: Severe Pain Level: 4 Context: Fractured tooth Associated symptoms: Toothache Worsened by: Other - And cold Relieved by: Nothing Similar symptoms previously: Yes Recently seen / treated by doctor/dentist: Yes - Related Data Allergies/Adverse Reactions: honey [Honey] Allergy (Verified 06/03/19 11:03) No Known Drug Allergies Allergy (Verified 06/03/19 11:03) Past Medical History - General Information source: Patient - Social History Smoking Status: Current Every Day Smoker Cigarette use (# per day): Yes - Half pack Chew tobacco use (# tins/day): No Smoking Education Provided: Yes Frequency of alcohol use: None Drug Abuse: None Family History: Reviewed & Not Pertinent, CAD, CVA, DM, Hyperlipidemia, Hypertension, Malignancy - Past Medical History Cardiac Medical History: Denies: Hx Congestive Heart Failure, Hx Heart Attack, Hx Hypercholesterolemia, Hx Hypertension Pulmonary Medical History: Reports: Hx Asthma, Hx Pneumonia Denies: Hx COPD Neurological Medical History: Reports: Hx Migraine - INTERMITTENT. Denies: Hx Seizures Endocrine Medical History: Reports: Hx Diabetes Mellitus Type 1. Denies: Hx Diabetes Mellitus Type 2 GI Medical History: Denies: Hx Gastroesophageal Reflux Disease Musculoskeletal Medical History: Denies Hx Arthritis, Reports Hx Musculoskeletal Trauma - Muscle strains and sprains Psychiatric Medical History: Reports: Hx Anxiety, Hx Depression Past Surgical History: Reports: Hx Oral Surgery - Teeth, Hx Urinary Tract Surgery - fractured penis repair - Immunizations Immunizations up to date: Yes Hx Diphtheria, Pertussis, Tetanus Vaccination: Yes - 2019 Hx Pneumococcal Vaccination: 03/25/16 Review of Systems - Review of Systems Constitutional: No symptoms reported EENT: Dental problem Cardiovascular: No symptoms reported Respiratory: No symptoms reported Gastrointestinal: No symptoms reported Genitourinary: No symptoms reported Male Genitourinary: No symptoms reported Musculoskeletal: No symptoms reported Skin: No symptoms reported Hematologic/Lymphatic: No symptoms reported Neurological/Psychological: No symptoms reported -: Yes All other systems reviewed and negative Physical Exam - Vital signs Vitals: Temp Pulse Resp BP Pulse Ox 99.0 F 97 18 136/84 H 99 10/23/19 16:13 10/23/19 16:13 10/23/19 16:13 10/23/19 16:13 10/23/19 16:13 Interpretation: Hypertensive - Notes Notes: PHYSICAL EXAMINATION: GENERAL: Patient is a well-nourished well-developed 39-year-old male though no apparent distress is in obvious pain discomfort. HEAD:c, normocephalic. Examination patient's area concern is the right lower dental area. External examination of the face does show some mild swelling along the lower mandibular area on the right side only. There is no fluctuant area or induration felt. ENT: Patient has poor dental hygiene but the area that is concerning is his right lower tooth #30. That has fractured enamel decayed enamel there is moderate erythema surrounding the gum tooth line. The gum itself is moderately edematous as well. NECK: Normal range of motion, supple without lymphadenopathy LUNGS: Breath sounds clear to auscultation bilaterally and equal. No wheezes rales or rhonchi. HEART: Regular rate and rhythm without murmurs PSYCH: Normal mood, normal affect. SKIN: Warm, Dry, normal turgor, no rashes or lesions noted. Course - Re-evaluation Re-evalutation: 10/23/19 16:54 I did look patient up on the [facility] aware. Patient does not have any history of use of narcotics or doctor shopping. 10/23/19 23:42 Patient did bring with him all the paperwork sent by the dentist to also have included with that a release form from his primary doctor. [facility] that they would not be able to see him today because of the long list of people and he could not handle the pain any longer. I have patient was upfront and honest with me he should be all the paperwork and he will get [facility] person on Saturday to have the tooth extracted. - Vital Signs Vital signs: Temp Pulse Resp BP Pulse Ox 99.0 F 97 18 136/84 H 99 10/23/19 16:13 10/23/19 16:13 10/23/19 16:13 10/23/19 16:13 10/23/19 16:13 Discharge - Discharge Clinical Impression: Pain, dental Condition: Stable Disposition: HOME, SELF-CARE Instructions: Oral Narcotic Medication ([facility]), Toothache ([facility]) Additional Instructions: States he been put on antibiotics by the dentist continue those until gone. He can still continue to take the ibuprofen as prescribed. I have as indicated to you look you up on the [place] narcotic based level you have no history therefore I feel comfortable enough to give you 10 pills through Saturday hopefully keeping her blood pressure down in such a time that you can have this procedure done on Saturday or Saturday. It is important you take the antibiotic as prescribed. Should have any concerns or problems over the weekend he can return to ER for reevaluation. Follow-up with a dentist as prearranged and see her primary care provider for further intervention blood pressure control. Prescriptions: Hydrocodone/Acetaminophen [[place] 5-325 mg Tablet] 1 tab PO Q4 #12 tablet Forms: Elevated Blood Pressure, Smoking Cessation Education, Return to Work [facility] [[facility] - Follow up as needed
== END 2019-10-23 17:15 | disposition home or self-care (01) ==
LOC: ER 16:10
DX: K08.9 Disorder of teeth and supporting structures, unspecified (principal); F17.210 Nicotine dependence, cigarettes, uncomplicated
CPT/HCPCS: 99282

== ENCOUNTER 2020-01-19 04:06 | Emergency (ER) | payer OTHER ==
[2020-01-19] MEDS ORDERED: NORMAL SALINE 1000 ML 1,000 ML IV ONE ×2 (04:54→07:12)
[2020-01-19] MEDS ORDERED: ACETAMINOPHEN 325 MG TABLET PO ONE (04:54)
[2020-01-19 05:14] VITALS: BP 129/81
[2020-01-19 05:50] LABS: VENOUS BLOOD BASE EXCESS -10.5 mmol/L; VENOUS BLOOD HCO3 15.3 mmol/L (20-32); VENOUS BLOOD PCO2 33.6 mmHg (35-63); VENOUS BLOOD PH 7.28 (7.30-7.42)
[2020-01-19 05:52] LABS: ABSOLUTE LYMPHOCYTES (AUTO) 1.7 10^3/uL (0.5-4.7); ABSOLUTE MONOCYTES (AUTO) 0.3 10^3/uL (0.1-1.4); ABSOLUTE NEUT (AUTO) 4.1 10^3/uL (1.7-8.2); BASOPHILS % (AUTO) 0.4 % (0-2); EOSINOPHILS % (AUTO) 0.6 % (0-6); HEMATOCRIT 37.1 % (37.9-51.0); HEMOGLOBIN 12.1 g/dL (13.5-17.0); LYMPHOCYTES % (AUTO) 27.4 % (13-45); MEAN CORPUSCULAR HEMOGLOBIN 31.5 pg (27.0-33.4); MEAN CORPUSCULAR HGB CONC 32.6 g/dL (32.0-36.0); MEAN CORPUSCULAR VOLUME 97 fl (80-97); MONOCYTES % (AUTO) 4.3 % (3-13); PLATELET COUNT 222 10^3/uL (150-450); RED BLOOD COUNT 3.84 10^6/uL (4.35-5.55); RED CELL DISTRIBUTION WIDTH 13.8 % (11.5-14.0); SEGMENTED NEUTROPHILS % (AUTO) 67.3 % (42-78); TOTAL CELLS COUNTED % (AUTO) 100 %; WHITE BLOOD COUNT 6.2 10^3/uL (4.0-10.5)
--- NOTE | 2020-01-19 05:56 | ER Document Report ---
ED Medical Screen (RME) - General Chief Complaint: High Blood Sugar Stated Complaint: BLOOD SUGAR ISSUES Primary Care Provider: [facility] [[facility]] - Follow up as needed Notes: 39-year-old male history of insulin-dependent diabetes presents with lightheadedness and fall he attributes to not being able to take his insulin. Patient taken [facility] [place] [facility] today and was not allowed to take insulin, had normal glucose reading yesterday but then says last before arrival said "high". Patient says he feels very lightheaded and lost consciousness and had a fall from standing and now has headache. Complains of polyuria, but no other urinary symptoms. TRAVEL OUTSIDE OF THE [place] IN LAST 30 DAYS: No - Related Data Allergies/Adverse Reactions: honey [Honey] Allergy (Verified 06/03/19 11:03) No Known Drug Allergies Allergy (Verified 06/03/19 11:03) Home Medications: propanolol, insulin, allergy medication Past Medical History - General Information source: Patient - Past Medical History Cardiac Medical History: Denies: Hx Congestive Heart Failure, Hx Heart Attack, Hx Hypercholesterolemia, Hx Hypertension Pulmonary Medical History: Reports: Hx Asthma, Hx Pneumonia Denies: Hx COPD Neurological Medical History: Reports: Hx Migraine - INTERMITTENT. Denies: Hx Seizures Endocrine Medical History: Reports: Hx Diabetes Mellitus Type 1. Denies: Hx Diabetes Mellitus Type 2 GI Medical History: Denies: Hx Gastroesophageal Reflux Disease Musculoskeltal Medical History: Denies Hx Arthritis, Reports Hx Musculoskeletal Trauma - Muscle strains and sprains Psychiatric Medical History: Reports: Hx Anxiety, Hx Depression Past Surgical History: Reports: Hx Oral Surgery - Teeth, Hx Urinary Tract Surgery - fractured penis repair - Immunizations Immunizations up to date: Yes Hx Diphtheria, Pertussis, Tetanus Vaccination: Yes - 2019 Review of Systems - Review of Systems Notes: Endorses headache, generalized weakness Physical Exam - Vital signs Vitals: Pulse Resp BP Pulse Ox 90 17 129/81 H 100 01/19/20 04:55 01/19/20 04:55 01/19/20 04:55 01/19/20 04:55 - Notes Notes: Middle-aged male lying in bed with no visible signs of trauma in no acute distress, normal respiratory rate and effort Course - Re-evaluation Re-evalutation: 01/19/20 05:56 I have greeted and performed a rapid initial assessment of this patient. A comprehensive ED assessment and evaluation of the patient, analysis of test results and completion of medical decision making process will be conducted by additional ED providers. - Vital Signs Vital signs: Temp Pulse Resp BP Pulse Ox 98.2 F 90 17 129/81 H 100 01/19/20 05:00 01/19/20 04:55 01/19/20 04:55 01/19/20 04:55 01/19/20 04:55 - Laboratory Result Diagrams: 01/19/20 05:20 01/19/20 05:20 Laboratory results interpreted by me: 01/19/20 05:20 VBG pH 7.28 L VBG pCO2 33.6 L VBG HCO3 15.3 L Doctor's Discharge - Discharge Referrals: [facility] [Primary [facility]] - Follow up as needed
[2020-01-19 06:18] LABS: BLOOD UREA NITROGEN 20 mg/dL (7-20); CALCIUM 9.5 mg/dL (8.4-10.2); CARBON DIOXIDE 15 mmol/L (22-30); CHLORIDE 95 mmol/L (98-107); POTASSIUM 5.3 mmol/L (3.6-5.0)
[2020-01-19 06:25] LABS: ANION GAP 21 (5-19)
[2020-01-19 06:29] LABS: GLUCOSE 670 mg/dL (75-110)
--- NOTE | 2020-01-19 06:56 | RADIOLOGY REPORT (SQ) ---
EXAM DESCRIPTION: CT HEAD WITHOUT IV CONTRAST COMPLETED DATE/TME: 01/19/2020 04:53 CLINICAL HISTORY: FALL FROM STANDING. COMPARISON: 09/23/2017 TECHNIQUE: Axial CT of the head obtained from the skull apex to the skull base without contrast. FINDINGS: No acute intracranial hemorrhage identified. No mass, mass effect, shift of the midline, abnormal extra-axial fluid collection or CT evidence of acute ischemic change identified. The ventricular system is unremarkable. No acute abnormalities of the supratentorial white matter, basal ganglia, cerebellum, or brainstem. Mucosal thickening of the paranasal sinuses. Mastoid air cells are well aerated. No skull fracture identified. Visualized orbits and globes are unremarkable. IMPRESSION: 1. No acute intracranial abnormality identified. This exam was performed according to our departmental dose-optimization program, which includes automated exposure control, adjustment of the mA and/or kV according to patient size and/or use of iterative reconstruction technique.
[2020-01-19] MEDS ORDERED: POTASSI CL 20 MEQ/NS 1L 1,000 ML IV PRN (07:12)
[2020-01-19] MEDS ORDERED: NORMAL SALINE 100 ML with INSULIN REGULAR, HUMAN 100 UNIT IV PRN ×2 (07:12)
[2020-01-19] MEDS ORDERED: ONDANSETRON HCL INJ/PF 4 MG/2 ML SDV IV ONE (07:21)
--- NOTE | 2020-01-19 07:22 | ER Document Report ---
ED General - General Chief Complaint: High Blood Sugar Stated Complaint: BLOOD SUGAR ISSUES Time Seen by Provider: 01/19/20 06:15 Primary Care Provider: [facility] [Primary Care Provider] - Follow up as needed TRAVEL OUTSIDE OF THE [place] IN LAST 30 DAYS: No - HPI Notes: Chief complaint: High blood sugar and feeling bad History of present illness: 39-year-old male with history of insulin-dependent diabetes mellitus incarcerated in [facility] since yesterday and has not received any of his insulin and has not had any oral intake since he was taken into custody now presenting with "high" blood sugar reading on Accu-Chek at the care home. Patient complains of dizziness, lightheadedness and says that he stagger and fell while at the care home striking his head with no loss of consciousness. He is nauseated but has not vomited. He has polydipsia and polyuria. [facility] He normally takes Lantus 50 units at night and has not received this in over 24 hours. He is also usually on a supplemental sliding scale of regular insulin. 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 Denies: Hx Seizures Endocrine Medical History: Reports: Hx Diabetes Mellitus Type 1. Denies: Hx Kindra betes Mellitus Type 2 GI Medical History: Denies: Hx Gastroesophageal Reflux Disease Musculoskeletal Medical History: Denies Hx Arthritis, Reports Hx Musculoskeletal Trauma - Muscle strains and sprains Psychiatric Medical History: Reports: Hx Anxiety, Hx Depression Past Surgical History: Reports: Hx Oral Surgery - Teeth, Hx Urinary Tract Surgery - fractured penis repair - Immunizations Immunizations up to date: Yes Hx Diphtheria, Pertussis, Tetanus Vaccination: Yes - 2019 Hx Pneumococcal Vaccination: 03/25/16 Review of Systems - Review of Systems Notes: Constitutional: Negative for fever. HENT: Negative for sore throat. Eyes: Blurred vision. Cardiovascular: Negative for chest pain. Respiratory: Negative for shortness of breath. Gastrointestinal: Nausea without vomiting. Genitourinary: Urinary frequency. Negative for dysuria. Musculoskeletal: Negative for back pain. Skin: Negative for rash. Neurological: Negative for headaches, focal weakness or numbness. 10 point ROS negative except as marked above and in HPI. Physical Exam - Vital signs Vitals: Pulse Resp BP Pulse Ox 90 17 129/81 H 100 01/19/20 04:55 01/19/20 04:55 01/19/20 04:55 01/19/20 04:55 - Notes Notes: GENERAL: Well-developed well-nourished middle-age male appearing sleepy but easily arousable. SKIN: Good turgor no rashes. HEAD: Normocephalic atraumatic. EYES: PERRLA. EOMI. Conjunctivae and sclerae clear. EARS: CANALS AND TMS CLEAR. NOSE: CLEAR. MOUTH: Tacky oral mucosa. Good dentition. No stridor or edema. No drooling. NECK: Supple. No masses or thyromegaly. No adenopathy. Carotids 2+ without bruits. No JVD. BACK: Symmetrical without tenderness. CHEST: Respirations unlabored. Breath sounds clear and symmetrical. HEART: Regular rhythm. No murmur gallop or rub. ABDOMEN: Soft nontender without masses, organomegaly or rebound. Bowel sounds normally active. No bruits. GENITALIA: Deferred. EXTREMITIES: No edema. No calf tenderness. Cap refill less than 1.5 seconds. Dorsalis pedis and posterior tibial pulses 3+ and symmetrical. NEUROLOGICAL: GCS 1 14. Alert and oriented x3. Normal gait. Fluent speech. Cranial nerves II through XII intact. Sensorimotor and cerebellar normal. Normal tone. PSYCHIATRIC: Appropriate affect. Course - Re-evaluation Re-evalutation: 01/19/20 07:25 Patient is in DKA with pH is 7.28 and a bicarb of 16. Sugars in excess of 600. He is started on IV normal saline bolus. Also getting some normal saline with 20 of KCl per liter. Insulin drip initiated. Will present to the hospitalist for admission at this time. 01/19/20 07:35 Hospitalist has been paged 3 times with no answer. mucker operator continues to try to reach the on-call admitting hospitalist. 01/19/20 07:51 Case discussed with on-call hospitalist Dr. Gay who has accepted for admission. - Vital Signs Vital signs: Temp Pulse Resp BP Pulse Ox 98.2 F 90 21 H 129/81 H 98 01/19/20 05:00 01/19/20 04:55 01/19/20 07:13 01/19/20 04:55 01/19/20 07:13 - Laboratory Result Diagrams: 01/19/20 05:20 01/19/20 05:20 Laboratory results interpreted by me: 01/19/20 01/19/20 01/19/20 05:16 05:20 05:20 RBC 3.84 L Hgb 12.1 L Hct 37.1 L VBG pH VBG pCO2 VBG HCO3 Sodium 131.1 L Potassium 5.3 H Chloride 95 L Carbon Dioxide 15 L Anion Gap 21 H Glucose 670 H* POC Glucose > 550 H* Urine Glucose (UA) Urine Ketones 01/19/20 01/19/20 05:20 05:20 RBC Hgb Hct VBG pH 7.28 L VBG pCO2 33.6 L VBG HCO3 15.3 L Sodium Potassium Chloride Carbon Dioxide Anion Gap Glucose POC Glucose Urine Glucose (UA) >=500 H Urine Ketones 20 H - Diagnostic Test Radiology reviewed: Reports reviewed - Per radiologist: Normal noncontrast head CT. - EKG Interpretation by Me Additional EKG results interpreted by me: 01/19/20 07:30 Twelve-lead EKG reviewed by me contemporaneously: 0558 hrs. Indication for study: DKA Rhythm: Normal sinus rhythm Rate: 94 Intervals: Normal QRS axis: Normal +[address]/T wave changes: J-point elevation the 2 V3 consistent with early repolarization Comparison with prior tracing: None Interpretation: Normal EKG with early repolarization Critical Care Note - Critical Care Note Total time excluding time spent on procedures (mins): 35 - IV insulin drip initiated Discharge - Discharge Clinical Impression: DKA (diabetic ketoacidoses) Qualifiers: Diabetes mellitus type: type 1 Diabetes mellitus complication detail: without coma Qualified Code(s): E10.10 - Type 1 diabetes mellitus with ketoacidosis without coma Condition: Fair Disposition: ADMITTED INPATIENT Admitting Provider: Deidra (Hospitalist) Unit Admitted: IMCU [facility] [[facility]] - Follow up as needed
--- NOTE | 2020-01-19 07:27 | EKG REPORT ---
SEVERITY:- ABNORMAL ECG - SINUS RHYTHM CONSIDER ANTEROSEPTAL INFARCT : Confirmed by: Shamar Greene MD 19-Jan-2020 07:26:43
[2020-01-19] MEDS ORDERED: INSULIN REG, HUMAN 100 UNIT/ML 3 ML VIAL (PYX) ONE (07:34)
[2020-01-19 07:39] LABS: APPEARANCE,URINE CLEAR; BILIRUBIN,URINE NEGATIVE (NEGATIVE); COLOR,URINE STRAW; GLUCOSE, URINE >=500 mg/dL (NEGATIVE); KETONES,URINE 20 mg/dL (NEGATIVE); PROTEIN,URINE NEGATIVE (NEGATIVE); URINE SPECIFIC GRAVITY 1.027; UROBILINOGEN,URINE NEGATIVE mg/dL (<2.0)
[2020-01-19 07:55] LABS: URINE AMPHETAMINES SCREEN NEGATIVE; URINE BARBITURATES SCREEN NEGATIVE; URINE BENZODIAZEPINES SCREEN NEGATIVE; URINE COCAINE SCREEN NEGATIVE; URINE MARIJUANA (THC) SCREEN NEGATIVE; URINE METHADONE SCREEN NEGATIVE; URINE PHENCYCLIDINE SCREEN NEGATIVE
--- NOTE | 2020-01-19 08:21 | RADIOLOGY REPORT (SQ) ---
EXAM DESCRIPTION: CHEST SINGLE VIEW IMAGES COMPLETED DATE/TIME: 01/19/2020 7:39 am REASON FOR STUDY: dka COMPARISON: 09/10/2018 EXAM PARAMETERS: NUMBER OF VIEWS: One view. TECHNIQUE: Single frontal radiographic view of the chest acquired. RADIATION DOSE: NA LIMITATIONS: None. FINDINGS: LUNGS AND PLEURA: No opacities, masses or pneumothorax. No pleural effusion. MEDIASTINUM AND HILAR STRUCTURES: No masses. Contour normal. HEART AND VASCULAR STRUCTURES: Heart normal in size. Normal vasculature. BONES: No acute findings. HARDWARE: None in the chest. OTHER: No other significant finding. IMPRESSION: NO ACUTE RADIOGRAPHIC FINDING IN THE CHEST. TECHNICAL DOCUMENTATION: JOB ID: [id number] 2010 [employer]- All Rights Reserved Reading location - IP/workstation name: [email or web address]
--- NOTE | 2020-01-19 11:07 | Progress Note ---
Provider Note Provider Note: The patient was referred for admission. When I arrived in the emergency room to admit the patient was told that the patient was leaving AGAINST MEDICAL ADVICE. I did in fact discussed this with the patient. I have taken care of Mr. Cruz in the past. He was upset but clearly understood the risks of leaving AGAINST MEDICAL ADVICE. I asked him if he would at least give me 24 hours to help correct his sugars but he declined that as well. I did review this with Dr. Grissom and the patient infected signout from the emergency department AGAINST MEDICAL ADVICE. He will return to the long-term at this point. Further disposition is unknown to me at this time.
== END 2020-01-19 08:49 | disposition left against medical advice (07) ==
LOC: ER 04:06
DX: E10.10 Type 1 diabetes mellitus with ketoacidosis without coma (principal); R42 Dizziness and giddiness; R11.0 Nausea; F17.200 Nicotine dependence, unspecified, uncomplicated; Z79.4 Long term (current) use of insulin
CPT/HCPCS: 93005; 99285; 96360; 96361; 36415; 82962; 85025; 80048; 81001; 84484; 80307; 82803; 71045; 70450; 93010; J7030; J3480

== ENCOUNTER 2020-01-21 15:54 | Emergency (ER) | payer OTHER ==
--- NOTE | 2020-01-21 16:17 | ER Document Report ---
HPI - HPI Patient complains to provider of: shoulder pain Time Seen by Provider: 01/21/20 16:13 Notes: Patient is a 39-year-old male with history of type 1 diabetes presenting with left shoulder pain. He had been hospitalized 2 days ago for high blood sugars, stood up to leave while handcuffed and fell onto his left shoulder. Patient was then lifted up off the floor by the left shoulder. Reports severe shoulder pain that has worsened over the last 2 days. He is unable to move the affected shoulder, but can move the elbow and hand. Denies numbness, tingling. Patient denies any other injuries. He states that his blood sugar is significantly improved since he was last in the department. Today his blood sugars have been running in the upper 100s to the low 200s. He has been monitoring it closely and taking his blood sugar. He states several times that he does not want any narcotic pain medicines. - ROS Systems Reviewed and Negative: Yes All other systems reviewed and negative - CONSTITUTIONAL Constitutional: DENIES: Fever, Chills - EENT EENT: DENIES: Sore Throat, Ear Pain - NEURO Neurology: DENIES: Headache, Weakness - CARDIOVASCULAR Cardiovascular: DENIES: Chest pain - RESPIRATORY Respiratory: DENIES: Trouble Breathing, Coughing - GASTROINTESTINAL Gastrointestinal: DENIES: Abdominal Pain, Nausea, Patient vomiting, Diarrhea - MUSCULOSKELETAL Musculoskeletal: REPORTS: Extremity pain Notes: Left shoulder pain - DERM Skin Color: Normal Skin Problems: None Past Medical History - General Information source: Patient - Social History Smoking Status: Current Some Day Smoker Frequency of alcohol use: None Drug Abuse: None Family History: Reviewed & Not Pertinent, CAD, CVA, DM, Hyperlipidemia, Hypertension, Malignancy - Past Medical History Cardiac Medical History: Denies: Hx Congestive Heart Failure, Hx Heart Attack, Hx Hypercholesterolemia, Hx Hypertension Pulmonary Medical History: Reports: Hx Asthma, Hx Pneumonia Denies: Hx COPD Neurological Medical History: Reports: Hx Migraine - INTERMITTENT. Denies: Hx Seizures Endocrine Medical History: Reports: Hx Diabetes Mellitus Type 1. Denies: Hx Diabetes Mellitus Type 2 GI Medical History: Denies: Hx Gastroesophageal Reflux Disease Musculoskeletal Medical History: Denies Hx Arthritis, Reports Hx Musculoskeletal Trauma - Muscle strains and sprains Psychiatric Medical History: Reports: Hx Anxiety, Hx Depression Past Surgical History: Reports: Hx Oral Surgery - Teeth, Hx Urinary Tract Surgery - fractured penis repair - Immunizations Immunizations up to date: Yes Hx Diphtheria, Pertussis, Tetanus Vaccination: Yes - 2019 Hx Pneumococcal Vaccination: 03/25/16 Vertical Provider Document - CONSTITUTIONAL Agree With Documented VS: Yes Exam Limitations: No Limitations General Appearance: WD/WN, No Apparent Distress - INFECTION CONTROL TRAVEL OUTSIDE OF THE [place] IN LAST 30 DAYS: No - HEENT HEENT: Atraumatic, Normocephalic, PERRLA - NECK Neck: Normal Inspection, Supple - RESPIRATORY Respiratory: Breath Sounds Normal, No Respiratory Distress. negative: Rales, Rhonchi, Wheezing - CARDIOVASCULAR Cardiovascular: Regular Rate, Regular Rhythm, No Murmur - GI/ABDOMEN Gastrointestinal: Abdomen Soft, Abdomen Non-Tender, No Organomegaly - BACK Back: Normal Inspection Notes: No tenderness to palpation to the midline cervical, thoracic, lumbar spine. There is no step-off or deformity - MUSCULOSKELETAL/EXTREMETIES Notes: Patient has exquisite tenderness to palpation over the left glenohumeral joint. There is no step-off or deformity. There is no edema. There is no evidence for separation at the AC joint. There is a spasm in the left trapezius muscle. Patient is tearful when manipulating the left shoulder joint. He is nontender to palpation at the left elbow, left wrist, left hand. He does have 5 out of 5 strength in his left hand test tech. He has decreased range of motion in the shoulder joint in all planes of motion. He cannot move it greater than 20 degrees without a lot of pain. Radial pulses are intact and equal. Fingers have cap refill that is less than 2 seconds. - NEURO Level of Consciousness: Awake, Alert, Appropriate - DERM Integumentary: Warm, Dry, No Rash Course - Re-evaluation Re-evalutation: 01/21/20 impression: Left shoulder injury. X-rays negative for dislocation, separation, fracture. Given the level of his pain suspect an internal joint problem such as either rotator cuff or labrum issue. I have discussed this with the patient and included the results of his x-ray. I have put the patient in a sling given him Toradol here. He states the Toradol has helped. He again declines any controlled pain medicine. He states he would like muscle relaxants and Motrin 800 for home use. I have instructed him to follow-up with orthopedist without fail. Patient agrees with the plan. He has been encouraged to return if worsening. - Vital Signs Vital signs: Temp Pulse Resp BP Pulse Ox 98.5 F 111 H 16 140/81 H 98 01/21/20 16:00 01/21/20 16:00 01/21/20 16:00 01/21/20 16:00 01/21/20 16:00 - Diagnostic Test Radiology reviewed: Image reviewed, Reports reviewed Discharge - Discharge Clinical Impression: Injury of left shoulder Qualifiers: Encounter type: initial encounter Qualified Code(s): S49.92XA - Unspecified injury of left shoulder and upper arm, initial encounter Left shoulder pain Qualifiers: Chronicity: acute Qualified Code(s): M25.512 - Pain in left shoulder Condition: Stable Disposition: HOME, SELF-CARE Instructions: Shoulder Injury ([facility]), Sling as Treatment ([facility]) Additional Instructions: Keep arm in sling for comfort. Take medicine as prescribed. He will be written for a muscle relaxant. You may continue Tylenol and Motrin. Follow-up with orthopedist without fail. Prescriptions: Cyclobenzaprine HCl [Flexeril 10 mg Tablet] 10 mg PO TID #21 tablet Ibuprofen [Motrin 800 mg Tablet] 800 mg PO Q8H PRN #30 tab PRN Reason: Referrals: [facility] [Primary [facility]] - Follow up as needed YESSENIA CARDOSO JR, DO [ACTIVE PROVISIONAL STAFF] - Follow up in 3-5 days
[2020-01-21] MEDS ORDERED: KETOROLAC TROMETHAMINE 60 MG/2 ML SDV IM ONE (16:25)
--- NOTE | 2020-01-21 16:45 | RADIOLOGY REPORT (SQ) ---
EXAM DESCRIPTION: SHOULDER LEFT 2 OR MORE VIEWS IMAGES COMPLETED DATE/TIME: 01/21/2020 4:37 pm REASON FOR STUDY: shoulder injury COMPARISON: 05/05/2016. NUMBER OF VIEWS: Three views. TECHNIQUE: Internal rotation, external rotation, and Y view images acquired of the left shoulder. LIMITATIONS: None. FINDINGS: MINERALIZATION: Normal. BONES: No acute fracture. No worrisome bone lesions. JOINTS: No dislocation. VISUALIZED LUNGS AND RIBS: No pneumothorax. No rib fracture. SOFT TISSUES: No radiopaque foreign body. OTHER: No other significant finding. IMPRESSION: NEGATIVE STUDY OF THE LEFT SHOULDER. NO RADIOGRAPHIC EVIDENCE OF ACUTE INJURY. TECHNICAL DOCUMENTATION: JOB ID: [id number] 2010 [employer] All Rights Reserved Reading location - IP/workstation name: [email or web address]
[2020-01-21 18:00] VITALS: BP 132/80
== END 2020-01-21 17:40 | disposition home or self-care (01) ==
LOC: ER 15:54
DX: S49.92XA Unspecified injury of left shoulder and upper arm, initial encounter (principal); W19.XXXA Unspecified fall, initial encounter; M25.512 Pain in left shoulder; E10.9 Type 1 diabetes mellitus without complications; F17.200 Nicotine dependence, unspecified, uncomplicated
CPT/HCPCS: 99284; 96372; 73030; J1885

== ENCOUNTER 2020-02-08 15:40 | Emergency (ER) | payer OTHER ==
[2020-02-08] MEDS ORDERED: NORMAL SALINE 1000 ML 1,000 ML IV ONE ×3 (17:08→19:37)
--- NOTE | 2020-02-08 17:10 | ER Document Report ---
ED Medical Screen (RME) - General Chief Complaint: High Blood Sugar Stated Complaint: HIGH BLOOD SUGAR Time Seen by Provider: 02/08/20 17:06 Primary Care Provider: MELODY NASSAR [Primary Care Provider] - Follow up as needed Mode of Arrival: Ambulatory Notes: 39-year-old male presented to ED for elevated blood sugar. He states he was getting ready for work and he took his blood sugar and it read high so he gave himself the most insulin he can give himself at home waited an hour and they rechecked his blood pressure sugar and it was still high. He is now in the emergency room and his sugar is 268. He is a type I diabetic. We will get blood urine DKA protocol and have him seen by a provider. I have greeted and performed a rapid initial assessment of this patient. A comprehensive ED assessment and evaluation of the patient, analysis of test results and completion of medical decision making process will be conducted by an additional ED providers. TRAVEL OUTSIDE OF THE [place] IN LAST 30 DAYS: No - Related Data Allergies/Adverse Reactions: honey [Honey] Allergy (Verified 01/21/20 16:04) No Known Drug Allergies Allergy (Verified 01/21/20 16:04) Past Medical History - Past Medical History Cardiac Medical History: Denies: Hx Congestive Heart Failure, Hx Heart Attack, Hx Hypercholesterolemia, Hx Hypertension Pulmonary Medical History: Reports: Hx Asthma, Hx Pneumonia Denies: Hx COPD Neurological Medical History: Reports: Hx Migraine - INTERMITTENT. Denies: Hx Seizures Endocrine Medical History: Reports: Hx Diabetes Mellitus Type 1. Denies: Hx Diabetes Mellitus Type 2 GI Medical History: Denies: Hx Gastroesophageal Reflux Disease Musculoskeltal Medical History: Denies Hx Arthritis, Reports Hx Musculoskeletal Trauma - Muscle strains and sprains Psychiatric Medical History: Reports: Hx Anxiety, Hx Depression Past Surgical History: Reports: Hx Oral Surgery - Teeth, Hx Urinary Tract Surgery - fractured penis repair - Immunizations Immunizations up to date: Yes Hx Diphtheria, Pertussis, Tetanus Vaccination: Yes - 2019 Physical Exam - Vital signs Vitals: Temp Pulse Resp BP Pulse Ox 98.3 F 123 H 18 110/70 99 02/08/20 17:00 02/08/20 17:00 02/08/20 17:00 02/08/20 17:00 02/08/20 17:00 Course - Vital Signs Vital signs: Temp Pulse Resp BP Pulse Ox 98.3 F 123 H 18 110/70 99 02/08/20 17:00 02/08/20 17:00 02/08/20 17:00 02/08/20 17:00 02/08/20 17:00 Doctor's Discharge - Discharge Referrals: [facility] [[facility]] - Follow up as needed
[2020-02-08 18:09] LABS: ABSOLUTE EOSINOPHILS # (AUTO) 0.1 10^3/uL (0.0-0.6); ABSOLUTE LYMPHOCYTES (AUTO) 3.4 10^3/uL (0.5-4.7); ABSOLUTE MONOCYTES (AUTO) 0.2 10^3/uL (0.1-1.4); ABSOLUTE NEUT (AUTO) 4.7 10^3/uL (1.7-8.2); BASOPHILS % (AUTO) 0.5 % (0-2); EOSINOPHILS % (AUTO) 1.2 % (0-6); HEMATOCRIT 39.5 % (37.9-51.0); HEMOGLOBIN 13.6 g/dL (13.5-17.0); MEAN CORPUSCULAR HEMOGLOBIN 31.7 pg (27.0-33.4); MEAN CORPUSCULAR HGB CONC 34.4 g/dL (32.0-36.0); MONOCYTES % (AUTO) 2.7 % (3-13); PLATELET COUNT 275 10^3/uL (150-450); RED BLOOD COUNT 4.28 10^6/uL (4.35-5.55); SEGMENTED NEUTROPHILS % (AUTO) 55.6 % (42-78); TOTAL CELLS COUNTED % (AUTO) 100 %; WHITE BLOOD COUNT 8.4 10^3/uL (4.0-10.5)
[2020-02-08 18:11] LABS: MEAN CORPUSCULAR VOLUME 92 fl (80-97)
[2020-02-08 18:18] LABS: ALBUMIN 4.9 g/dL (3.5-5.0); ALKALINE PHOSPHATASE 118 U/L (38-126); ANION GAP 15 (5-19); ASPARTATE AMINO TRANSFERASE 26 U/L (17-59); BILIRUBIN,DIRECT 0.1 mg/dL (0.0-0.4); BLOOD UREA NITROGEN 18 mg/dL (7-20); CALCIUM 10.3 mg/dL (8.4-10.2); CARBON DIOXIDE 20 mmol/L (22-30); CHLORIDE 99 mmol/L (98-107); GLUCOSE 246 mg/dL (75-110); TOTAL PROTEIN 8.2 g/dL (6.3-8.2)
[2020-02-08 18:20] LABS: VENOUS BLOOD BASE EXCESS -6.1 mmol/L; VENOUS BLOOD HCO3 19.8 mmol/L (20-32); VENOUS BLOOD PCO2 40.4 mmHg (35-63); VENOUS BLOOD PH 7.31 (7.30-7.42)
[2020-02-08 18:58] LABS: APPEARANCE,URINE CLEAR; BILIRUBIN,URINE NEGATIVE (NEGATIVE); COLOR,URINE YELLOW; GLUCOSE, URINE >=500 mg/dL (NEGATIVE); KETONES,URINE 80 mg/dL (NEGATIVE); LEUKOCYTE ESTERASE,URINE NEGATIVE (NEGATIVE); NITRITE,URINE NEGATIVE (NEGATIVE); PROTEIN,URINE NEGATIVE (NEGATIVE); URINE SPECIFIC GRAVITY 1.026; UROBILINOGEN,URINE NEGATIVE mg/dL (<2.0)
--- NOTE | 2020-02-08 19:37 | ER Document Report ---
ED General - General Chief Complaint: High Blood Sugar Stated Complaint: HIGH BLOOD SUGAR Time Seen by Provider: 02/08/20 17:06 Primary Care Provider: [facility] [[facility]] - Follow up as needed Mode of Arrival: Ambulatory TRAVEL OUTSIDE OF THE [place] IN LAST 30 DAYS: No - HPI Notes: Chief complaint: High blood sugar History of present illness: 39-year-old male with longstanding history of diabetes mellitus type 1 which he treats with 50 units of Lantus each evening and a sliding scale regimen for regular insulin which she takes 4 times daily now presents with concerns about high blood sugar. Patient says he has been excessively thirsty and urinating a lot over the last several days. 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 He denies vomiting, chest pain or shortness of breath. He decided he should come to the emergency department to be checked. As he is fully compliant with his diet med ications at this time. - Related Data Allergies/Adverse Reactions: honey [Honey] Allergy (Verified 01/21/20 16:04) No Known Drug Allergies Allergy (Verified 01/21/20 16:04) Past Medical History - General Information source: Patient, [facility] Records - Social History Smoking Status: Current Every Day Smoker Cigarette use (# per day): Yes - 10 cigarettes/day Smoking Education Provided: Yes Frequency of alcohol use: None Drug Abuse: None Family History: Reviewed & Not Pertinent, CAD, CVA, DM, Hyperlipidemia, Hypertension, Malignancy - Past Medical History Cardiac Medical History: Denies: Hx Congestive Heart Failure, Hx Coronary Artery Disease, Hx Heart Attack, Hx Hypercholesterolemia, Hx Hypertension Pulmonary Medical History: Reports: Hx Asthma, Hx Pneumonia Denies: Hx COPD Neurological Medical History: Reports: Hx Migraine - INTERMITTENT. Denies: Hx Seizures Endocrine Medical History: Reports: Hx Diabetes Mellitus Type 1. Denies: Hx Diabetes Mellitus Type 2 GI Medical History: Denies: Hx Gastroesophageal Reflux Disease Musculoskeletal Medical History: Denies Hx Arthritis, Reports Hx Musculoskeletal Trauma - Muscle strains and sprains Psychiatric Medical History: Reports: Hx Anxiety, Hx Depression Past Surgical History: Reports: Hx Oral Surgery - Teeth, Hx Urinary Tract Surgery - fractured penis repair - Immunizations Immunizations up to date: Yes Hx Diphtheria, Pertussis, Tetanus Vaccination: Yes - 2019 Hx Pneumococcal Vaccination: 03/25/16 Review of Systems - Review of Systems Notes: Constitutional: Negative for fever. HENT: Negative for sore throat. Eyes: Negative for visual changes. Cardiovascular: Negative for chest pain. Respiratory: Negative for shortness of breath. Gastrointestinal: Negative for abdominal pain, vomiting or diarrhea. Genitourinary: Negative for dysuria. Musculoskeletal: Negative for back pain. Skin: Negative for rash. Neurological: Negative for headaches, weakness or numbness. 10 point ROS negative except as marked above and in HPI. Physical Exam - Vital signs Vitals: Temp Pulse Resp BP Pulse Ox 98.3 F 123 H 18 110/70 99 02/08/20 17:00 02/08/20 17:00 02/08/20 17:00 02/08/20 17:00 02/08/20 17:00 - Notes Notes: GENERAL: Well-developed well-nourished middle-age male appearing in no acute distress. SKIN: Good turgor no rashes. HEAD: Normocephalic atraumatic. EYES: PERRLA. EOMI. Conjunctivae and sclerae clear. EARS: CANALS AND TMS CLEAR. NOSE: CLEAR. MOUTH: Moist mucosa. Good dentition. No stridor or edema. No drooling. NECK: Supple. No masses or thyromegaly. No adenopathy. Carotids 2+ without bruits. No JVD. BACK: Symmetrical without tenderness. CHEST: Respirations unlabored. Breath sounds clear and symmetrical. HEART: Tachycardic. Regular rhythm. No murmur gallop or rub. ABDOMEN: Soft nontender without masses, organomegaly or rebound. Bowel sounds normally active. No bruits. GENITALIA: Deferred. EXTREMITIES: No edema. No calf tenderness. Cap refill less than 1.5 seconds. Dorsalis pedis and posterior tibial pulses 3+ and symmetrical. NEUROLOGICAL: GCS 15. Alert and oriented x3. Normal gait. Fluent speech. Cranial nerves II through XII intact. Sensorimotor and cerebellar normal. Normal tone. PSYCHIATRIC: Appropriate affect. Course - Re-evaluation Re-evalutation: 02/08/20 20:56 Patient appears to be on the "cusp" of DKA. His venous pH is 7.3. His anion gap and CO2 are normal. His blood sugar initially was 248. Patient received 2 L normal saline IV. His blood sugar came down to 220. He feels well at this time. He is going to get 1/3 L of fluid and I encouraged him to continue his current insulin regimen and check in with his primary physician tomorrow. I have given him a work note for the next 3 days. Findings, clinical impression and plan of treatment have been discussed with patient/family. Understanding of current findings and recommendations has been acknowledged by them and there is agreement regarding disposition and follow-up. 02/08/20 21:01 Findings, clinical impression and plan of treatment have been discussed with patient/family. Understanding of current findings and recommendations has been acknowledged by them and there is agreement regarding disposition and follow-up. - Vital Signs Vital signs: Temp Pulse Resp BP Pulse Ox 98.3 F 123 H 20 110/70 99 02/08/20 17:00 02/08/20 17:00 02/08/20 19:06 02/08/20 17:00 02/08/20 17:00 - Laboratory Result Diagrams: 02/08/20 17:42 02/08/20 17:42 Laboratory results interpreted by me: 02/08/20 02/08/20 02/08/20 17:42 17:42 17:42 RBC 4.28 L [place] % (Auto) 2.7 L VBG HCO3 19.8 L Sodium 133.8 L Carbon Dioxide 20 L Glucose 246 H Calcium 10.3 H Urine Glucose (UA) Urine Ketones 02/08/20 18:40 RBC [place] % (Auto) VBG HCO3 Sodium Carbon Dioxide Glucose Calcium Urine Glucose (UA) >=500 H Urine Ketones 80 H - EKG Interpretation by Me Additional EKG results interpreted by me: 02/08/20 20:58 Twelve-lead EKG reviewed by me contemporaneously: 2004 hrs. Indication for study: DKA Rhythm: Sinus tachycardia Rate: 102 Intervals: QRS axis: +[address]/T wave changes: Nonspecific inferior T wave changes Comparison with prior tracing: No significant interval changes compared with prior study of 01/19/2020 Interpretation: Sinus tachycardia Discharge - Discharge Clinical Impression: Diabetes mellitus type 1 with hyperglyce Condition: Stable Disposition: HOME, SELF-CARE Additional Instructions: Continue your current insulin routine. Follow your previous diet recommendations closely. Increase oral fluids. Return here as needed for new or worsening symptoms. You have been provided a work note for 3 days. See your primary care doctor tomorrow. Forms: Return to Work Referrals: [facility] [[facility]] - Follow up as needed
[2020-02-08 21:24] VITALS: BP 121/82
--- NOTE | 2020-02-09 15:20 | EKG REPORT ---
SEVERITY:- ABNORMAL ECG - SINUS TACHYCARDIA PROBABLE LEFT ATRIAL ABNORMALITY CONSIDER ANTEROSEPTAL INFARCT BORDERLINE T ABNORMALITIES, INFERIOR LEADS : Confirmed by: Tracee Churchill MD 09-Feb-2020 15:19:31
== END 2020-02-08 21:20 | disposition home or self-care (01) ==
LOC: ER 15:40
DX: E10.65 Type 1 diabetes mellitus with hyperglycemia (principal); Z79.4 Long term (current) use of insulin; F17.210 Nicotine dependence, cigarettes, uncomplicated
CPT/HCPCS: 93005; 99284; 96360; 96361; 36415; 82962; 85025; 80053; 81001; 82803; 93010; J7030